=== PATIENT | male | born 1935 | race Caucasian/White ===

== ENCOUNTER 2016-10-29 12:39 | Outpatient (CLI) | payer MEDICARE, OTHER ==
[~2016-10-29] VITALS: Ht 175.3 cm; Wt 80.0 kg
[~2016-10-29 12:39] MED LIST: ACET-2307 PO; ACHD5005 PO; ASP325TEC; ASPI-84 PO; ASPI-983 PO; B COMPLEX PO; BUDE3CAP PO; CAND4TAB PO; CAND4TAB3 PO; CETI10TA17 PO; CHOL20003 PO; CHOL5000 PO; CLIN-62 PO; CLPD75T; CNDS16T; CREON; CYAN500L PO; DIPH25CA79 PO; E400C PO; FERR324T7 PO; FLUT9.9S NS; FOLI0.8T PO; FOLIC ACID 800MCG; FURO20TA4 PO; GLUC1CAP14 PO; GLUCOSAMINE PO; HYDR-3583 PO; IRON150C13 PO; KETO5DRO14 OS; LIPA1CAP2 PO; LORA10TA7 PO; MAGN100T3 PO; MAGN400T6 PO; MAGNESIUM W/ZINC; METO-351 PO; METO25TA PO; MONT10TA24 PO; MTP25TSR PO; MULT1TAB63 PO; NAPR-243 PO; NAPR-689 PO; NF-ESOM40C PO; NIA500ERT PO; NIAC1000 PO; NIAC100045 PO; NIACIN 100 MG; NTR.4SL SL; OFLO5DRO3 OS; OMG1KC PO; POLY-IRON PO; POTA99TA4 PO; POTASSIUM; PRED5DRO17 OS; SELENIUM PO; SILD50TA PO; SIMV40TA2; SIMV40TA2 PO; SIMV40TA4 PO; SUPER B COMPLEX PO; TOLTA4 PO; VARD20TA30 PO; VIT B PO; VITA150T PO; VITAMIN E PO; ZINC PO; [UNRECOGNIZED DRUG - OTHER] PO
[2016-10-29] MEDS ORDERED: MELA1TAB10 PO (12:59)
[2016-10-29 13:05] VITALS: BP 149/86
== END 2016-10-29 14:14 | disposition home or self-care (01) ==
LOC: PREOP 12:39
PROVIDERS: ATTEND Orthopaedic Surgery
DX: Z01.818 Encounter for other preprocedural examination (principal); Z11.2 Encounter for screening for other bacterial diseases; M22.41 Chondromalacia patellae, right knee
CPT/HCPCS: 87081

== ENCOUNTER 2016-11-04 06:05 | Day surgery (SDC) | payer MEDICARE, OTHER ==
--- NOTE | 2016-10-30 07:25 | HISTORY AND PHYSICAL ---
DICTATING PHYSICIAN: Dr. Baker DATE OF ADMISSION: 11/04/2016 Outpatient surgery for right knee arthroscopy. HISTORY: The patient is a 81-year-old gentleman with progressively worsening right knee pain. He underwent an arthroscopy 22 years ago for an anterior knee injury. He did well from this. He complained of anterior knee pain, popping, catching and swelling. His main complaint is mechanical symptoms. He denies any recent injuries. He denies back pain and paresthesias. He has not improved with anti-inflammatories, and activity modifications and because this is he has elected to proceed with surgical intervention. REVIEW OF SYSTEMS: No chest pain, no shortness of breath. No dysuria. PAST MEDICAL HISTORY: 1. Hypertension. 2. Coronary artery disease. 3. Rectal bleeding. 4. Herniorrhaphy. 5. Benign prosthetic hypertrophy. 6. Prostate cancer. 7. Anemia. PAST SURGICAL HISTORY: 1. Cholecystectomy. 2. Prostatectomy. 3. Tonsillectomy. 4. Herniorrhaphy. 5. EGD. FAMILY HISTORY: Significant for coronary artery disease, cancer. PRIMARY CARE PROVIDER: Dr. Franco. MEDICATIONS: 1. Nexium. 2. Simvastatin. 3. Creon. 4. Atacand. 5. Flonase. 6. Metoprolol. 7. Niaspan. 8. Nitroglycerins. 9. Singulair. 10. Zyrtec. 11. Detrol. 12. Iron. 13. Folic acid. 14. Ellipta. 15. Furosemide. 16. Magnesium oxide. 17. Melatonin. 18. Nexium. ALLERGIES: 1. NAPROSYN. 2. IV DYE. 3. KEFLEX. SOCIAL HISTORY: The patient reports no tobacco or alcohol use. PHYSICAL EXAMINATION: The patient is well-developed, well-nourished, in no acute distress. HEENT: Normocephalic, atraumatic. Pupils are equal, round, and reactive light, oropharynx is clear. NECK: Supple. No lymphadenopathy. LUNGS: Clear to auscultation bilaterally. HEART: Regular rate and rhythm. ABDOMEN: Soft, nontender, nondistended. EXTREMITY EXAM: The right knee demonstrates a moderate effusion. He has patellofemoral crepitus and pain with patellar loading. Range of motion 0/0/130. There is no varus valgus laxity. Negative anterior and posterior drawer. He is mildly tender along his medial joint line and has pain medially with Solomon's. 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 PLAN: Right knee arthroscopy with chondroplasty with partial medial meniscectomy. The risks, benefits, options, ramifications and recovery have been discussed in length with the patient and he understands wishes to proceed. Job ID: [id number] Dictated Date: 10/28/2016 13:55:00 Supervisor [employer]astering Date: 10/28/2016 15:13:04/daniela
[~2016-11-04] VITALS: Ht 175.3 cm; Wt 80.0 kg
[~2016-11-04 06:05] MED LIST changes: +MELA1TAB10 PO
[2016-11-04] MEDS ORDERED: LACTATED RINGERS 1,000 ML IV PRN (06:15)
[2016-11-04] MEDS ORDERED: FAMOTIDINE 20MG/2ML IV (PEPCID) IV ONE (06:15)
[2016-11-04] MEDS ORDERED: ceFAZolin 1,000 MG (ANCEF) VIAL ONE (06:18)
[2016-11-04] MEDS ORDERED: NORMAL SALINE (BAXTER MINI) 50 ML IV ONE (06:18)
[2016-11-04] MEDS ORDERED: morphine PF (DURAMORPH) 10 MG/10 ML AMP ONE (06:56)
[2016-11-04] MEDS ORDERED: BUPIVACAINE 0.25% 30 ML (SENSORCAINE) VIAL ONE (06:57)
[2016-11-04 07:03] VITALS: BP 164/95
[2016-11-04] MEDS ORDERED: SEVOFLURANE (ULTANE) 15 ML INHAL SOLN ONE ×3 (07:09→08:03)
[2016-11-04] MEDS ORDERED: LIDOCAINE PF 2% 10 ML (XYLOCAINE) AMP ONE (07:09)
[2016-11-04] MEDS ORDERED: proPOfol 200 MG/20 ML (DIPRIVAN) VIAL IV ONE (07:09)
[2016-11-04] MEDS ORDERED: LACTATED RINGERS 1,000 ML IV ONE (07:09)
[2016-11-04] MEDS ORDERED: MIDAZOLAM 2 MG/2 ML (VERSED) VIAL ONE (07:10)
[2016-11-04] MEDS ORDERED: fentaNYL INJECTION 100 MCG/2 ML AMP ONE (07:10)
[2016-11-04] MEDS ORDERED: HYDROcodone/APAP 7.5 MG/325 MG (LORTAB, LORCET PLUS) TABLET PO PRN (07:15)
--- NOTE | 2016-11-04 07:24 | Progress Note-Pre Operative ---
Pre-Operative Progress Note H&P Reviewed The H&P was reviewed, patient examined and no changes noted. Date H&P Reviewed: Nov 04, 2016 Time H&P Reviewed: 07:11 Pre-Operative Diagnosis: right knee chondromalacia of the patella and trochlea ROMULO MASCORRO MD Nov 04, 2016 07:24
--- NOTE | 2016-11-04 07:25 | Progress Note-Post Operative ---
Post-Operative Progess Note Lehr Operator Eliot Paredes Pre-Operative Diagnosis right knee chondromalacia of the patella and trochlea Post-Operative Diagnosis right knee chondromalacia of the patella, trochlea and medial femoral condyle, medial and lateral meniscal tears Post-Op Procedure Note Date of Procedure: Nov 04, 2016 Name of Procedure: right knee arthroscopic chondroplasty of the patella, trochlea and medial femoral condyle and partial medial and lateral meniscectomies Anesthesia Type GETA Estimated blood loss (mL): minimal Packing: none Specimen(s) collected none ROMULO MASCORRO MD Nov 04, 2016 07:25
[2016-11-04] MEDS ORDERED: ceFAZolin 1 GM/NS 50 ML IVPB IV ONE ×2 (07:45)
[2016-11-04] MEDS ORDERED: DEXAMETHASONE PF 10 MG/ML (DECADRON) VIAL ONE (08:03)
[2016-11-04] MEDS ORDERED: ONDANSETRON 4 MG/2 ML (SDV) Z0FRAN ONE (08:03)
[2016-11-04 09:00] VITALS: BP 147/78
[2016-11-04 09:30] VITALS: BP 157/77
[2016-11-04] MEDS ORDERED: HYDR-3816 PO (09:35)
[2016-11-04 10:00] VITALS: BP 161/79
[2016-11-04 10:13] VITALS: BP 161/79
--- NOTE | 2016-11-04 10:22 | Physical Therapy Ortho Eval ---
PT Orthopedic Evaluation Type of Surgery Knee Scope Elective (R) knee scope chondroplasty with medial meniscectomy Prior Level of Function Current Living Status: Spouse Locomotion (Upon Admit): Independent Established Durable Medical Eq: Front Wheeled Walker Subjective Subjective Pt has no c/o pain. Reports he feels steady and confident in his ability to return home. Entry Into Home: Stairs With Railing Steps Into Home: 3 Motor Control Motor Control: Motor Control WNL ROM ROM: WFL, except focal deficit Right knee 5 -110 degrees Strength right quad 4/5 Transfer Transfers (B, C, W/C) (FIM): 6 Demonstrated ability to get in and out of bed, transfer from sit to stand, and from bed to chair all with modified independence using walker or bed rail. Gait Gait Assistive Device: FWW Distance (FIM): 3=150 ft Distance: 150 Gait Level of Assist: 6 Treatment Rendered Treatment: Therapeutic Exercises, Step Train, Issued Written HEP Exercise Instruction: Quad Sets, Straight Leg Raise, Heel Slides Assessment/Goals Goal Time Frame: 1 Visit Pt demonstrated safe mobility and understanding of home exercises. Pt to be dismissed to home with assist of and son for getting into the home. Plan Treatment Plan: Education, Gait, Therapeutic Exercise Treatment Duration: 1 visit Visits Per Week: 1 PT/Family Agrees to Plan: Yes Time Time In: 1000 Time Out: 1020 Total Billed Treatment Time: 20 Billed Treatment Time visit, eval low complexity Yes PT/OT Therapy GCodes Therapy Functional Limitation: Physical Therapy Test(s)/Tool used to determine: Ko Functional Limitation-Current Charge Code: MOBCUR Modifier: CI Functional Limitation-Goal Charge Code: MOBGOAL Modifier: CI Functional Limitation-D/C Charge Codes: MOBDC Modifier: CI TORRI LOBO PT Nov 04, 2016 10:22
--- NOTE | 2016-11-04 13:10 | OPERATIVE REPORT ---
PROCEDURE PHYSICIAN: ROMULO MASCORRO DATE OF PROCEDURE: 11/04/2016 PREOPERATIVE DIAGNOSIS: 1. Right knee chondromalacia patella. 2. Right knee chondromalacia of the trochlea. POSTOPERATIVE DIAGNOSIS: 1. Right knee chondromalacia patella. 2. Right knee chondromalacia of the trochlea. 3. Right knee chondromalacia of the medial femoral condyle. 4. Right knee lateral meniscal tear. 5. Right knee medial meniscal tear. PROCEDURE: 1. Right knee arthroscopic chondroplasty of the patella. 2. Right knee arthroscopic chondroplasty of the trochlea. 3. Right knee arthroscopic chondroplasty of the medial femoral condyle. 4. Right knee arthroscopic partial lateral meniscectomy. 5. Right knee arthroscopic partial medial meniscectomy. SURGEON: [employer] DRIVER: Eliot Paredes who assisted throughout the procedure and closed the incisions. ANESTHESIA: General endotracheal by [place] CRNA. TOURNIQUET TIME: Was not applicable. ESTIMATED BLOOD LOSS: Minimal. DRAINS: None. COMPLICATIONS: None. POSTOPERATIVE PLAN: Routine arthroscopy protocol. DISPOSITION: The patient was transported to the recovery room, awake, in stable condition. 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 He reported increasing pain, catching, locking and swelling. He had pain with patellar loading with a large effusion noted. He understood that an arthroscopy would help with his mechanical symptoms but would not cure his arthritic symptoms but due to failure to improve with conservative measures the patient elected to proceed with surgical intervention. Examination under anesthesia revealed range of motion 0/2/130. Negative Keith. Negative anterior and posterior drawer. No varus valgus laxity. Negative pivot shift. Arthroscopic findings: The patella trochlea demonstrated diffuse grade 4 chondral loss centrally with surrounding grade 3 chondral flaps at the periphery. The medial and lateral gutters were clear. The lateral compartment demonstrated a degenerative tear of the posterior horn of the medial meniscus involving approximately 20% of the posterior horn. No significant chondral pathology was noted. The ACL and PCL were intact. The medial compartment demonstrated a horizontal cleavage tear of the posterior horn of the meniscus involving approximately 1/3rd of the posterior horn. In addition, there was grade 2 chondral flap near the intracondylar notch in a 10 x 10 area on the femoral condyle. PROCEDURE: After risks and benefits of procedure were discussed an informed consent was signed and placed on the chart. The operative site was confirmed in the preoperative holding and initialed by the surgeon. The patient was then transported to the operating room and after adequate levels of general endotracheal anesthetic were seen a timeout was called confirming the operative site. Examination under anesthesia was performed with the above findings noted. The right lower extremity was prepped and draped usual sterile fashion. 60 mL of fluid was used to insufflate the joint and an inferolateral portal was placed for the arthroscope with inflow cannula. Under direct visualization an inferior medial port was created. The menisci cruciate was carefully probed with the above the above findings noted. The unstable chondral flaps on the patella and trochlea were debrided with a shaver, back to a stable edge. The scope was redirected into the lateral compartment and the posterior horn of the lateral meniscus was debrided with a shaver, back to a stable edge. The scope was redirected into the medial compartment where the unstable chondral flaps of the medial femoral condyle were debrided with a shaver, back to a stable edge and the posterior horn of the medial meniscus was debrided with biter and shaver, removing approximately one 1/3rd of the posterior horn. This was carefully probed with no further tearing or instability noted. The knee was copiously irrigated. Port sites closed with 3-0 nylon in simple interrupted fashion. The knee was injected with Duramorph. Portal sites were infiltrated with plain Marcaine. A soft dressing was applied. The patient was transported to the recovery room, awake, in stable condition subsequently. Job ID: [id number] Dictated Date: 11/04/2016 08:05:02 Press Reader Date: 11/04/2016 13:01:21 / daniela RODRIGUEZ
== END 2016-11-04 10:13 | disposition home or self-care (01) ==
LOC: SDC 06:05
PROVIDERS: ATTEND Orthopaedic Surgery
DX: M22.41 Chondromalacia patellae, right knee (principal); I10 Essential (primary) hypertension; I25.10 Atherosclerotic heart disease of native coronary artery without angina pectoris; Z85.46 Personal history of malignant neoplasm of prostate; Z79.899 Other long term (current) drug therapy

== ENCOUNTER 2017-01-15 10:48 | Outpatient (CLI) | payer MEDICARE, OTHER ==
[~2017-01-15] VITALS: Ht 175.3 cm; Wt 80.0 kg
[~2017-01-15 10:48] MED LIST changes: +HYDR-3816 PO
[2017-01-15] MEDS ORDERED: BUPIVACAINE 0.25% 30 ML (SENSORCAINE) VIAL ONE (11:04)
[2017-01-15] MEDS ORDERED: LIDOCAINE 1% INJ 20 ML (XYLOCAINE) VIAL ONE (11:04)
[2017-01-15] MEDS ORDERED: TRIAMCINOLONE ACET (KENALOG-40) 40 MG/ML 1 ML VIAL ONE (11:04)
[2017-01-15 11:36] VITALS: BP 144/84
[2017-01-15 12:10] VITALS: BP 174/94
--- NOTE | 2017-01-15 12:23 | Pain Medicine-Procedure ---
Procedure Pre-Op/Post-Op Diagnosis Diagnosis: sacrococcygeal disorder Indications for Operation Hip pain Attending Surgeon Roger Procedure Date of Service: Jan 15, 2017 Procedure: Flouroscopic guided left sacroiliac joint injection PROCEDURE IN DETAIL: After obtaining informed consent from the patient, the patient's chart was reviewed. The patient was then brought to the procedure room and placed in the prone position. A time out was performed. The back was prepped with antiseptic solution and under fluoroscopic guidance the patient's sacroiliac joint on the left side was identified. Left sacroiliac joint was identified with fluoroscopic guidance and 2 mL's of 1% lidocaine was used to anesthestize the skin and then one 22-gauge 3.5 inch spinal needle was inserted and advance under flouroscopic guidance until it was in the posterior inferior 1 /3 of the SI joint on the left side. After negative aspiration, needle was injected with 80 mg of Kenalog along with 2 mL's of 0.25% marcaine. Needle was then flushed with 1% lidocaine and then removed. Band-Aids were applied to all the sites and the patient tolerated the procedure well and was taken to the recovery area in stable condition. Complications None VIANNEY MARIA MD Jan 15, 2017 12:23 pm
== END 2017-01-15 12:16 | disposition home or self-care (01) ==
LOC: CARD 10:48
PROVIDERS: ATTEND Pain Medicine Pain Medicine
DX: M53.3 Sacrococcygeal disorders, not elsewhere classified (principal); Z79.899 Other long term (current) drug therapy
CPT/HCPCS: 27096

== ENCOUNTER → 2017-01-27 | Outpatient (CLI) | payer MEDICARE, OTHER ==
--- NOTE | 2017-01-27 16:05 | ECHOCARDIOGRAPHY REPORT ---
DATE OF SERVICE: REFERRING PHYSICIAN: FRANKLIN WILL MD TEST DATE: 01/27/2017 INDICATION: Coronary artery disease, carotid stenosis. MEASUREMENT: LVID and diastolic 4.0. IVS thickness 1.2. LVPW thickness 1.2. Left atrial diameter is 3.0. Ejection fraction 60%. FINDINGS: 1. Technical quality is good. 2. The left ventricle is normal in size with normal contractility, systolic function appears to be normal. Estimated ejection fraction is 60%, mild left ventricular hypertrophy noted diffusely. Diastolic dysfunction is suggested by Doppler. 3. The left atrium is normal in size. No clot or thrombus was seen within the left atrium. 4. The right atrium and right ventricle are normal in size. No clot or thrombus is seen within the right side. 5. Mitral valve is normal in morphology with mild mitral regurgitation noted by color Doppler flow. No mitral valve prolapse. No mitral valve stenosis. 6. Aortic valve is trileaflet with normal opening and closing pattern, no significant aortic valve stenosis was noted. Mild aortic regurgitation noted by color Doppler flow. 7. Tricuspid valve is normal in morphology with mild tricuspid regurgitation noted by color Doppler flow. Doppler across tricuspid valve estimated pulmonary artery pressure of 7 + right atrial pressure. 8. Pulmonic valve is functioning normally. 9. No pericardial effusion. CONCLUSION: 1. Normal left ventricular size and systolic function. Estimated ejection fraction 60%, mild left ventricular hypertrophy, diastolic dysfunction is suggested by Doppler. 2. Mild mitral and tricuspid regurgitation. 3. Estimated pulmonary artery pressure of 15 mmHg. Job ID: [id number] DocumentID: [id number] Dictated Date: 01/27/2017 13:19:12 Nurse General Duty Date: 01/27/2017 15:18:23 Dictated By: JOSE DE JESUS KELSEY MD
== END ==
LOC: CARD 09:38
PROVIDERS: ATTEND Physician Assistant
DX: I25.10 Atherosclerotic heart disease of native coronary artery without angina pectoris (principal); I65.23 Occlusion and stenosis of bilateral carotid arteries; E78.2 Mixed hyperlipidemia; I10 Essential (primary) hypertension
CPT/HCPCS: 93306

== ENCOUNTER 2017-03-04 15:55 | Emergency (ER) | payer MEDICARE, OTHER ==
[~2017-03-04] VITALS: Ht 175.3 cm; Wt 80.0 kg
[2017-03-04 16:18] LABS: BASOPHILS % (AUTO) 0 % (0-10); EOSINOPHILS # (AUTO) 0.1 10^3/uL (0.0-0.3); EOSINOPHILS % (AUTO) 1 % (0-10); LYMPHOCYTES % (AUTO) 11 % (12-44); MEAN CORPUSCULAR HEMOGLOBIN 32 PG (25-34); MEAN CORPUSCULAR HGB CONC 35 G/DL (32-36); MEAN CORPUSCULAR VOLUME 92 FL (80-99); MEAN PLATELET VOLUME 9.2 FL (7.4-10.4); MONOCYTES # (AUTO) 0.8 X 10^3 (0.0-1.0); MONOCYTES % (AUTO) 9 % (0-12); NEUTROPHILS # (AUTO) 7.3 X 10^3 (1.8-7.8); NEUTROPHILS % (AUTO) 79 % (42-75); PLATELET COUNT 184 10^3/uL (130-400); RED BLOOD COUNT 4.74 10^6/uL (4.35-5.85); RED CELL DISTRIBUTION WIDTH 14.7 % (10.0-14.5); WHITE BLOOD COUNT 9.3 10^3/uL (4.3-11.0)
[2017-03-04 16:19] LABS: BILIRUBIN,URINE NEGATIVE (NEGATIVE); KETONES,URINE 1+ (NEGATIVE); LEUKOCYTE ESTERASE ,URINE 3+ (NEGATIVE); NITRITE,URINE NEGATIVE (NEGATIVE); PH,URINE 6.5 (5-9); PROTEIN,URINE 3+ (NEGATIVE); UROBILINOGEN,URINE NORMAL (NORMAL)
--- NOTE | 2017-03-04 16:30 | ED Abdominal Pain ---
General Chief Complaint: Abdominal/GI Problems Stated Complaint: STOMACH PAIN Nursing Triage Note: PATIENT REPORTS ABDOMEN BLOATING WITH INTERMITTENT NAUSEA Sepsis Screen: No Definite Risk Source of Information: Patient Exam Limitations: No Limitations History of Present Illness Time Seen By Provider: 16:25 Initial Comments The patient's an 82 year-old the white male known to me for more than 30 years. He reports that he saw Dr. Franco yesterday on a regular follow-up office visit and Dr. Ng today in the cardiology clinic. He had breakfast at about 0800 this morning which was raisin bran. At about 1130 he felt as if he were becoming bloated. This sensation continued and that he elected not to eat at about 1330 he took 2 Tums and about an hour later he took a Pepcid. Subsequently he vomited or retched up about a cup of clear liquid with a bit of bile in it and the taste of Pepcid. He had a bowel movement at about 0800 this morning and also a small bowel movement between 13 00 and 14 00. He continues to feel bloated. Past medical history is significant for a cholecystectomy several years back followed by multiple episodes episodes of pancreatitis and several ERCPs with stenting. This has been quiet for several years. Following that he had difficulties with anemia and had repeated upper and lower endoscopies plus capsule endoscopy without determining a site of bleeding. For the last 6 months to a year he states that his hemoglobin has been stable. There is been no evidence of blood or black tarry looking stools this time. He continues to feel somewhat nauseated. Timing/Duration: 4-6 Hours Severity/Quality: Mild, Moderate Location: Generalized Abdomen Modifying Factors: Improves With Antacids Allergies and Home Medications Allergies Coded Allergies: naproxen (Verified Allergy, Severe, CAUSED BLEEDING, 10/29/16) Iodinated Contrast Media - Oral and (Unverified Allergy, Mild, NAUSEA, ) Home Medications Acetaminophen 650 Mg Tablet.er, 650 MG PO TID PRN for PAIN, (Reported) Aspirin 81 Mg Tablet.dr, 81 MG PO DAILY@1900, (Reported) Candesartan Cilexetil 4 Mg Tablet, 4 MG PO DAILY, (Reported) Cetirizine HCl 10 Mg Tablet, 10 MG PO HS, (Reported) Cholecalciferol (Vitamin D3) 5,000 Unit Capsule, 5,000 UNIT PO DAILY, (Reported) Cyanocobalamin 500 Mcg Lozenge, 500 MCG PO EVERY OTHER DAY, (Reported) OPPOSITE DAYS OF FOLIC ACID Diphenhydramine HCl 25 Mg Capsule, 25 MG PO HS PRN for SLEEP/ALLERGIES, ( Reported) Esomeprazole Magnesium 40 Mg Cap, 40 MG PO EVERY OTHER DAY, (Reported) Ferrous Gluconate 324 Mg Tablet, 324 MG PO EVERY OTHER DAY, (Reported) Fluticasone Propionate 9.9 Ml [place].susp, 1 SPRAY NS HS, (Reported) Folic Acid 0.8 Mg Tablet, 0.8 MG PO EVERY OTHER DAY, (Reported) ON OPPOSITE DAYS OF B12 Furosemide 20 Mg Tablet, 20 MG PO EVERY OTHER DAY, (Reported) Gluc HCl/Csa/Marilynn Hy/Hyalur AC 1 Each Capsule, 1 CAP PO DAILY, (Reported) Hydrocodone/Acetaminophen 1 Each Tablet, 1-2 TAB PO Q4H PRN for PAIN, #30 Ref 0 Prescribed by: JIAMIE MARTINS on 11/04/16 0935 Lipase/Protease/Amylase 1 Each Capsule.dr, 24,000 UNITS PO AC, (Reported) TAKES 2 (12,000 UNIT) CAPSULES Magnesium Oxide 400 Mg Tablet, 400 MG PO EVERY OTHER DAY, (Reported) Melatonin/Pyridoxine 1 Each Tablet, 1 EACH PO PRN, (Reported) Metoprolol Succinate 25 Mg Tab.er.24h, 25 MG PO HS, (Reported) Montelukast Sodium 10 Mg Tablet, 10 MG PO HS, (Reported) Multivitamins 1 Ea Tablet, 0.5 TAB PO DAILY, (Reported) Niacin 1,000 Mg Tab.er.24h, 1,000 MG PO DAILY@1900, (Reported) Nitroglycerin 0.4 Mg Tab, 0.4 MG SL UD PRN for CHEST PAIN, (Reported) 1 TABLET EVERY 5 MINUTES X 3 DOSES NEEDED FOR CHEST PAIN [place] 3 Polyunsat Fatty Acids 1,000 Mg Cap, 1,000 MG PO DAILY, (Reported) Potassium Gluconate 99 Mg Tablet, 99 MG PO EVERY OTHER DAY, (Reported) TAKES WITH FUROSEMIDE Simvastatin 40 Mg Tablet, 40 MG PO DAILY@1900, (Reported) Tolterodine Tartrate 4 Mg Cap, 4 MG PO HS, (Reported) Vitamin B Complex & Vit C No.4 150 Mg Tablet, 150 MG PO EVERY OTHER DAY, ( Reported) ALTERNATES WITH VITAMIN B12 Review of Systems Constitutional: see HPI EENTM: No Symptoms Reported Respiratory: No Symptoms Reported Cardiovascular: No Symptoms Reported Gastrointestinal: See HPI, Abdomen Distended Genitourinary: No Symptoms Reported Musculoskeletal: no symptoms reported Skin: no symptoms reported Psychiatric/Neurological: No Symptoms Reported Endocrine: No Symptoms Reported Hematologic/Lymphatic: No Symptoms Reported Past Rfsygpn-Rxiivi-Olqyvl Hx Patient Social History Alcohol Use: Denies Use Recreational Drug Use: No Smoking Status: Never a Smoker Recent Foreign Travel: No Contact w/Someone Who Travel: No Recent Infectious Disease Expo: No Recent Hopitalizations: No Immunizations Up To Date Tetanus Booster (TDap): More than 5yrs PED Vaccines UTD: No Date of Pneumonia Vaccine: May 29, 2012 Date of Influenza Vaccine: Jul 16, 2016 Seasonal Allergies Seasonal Allergies: Yes Surgeries HX Surgeries: Yes (PANCREAS STENT AND REMOVAL) Surgeries: Gallbladder, Prostatectomy Respiratory Hx Respiratory Disorders: Yes (LUNG NODULES) Cardiovascular Hx Cardiac Disorders: Yes Cardiac Disorders: Coronary Artery Disease, Heart Attack, High Cholesterol, Hypertension Neurological Hx Neurological Disorders: No Reproductive System Hx Reproductive Disorders: No Sexually Transmitted Disease: No HIV/AIDS: No Genitourinary Hx Genitourinary Disorders: Yes (PROSTATE CA, RECENT UTI) Genitourinary Disorders: Prostate Problems Gastrointestinal Hx Gastrointestinal Disorders: Yes Gastrointestinal Disorders: Gastroesophageal Reflux, Gastrointestinal Bleed, Obstructive Bowel, Ulcer Musculoskeletal Hx Musculoskeletal Disorders: Yes (ARTHRITIS IN FINGERS AND KNEES, HIP PAIN) Musculoskeletal Disorders: Arthritis, Chronic Back Pain Endocrine Hx Endocrine Disorders: No HEENT HX ENT Disorders: Yes (GLASSES, UPPER DENTURES AND LOWER PARTIAL) Loss of Vision: Bilateral Hearing Impairment: Denies Cancer Hx Cancer: Yes (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) Cancer: Prostate, Skin Psychosocial Hx Psychiatric Problems: No Integumentary HX Skin/Integumentary Disorder: No Blood Transfusions Hx Blood Disorders: Yes (ANEMIA-RELATED TO GI BLEED) Adverse Reaction to a Blood Tr: No (HAS HAD BLOOD WITH NO REACTION) Family Medical History Significant Family History: Cancer Family Medial History: Colon cancer FH: COPD (chronic obstructive pulmonary disease) FH: breast cancer FH: heart attack Physical Exam Vital Signs VS - Last 72 Hours, by Label 03/04/17 16:01 Temp 98.2 Pulse 101 Resp 18 B/P (MAP) 141/86 Pulse Ox 99 O2 Delivery Room Air Capillary Refill : Less Than 3 Seconds General Appearance: mild distress HEENT: normal ENT inspection Neck: full range of motion Respiratory: chest non-tender, lungs clear, normal breath sounds, no respiratory distress, no accessory muscle use Cardiovascular: normal peripheral pulses, regular rate, rhythm, no edema, no gallop, no JVD, no murmur Gastrointestinal: abnormal bowel sounds (decreased), tenderness (generalized), other (tympany to percussion) Extremities: normal range of motion, non-tender, normal inspection, no pedal edema, no calf tenderness, normal capillary refill, pelvis stable Back: normal inspection Neurologic/Psychiatric: disability benefits specialist II-XII nml as tested, no motor/sensory deficits, alert, normal mood/affect, oriented x 3 Skin: normal color, warm/dry Lymphatic: no adenopathy Progress/Results/Core Measures Results/Orders Lab Results Laboratory Tests Test 03/04/17 16:05 03/04/17 16:10 Range/Units Urine Color YELLOW Urine Clarity SLIGHTLY CLOUDY Urine pH 6.5 5-9 Urine Specific [place] 1.015 L 1.016-1.022 Urine Protein 3+ H NEGATIVE Urine Glucose (UA) NEGATIVE NEGATIVE Urine Ketones 1+ H NEGATIVE Urine Nitrite NEGATIVE NEGATIVE Urine Bilirubin NEGATIVE NEGATIVE Urine Urobilinogen NORMAL NORMAL MG/DL Urine Leukocyte Esterase 3+ H NEGATIVE Urine RBC (Auto) 2+ H NEGATIVE Urine RBC 2-5 H /HPF Urine WBC 50-100 H /HPF Urine Crystals NONE /LPF Urine Bacteria FEW H /HPF Urine Casts NONE /LPF Urine Mucus NEGATIVE /LPF Urine Culture Indicated YES White Blood Count 9.3 4.3-11.0 10^3/uL Red Blood Count 4.74 4.35-5.85 10^6/uL Hemoglobin 15.0 13.3-17.7 G/DL Hematocrit 44 40-54 % Mean Corpuscular Volume 92 80-99 FL Mean Corpuscular Hemoglobin 32 25-34 PG Mean Corpuscular Hemoglobin Concent 35 32-36 G/DL Red Cell Distribution Width 14.7 H 10.0-14.5 % Platelet Count 184 130-400 10^3/uL Mean Platelet Volume 9.2 7.4-10.4 FL Neutrophils (%) (Auto) 79 H 42-75 % Lymphocytes (%) (Auto) 11 L 12-44 % Monocytes (%) (Auto) 9 0-12 % Eosinophils (%) (Auto) 1 0-10 % Basophils (%) (Auto) 0 0-10 % Neutrophils # (Auto) 7.3 1.8-7.8 X 10^3 Lymphocytes # (Auto) 1.0 1.0-4.0 X 10^3 Monocytes # (Auto) 0.8 0.0-1.0 X 10^3 Eosinophils # (Auto) 0.1 0.0-0.3 10^3/uL Basophils # (Auto) 0.0 0.0-0.1 10^3/uL Sodium Level 142 135-145 MMOL/L Potassium Level 3.6 3.6-5.0 MMOL/L Chloride Level 105 98-107 MMOL/L Carbon Dioxide Level 26 21-32 MMOL/L Anion Gap 11 5-14 MMOL/L Blood Urea Nitrogen 12 7-18 MG/DL Creatinine 0.86 0.60-1.30 MG/DL Estimat Glomerular Filtration Rate > 60 BUN/Creatinine Ratio 14 Glucose Level 130 H 70-105 MG/DL Calcium Level 9.9 8.5-10.1 MG/DL Total Bilirubin 0.6 0.1-1.0 MG/DL Aspartate Amino Transf (AST/SGOT) 23 5-34 U/L Alanine Aminotransferase (ALT/SGPT) 27 0-55 U/L Alkaline Phosphatase 54 40-136 U/L Total Protein 8.0 6.4-8.2 G/DL Albumin 4.3 3.2-4.5 G/DL Lipase 18 8-78 U/L My Orders Orders - SERAFIN IRIZARRY MD Cbc With Automated Diff (03/04/17 16:00) Comprehensive Metabolic Panel (03/04/17 16:00) Lipase (03/04/17 16:00) Ua Culture If Indicated (03/04/17 16:00) Abdomen/Kub [place] (03/04/17 16:32) Urine Culture (03/04/17 16:05) Rocephin 1 Gm Iv (1 X Dose) (03/04/17 17:15) Vital Signs/I&O Vital Sign - Last 12Hours 03/04/17 16:01 Temp 98.2 Pulse 101 Resp 18 B/P (MAP) 141/86 Pulse Ox 99 O2 Delivery Room Air Blood Pressure Mean: 104 Departure Communication Progress Notes CBC chemistry and KUB are relatively unremarkable. UA shows significant WBCs and is consistent with urinary tract infection Impression Impression: Primary Impression: Urinary tract infection Disposition: 01 HOME, SELF-CARE Condition: Stable/Unchanged Departure-Patient Inst. Decision time for Depature: 17:09 Referrals: FRANKLIN FRANCO MD (PCP/Family) Primary Care Physician Patient Instructions: Urinary Tract Infection, Adult (DC) Add. Discharge Instructions: All discharge instructions reviewed with patient and/or family. Voiced understanding. Beginning tomorrow at 5 p.m. start your Omnicef by mouth and take all Scripts Cefdinir (Cefdinir) 300 Mg Capsule 300 MG PO TWICE A DAY, #14 CAP Prov: SERAFIN IRIZARRY MD 03/04/17 SERAFIN IRIZARRY MD March 04, 2017 16:30
[2017-03-04 16:39] LABS: WBC,URINE 50-100 /HPF
[2017-03-04 16:58] LABS: ALANINE AMINOTRANSFERASE 27 U/L (0-55); ALBUMIN 4.3 G/DL (3.2-4.5); ANION GAP 11 MMOL/L (5-14); ASPARTATE AMINO TRANSFERASE 23 U/L (5-34); BILIRUBIN,TOTAL 0.6 MG/DL (0.1-1.0); BLOOD UREA NITROGEN 12 MG/DL (7-18); BUN/CREATININE RATIO 14; CALCIUM 9.9 MG/DL (8.5-10.1); CARBON DIOXIDE 26 MMOL/L (21-32); CHLORIDE 105 MMOL/L (98-107); CREATININE SERUM 0.86 MG/DL (0.60-1.30); GFR ESTIMATED > 60; GLUCOSE 130 MG/DL (70-105); LIPASE 18 U/L (8-78); POTASSIUM 3.6 MMOL/L (3.6-5.0); SODIUM 142 MMOL/L (135-145)
--- NOTE | 2017-03-04 17:09 | Diagnostic Imaging Report ---
INDICATION: Abdominal bloating. Intermittent nausea. COMPARISON: CT chest dated 09/23/[address] abdomen and pelvis dated 07/17/2016. EXAMINATION: Two supine radiographic views of the abdomen were obtained. FINDINGS: Nondistended loops of small bowel are demonstrated. Bulky calcification is noted projecting over the inferior pole of the left kidney and corresponds to a large calculus seen on previously performed CT chest dated 09/23/2016. No other unexpected extraosseous calcifications or radiopaque foreign bodies are seen. Bony structures are age-appropriate. IMPRESSION: 1. Nonobstructed small bowel gas pattern. 2. Large left renal calculus. Dictated by: Dictated on workstation # [id number]
[2017-03-04] MEDS ORDERED: CEFD300C3 PO (17:11)
[2017-03-04] MEDS ORDERED: cefTRIAXone INJECTION 1,000 MG in NS (IVPB) 50 ML IV ONE (17:15)
[2017-03-04 17:36] VITALS: BP 137/80
== END 2017-03-04 17:35 | disposition home or self-care (01) ==
LOC: EDUNIT# 15:55 → ER 15:57
DX: N39.0 Urinary tract infection, site not specified (principal); I10 Essential (primary) hypertension; I25.10 Atherosclerotic heart disease of native coronary artery without angina pectoris; Z79.82 Long term (current) use of aspirin; Z79.899 Other long term (current) drug therapy; Z90.49 Acquired absence of other specified parts of digestive tract; Z85.46 Personal history of malignant neoplasm of prostate; Z95.828 Presence of other vascular implants and grafts
CPT/HCPCS: 36415; 74000; 80053; 81000; 83690; 85025; 87077; 87088; 87186; 99282

== ENCOUNTER → 2017-06-17 | Outpatient (CLI) | payer MEDICARE, OTHER ==
[~2017-06-17] MED LIST changes: +CEFD300C3 PO; +methylPREDNISolone 80 MG/ML (DEPO MEDROL) VIAL ONE
[2017-06-17 15:41] VITALS: BP 145/96
[2017-06-17 16:03] VITALS: BP 143/83
== END ==
LOC: CARD 15:27
PROVIDERS: ATTEND Pain Medicine Interventional Pain Medicine
DX: M46.1 Sacroiliitis, not elsewhere classified (principal)

== ENCOUNTER → 2017-09-14 | Outpatient (CLI) | payer MEDICARE, OTHER ==
[~2017-09-14] MED LIST changes: -methylPREDNISolone 80 MG/ML (DEPO MEDROL) VIAL ONE
--- NOTE | 2017-09-14 18:27 | Diagnostic Imaging Report ---
PROCEDURE: CT chest, abdomen, and pelvis without contrast. TECHNIQUE: Multiple contiguous axial images were obtained through the chest, abdomen, and pelvis without the use of intravenous contrast. INDICATION: Lung nodules, history of prostate cancer. COMPARISON: 09/23/2016. FINDINGS: CHEST: Faint scarring in the inferomedial right lower lobe at the site of previous 4 mm nodule noted. No dominant suspicious or new lung mass. No thoracic lymphadenopathy. No effusion. Benign calcified granulomatous disease is a chronic finding. No suspicious or acute osseous abnormality. ABDOMEN AND PELVIS: Abdominal and pelvic portion compared to 07/17/2016. Progressive staghorn configured calculus in the left kidney casts a lower pole calyx and extends into the renal pelvis where the stone measures a maximal dimension of 2.4 x 0.9 cm. At the level of the lower pole calyx, it has a diameter of about 1.3 cm. No stone within the urinary bladder lumen or along the course of the minimally ectatic left ureter found. Left renal calyceal distention has slightly increased. There is a right renal cortical and parapelvic cyst, stable without right-sided stone disease. Features of small bowel obstruction present on prior having resolved in the interim. Prostate is surgically absent with no regional fluid collection. The pelvic sidewalls appeared normal. No mesenteric or retroperitoneal lymphadenopathy. The unopacified liver is unremarkable. There is a tiny hiatal hernia. The gallbladder is surgically absent. There are pancreatic vascular calcifications. No acute pancreatic abnormality. Spleen and adrenals are negative. The aorta is calcified but nonaneurysmal. There is no ascites, abscess, hematoma, or fluid collection. IMPRESSION: CHEST: No suspicious lung nodule. Resolution of 4 mm density in the right lung base previously, now presenting as a faint linear scar. No acute chest disease or adverse development. ABDOMEN AND PELVIS: 1. Progressive left renal stone burden with mild pyelocaliectasis. No ureteral stone. The right kidney is negative aside from stable cortical and parapelvic cysts. 2. Absent prostate with no abdominal or pelvic lymphadenopathy. 3. Resolution of previous small bowel obstruction. Dictated by: Dictated on workstation # [id number]
== END ==
LOC: RAD 14:03
PROVIDERS: ATTEND Internal Medicine Critical Care Medicine
DX: N20.0 Calculus of kidney (principal); N28.89 Other specified disorders of kidney and ureter; Z85.46 Personal history of malignant neoplasm of prostate
CPT/HCPCS: 71250; 74176

== ENCOUNTER → 2017-10-26 | Outpatient (CLI) | payer MEDICARE, OTHER ==
--- NOTE | 2017-10-26 14:24 | Diagnostic Imaging Report ---
EXAMINATION: Abdomen at 2:22 p.m. INDICATION: Hematuria. FINDINGS: A single supine view was obtained. The prior plain film examination of the abdomen performed on 03/04/2017 noted a 1.5 x 0.8 cm calculus overlying the inferior pole of the left kidney. The CT chest, abdomen, and pelvis exam of 09/14/2017 revealed that this calculus had increased in size and that it measured 2.4 x 0.9 cm. On this exam, the calculus is again evident. This does have the appearance of the staghorn calculus. No other pathological calcification is identified. There is some gas in both the large and small bowel in a nonspecific fashion. There is no evidence for a bowel obstruction. There is a fair amount of fecal material in the ascending and transverse colon. There is no mass or organomegaly identified. The surgical clips on each side of the pelvis seen on the previous exam are again evident. There is degenerative disc and bony disease throughout the lumbar spine. There is no acute bony abnormality noted. 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 There is no acute abnormality of the abdomen or pelvis noted otherwise. Dictated on workstation # [id number]
== END ==
LOC: RAD 13:54
PROVIDERS: ATTEND Urology
DX: N20.0 Calculus of kidney (principal)
CPT/HCPCS: 74018

== ENCOUNTER → 2017-12-30 | Outpatient (CLI) | payer MEDICARE, OTHER ==
[~2017-12-30] VITALS: Ht 175.3 cm; Wt 80.0 kg
[~2017-12-30] MED LIST changes: +HYDR-34 PO; -HYDR-3816 PO; +methylPREDNISolone 80 MG/ML (DEPO MEDROL) VIAL ONE
[2017-12-30 13:43] VITALS: BP 157/81
== END ==
LOC: CARD 13:06
PROVIDERS: ATTEND Pain Medicine Interventional Pain Medicine
DX: M46.1 Sacroiliitis, not elsewhere classified (principal); G89.4 Chronic pain syndrome; Z79.899 Other long term (current) drug therapy
CPT/HCPCS: 27096

== ENCOUNTER 2018-01-03 09:53 | Outpatient (RCR) | payer MEDICARE, OTHER ==
[~2018-01-03 09:53] MED LIST changes: -methylPREDNISolone 80 MG/ML (DEPO MEDROL) VIAL ONE
== END 2018-01-03 10:29 | disposition home or self-care (01) ==
PROVIDERS: ATTEND Family Medicine
DX: M54.5 Low back pain (principal); R29.898 Other symptoms and signs involving the musculoskeletal system

== ENCOUNTER 2018-01-24 05:41 | Outpatient (CLI) | payer MEDICARE, OTHER ==
[~2018-01-24] VITALS: Ht 175.3 cm; Wt 79.8 kg
[2018-01-24] MEDS ORDERED: NITR0.4T39 SL (12:15)
[2018-01-24] MEDS ORDERED: ACET-93 PO (12:15)
[2018-01-24] MEDS ORDERED: MAGN400T6 PO (12:15)
[2018-01-24] MEDS ORDERED: CYAN250010 PO (12:15)
[2018-01-24] MEDS ORDERED: MULT1TAB69 PO (12:15)
[2018-01-24] MEDS ORDERED: OMEG-9 PO (12:15)
[2018-01-24] MEDS ORDERED: MELA1TAB15 PO (12:15)
[2018-01-24] MEDS ORDERED: POTA2TAB5 PO (12:15)
[2018-01-24] MEDS ORDERED: CA C1TAB79 PO (12:15)
[2018-01-24] MEDS ORDERED: RANI-515 PO (12:15)
[2018-01-24] MEDS ORDERED: FOLI0.8T PO (12:15)
== END 2018-01-24 12:16 ==
LOC: PREOP 05:41
PROVIDERS: ATTEND Internal Medicine
DX: Z01.818 Encounter for other preprocedural examination (principal); K92.2 Gastrointestinal hemorrhage, unspecified

== ENCOUNTER 2018-01-28 07:39 | Day surgery (SDC) | payer MEDICARE, OTHER ==
--- NOTE | 2018-01-27 13:17 | HISTORY AND PHYSICAL ---
DATE OF SERVICE: COLONOSCOPY AND POSSIBLE EGD TO FOLLOW HISTORY AND PHYSICAL HISTORY OF PRESENT ILLNESS: The patient is an 83-year-old white male who noted the onset of black stools a week prior to his office appointment on 01/20. He admitted that he had been taking Naprosyn for some arthritic symptoms, only had the onset of dark stool several days later. This happened one other time when he last underwent colonoscopy 5 years ago. At that time, he had evidence for telangiectatic blood vessels in the distal rectal vault and anal canal compatible with chronic radiation proctitis with no evidence for neoplasia. I do not believe that he was having melena at that time. He denies any abdominal discomfort. He has had no weight loss or bowel habit change otherwise. He did stop taking the Naprosyn and over the past 3 days, stools have become more brown in color. He is anxious about the possibility of cancer. He is not aware of any family history for colon cancer. PAST MEDICAL HISTORY: Significant for coronary artery disease. He has single-vessel disease, on cardiac catheterization in 2012 with preserved ejection fraction. He reports a past history of peptic ulcer disease many years ago without significant bleeding. He has a past history of gallstone-related pancreatitis that did necessitate cholecystectomy many years ago. History of hyperlipidemia and hypertension. PAST SURGICAL HISTORY: The remainder of past medical history is significant for hammertoe correction and minor surgery involving the left ring finger removing a flexor tendon nodule. SOCIAL HISTORY: He is retired with no past smoking history and occasional moderate alcohol intake. PHYSICAL EXAMINATION: GENERAL: Reveals an anxious white male who did not otherwise appear to be in acute distress. SKIN: On skin evaluation, he had some mild pallor. HEENT: Sclerae revealed no evidence for icterus. VITAL SIGNS: Weight is 168 pounds, it is unchanged from 5 years ago. Blood pressure 128/68. NECK: Revealed no JVD, adenopathy or bruits. CARDIOVASCULAR: Revealed a regular rate and rhythm. Soft 1-2/6 systolic ejection murmurs heard best at second intercostal space without evidence of pulsus, parvus or tardus. No S3 or S4 was appreciated. CHEST: Clear to auscultation. ABDOMEN: Soft, supple without mass, organomegaly or tenderness. EXTREMITIES: Revealed no cyanosis, clubbing or edema. ASSESSMENT: The patient was set up for diagnostic colonoscopy, possible EGD to follow due to history of melena. Due to pallor, recent melena and past history of anemia, we did take the liberty of sending off CBC, B12 level and iron studies as well as ferritin. His hemoglobin was only slightly low at 12.8 with an MCV of 93, platelet count was slightly low at 133,000 with a white count of 53,800. Iron level was normal at 64 with saturation at the low end of normal at 23.4. B12 level was normal at 429 and ferritin level was at the lower end, normal range at 47.9. The patient was advised to abstain from aspirin and told to stop Naprosyn indefinitely as it likely was a major contributor in his bleeding. He admits to taking this without consulting his physician, Dr. Franco. He was offered an earlier date, but for personal reasons wanted to put this off until 01/28. Prep instructions were given and he was given a Suprep kit and questions were answered. I thank you for the referral of this pleasant gentleman. Job ID: [id number] DocumentID: [id number] Dictated Date: 01/27/2018 12:05:35 [employer] Date: 01/27/2018 13:16:58 Dictated By: JOURDAN WELDON MD MTDD
[~2018-01-28] VITALS: Ht 175.3 cm; Wt 79.8 kg
[~2018-01-28 07:39] MED LIST changes: +ACET-93 PO; +CA C1TAB79 PO; +CYAN250010 PO; +MELA1TAB15 PO; +MULT1TAB69 PO; +NITR0.4T39 SL; +OMEG-9 PO; +POTA2TAB5 PO; +RANI-515 PO
[2018-01-28] MEDS ORDERED: D5 LR IV SOLUTION 1,000 ML IV STA (07:42)
--- OUTSIDE RECORDS SUMMARY | 2018-01-28 07:44 | XMS REPORT | CCD ---
Author Author [facility] Organization [facility] Address [address] [place] [address] Phone Care Team Providers Care Hand Stripper Name Role Phone PP Unavailable CCM Unavailable Summary Purpose Interface Exchange Insurance Providers Payer name Policy type / Coverage type Covered democrat ID Effective Begin Date Effective End Date WPS Medicare Part B Medicare Part B [id number] Unknown Unknown FOR LIFE WPS Medicare Part B [id number] Unknown Unknown Family history Father Diagnosis Age At Onset Arthritis Unknown Myocardial infarction Unknown Colon cancer Unknown Cancer Unknown Hypertension Unknown Diabetes mellitus Type 2 Unknown Sister Diagnosis Age At Onset Diabetes mellitus Type 2 Unknown Arthritis Unknown Hypertension Unknown Colon cancer Unknown Hyperlipidemia Unknown Skin cancer Unknown Denies: Breast cancer Unknown Asthma Unknown Mother Diagnosis Age At Onset Diabetes mellitus Type 2 Unknown Skin cancer Unknown Cancer Unknown Hyperlipidemia Unknown Breast cancer Unknown Hypertension Unknown Stroke Unknown Osteoporosis Unknown Brother Diagnosis Age At Onset Colon cancer Unknown Denies: Breast cancer Unknown Arthritis Unknown Denies: Cancer Unknown Son Diagnosis Age At Onset Seizures Unknown Social History Social History Element Codes Description Effective Dates Marital status Unknown [place] 05/26/2016 Number of children Unknown 4 05/26/2016 Employment Unknown Retired [employer] 05/26/[address]: 525542103 Never smoker 05/26/[address]: 760915 Currently drinks alcohol 05/26/2016 Frequency of drinks SNOMED CT: 237772299 1-4 drinks per week 05/26/2016 Has the patient ever used illegal drugs? Unknown Has never used illegal drugs 05/26/2016 Allergies, Adverse Reactions, Alerts Substance Reaction Codes Entered Date Inactivated Date Status IV DYE, IODINE CONTAINING nausea Unknown 05/26/2016 No Inactive Date Active Past Medical History Illness Codes Condition Status Onset Date Resolved Date Cough ICD-9: 786.2 ICD-10: R05 Active 08/05/2016 Unknown Essential (primary) hypertension ICD-9: 401.1 ICD-10: I10 Active 08/05/2016 Unknown Gross hematuria ICD-9 : 599.71 ICD-10: R31.0 Active 10/26/2017 Unknown Low back pain ICD-9: 724.2 ICD-10: M54.5 Active 04/20/2017 Unknown Muscle weakness (generalized) ICD-9: 728.87 ICD-10: M62.81 Active 10/26/2017 Unknown Mixed hyperlipidemia ICD-9: 272.2 ICD-10: E78.2 Active 05/25/2016 Unknown Other abnormal glucose ICD-9: 790.29 ICD-10: R73.09 Active 06/21/2017 Unknown 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 ICD-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 Active 05/12/2017 Unknown Localized edema ICD-9 : 782.3 ICD-10: R60.0 Active 07/15/2016 Unknown Other allergic rhinitis ICD-9: 477.8 ICD-10: J30.89 Active 04/20/2017 Unknown Pain in left hip ICD-9 : 719.45 ICD-10: M25.552 Active 04/20/2017 Unknown Pain in right hip ICD- 9: 719.45 ICD-10: M25.551 Active 04/20/2017 Unknown Hypertension Unknown Active 01/19/2017 Unknown Hypertensive urgency ICD-9: 401.9 ICD-10: I16.0 Active 01/19/2017 Unknown Acute bronchitis, unspecified ICD-9: 466.0 ICD-10: J20.9 Active 12/17/2016 Unknown Actinic keratosis ICD- 9: 702.0 ICD-10: L57.0 Active 08/05/2016 Unknown Bilateral primary osteoarthritis of hip ICD-9: 715.95 ICD-10: M16.0 Active 05/25/2016 Unknown Hematemesis ICD-9: 578.0 ICD-10: K92.0 Active 07/16/2016 Unknown Encounter for immunization ICD-9: V04.81 ICD-10: Z23 Active 07/15/2016 Unknown Iliotibial band syndrome, left leg ICD-9: 728.89 ICD-10: M76.32 Active 05/25/2016 Unknown Problems Condition Codes Effective Dates Condition Status Cough ICD-9: 786.2 ICD-10: R05 08/05/2016 Active Essential (primary) hypertension ICD-9: 401.1 ICD-10: I10 08/05/2016 Active Gross hematuria ICD-9 : 599.71 ICD-10: R31.0 10/26/2017 Active Low back pain ICD-9: 724.2 ICD-10: M54.5 04/20/2017 Active Muscle weakness (generalized) ICD-9: 728.87 ICD-10: M62.81 10/26/2017 Active Mixed hyperlipidemia ICD-9: 272.2 ICD-10: E78.2 05/25/2016 Active Other abnormal glucose ICD-9: 790.29 ICD-10: R73.09 06/21/2017 Active 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 ICD-10: B00.1 05/12/2017 Active Localized edema ICD-9 : 782.3 ICD-10: R60.0 07/15/2016 Active Other allergic rhinitis ICD-9: 477.8 ICD-10: J30.89 04/20/2017 Active Pain in left hip ICD-9 : 719.45 ICD-10: M25.552 04/20/2017 Active Pain in right hip ICD- 9: 719.45 ICD-10: M25.551 04/20/2017 Active Hypertension Unknown 01/19/2017 Active Hypertensive urgency ICD-9: 401.9 ICD-10: I16.0 01/19/2017 Active Acute bronchitis, unspecified ICD-9: 466.0 ICD-10: J20.9 12/17/2016 Active Actinic keratosis ICD- 9: 702.0 ICD-10: L57.0 08/05/2016 Active Bilateral primary osteoarthritis of hip ICD-9: 715.95 ICD-10: M16.0 05/25/2016 Active Hematemesis ICD-9: 578.0 ICD-10: K92.0 07/16/2016 Active Encounter for immunization ICD-9: V04.81 ICD-10: Z23 07/15/2016 Active Iliotibial band syndrome, left leg ICD-9: 728.89 ICD-10: M76.32 05/25/2016 Active Medications Medication Codes Instructions Start Date Stop Date Status Fill Instructions Phenergan-Codeine 6.25 mg-10 mg/5 mL syrup RxNorm: 000437 5 Milliliter(s) PO Q6 as needed cough 11/24/2017 No Stop Date Active Voltaren 1 % topical gel RxNorm: 126893 2 Gram(s) TOP QID 10/2610/20/2018 Active Norvasc 10 mg tablet RxNorm: 442835 1 Tablet(s) PO daily 201609/08/2018 Active Creon 12,000-38,000-60,000 unit capsule,delayed release RxNorm: 073066 2 Capsule(s ) PO AC 06/16/2017 06/10/2018 Active furosemide 20 mg tablet RxNorm: 477637 1 Tablet(s) PO every other day scheduled and up to daily if needed for excessive swelling of lower legs 05/12/2017 05/06/2018 Active Daniela Allergy 180 mg tablet RxNorm: 717887 1 Tablet(s) PO daily 04/20/2017 07/18/2017 Inactive prednisone 20 mg tablet RxNorm: 077838 1 Tablet(s) PO daily 08/201704/22/2017 Inactive omeprazole 20 mg tablet,delayed release RxNorm: 169583 1 Tablet(s) PO daily 03/03/2017 02/25/2018 Active Creon 12,000-38,000-60,000 unit capsule,delayed release RxNorm: 283776 2 Capsule(s ) PO AC 03/03/2017 06/15/2017 Inactive furosemide 20 mg tablet RxNorm: 901383 1 Tablet(s) PO every other day 03/03/2017 05/11/2017 Inactive Norvasc 5 mg tablet RxNorm: 570040 1 Tablet(s) PO daily 201609/13/2017 Inactive Norvasc 10 mg tablet RxNorm: 842557 1 Tablet(s) PO daily 201603/02/2017 Inactive Zithromax Z-Edwin 250 mg tablet RxNorm: 951903 1 Tablet(s) PO UD 12/17/2016 12/21/2016 Inactive zpack Bactroban 2 % topical cream RxNorm: 156291 1 Application TOP daily 10/15/2016 No Stop Date Active potassium 99 mg tablet RxNorm: 1 Tablet(s) PO daily 2016 No Stop Date Active ferrous gluconate 324 mg (36 mg iron) tablet RxNorm: 805574 1 Tablet(s) PO every other day 10/15/2016 No Stop Date Active furosemide 20 mg tablet RxNorm: 962643 1 Tablet(s) PO every other day 10/09/2016 03/02/2017 Inactive Incruse Ellipta 62.5 mcg/actuation powder for inhalation RxNorm: 9119318 1 INH daily 08/06/2016 08/05/2016 Inactive Incruse Ellipta 62.5 mcg/actuation powder for inhalation RxNorm: 0742636 1 INH daily 08/06/2016 07/31/2017 Inactive Efudex 5 % topical cream RxNorm: 197318 1 Application TOP BID TO LESIONS ON FACE 07/28/2016 08/06/2016 Inactive furosemide 20 mg tablet RxNorm: 894514 1 Tablet(s) PO every other day 07/16/2016 10/08/2016 Inactive metoprolol succinate ER 25 mg tablet,extended release 24 hr RxNorm: 194306 1 Tablet(s) PO daily 06/26/2016 06/20/2017 Inactive Atacand 4 mg tablet RxNorm: 941499 1 Tablet(s) PO daily 201506/20/[address] - ER 3 mg capsule,delayed,extended release RxNorm: 1997774 3 Capsule (s) PO daily 06/26/2016 06/20/2017 Inactive Poly-Iron 150 Forte 150 mg-25 mcg-1 mg capsule RxNorm: 674877 1 Capsule(s) PO daily 06/26/2016 06/20/2017 Inactive Vitamin D3 2,000 unit tablet RxNorm: 776733 1 Tablet(s) PO daily 06/26/2016 06/20/2017 Inactive Flonase Allergy Relief 50 mcg/actuation nasal spray, suspension RxNorm: 6401945 1 Mobile NASAL daily 06/26/20162016 Inactive simvastatin 40 mg tablet RxNorm: 814882 1 Tablet(s) PO QPM 06/20/2017 Inactive Niaspan 1,000 mg tablet,extended release RxNorm: 2648613 1 Tablet(s) PO QPM 06/26/2016 06/20/2017 Inactive Nexium 40 mg capsule,delayed release RxNorm: 463587 1 Capsule(s) PO daily 06/26/2016 03/02/2017 Inactive Creon 12,000-38,000-60,000 unit capsule,delayed release RxNorm: 239717 2 Capsule(s ) PO daily 06/26/2016 03/02/2017 Inactive multivitamin tablet RxNorm: 1/2 Tablet(s) PO daily No Start Date Active Nexium 40 mg capsule,delayed release RxNorm: 256844 1 Capsule(s) PO every other day No Start Date Active melatonin 3 mg tablet RxNorm: 912286 1 Tablet(s) PO QHS as needed insomnia No Start Date Active Niaspan 1,000 mg tablet,extended release RxNorm: 6351991 1 Tablet(s) PO QPM No Start Date Active Atacand 4 mg tablet RxNorm: 292528 1 Tablet(s) PO QAM No Start Date Active montelukast 10 mg tablet RxNorm: 20011114 1 Tablet(s) PO QPM No Start Date Active Detrol LA 4 mg capsule,extended release RxNorm: 087581 1 Capsule(s) PO daily No Start Date Active simvastatin 40 mg tablet RxNorm: 19811011 1 Tablet(s) PO QPM No Start Date Active folic acid 800 mcg tablet RxNorm: 540507 1 Tablet(s) PO every other day No Start Date Active metoprolol succinate ER 25 mg tablet,extended release 24 hr RxNorm: 451307 1 Tablet(s) PO QPM No Start Date Active Toviaz 8 mg tablet,extended release RxNorm: 118432 1 Tablet(s) PO daily No Start Date Active Glucosamine Chondroitin PLUS oral RxNorm: 4419 oral No Start Date Active Vitamin B-12 500 mcg tablet RxNorm: 572145 1 Tablet(s) PO every other day No Start Date Active Aspirin Low Dose 81 mg tablet,delayed release RxNorm: 896519 1 Tablet(s) PO QPM No Start Date Active diphenhydramine 12.5 mg chewable tablet RxNorm: 7952238 1 Tablet(s) PO Q6 as needed allergy symptoms No Start Date Active Nitrostat 0.4 mg sublingual tablet RxNorm: 411972 1 Tablet(s) SL as needed No Start Date Active vitamin B complex oral RxNorm: 31680 oral No Start Date Active Creon 24,000-76,000-120,000 unit capsule,delayed release RxNorm: 918185 2 Capsule( s) PO TID per meal No Start Date Active Vitamin D3 5,000 unit tablet RxNorm: 462722 1 Tablet(s) PO daily No Start Date Active magnesium oxide 400 mg tablet RxNorm: 248940 1 Tablet(s) PO TIW on Wed, Wed, No Start Date Active acetaminophen 500 mg tablet RxNorm: 817095 1 Tablet(s) PO TID with meals No Start Date Active Fish Oil 900 mg-1,400 mg capsule,delayed release RxNorm: 1 Capsule(s) PO QAM No Start Date Active Co Q-10 oral RxNorm: 20099 oral No Start Date Active Phenergan-Codeine 6.25 mg-10 mg/5 mL syrup RxNorm: 562729 5 Milliliter(s) PO Q6 as needed cough No Start Date 11/23/2017 Inactive potassium 99 mg tablet RxNorm: 1 Tablet(s) PO TIW on Mon, Wed, Sat No Start Date 10/14/2016 Inactive fluticasone 50 mcg/actuation nasal spray,suspension RxNorm: 2842604 2 Mobile NASAL QPM as needed No Start Date 10/15/2016 Inactive ferrous gluconate 324 mg (36 mg iron) tablet RxNorm: 380616 1 Tablet(s) PO BIW No Start Date 10/14/2016 Inactive melatonin oral RxNorm : 6711 oral No Start Date 10/15/2016 Inactive Zyrtec 10 mg tablet RxNorm: 1722097 1 Tablet(s) PO QPM No Start Date 10/14/2016 Inactive ranitidine 150 mg tablet RxNorm: 209792 1 Tablet(s) PO QPM No Start Date 10/14/2016 Inactive Medication Administered No Medication Administered data Immunizations Vaccine Codes Date Status Influenza CVX: 141 07/16/2016 completed Assessments Condition Codes Effective Dates Low back pain ICD-10: M54.5 ICD-9: 724.2 10/26/2017 Gross hematuria ICD-10: R31.0 ICD-9: 599.71 10/26/2017 Essential (primary) hypertension ICD-10: I10 ICD-9: 401.1 10/26/2017 Muscle weakness (generalized) ICD-10: M62.81 ICD-9: 728.87 10/26/2017 Cough ICD-10: R05 ICD-9: 786.2 10/26/2017 Other abnormal glucose ICD-10: R73.09 ICD-9: 790.29 06/21/2017 Mixed hyperlipidemia ICD-10: E78.2 ICD-9: 272.2 06/21/2017 Localized edema ICD-10: R60.0 ICD-9: 782.3 05/12/2017 Herpesviral vesicular dermatitis ICD-10: B00.1 ICD-9: 054.9 05/12/2017 Other allergic rhinitis ICD-10: J30.89 ICD-9: 477.8 04/20/2017 Pain in left hip ICD-10: M25.552 ICD-9: 719.45 04/20/2017 Pain in right hip ICD-10: M25.551 ICD-9: 719.45 04/20/2017 Hypertensive urgency ICD-10: I16.0 ICD-9: 401.9 01/19/2017 Acute bronchitis, unspecified ICD-10: J20.9 ICD-9: 466.0 12/17/2016 Actinic keratosis ICD-10: L57.0 ICD-9: 702.0 10/15/2016 Bilateral primary osteoarthritis of hip ICD-10: M16.0 ICD-9: 715.95 10/15/2016 Hematemesis ICD-10: K92.0 ICD-9: 578.0 07/17/2016 Encounter for immunization ICD-10: Z23 ICD-9: V04.81 07/16/2016 Iliotibial band syndrome, left leg ICD-10: M76.32 ICD-9: 728.89 05/26/2016 Reason For Visit Reason For Visit Effective Dates Notes hypertension 10/26/2017 edema 06/21/2017 edema 05/12/2017 hip pain 04/20/2017 hypertension 03/03/2017 medication follow up 01/28/2017 hypertension 01/19/2017 cough 12/17/2016 low back pain 10/15/2016 low back pain 08/06/2016 Hospital Follow Up 07/28/2016 nausea 07/17/2016 fatigue 07/16/2016 cough 05/26/2016 Results Observation Observation Code Item Item Code Result Date Cbc With Differential Ord2 WBC 7.44 K/ul 06/22/2017 Cbc With Differential Ord2 RBC 4.29 M/ul 06/22/2017 Cbc With Differential Ord2 HGB 13.5 g/dl 06/22/2017 Cbc With Differential Ord2 Neut% 71.2 % 06/22/2017 Cbc With Differential Ord2 HCT 39.6 % 06/22/2017 Cbc With Differential Ord2 MCV 92.3 fl 06/22/2017 Cbc With Differential Ord2 Lymph% 16.5 % 06/22/2017 Cbc With Differential Ord2 MCH 31.5 pg 06/22/2017 Cbc With Differential Ord2 Pepin% 11.3 % 06/22/2017 Cbc With Differential Ord2 MCHC 34.1 pg 06/22/2017 Cbc With Differential Ord2 Eos% 0.9 % 06/22/2017 Cbc With Differential Ord2 PLT 198 K/ul 06/22/2017 Cbc With Differential Ord2 Baso% 0.1 % 06/22/2017 Cbc With Differential Ord2 RDW 13.5 % 06/22/2017 Cbc With Differential Ord2 Neut ABS# 5.29 K/ul 06/22/2017 Cbc With Differential Ord2 Lymph ABS# 1.23 K/ul 06/22/2017 Cbc With Differential Ord2 Pepin ABS# 0.8 K/ul 06/22/2017 Cbc With Differential Ord2 Eos ABS# 0.1 K/ul 06/22/2017 Cbc With Differential Ord2 Baso ABS# 0.0 K/ul 06/22/2017 Comp Metabolic Sgh063 NA 140 mEq/L 06/22/2017 Comp Metabolic Juw337 K 3.8 mEq/L 06/22/2017 Comp Metabolic Dzh787 CL 104 mEq/L 06/22/2017 Comp Metabolic Drg129 CO2 29.0 mEq/L 06/22/2017 Comp Metabolic Wqg999 ANION GAP 11 06/22/2017 Comp Metabolic Jse305 GLUCOSE 137 mg/dL 06/22/2017 Comp Metabolic Pdi156 Creat 0.9 mg/dL 06/22/2017 Comp Metabolic Zfx369 eGFR 90 ml/min/1.73m2 06/22/2017 Comp Metabolic Hqz658 BUN 14 mg/dL 06/22/2017 Comp Metabolic Cbb342 B/C Ratio 16.1 Ratio 06/22/2017 Comp Metabolic Fpp041 CALCIUM 9.2 mg/dL 06/22/2017 Comp Metabolic Niq721 ALK PHOS 70 U/L 06/22/2017 Comp Metabolic Pps060 AST(SGOT) 16 U/L 06/22/2017 Comp Metabolic Sgs898 ALT(SGPT) 26 U/L 06/22/2017 Comp Metabolic Vdh675 BILI T 0.4 mg/dL 06/22/2017 Comp Metabolic Sey834 ALBUMIN 4.0 g/dL 06/22/2017 Comp Metabolic Chl710 TPRO 6.9 g/dL 06/22/2017 Comp Metabolic Ucd008 GLOB 2.9 g/dL 06/22/2017 Comp Metabolic Fel616 A/G Ratio 1.3 Ratio 06/22/2017 Comp Metabolic Efq953 Osmo 282 mOsmo 06/22/2017 %Hba1C Qin192 % HbA1c 03723-3 6.2 % 06/22/2017 %Hba1C Tbx539 Gluc Ave 131 mg/dL 06/22/2017 Tsh Ord6 hTSH II 3.47 uIU/mL 06/22/2017 Lipid Ord30 CHOL 137 mg/dL 06/22/2017 Lipid Ord30 HDL 45.0 mg/dl 06/22/2017 Lipid Ord30 TRIG 165 mg/dL 06/22/2017 Lipid Ord30 LDL 59 mg/dL 06/22/2017 Lipid Ord30 C/HDL 3.0 Ratio 06/22/2017 Culture Urine [id number] URINE CULTURE SEE NOTES 10/13/2016 Culture Urine [id number] Continued Results 10/13/2016 Review of Systems System Result Effective Dates Constitutional No recent illness 2017 Constitutional No chills 10/26/2017 Constitutional No fatigue 10/26/2017 Constitutional No fever 10/26/2017 Constitutional No insomnia 10/26/2017 Constitutional No malaise 10/26/2017 Cardiovascular No chest pain/pressure Cardiovascular No dyspnea 10/26/2017 Cardiovascular No edema 10/26/2017 Cardiovascular No exercise intolerance Cardiovascular No fatigue 10/26/2017 Cardiovascular No near-syncope/dizziness 10/26/2017 Respiratory No chest tightness 2017 Respiratory No dyspnea 10/26/2017 Respiratory No pedal edema 10/26/2017 Gastrointestinal No abdominal pain 2017 Gastrointestinal No constipation 2017 Gastrointestinal No diarrhea 10/26/2017 Gastrointestinal No gastroesophageal reflux 10/26/2017 Gastrointestinal No nausea 10/26/2017 Gastrointestinal No vomiting 10/26/2017 Musculoskeletal stiffness 10/26/2017 Musculoskeletal No swelling 10/26/2017 Musculoskeletal muscle weakness 2017 Musculoskeletal No myalgias 10/26/2017 Dermatologic No sores 10/26/2017 Neurologic No dizziness 10/26/2017 Neurologic No headache 10/26/2017 Neurologic No neck pain 10/26/2017 Neurologic No syncope 10/26/2017 Psychiatric No anxiety 10/26/2017 Psychiatric No depression 10/26/2017 Musculoskeletal arthralgia(s) 10/26/2017 Musculoskeletal back pain 10/26/2017 Genitourinary/Nephrology hematuria 2017 Respiratory cough 10/26/2017 Constitutional No recent illness 2016 Constitutional No chills 06/21/2017 Constitutional No fatigue 06/21/2017 Constitutional No fever 06/21/2017 Constitutional No insomnia 06/21/2017 Constitutional No malaise 06/21/2017 Cardiovascular No chest pain/pressure 08/2017 Cardiovascular No dyspnea 06/21/2017 Cardiovascular No edema 06/21/2017 Cardiovascular No exercise intolerance Cardiovascular No fatigue 06/21/2017 Cardiovascular No near-syncope/dizziness 06/21/2017 Respiratory No chest tightness 2016 Respiratory No dyspnea 06/21/2017 Respiratory No pedal edema 06/21/2017 Gastrointestinal No abdominal pain 2016 Gastrointestinal No constipation 2016 Gastrointestinal No diarrhea 06/21/2017 Gastrointestinal No gastroesophageal reflux 06/21/2017 Gastrointestinal No nausea 06/21/2017 Gastrointestinal No vomiting 06/21/2017 Musculoskeletal stiffness 06/21/2017 Musculoskeletal No swelling 06/21/2017 Musculoskeletal No muscle weakness 2016 Musculoskeletal No myalgias 06/21/2017 Neurologic No dizziness 06/21/2017 Neurologic No headache 06/21/2017 Neurologic No neck pain 06/21/2017 Neurologic No syncope 06/21/2017 Psychiatric No anxiety 06/21/2017 Psychiatric No depression 06/21/2017 Dermatologic No sores 06/21/2017 Constitutional No recent illness 2016 Constitutional No chills 05/12/2017 Constitutional No fatigue 05/12/2017 Constitutional No fever 05/12/2017 Constitutional No insomnia 05/12/2017 Constitutional No malaise 05/12/2017 Cardiovascular No chest pain/pressure 11/2016 Cardiovascular No dyspnea 05/12/2017 Cardiovascular edema 05/12/2017 Cardiovascular No exercise intolerance Cardiovascular No fatigue 05/12/2017 Cardiovascular No near-syncope/dizziness 05/12/2017 Respiratory No chest tightness 2016 Respiratory No dyspnea 05/12/2017 Respiratory No pedal edema 05/12/2017 Gastrointestinal No abdominal pain 2016 Gastrointestinal No constipation 2016 Gastrointestinal No diarrhea 05/12/2017 Gastrointestinal No gastroesophageal reflux 05/12/2017 Gastrointestinal No nausea 05/12/2017 Gastrointestinal No vomiting 05/12/2017 Musculoskeletal stiffness 05/12/2017 Musculoskeletal No swelling 05/12/2017 Musculoskeletal No muscle weakness 2016 Musculoskeletal No myalgias 05/12/2017 Neurologic No dizziness 05/12/2017 Neurologic No headache 05/12/2017 Neurologic No neck pain 05/12/2017 Neurologic No syncope 05/12/2017 Psychiatric No anxiety 05/12/2017 Psychiatric No depression 05/12/2017 Ears/Nose/Throat/Neck No dental pain 11/2016 Ears/Nose/Throat/Neck No dizziness 2016 Ears/Nose/Throat/Neck No dysphagia 2016 Ears/Nose/Throat/Neck No headache 2016 Ears/Nose/Throat/Neck No hearing loss 11/2016 Ears/Nose/Throat/Neck No nasal allergies 05/12/2017 Ears/Nose/Throat/Neck No sore throat 11/2016 Ears/Nose/Throat/Neck No postnasal drip 05/12/2017 Ears/Nose/Throat/Neck No sinus congestion 05/12/2017 Constitutional No recent illness 2016 Constitutional No chills 04/20/2017 Constitutional No diaphoresis 04/20/2017 Constitutional No fever 04/20/2017 Eyes No eye erythema 04/20/2017 Ears/Nose/Throat/Neck nasal allergies 08/2017 Ears/Nose/Throat/Neck nasal discharge 08/2017 Ears/Nose/Throat/Neck postnasal drip 08/2017 Ears/Nose/Throat/Neck No sinus congestion 04/20/2017 Ears/Nose/Throat/Neck No sore throat 08/2017 Cardiovascular No chest pain/pressure 08/2017 Respiratory cough 04/20/2017 Respiratory No dyspnea 04/20/2017 Gastrointestinal No abdominal pain 2016 Musculoskeletal back pain 04/20/2017 Neurologic No alteration of consciousness 04/20/2017 Neurologic No mental status change 2016 Constitutional No recent illness 2016 Constitutional No chills 03/03/2017 Constitutional No fatigue 03/03/2017 Constitutional No fever 03/03/2017 Constitutional No insomnia 03/03/2017 Constitutional No malaise 03/03/2017 Cardiovascular No chest pain/pressure Cardiovascular No dyspnea 03/03/2017 Cardiovascular No edema 03/03/2017 Cardiovascular No exercise intolerance Cardiovascular No fatigue 03/03/2017 Cardiovascular No near-syncope/dizziness 03/03/2017 Respiratory No chest tightness 2016 Respiratory No dyspnea 03/03/2017 Respiratory No pedal edema 03/03/2017 Gastrointestinal No abdominal pain 2016 Gastrointestinal No constipation 2016 Gastrointestinal No diarrhea 03/03/2017 Gastrointestinal No gastroesophageal reflux 03/03/2017 Gastrointestinal No nausea 03/03/2017 Gastrointestinal No vomiting 03/03/2017 Musculoskeletal stiffness 03/03/2017 Musculoskeletal No swelling 03/03/2017 Musculoskeletal No muscle weakness 2016 Musculoskeletal No myalgias 03/03/2017 Neurologic No dizziness 03/03/2017 Neurologic No headache 03/03/2017 Neurologic No neck pain 03/03/2017 Neurologic No syncope 03/03/2017 Psychiatric No anxiety 03/03/2017 Psychiatric No depression 03/03/2017 Constitutional No recent illness 2016 Constitutional No chills 01/28/2017 Constitutional No fatigue 01/28/2017 Constitutional No fever 01/28/2017 Constitutional No insomnia 01/28/2017 Constitutional No malaise 01/28/2017 Cardiovascular No chest pain/pressure Cardiovascular No dyspnea 01/28/2017 Cardiovascular No edema 01/28/2017 Cardiovascular No exercise intolerance Cardiovascular No fatigue 01/28/2017 Cardiovascular No near-syncope/dizziness 01/28/2017 Respiratory No chest tightness 2016 Respiratory cough 01/28/2017 Respiratory No dyspnea 01/28/2017 Respiratory No pedal edema 01/28/2017 Gastrointestinal No abdominal pain 2016 Gastrointestinal No constipation 2016 Gastrointestinal No diarrhea 01/28/2017 Gastrointestinal No gastroesophageal reflux 01/28/2017 Gastrointestinal No nausea 01/28/2017 Gastrointestinal No vomiting 01/28/2017 Musculoskeletal stiffness 01/28/2017 Musculoskeletal No swelling 01/28/2017 Musculoskeletal arthralgia(s) 01/28/2017 Musculoskeletal No muscle weakness 2016 Musculoskeletal No myalgias 01/28/2017 Dermatologic sores 01/28/2017 Neurologic No dizziness 01/28/2017 Neurologic No headache 01/28/2017 Neurologic No neck pain 01/28/2017 Neurologic No syncope 01/28/2017 Psychiatric No anxiety 01/28/2017 Psychiatric No depression 01/28/2017 Constitutional No recent illness 2016 Constitutional No chills 01/19/2017 Constitutional No fatigue 01/19/2017 Constitutional No fever 01/19/2017 Constitutional No insomnia 01/19/2017 Constitutional No malaise 01/19/2017 Cardiovascular No chest pain/pressure 08/2017 Cardiovascular No dyspnea 01/19/2017 Cardiovascular No edema 01/19/2017 Cardiovascular No exercise intolerance Cardiovascular No fatigue 01/19/2017 Cardiovascular No near-syncope/dizziness 01/19/2017 Respiratory No chest tightness 2016 Respiratory cough 01/19/2017 Respiratory No dyspnea 01/19/2017 Respiratory No pedal edema 01/19/2017 Gastrointestinal No abdominal pain 2016 Gastrointestinal No constipation 2016 Gastrointestinal No diarrhea 01/19/2017 Gastrointestinal No gastroesophageal reflux 01/19/2017 Gastrointestinal No nausea 01/19/2017 Gastrointestinal No vomiting 01/19/2017 Musculoskeletal stiffness 01/19/2017 Musculoskeletal No swelling 01/19/2017 Musculoskeletal arthralgia(s) 01/19/2017 Musculoskeletal No muscle weakness 2016 Musculoskeletal No myalgias 01/19/2017 Neurologic No dizziness 01/19/2017 Neurologic No headache 01/19/2017 Neurologic No neck pain 01/19/2017 Neurologic No syncope 01/19/2017 Psychiatric No anxiety 01/19/2017 Psychiatric No depression 01/19/2017 Cardiovascular hypertension 01/19/2017 Constitutional No anorexia 12/17/2016 Constitutional recent illness 12/17/2016 Constitutional No night sweats 2016 Constitutional No chills 12/17/2016 Constitutional No diaphoresis 12/17/2016 Constitutional No fatigue 12/17/2016 Constitutional No fever 12/17/2016 Constitutional No weight gain 12/17/2016 Constitutional No weight loss 12/17/2016 Constitutional No malaise 12/17/2016 Constitutional No insomnia 12/17/2016 Eyes No eye discharge 12/17/2016 Eyes No eye erythema 12/17/2016 Ears/Nose/Throat/Neck No dizziness 2016 Ears/Nose/Throat/Neck No headache 2016 Ears/Nose/Throat/Neck No nasal allergies 12/17/2016 Ears/Nose/Throat/Neck nasal discharge 06/2017 Ears/Nose/Throat/Neck No otalgia 2016 Ears/Nose/Throat/Neck sinus congestion Ears/Nose/Throat/Neck No sore throat 06/2017 Cardiovascular No chest pain/pressure 06/2017 Cardiovascular No dyspnea 12/17/2016 Cardiovascular No edema 12/17/2016 Respiratory productive sputum 12/17/2016 Respiratory chest congestion 12/17/2016 Respiratory cough 12/17/2016 Gastrointestinal No abdominal pain 2016 Gastrointestinal No constipation 2016 Gastrointestinal No diarrhea 12/17/2016 Genitourinary/Nephrology No dysuria 12/17 Musculoskeletal No joint complaint 2016 Dermatologic No rash 12/17/2016 Neurologic No alteration of consciousness 12/17/2016 Constitutional No recent illness 2016 Constitutional No chills 10/15/2016 Constitutional No fatigue 10/15/2016 Constitutional No fever 10/15/2016 Constitutional No insomnia 10/15/2016 Constitutional No malaise 10/15/2016 Cardiovascular No chest pain/pressure 02/2017 Cardiovascular No dyspnea 10/15/2016 Cardiovascular No edema 10/15/2016 Cardiovascular No exercise intolerance Cardiovascular No fatigue 10/15/2016 Cardiovascular No near-syncope/dizziness 10/15/2016 Respiratory No chest tightness 2016 Respiratory cough 10/15/2016 Respiratory No dyspnea 10/15/2016 Respiratory No pedal edema 10/15/2016 Gastrointestinal No abdominal pain 2016 Gastrointestinal No constipation 2016 Gastrointestinal No diarrhea 10/15/2016 Gastrointestinal No gastroesophageal reflux 10/15/2016 Gastrointestinal No nausea 10/15/2016 Gastrointestinal No vomiting 10/15/2016 Musculoskeletal stiffness 10/15/2016 Musculoskeletal No swelling 10/15/2016 Musculoskeletal arthralgia(s) 10/15/2016 Musculoskeletal No muscle weakness 2016 Musculoskeletal No myalgias 10/15/2016 Neurologic No dizziness 10/15/2016 Neurologic No headache 10/15/2016 Neurologic No neck pain 10/15/2016 Neurologic No syncope 10/15/2016 Psychiatric No anxiety 10/15/2016 Psychiatric No depression 10/15/2016 Dermatologic sores 10/15/2016 Constitutional No recent illness 2015 Constitutional No chills 08/06/2016 Constitutional No fatigue 08/06/2016 Constitutional No fever 08/06/2016 Constitutional No insomnia 08/06/2016 Constitutional No malaise 08/06/2016 Cardiovascular No chest pain/pressure Cardiovascular No dyspnea 08/06/2016 Cardiovascular No edema 08/06/2016 Cardiovascular No exercise intolerance Cardiovascular No fatigue 08/06/2016 Cardiovascular No near-syncope/dizziness 08/06/2016 Respiratory No chest tightness 2015 Respiratory cough 08/06/2016 Respiratory No dyspnea 08/06/2016 Respiratory No pedal edema 08/06/2016 Gastrointestinal No abdominal pain 2015 Gastrointestinal No constipation 2015 Gastrointestinal No diarrhea 08/06/2016 Gastrointestinal No gastroesophageal reflux 08/06/2016 Gastrointestinal No nausea 08/06/2016 Gastrointestinal No vomiting 08/06/2016 Musculoskeletal stiffness 08/06/2016 Musculoskeletal No swelling 08/06/2016 Musculoskeletal arthralgia(s) 08/06/2016 Musculoskeletal No muscle weakness 2015 Musculoskeletal No myalgias 08/06/2016 Neurologic No dizziness 08/06/2016 Neurologic No headache 08/06/2016 Neurologic No neck pain 08/06/2016 Neurologic No syncope 08/06/2016 Psychiatric No anxiety 08/06/2016 Psychiatric No depression 08/06/2016 Dermatologic sores 08/06/2016 Constitutional No recent illness 2015 Constitutional No chills 07/28/2016 Constitutional No fatigue 07/28/2016 Constitutional No fever 07/28/2016 Constitutional No insomnia 07/28/2016 Constitutional No malaise 07/28/2016 Cardiovascular No chest pain/pressure Cardiovascular No dyspnea 07/28/2016 Cardiovascular No edema 07/28/2016 Cardiovascular No exercise intolerance Cardiovascular No fatigue 07/28/2016 Cardiovascular No near-syncope/dizziness 07/28/2016 Respiratory No chest tightness 2015 Respiratory cough 07/28/2016 Respiratory No dyspnea 07/28/2016 Respiratory No pedal edema 07/28/2016 Gastrointestinal No abdominal pain 2015 Gastrointestinal No constipation 2015 Gastrointestinal No diarrhea 07/28/2016 Gastrointestinal No gastroesophageal reflux 07/28/2016 Gastrointestinal No nausea 07/28/2016 Gastrointestinal No vomiting 07/28/2016 Musculoskeletal stiffness 07/28/2016 Musculoskeletal No swelling 07/28/2016 Musculoskeletal arthralgia(s) 07/28/2016 Musculoskeletal No muscle weakness 2015 Musculoskeletal No myalgias 07/28/2016 Neurologic No dizziness 07/28/2016 Neurologic No headache 07/28/2016 Neurologic No neck pain 07/28/2016 Neurologic No syncope 07/28/2016 Psychiatric No anxiety 07/28/2016 Psychiatric No depression 07/28/2016 Constitutional recent illness 07/17/2016 Gastrointestinal abdominal pain 2015 Gastrointestinal vomiting 07/17/2016 Gastrointestinal nausea 07/17/2016 Neurologic No alteration of consciousness 07/17/2016 Constitutional No recent illness 2015 Constitutional No chills 07/16/2016 Constitutional fatigue 07/16/2016 Constitutional No fever 07/16/2016 Constitutional No insomnia 07/16/2016 Constitutional No malaise 07/16/2016 Cardiovascular No chest pain/pressure 03/2016 Cardiovascular No dyspnea 07/16/2016 Cardiovascular edema 07/16/2016 Cardiovascular No exercise intolerance Cardiovascular fatigue 07/16/2016 Cardiovascular No near-syncope/dizziness 07/16/2016 Respiratory No chest tightness 2015 Respiratory cough 07/16/2016 Respiratory No dyspnea 07/16/2016 Respiratory No pedal edema 07/16/2016 Gastrointestinal No abdominal pain 2015 Gastrointestinal No constipation 2015 Gastrointestinal No diarrhea 07/16/2016 Gastrointestinal No gastroesophageal reflux 07/16/2016 Gastrointestinal No nausea 07/16/2016 Gastrointestinal No vomiting 07/16/2016 Musculoskeletal stiffness 07/16/2016 Musculoskeletal No swelling 07/16/2016 Musculoskeletal arthralgia(s) 07/16/2016 Musculoskeletal No muscle weakness 2015 Musculoskeletal No myalgias 07/16/2016 Neurologic No dizziness 07/16/2016 Neurologic No headache 07/16/2016 Neurologic No neck pain 07/16/2016 Neurologic No syncope 07/16/2016 Psychiatric No anxiety 07/16/2016 Psychiatric No depression 07/16/2016 Constitutional No recent illness 2015 Constitutional No chills 05/26/2016 Constitutional No fatigue 05/26/2016 Constitutional No fever 05/26/2016 Constitutional No insomnia 05/26/2016 Constitutional No malaise 05/26/2016 Eyes No blindness 05/26/2016 Eyes No vision change 05/26/2016 Ears/Nose/Throat/Neck No dental pain Ears/Nose/Throat/Neck No dizziness 2015 Ears/Nose/Throat/Neck No dysphagia 2015 Ears/Nose/Throat/Neck No headache 2015 Ears/Nose/Throat/Neck No hearing loss Ears/Nose/Throat/Neck No nasal allergies 05/26/2016 Ears/Nose/Throat/Neck No sore throat Ears/Nose/Throat/Neck No postnasal drip 05/26/2016 Ears/Nose/Throat/Neck No sinus congestion 05/26/2016 Cardiovascular No chest pain/pressure Cardiovascular No dyspnea 05/26/2016 Cardiovascular No edema 05/26/2016 Cardiovascular No exercise intolerance Cardiovascular No fatigue 05/26/2016 Cardiovascular No near-syncope/dizziness 05/26/2016 Respiratory No chest tightness 2015 Respiratory cough 05/26/2016 Respiratory No dyspnea 05/26/2016 Respiratory No pedal edema 05/26/2016 Gastrointestinal No abdominal pain 2015 Gastrointestinal No constipation 2015 Gastrointestinal No diarrhea 05/26/2016 Gastrointestinal No gastroesophageal reflux 05/26/2016 Gastrointestinal No nausea 05/26/2016 Gastrointestinal No vomiting 05/26/2016 Genitourinary/Nephrology No dysuria 05/26 Genitourinary/Nephrology No nocturia Genitourinary/Nephrology No urinary incontinence 05/26/2016 Musculoskeletal stiffness 05/26/2016 Musculoskeletal No swelling 05/26/2016 Musculoskeletal No muscle weakness 2015 Musculoskeletal No myalgias 05/26/2016 Dermatologic No rash 05/26/2016 Dermatologic No sores 05/26/2016 Dermatologic No scar 05/26/2016 Neurologic No dizziness 05/26/2016 Neurologic No headache 05/26/2016 Neurologic No neck pain 05/26/2016 Neurologic No syncope 05/26/2016 Psychiatric No anxiety 05/26/2016 Psychiatric No depression 05/26/2016 Musculoskeletal arthralgia(s) 05/26/2016 Physical Exam Exam Name System Name Item Name Status Result Effective Dates Notes Full Exam - General 1994 Constitutional general appearance Development: well developed 10/26/2017 None Full Exam - General 1994 Constitutional general appearance Development: appears stated age 0110/26/2017 None Full Exam - General 1994 Constitutional general appearance Hygiene/Attention to Grooming: good hygiene 10/26/2017 None Full Exam - General 1994 Eyes pupils and irises Overall: pupils equal, round, reactive to light and accomodation 10/26/2017 None Full Exam - General 1994 Ears/Nose/Throat otoscopic exam Overall: external auditory canals clear 10/26/2017 None Full Exam - General 1994 Ears/Nose/Throat otoscopic exam Overall: tympanic membranes clear 10/26/2017 None Full Exam - General 1994 Ears/Nose/Throat oral cavity/pharynx/larynx Overall: oral mucosa clear 10/26/2017 None Full Exam - General 1994 Ears/Nose/Throat oral cavity/pharynx/larynx Overall: oropharyngeal mucosa clear 10/26/2017 None Full Exam - General 1994 Ears/Nose/Throat oral cavity/pharynx/larynx Overall: no masses 10/26/2017 None Full Exam - General 1994 Respiratory auscultation Overall: breath sounds clear bilaterally 10/26/2017 None Full Exam - General 1994 Respiratory respiratory effort/rhythm Overall: no retractions 10/26/2017 None Full Exam - General 1994 Respiratory respiratory effort/rhythm Overall: normal rate 10/26/2017 None Full Exam - General 1994 Cardiovascular extremities Overall: no clubbing 10/26/2017 None Full Exam - General 1994 Cardiovascular auscultation of heart Overall: regular rate 10/26/2017 None Full Exam - General 1994 Cardiovascular auscultation of heart Overall: normal heart sounds 10/26/2017 None Full Exam - General 1994 Cardiovascular auscultation of heart Systolic murmur: midsystolic 10/26/2017 ii/vi pinky Full Exam - General 1994 Abdomen abdominal exam Overall: no tenderness 10/26/2017 None Full Exam - General 1994 Abdomen abdominal exam Overall: normal bowel sounds 10/26/2017 None Full Exam - General 1994 Musculoskeletal spine, ribs and pelvis Overall: spine benign 10/26/2017 None Full Exam - General 1994 Musculoskeletal spine, ribs and pelvis Overall: sacroiliac joint benign 10/26/2017 None Full Exam - General 1994 Musculoskeletal spine, ribs and pelvis Overall: good posture 10/26/2017 None Full Exam - General 1994 Musculoskeletal head and neck Overall: head atraumatic 10/26/2017 None Full Exam - General 1994 Musculoskeletal head and neck Overall: cervical spine benign 10/26/2017 None Full Exam - General 1994 Psychiatric orientation/consciousness Overall: oriented to person, place and time 10/26/2017 None Full Exam - General 1994 Psychiatric mood and affect Overall: normal mood and affect 10/26/2017 None Full Exam - General 1994 Constitutional general appearance Development: well developed 06/21/2017 None Full Exam - General 1994 Constitutional general appearance Development: appears stated age 0906/21/2017 None Full Exam - General 1994 Constitutional general appearance Hygiene/Attention to Grooming: good hygiene 06/21/2017 None Full Exam - General 1994 Eyes pupils and irises Overall: pupils equal, round, reactive to light and accomodation 06/21/2017 None Full Exam - General 1994 Respiratory auscultation Overall: breath sounds clear bilaterally 06/21/2017 None Full Exam - General 1994 Respiratory respiratory effort/rhythm Overall: no retractions 06/21/2017 None Full Exam - General 1994 Respiratory respiratory effort/rhythm Overall: normal rate 06/21/2017 None Full Exam - General 1994 Cardiovascular extremities Overall: no clubbing 06/21/2017 None Full Exam - General 1994 Cardiovascular auscultation of heart Overall: regular rate 06/21/2017 None Full Exam - General 1994 Cardiovascular auscultation of heart Overall: normal heart sounds 06/21/2017 None Full Exam - General 1994 Cardiovascular auscultation of heart Systolic murmur: midsystolic 06/21/2017 ii/vi pinky Full Exam - General 1994 Abdomen abdominal exam Overall: no tenderness 06/21/2017 None Full Exam - General 1994 Abdomen abdominal exam Overall: normal bowel sounds 06/21/2017 None Full Exam - General 1994 Musculoskeletal spine, ribs and pelvis Overall: spine benign 06/21/2017 None Full Exam - General 1994 Musculoskeletal spine, ribs and pelvis Overall: sacroiliac joint benign 06/21/2017 None Full Exam - General 1994 Musculoskeletal spine, ribs and pelvis Overall: good posture 06/21/2017 None Full Exam - General 1994 Musculoskeletal head and neck Overall: head atraumatic 06/21/2017 None Full Exam - General 1994 Musculoskeletal head and neck Overall: cervical spine benign 06/21/2017 None Full Exam - General 1994 Psychiatric orientation/consciousness Overall: oriented to person, place and time 06/21/2017 None Full Exam - General 1994 Psychiatric mood and affect Overall: normal mood and affect 06/21/2017 None Full Exam - General 1994 Ears/Nose/Throat otoscopic exam Overall: tympanic membranes clear 06/21/2017 None Full Exam - General 1994 Ears/Nose/Throat otoscopic exam Overall: external auditory canals clear 06/21/2017 None Full Exam - General 1994 Ears/Nose/Throat oral cavity/pharynx/larynx Overall: oropharyngeal mucosa clear 06/21/2017 None Full Exam - General 1994 Ears/Nose/Throat oral cavity/pharynx/larynx Overall: no masses 06/21/2017 None Full Exam - General 1994 Ears/Nose/Throat oral cavity/pharynx/larynx Overall: oral mucosa clear 06/21/2017 None Full Exam - General 1994 Constitutional general appearance Development: well developed 05/12/2017 None Full Exam - General 1994 Constitutional general appearance Development: appears stated age 0805/12/2017 None Full Exam - General 1994 Constitutional general appearance Hygiene/Attention to Grooming: good hygiene 05/12/2017 None Full Exam - General 1994 Eyes pupils and irises Overall: pupils equal, round, reactive to light and accomodation 05/12/2017 None Full Exam - General 1994 Respiratory auscultation Overall: breath sounds clear bilaterally 05/12/2017 None Full Exam - General 1994 Respiratory respiratory effort/rhythm Overall: no retractions 05/12/2017 None Full Exam - General 1994 Respiratory respiratory effort/rhythm Overall: normal rate 05/12/2017 None Full Exam - General 1994 Cardiovascular extremities Overall: no clubbing 05/12/2017 None Full Exam - General 1994 Cardiovascular auscultation of heart Overall: regular rate 05/12/2017 None Full Exam - General 1994 Cardiovascular auscultation of heart Overall: normal heart sounds 05/12/2017 None Full Exam - General 1994 Cardiovascular auscultation of heart Systolic murmur: midsystolic 05/12/2017 ii/vi pinky Full Exam - General 1994 Abdomen abdominal exam Overall: no tenderness 05/12/2017 None Full Exam - General 1994 Abdomen abdominal exam Overall: normal bowel sounds 05/12/2017 None Full Exam - General 1994 Musculoskeletal spine, ribs and pelvis Overall: spine benign 05/12/2017 None Full Exam - General 1994 Musculoskeletal spine, ribs and pelvis Overall: sacroiliac joint benign 05/12/2017 None Full Exam - General 1994 Musculoskeletal spine, ribs and pelvis Overall: good posture 05/12/2017 None Full Exam - General 1994 Musculoskeletal head and neck Overall: head atraumatic 05/12/2017 None Full Exam - General 1994 Musculoskeletal head and neck Overall: cervical spine benign 05/12/2017 None Full Exam - General 1994 Psychiatric orientation/consciousness Overall: oriented to person, place and time 05/12/2017 None Full Exam - General 1994 Psychiatric mood and affect Overall: normal mood and affect 05/12/2017 None Full Exam - General 1994 Ears/Nose/Throat lips/teeth/gingiva Lips: fever blister 05/12/2017 right side Full Exam - General 1994 Constitutional general appearance Overall: well developed 04/20/2017 None Full Exam - General 1994 Constitutional general appearance Overall: in no acute distress 04/20/2017 None Full Exam - General 1994 Constitutional general appearance Overall: well nourished 04/20/2017 None Full Exam - General 1994 Eyes conjunctiva /eyelids Overall: conjunctiva clear 04/20/2017 None Full Exam - General 1994 Eyes conjunctiva /eyelids Overall: eyelids normal 04/20/2017 None Full Exam - General 1994 Ears/Nose/Throat otoscopic exam Overall: external auditory canals clear 04/20/2017 None Full Exam - General 1994 Ears/Nose/Throat otoscopic exam Overall: tympanic membranes clear 04/20/2017 None Full Exam - General 1994 Ears/Nose/Throat lips/teeth/gingiva Overall: benign lips 04/20/2017 None Full Exam - General 1994 Ears/Nose/Throat oral cavity/pharynx/larynx Overall: oral mucosa clear 04/20/2017 None Full Exam - General 1994 Ears/Nose/Throat oral cavity/pharynx/larynx Posterior Pharynx: clear post nasal drainage 04/20/2017 None Full Exam - General 1994 Respiratory auscultation Overall: breath sounds clear bilaterally 04/20/2017 None Full Exam - General 1994 Respiratory respiratory effort/rhythm Overall: no retractions 04/20/2017 None Full Exam - General 1994 Respiratory respiratory effort/rhythm Overall: normal rate 04/20/2017 None Full Exam - General 1994 Cardiovascular auscultation of heart Overall: regular rate 04/20/2017 None Full Exam - General 1994 Cardiovascular auscultation of heart Overall: normal heart sounds 04/20/2017 None Full Exam - General 1994 Cardiovascular auscultation of heart Systolic murmur: midsystolic 04/20/2017 None Full Exam - General 1994 Lymphatic neck nodes Overall: anterior cervical chain benign 04/20/2017 None Full Exam - General 1994 Lymphatic neck nodes Overall: posterior cervical chain benign 04/20/2017 None Full Exam - General 1994 Musculoskeletal spine, ribs and pelvis Sacroiliac joints: tender left sacroiliac joint 04/20/2017 None Full Exam - General 1994 Musculoskeletal spine, ribs and pelvis Sacroiliac joints: tender right sacroiliac joint 04/20/2017 None Full Exam - General 1994 Musculoskeletal head and neck Overall: head atraumatic 04/20/2017 None Full Exam - General 1994 Neurologic cranial nerves Overall: crainial nerves 2 - 12 grossly intact 04/20/2017 None Full Exam - General 1994 Psychiatric orientation/consciousness Overall: oriented to person, place and time 04/20/2017 None Full Exam - General 1994 Psychiatric mood and affect Overall: normal mood and affect 04/20/2017 None Full Exam - General 1994 Psychiatric appearance Overall: well-groomed, good eye contact 04/20/2017 None Full Exam - General 1994 Constitutional general appearance Development: well developed 03/03/2017 None Full Exam - General 1994 Constitutional general appearance Development: appears stated age 0503/03/2017 None Full Exam - General 1994 Constitutional general appearance Hygiene/Attention to Grooming: good hygiene 03/03/2017 None Full Exam - General 1994 Eyes pupils and irises Overall: pupils equal, round, reactive to light and accomodation 03/03/2017 None Full Exam - General 1994 Respiratory auscultation Overall: breath sounds clear bilaterally 03/03/2017 None Full Exam - General 1994 Respiratory respiratory effort/rhythm Overall: no retractions 03/03/2017 None Full Exam - General 1994 Respiratory respiratory effort/rhythm Overall: normal rate 03/03/2017 None Full Exam - General 1994 Cardiovascular extremities Overall: no clubbing 03/03/2017 None Full Exam - General 1994 Cardiovascular auscultation of heart Overall: regular rate 03/03/2017 None Full Exam - General 1994 Cardiovascular auscultation of heart Overall: normal heart sounds 03/03/2017 None Full Exam - General 1994 Cardiovascular auscultation of heart Systolic murmur: midsystolic 03/03/2017 ii/vi pinky Full Exam - General 1994 Abdomen abdominal exam Overall: no tenderness 03/03/2017 None Full Exam - General 1994 Abdomen abdominal exam Overall: normal bowel sounds 03/03/2017 None Full Exam - General 1994 Musculoskeletal spine, ribs and pelvis Overall: spine benign 03/03/2017 None Full Exam - General 1994 Musculoskeletal spine, ribs and pelvis Overall: sacroiliac joint benign 03/03/2017 None Full Exam - General 1994 Musculoskeletal spine, ribs and pelvis Overall: good posture 03/03/2017 None Full Exam - General 1994 Musculoskeletal head and neck Overall: head atraumatic 03/03/2017 None Full Exam - General 1994 Musculoskeletal head and neck Overall: cervical spine benign 03/03/2017 None Full Exam - General 1994 Psychiatric orientation/consciousness Overall: oriented to person, place and time 03/03/2017 None Full Exam - General 1994 Psychiatric mood and affect Overall: normal mood and affect 03/03/2017 None Full Exam - General 1994 Constitutional general appearance Development: well developed 01/28/2017 None Full Exam - General 1994 Constitutional general appearance Development: appears stated age 0401/28/2017 None Full Exam - General 1994 Constitutional general appearance Hygiene/Attention to Grooming: good hygiene 01/28/2017 None Full Exam - General 1994 Eyes pupils and irises Overall: pupils equal, round, reactive to light and accomodation 01/28/2017 None Full Exam - General 1994 Respiratory auscultation Overall: breath sounds clear bilaterally 01/28/2017 None Full Exam - General 1994 Respiratory respiratory effort/rhythm Overall: no retractions 01/28/2017 None Full Exam - General 1994 Respiratory respiratory effort/rhythm Overall: normal rate 01/28/2017 None Full Exam - General 1994 Cardiovascular extremities Overall: no clubbing 01/28/2017 None Full Exam - General 1994 Cardiovascular auscultation of heart Overall: regular rate 01/28/2017 None Full Exam - General 1994 Cardiovascular auscultation of heart Overall: normal heart sounds 01/28/2017 None Full Exam - General 1994 Cardiovascular auscultation of heart Systolic murmur: midsystolic 01/28/2017 ii/vi pinky Full Exam - General 1994 Abdomen abdominal exam Overall: no tenderness 01/28/2017 None Full Exam - General 1994 Abdomen abdominal exam Overall: normal bowel sounds 01/28/2017 None Full Exam - General 1994 Musculoskeletal spine, ribs and pelvis Overall: spine benign 01/28/2017 None Full Exam - General 1994 Musculoskeletal spine, ribs and pelvis Overall: sacroiliac joint benign 01/28/2017 None Full Exam - General 1994 Musculoskeletal spine, ribs and pelvis Overall: good posture 01/28/2017 None Full Exam - General 1994 Musculoskeletal head and neck Overall: head atraumatic 01/28/2017 None Full Exam - General 1994 Musculoskeletal head and neck Overall: cervical spine benign 01/28/2017 None Full Exam - General 1994 Psychiatric orientation/consciousness Overall: oriented to person, place and time 01/28/2017 None Full Exam - General 1994 Psychiatric mood and affect Overall: normal mood and affect 01/28/2017 None Full Exam - General 1994 Constitutional general appearance Development: well developed 01/19/2017 None Full Exam - General 1994 Constitutional general appearance Development: appears stated age 0401/19/2017 None Full Exam - General 1994 Constitutional general appearance Hygiene/Attention to Grooming: good hygiene 01/19/2017 None Full Exam - General 1994 Eyes pupils and irises Overall: pupils equal, round, reactive to light and accomodation 01/19/2017 None Full Exam - General 1994 Respiratory auscultation Overall: breath sounds clear bilaterally 01/19/2017 None Full Exam - General 1994 Respiratory respiratory effort/rhythm Overall: no retractions 01/19/2017 None Full Exam - General 1994 Respiratory respiratory effort/rhythm Overall: normal rate 01/19/2017 None Full Exam - General 1994 Cardiovascular extremities Overall: no clubbing 01/19/2017 None Full Exam - General 1994 Cardiovascular auscultation of heart Overall: regular rate 01/19/2017 None Full Exam - General 1994 Cardiovascular auscultation of heart Overall: normal heart sounds 01/19/2017 None Full Exam - General 1994 Cardiovascular auscultation of heart Systolic murmur: midsystolic 01/19/2017 ii/vi pinky Full Exam - General 1994 Abdomen abdominal exam Overall: no tenderness 01/19/2017 None Full Exam - General 1994 Abdomen abdominal exam Overall: normal bowel sounds 01/19/2017 None Full Exam - General 1994 Musculoskeletal spine, ribs and pelvis Overall: spine benign 01/19/2017 None Full Exam - General 1994 Musculoskeletal spine, ribs and pelvis Overall: sacroiliac joint benign 01/19/2017 None Full Exam - General 1994 Musculoskeletal spine, ribs and pelvis Overall: good posture 01/19/2017 None Full Exam - General 1994 Musculoskeletal head and neck Overall: head atraumatic 01/19/2017 None Full Exam - General 1994 Musculoskeletal head and neck Overall: cervical spine benign 01/19/2017 None Full Exam - General 1994 Psychiatric orientation/consciousness Overall: oriented to person, place and time 01/19/2017 None Full Exam - General 1994 Psychiatric mood and affect Overall: normal mood and affect 01/19/2017 None Full Exam - ENT Constitutional general appearance Overall: well nourished 12/17/2016 None Full Exam - ENT Constitutional general appearance Overall: well developed 12/17/2016 None Full Exam - ENT Constitutional general appearance Overall: in no acute distress 12/17/2016 None Full Exam - ENT Neurologic orientation Overall: oriented to person, place and time 12/17/2016 None Full Exam - ENT Integument inspection of skin Overall: no rash, lesions 12/17/2016 None Full Exam - ENT Lymphatic palpation of lymph nodes Overall: anterior cervical chain benign 12/17/2016 None Full Exam - ENT Lymphatic palpation of lymph nodes Overall: posterior cervical chain benign 12/17/2016 None Full Exam - ENT Cardiovascular auscultation of heart Overall: regular rate 12/17/2016 None Full Exam - ENT Cardiovascular auscultation of heart Overall: normal heart sounds 12/17/2016 None Full Exam - ENT Cardiovascular auscultation of heart Systolic murmur: midsystolic 12/17/2016 None Full Exam - ENT Cardiovascular auscultation of heart Systolic murmur grade: II/ 12/17/2016 None Full Exam - ENT Respiratory inspection Overall: no retractions 12/17/2016 None Full Exam - ENT Respiratory inspection Overall: normal rate 06/2017 None Full Exam - ENT Respiratory auscultation Overall: breath sounds clear bilaterally 12/17/2016 None Full Exam - ENT Face and Head palpation Overall: no sinus tenderness 12/17/2016 None Full Exam - ENT Ears/Nose/Throat otoscopic exam Overall: external auditory canals normal 12/17/2016 None Full Exam - ENT Ears/Nose/Throat otoscopic exam Overall: tympanic membranes normal 12/17/2016 None Full Exam - ENT Ears/Nose/Throat oropharynx Overall: oral mucosa clear 12/17/2016 None Full Exam - General 1994 Constitutional general appearance Development: well developed 10/15/2016 None Full Exam - General 1994 Constitutional general appearance Development: appears stated age 0110/15/2016 None Full Exam - General 1994 Constitutional general appearance Hygiene/Attention to Grooming: good hygiene 10/15/2016 None Full Exam - General 1994 Eyes pupils and irises Overall: pupils equal, round, reactive to light and accomodation 10/15/2016 None Full Exam - General 1994 Respiratory auscultation Overall: breath sounds clear bilaterally 10/15/2016 None Full Exam - General 1994 Respiratory respiratory effort/rhythm Overall: no retractions 10/15/2016 None Full Exam - General 1994 Respiratory respiratory effort/rhythm Overall: normal rate 10/15/2016 None Full Exam - General 1994 Cardiovascular extremities Overall: no clubbing 10/15/2016 None Full Exam - General 1994 Cardiovascular auscultation of heart Overall: regular rate 10/15/2016 None Full Exam - General 1994 Cardiovascular auscultation of heart Overall: normal heart sounds 10/15/2016 None Full Exam - General 1994 Cardiovascular auscultation of heart Systolic murmur: midsystolic 10/15/2016 ii/vi pinky Full Exam - General 1994 Abdomen abdominal exam Overall: no tenderness 10/15/2016 None Full Exam - General 1994 Abdomen abdominal exam Overall: normal bowel sounds 10/15/2016 None Full Exam - General 1994 Musculoskeletal spine, ribs and pelvis Overall: spine benign 10/15/2016 None Full Exam - General 1994 Musculoskeletal spine, ribs and pelvis Overall: sacroiliac joint benign 10/15/2016 None Full Exam - General 1994 Musculoskeletal spine, ribs and pelvis Overall: good posture 10/15/2016 None Full Exam - General 1994 Musculoskeletal head and neck Overall: head atraumatic 10/15/2016 None Full Exam - General 1994 Musculoskeletal head and neck Overall: cervical spine benign 10/15/2016 None Full Exam - General 1994 Psychiatric orientation/consciousness Overall: oriented to person, place and time 10/15/2016 None Full Exam - General 1994 Psychiatric mood and affect Overall: normal mood and affect 10/15/2016 None Full Exam - General 1994 Ears/Nose/Throat oral cavity/pharynx/larynx Overall: oropharyngeal mucosa clear 10/15/2016 None Full Exam - General 1994 Ears/Nose/Throat oral cavity/pharynx/larynx Overall: no masses 10/15/2016 None Full Exam - General 1994 Ears/Nose/Throat oral cavity/pharynx/larynx Overall: oral mucosa clear 10/15/2016 None Full Exam - General 1994 Integument inspection of skin Location: face 10/15/2016 right cheek - ulcerated lesion - Full Exam - General 1994 Constitutional general appearance Development: well developed 08/06/2016 None Full Exam - General 1994 Constitutional general appearance Development: appears stated age 1008/06/2016 None Full Exam - General 1994 Constitutional general appearance Hygiene/Attention to Grooming: good hygiene 08/06/2016 None Full Exam - General 1994 Eyes pupils and irises Overall: pupils equal, round, reactive to light and accomodation 08/06/2016 None Full Exam - General 1994 Respiratory auscultation Overall: breath sounds clear bilaterally 08/06/2016 None Full Exam - General 1994 Respiratory respiratory effort/rhythm Overall: no retractions 08/06/2016 None Full Exam - General 1994 Respiratory respiratory effort/rhythm Overall: normal rate 08/06/2016 None Full Exam - General 1994 Cardiovascular extremities Overall: no clubbing 08/06/2016 None Full Exam - General 1994 Cardiovascular auscultation of heart Overall: regular rate 08/06/2016 None Full Exam - General 1994 Cardiovascular auscultation of heart Overall: normal heart sounds 08/06/2016 None Full Exam - General 1994 Cardiovascular auscultation of heart Systolic murmur: midsystolic 08/06/2016 ii/vi pinky Full Exam - General 1994 Abdomen abdominal exam Overall: no tenderness 08/06/2016 None Full Exam - General 1994 Abdomen abdominal exam Overall: normal bowel sounds 08/06/2016 None Full Exam - General 1994 Musculoskeletal spine, ribs and pelvis Overall: spine benign 08/06/2016 None Full Exam - General 1994 Musculoskeletal spine, ribs and pelvis Overall: sacroiliac joint benign 08/06/2016 None Full Exam - General 1994 Musculoskeletal spine, ribs and pelvis Overall: good posture 08/06/2016 None Full Exam - General 1994 Musculoskeletal head and neck Overall: head atraumatic 08/06/2016 None Full Exam - General 1994 Musculoskeletal head and neck Overall: cervical spine benign 08/06/2016 None Full Exam - General 1994 Psychiatric orientation/consciousness Overall: oriented to person, place and time 08/06/2016 None Full Exam - General 1994 Psychiatric mood and affect Overall: normal mood and affect 08/06/2016 None Full Exam - General 1994 Constitutional general appearance Development: well developed 07/28/2016 None Full Exam - General 1994 Constitutional general appearance Development: appears stated age 1007/28/2016 None Full Exam - General 1994 Constitutional general appearance Hygiene/Attention to Grooming: good hygiene 07/28/2016 None Full Exam - General 1994 Eyes pupils and irises Overall: pupils equal, round, reactive to light and accomodation 07/28/2016 None Full Exam - General 1994 Respiratory auscultation Overall: breath sounds clear bilaterally 07/28/2016 None Full Exam - General 1994 Respiratory respiratory effort/rhythm Overall: no retractions 07/28/2016 None Full Exam - General 1994 Respiratory respiratory effort/rhythm Overall: normal rate 07/28/2016 None Full Exam - General 1994 Cardiovascular extremities Overall: no clubbing 07/28/2016 None Full Exam - General 1994 Cardiovascular auscultation of heart Overall: regular rate 07/28/2016 None Full Exam - General 1994 Cardiovascular auscultation of heart Overall: normal heart sounds 07/28/2016 None Full Exam - General 1994 Cardiovascular auscultation of heart Systolic murmur: midsystolic 07/28/2016 ii/vi pinky Full Exam - General 1994 Abdomen abdominal exam Overall: no tenderness 07/28/2016 None Full Exam - General 1994 Abdomen abdominal exam Overall: normal bowel sounds 07/28/2016 None Full Exam - General 1994 Musculoskeletal spine, ribs and pelvis Overall: spine benign 07/28/2016 None Full Exam - General 1994 Musculoskeletal spine, ribs and pelvis Overall: sacroiliac joint benign 07/28/2016 None Full Exam - General 1994 Musculoskeletal spine, ribs and pelvis Overall: good posture 07/28/2016 None Full Exam - General 1994 Musculoskeletal head and neck Overall: head atraumatic 07/28/2016 None Full Exam - General 1994 Musculoskeletal head and neck Overall: cervical spine benign 07/28/2016 None Full Exam - General 1994 Psychiatric orientation/consciousness Overall: oriented to person, place and time 07/28/2016 None Full Exam - General 1994 Psychiatric mood and affect Overall: normal mood and affect 07/28/2016 None Full Exam - General 1994 Respiratory auscultation Overall: breath sounds clear bilaterally 07/17/2016 None Full Exam - General 1994 Respiratory respiratory effort/rhythm Rate: tachypnea 07/17/2016 None Full Exam - General 1994 Cardiovascular auscultation of heart Rate: tachycardia 07/17/2016 None Full Exam - General 1994 Abdomen abdominal exam Upper quadrant: tender to palpation 07/17/2016 None Full Exam - General 1994 Abdomen abdominal exam Lower quadrant: tender to palpation 07/17/2016 None Full Exam - General 1994 Constitutional general appearance Development: well developed 07/16/2016 None Full Exam - General 1994 Constitutional general appearance Development: appears stated age 1007/16/2016 None Full Exam - General 1994 Constitutional general appearance Hygiene/Attention to Grooming: good hygiene 07/16/2016 None Full Exam - General 1994 Eyes pupils and irises Overall: pupils equal, round, reactive to light and accomodation 07/16/2016 None Full Exam - General 1994 Respiratory auscultation Overall: breath sounds clear bilaterally 07/16/2016 None Full Exam - General 1994 Respiratory respiratory effort/rhythm Overall: no retractions 07/16/2016 None Full Exam - General 1994 Respiratory respiratory effort/rhythm Overall: normal rate 07/16/2016 None Full Exam - General 1994 Cardiovascular extremities Overall: no clubbing 07/16/2016 None Full Exam - General 1994 Cardiovascular auscultation of heart Overall: regular rate 07/16/2016 None Full Exam - General 1994 Cardiovascular auscultation of heart Overall: normal heart sounds 07/16/2016 None Full Exam - General 1994 Cardiovascular auscultation of heart Systolic murmur: midsystolic 07/16/2016 ii/vi pinky Full Exam - General 1994 Abdomen abdominal exam Overall: no tenderness 07/16/2016 None Full Exam - General 1994 Abdomen abdominal exam Overall: normal bowel sounds 07/16/2016 None Full Exam - General 1994 Musculoskeletal spine, ribs and pelvis Overall: spine benign 07/16/2016 None Full Exam - General 1994 Musculoskeletal spine, ribs and pelvis Overall: sacroiliac joint benign 07/16/2016 None Full Exam - General 1994 Musculoskeletal spine, ribs and pelvis Overall: good posture 07/16/2016 None Full Exam - General 1994 Musculoskeletal head and neck Overall: head atraumatic 07/16/2016 None Full Exam - General 1994 Musculoskeletal head and neck Overall: cervical spine benign 07/16/2016 None Full Exam - General 1994 Psychiatric orientation/consciousness Overall: oriented to person, place and time 07/16/2016 None Full Exam - General 1994 Psychiatric mood and affect Overall: normal mood and affect 07/16/2016 None Full Exam - General 1994 Cardiovascular extremities Edema present: pitting 07/16/2016 None Full Exam - General 1994 Constitutional general appearance Development: well developed 05/26/2016 None Full Exam - General 1994 Constitutional general appearance Development: appears stated age 0805/26/2016 None Full Exam - General 1994 Constitutional general appearance Hygiene/Attention to Grooming: good hygiene 05/26/2016 None Full Exam - General 1994 Eyes conjunctiva /eyelids Overall: conjunctiva clear 05/26/2016 None Full Exam - General 1994 Eyes conjunctiva /eyelids Overall: cornea clear 05/26/2016 None Full Exam - General 1994 Eyes conjunctiva /eyelids Overall: eyelids normal 05/26/2016 None Full Exam - General 1994 Eyes pupils and irises Overall: pupils equal, round, reactive to light and accomodation 05/26/2016 None Full Exam - General 1994 Ears/Nose/Throat otoscopic exam Overall: external auditory canals clear 05/26/2016 None Full Exam - General 1994 Ears/Nose/Throat otoscopic exam Overall: tympanic membranes clear 05/26/2016 None Full Exam - General 1994 Ears/Nose/Throat lips/teeth/gingiva Overall: benign lips 05/26/2016 None Full Exam - General 1994 Ears/Nose/Throat lips/teeth/gingiva Overall: normal dentition 05/26/2016 None Full Exam - General 1994 Ears/Nose/Throat oral cavity/pharynx/larynx Overall: oral mucosa clear 05/26/2016 None Full Exam - General 1994 Ears/Nose/Throat oral cavity/pharynx/larynx Overall: oropharyngeal mucosa clear 05/26/2016 None Full Exam - General 1994 Ears/Nose/Throat oral cavity/pharynx/larynx Overall: hypopharynx benign 05/26/2016 None Full Exam - General 1994 Ears/Nose/Throat oral cavity/pharynx/larynx Overall: no masses 05/26/2016 None Full Exam - General 1994 Respiratory auscultation Overall: breath sounds clear bilaterally 05/26/2016 None Full Exam - General 1994 Respiratory respiratory effort/rhythm Overall: no retractions 05/26/2016 None Full Exam - General 1994 Respiratory respiratory effort/rhythm Overall: normal rate 05/26/2016 None Full Exam - General 1994 Cardiovascular extremities Overall: no clubbing 05/26/2016 None Full Exam - General 1994 Cardiovascular auscultation of heart Overall: regular rate 05/26/2016 None Full Exam - General 1994 Cardiovascular auscultation of heart Overall: normal heart sounds 05/26/2016 None Full Exam - General 1994 Abdomen abdominal exam Overall: no tenderness 05/26/2016 None Full Exam - General 1994 Abdomen abdominal exam Overall: normal bowel sounds 05/26/2016 None Full Exam - General 1994 Lymphatic neck nodes Overall: anterior cervical chain benign 05/26/2016 None Full Exam - General 1994 Lymphatic neck nodes Overall: posterior cervical chain benign 05/26/2016 None Full Exam - General 1994 Musculoskeletal spine, ribs and pelvis Overall: spine benign 05/26/2016 None Full Exam - General 1994 Musculoskeletal spine, ribs and pelvis Overall: sacroiliac joint benign 05/26/2016 None Full Exam - General 1994 Musculoskeletal spine, ribs and pelvis Overall: good posture 05/26/2016 None Full Exam - General 1994 Musculoskeletal head and neck Overall: head atraumatic 05/26/2016 None Full Exam - General 1994 Musculoskeletal head and neck Overall: cervical spine benign 05/26/2016 None Full Exam - General 1994 Integument inspection of skin Overall: few scattered moles, no gross abnormalities 05/26/2016 None Full Exam - General 1994 Neurologic deep tendon reflexes Overall: deep tendon reflexes intact 05/26/2016 None Full Exam - General 1994 Neurologic cranial nerves Overall: crainial nerves 2 - 12 grossly intact 05/26/2016 None Full Exam - General 1994 Psychiatric orientation/consciousness Overall: oriented to person, place and time 05/26/2016 None Full Exam - General 1994 Psychiatric mood and affect Overall: normal mood and affect 05/26/2016 None Full Exam - General 1994 Cardiovascular auscultation of heart Systolic murmur: midsystolic 05/26/2016 ii/vi pinky Full Exam - General 1994 Musculoskeletal lower extremity Inspection - thigh: normal appearance 05/26/2016 None Full Exam - General 1994 Musculoskeletal lower extremity Palpation - thigh: tenderness 05/26/2016 over iliotibial band on left side Procedures Procedure Codes Date ADMIN INFLUENZA VIRUS VAC CPT-4: G0008 07/16/2016 FLU VACC 4 TANG 3 YRS PLUS IM SNOMED CT: 33491179 CPT-4: 75159 07/16/2016 Vital Signs Date Vital 10/26/2017 Blood Pressure 1: 162/80 Code : 8480-6 BMI: 25.4 Code : 65992-5 Heart Rate 1 : 76 bpm Height: 5'9" SpO2: 97% Weight: 172 lbs 06/21/2017 Blood Pressure 1: 134/78 Code : 8480-6 BMI: 24.9 Code : 39858-2 Heart Rate 1 : 79 bpm Height: 5'9" SpO2: 98% Weight: 168 lbs 8 oz 05/12/2017 Blood Pressure 1: 140/80 Code : 8480-6 BMI: 25.4 Code : 40560-4 Heart Rate 1 : 94 bpm Height: 5'9" SpO2: 96% Weight: 172 lbs 04/20/2017 Blood Pressure 1: 118/72 Code : 8480-6 BMI: 25.1 Code : 41541-7 Heart Rate 1 : 87 bpm Height: 5'9" SpO2: 98% Weight: 170 lbs 03/03/2017 Blood Pressure 1: 136/80 Code : 8480-6 BMI: 25.1 Code : 15548-1 Heart Rate 1 : 92 bpm Height: 5'9" SpO2: 98% Weight: 170 lbs 01/28/2017 Blood Pressure 1: 134/70 Code : 8480-6 BMI: 25.1 Code : 00103-1 Heart Rate 1 : 77 bpm Height: 5'9" SpO2: 97% Weight: 170 lbs 01/19/2017 Blood Pressure 1: 200/102 Code: 8480-6 Height: Weight: 12/17/2016 Blood Pressure 1: 140/80 Code : 8480-6 BMI: 25.1 Code : 64848-6 Heart Rate 1 : 84 bpm Height: 5'9" SpO2: 98% Weight: 170 lbs 10/15/2016 Blood Pressure 1: 132/72 Code : 8480-6 BMI: 25.4 Code : 80160-1 Heart Rate 1 : 85 bpm Height: 5'9" SpO2: 97% Weight: 172 lbs 08/06/2016 Blood Pressure 1: 140/74 Code : 8480-6 BMI: 25.0 Code : 92270-8 Heart Rate 1 : 77 bpm Height: 5'9" SpO2: 98% Weight: 169 lbs 07/28/2016 Blood Pressure 1: 136/68 Code : 8480-6 Heart Rate 1: 79 bpm Height: 5'9" SpO2: 97% Weight: 07/17/2016 Blood Pressure 1: 165/100 Code: 8480-6 Heart Rate 1: 118 bpm Height : SpO2: 97% Weight: 07/16/2016 Blood Pressure 1: 156/78 Code : 8480-6 BMI: 25.7 Code : 16601-4 Heart Rate 1 : 78 bpm Height: 5'9" SpO2: 97% Weight: 174 lbs 05/26/2016 Blood Pressure 1: 128/78 Code : 8480-6 BMI: 24.9 Code : 01702-6 Heart Rate 1 : 77 bpm Height: 5'9" SpO2: 96% Weight: 168 lbs 8 oz Functional Status No Functional Status data History of Present Illness Symptom Name Status Result Effective Date Notes hypertension Quality primary hypertension 10/26/2017 None hypertension Onset and Resolution ongoing 10/26/2017 None hypertension Onset of Symptom during adulthood 10/26/2017 None hypertension Alleviating Factors medication 10/26/2017 None hypertension Pertinent Findings Denies edema 10/26/2017 -takes lasix every other day hypertension Blood Pressure Values patient checking blood pressure at home - did not bring in readings 10/26/2017 -Checks occasionally hypertension Pertinent Findings Denies dizziness 10/26/2017 None hypertension Pertinent Findings Denies dyspnea 10/26/2017 None hypertension Quality primary hypertension 06/21/2017 None hypertension Onset and Resolution ongoing 06/21/2017 None hypertension Onset of Symptom during adulthood 06/21/2017 None hypertension Alleviating Factors medication 06/21/2017 None hypertension Pertinent Findings edema 06/21/2017 -takes lasix every other day edema Quality acute None edema Quality improving 06/21/2017 None edema Limitation on Activities does not limit activities 06/21/2017 None edema Alleviating Factors medication 06/21/2017 None edema Location on both ankles 06/21/2017 None hypertension Blood Pressure Values not checking blood pressure at home 06/21/2017 None edema Quality painful 05/12/2017 None edema Onset and Resolution sudden in onset 05/12/2017 None edema Onset of Symptom 10 days ago 05/12/2017 None edema Pertinent Findings Denies dyspnea 05/12/2017 None edema Pertinent Findings limb pain / tenderness 05/12/2017 None edema Pertinent Findings Denies palpitations 05/12/2017 None hip pain Location on the right 04/20/2017 None hip pain Location on the left 04/20/2017 None hip pain Quality chronic 04/20/2017 None hip pain Quality worsening 04/20/2017 None hip pain Onset and Resolution ongoing 04/20/2017 None hip pain Severity moderate 04/20/2017 None hip pain Significant Medical Conditions advancing age 0704/20/2017 None hip pain Pertinent Findings Denies bruising 04/20/2017 None hip pain Pertinent Findings Denies redness 04/20/2017 None nasal allergies Location in both nares 04/20/2017 None nasal allergies Onset and Resolution gradual in onset 04/20/2017 None nasal allergies Onset and Resolution ongoing 04/20/2017 None nasal allergies Pertinent Findings Denies fever 04/20/2017 None nasal allergies Pertinent Findings cough 04/20/2017 None hypertension Quality primary hypertension 03/03/2017 None hypertension Onset and Resolution ongoing 03/03/2017 None hypertension Onset of Symptom during adulthood 03/03/2017 None hypertension Alleviating Factors medication 03/03/2017 None hypertension Blood Pressure Values pt checking blood pressure - see scanned document 03/03/2017 None hypertension Pertinent Findings Denies dizziness 03/03/2017 None hypertension Pertinent Findings Denies dyspnea 03/03/2017 None hypertension Pertinent Findings edema 03/03/2017 occasionally- takes lasix medication follow up Location oral intake 01/28/2017 None medication follow up Additional Comments medication use 01/28/2017 None hypertension Quality acute 01/28/2017 None hypertension Onset of Symptom during adulthood 01/28/2017 None hypertension Severity severe 01/28/2017 None hypertension Exacerbating Factors stress 01/28/2017 None hypertension Pertinent Findings Denies decreased energy 01/28/2017 None hypertension Quality acute 01/19/2017 None hypertension Onset of Symptom during adulthood 01/19/2017 None hypertension Severity severe 01/19/2017 None hypertension Exacerbating Factors stress 01/19/2017 None hypertension Pertinent Findings Denies decreased energy 01/19/2017 None cough Quality acute None cough Quality intermittent 12/17/2016 None cough Quality productive 12/17/2016 None cough Onset and Resolution sudden in onset 12/17/2016 None cough Onset of Symptom 2 weeks ago 12/17/2016 None cough Pertinent Findings Denies fever 12/17/2016 None cough Pertinent Findings Denies chills 12/17/2016 None cough Pertinent Findings Denies nausea 12/17/2016 None cough Pertinent Findings Denies vomiting 12/17/2016 None cough Pertinent Findings sputum production 12/17/2016 (yelllowish) cough Pertinent Findings post nasal drip 12/17/2016 (yellowish) nasal discharge Location in both nares 12/17/2016 None nasal discharge Quality acute 12/17/2016 None nasal discharge Quality intermittent 12/17/2016 None nasal discharge Onset and Resolution sudden in onset 12/17/2016 None nasal discharge Onset of Symptom 2 weeks ago 12/17/2016 None nasal discharge Pertinent Findings cough 12/17/2016 None nasal discharge Pertinent Findings Denies fever 12/17/2016 None cough Limitation on Activities does not limit activities 12/17/2016 None cough Frequency of Episodes increasing 12/17/2016 None low back pain Location on both sides 10/15/2016 None low back pain Quality intermittent 10/15/2016 None low back pain Onset and Resolution ongoing 10/15/2016 None low back pain Limitation on Activities allows weight bearing activity 10/15/2016 None low back pain Initial treatment injections 10/15/2016 None skin lesion Onset and Resolution ongoing 10/15/2016 None skin lesion Location on the right cheek 10/15/2016 None hypertension Onset and Resolution ongoing 10/15/2016 None hypertension Onset of Symptom during adulthood 10/15/2016 None hypertension Blood Pressure Values pt checking blood pressure - see scanned document 10/15/2016 None hypertension Alleviating Factors medication 10/15/2016 None hypertension Pertinent Findings dizziness 10/15/2016 intermittently hypertension Pertinent Findings edema 10/15/2016 None hypertension Pertinent Findings decreased energy 10/15/2016 None sores Location-Extremities on the right arm 10/15/2016 None sores Quality acute None sores Quality erythematous 10/15/2016 None sores Quality painful 10/15/2016 None sores Onset and Resolution sudden in onset 10/15/2016 None sores Onset of Symptom 1 month ago 10/15/2016 None low back pain Location on both sides 08/06/2016 None low back pain Quality intermittent 08/06/2016 None low back pain Quality improving 08/06/2016 None low back pain Onset and Resolution ongoing 08/06/2016 None low back pain Limitation on Activities allows weight bearing activity 08/06/2016 None low back pain Initial treatment injections 08/06/2016 None hematochezia Quality intermittent 08/06/2016 None hematochezia Onset and Resolution ongoing 08/06/2016 None skin lesion Onset and Resolution ongoing 08/06/2016 None skin lesion Location on the right cheek 08/06/2016 None Hospital Follow Up _ Other: bowel obstruction 07/28/2016 None Hospital Follow Up Onset of Symptom 10 days ago 07/28/2016 None Hospital Follow Up Quality acute illness 07/28/2016 None Hospital Follow Up Severity moderate 07/28/2016 None nausea Severity severe 07/17/2016 None vomiting Onset and Resolution sudden in onset 07/17/2016 None vomiting Quality coffee grounds 07/17/2016 None vomiting Quality bilious 07/17/2016 None vomiting Quality acute 07/17/2016 None vomiting Onset of Symptom 1 days ago 07/17/2016 None vomiting Pertinent Findings nausea 07/17/2016 None vomiting Pertinent Findings tachycardic 07/17/2016 None fatigue Onset and Resolution sudden in onset 07/16/2016 None fatigue Onset of Symptom 2 weeks ago 07/16/2016 None edema Quality intermittent 07/16/2016 None edema Onset and Resolution sudden in onset 07/16/2016 None edema Onset of Symptom 2 weeks ago 07/16/2016 None hip pain Location on the left 05/26/2016 None hypertension Onset and Resolution ongoing 05/26/2016 None hypertension Onset of Symptom during adulthood 05/26/2016 None hypertension Blood Pressure Values not checking blood pressure at home 05/26/2016 None hypertension Alleviating Factors medication 05/26/2016 None hypertension Pertinent Findings Denies dizziness 05/26/2016 None hypertension Pertinent Findings Denies dyspnea 05/26/2016 None hypertension Pertinent Findings Denies edema 05/26/2016 None hyperlipidemia Onset and Resolution gradual in onset 05/26/2016 None hyperlipidemia Onset and Resolution ongoing 05/26/2016 None hyperlipidemia Onset of Symptom during adulthood 05/26/2016 None hyperlipidemia Alleviating Factors medication 05/26/2016 None hyperlipidemia Exacerbating Factors diet 05/26/2016 None hip pain Onset and Resolution ongoing 05/26/2016 None cough Location in the lung 05/26/2016 chronic - pt states that they think that the lung nodules are metastatic prostate cancer - he states that his last CT scan showed improvement in his nodules after his chemotherapy from Dr. Cerda. hip pain Quality dull ache 05/26/2016 None Advance Directives No Advance Directive data Encounters Encounter Performer Location Codes Date ([id number]) 71712 EST. PATIENT, LEVEL IV Diagnosis: Essential (primary) hypertension[ICD10: I10] Diagnosis: Muscle weakness (generalized)[ICD10: M62.81] Diagnosis: Low back pain[ICD10: M54.5] Diagnosis: Gross hematuria[ICD10: R31.0] Diagnosis: Cough[ICD10: R05] [facility] CPT-4: 62704 10/26/2017 [id number] 11418 EST. PATIENT, LEVEL IV Diagnosis: Essential (primary) hypertension[ICD10: I10] Diagnosis: Mixed hyperlipidemia[ICD10: E78.2] Diagnosis: Other abnormal glucose[ICD10: R73.09] [facility] CPT-4: 07490 06/21/2017 [id number] 76071 EST. 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 PATIENT, LEVEL IV Diagnosis: Other allergic rhinitis[ICD10: J30.89] Diagnosis: Pain in left hip[ICD10: M25.552] Diagnosis: Pain in right hip[ICD10: M25.551] Diagnosis: Low back pain[ICD10: M54.5] Leonora Franco MD, [facility] CPT-4 : 94806 04/20/2017 ([id number]) 10718 EST. PATIENT, LEVEL III Diagnosis: Essential (primary) hypertension[ICD10: I10] Ingrid Franco MD, [facility] CPT-4: 82871 03/03/2017 ([id number]) 89535 EST. PATIENT, LEVEL III Diagnosis: Essential (primary) hypertension[ICD10: I10] Ingrid Franco MD [facility] CPT-4: 75083 01/28/2017 ([id number]) 80620 EST. PATIENT, LEVEL III Diagnosis: Hypertensive urgency[ICD10: I16.0] Ingrid Franco MD [facility] CPT-4: 86453 01/19/2017 ([id number]) 59229 EST. PATIENT, LEVEL III Diagnosis: Cough[ICD10: R05] Diagnosis: Acute bronchitis, unspecified[ICD10: J20.9] Dolly Franco MD, [facility] CPT-4: 09061 12/17/2016 ([id number]) 08568 EST. 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 PATIENT, LEVEL III Diagnosis: Essential (primary) hypertension[ICD10: I10] Diagnosis: Actinic keratosis[ICD10: L57.0] Diagnosis: Cough[ICD10: R05] Ingrid Franco MD, [facility] CPT-4: 72683 08/06/2016 ([id number]) 94103 EST. PATIENT, LEVEL III Diagnosis: Essential (primary) hypertension[ICD10: I10] [facility] CPT-4: 21721 07/28/2016 ([id number]) Patient admitted to the hospital from clinic (NO CHARGE) Diagnosis: Hematemesis[ICD10: K92.0] Leonorachris Villela [facility] CPT-4: 87740N 07/17/2016 ([id number]) 22922 EST. PATIENT, LEVEL III Diagnosis: Localized edema[ICD10: R60.0] Diagnosis: Encounter for immunization[ICD10: Z23] [facility] CPT-4: 89019 07/16/2016 ([id number]) OFFICE VISIT, NEW - LEVEL 4 Diagnosis: Essential (primary) hypertension[ICD10: I10] Diagnosis: Mixed hyperlipidemia[ICD10: E78.2] Diagnosis: Cough[ICD10: R05] Diagnosis: Bilateral primary osteoarthritis of hip[ICD10: M16.0] Diagnosis: Iliotibial band syndrome, left leg[ICD10: M76.32] [facility] CPT-4: 34219 05/26/2016 Plan of Care Planned Activity Notes Codes Status Date Visit Plan: Hypertension - well controlled - continue with current medications, continue with no added salt diet. Pt has been encouraged to exercise daily. The pt has been advised to call the office if there are any acute concerns about change in blood pressure readings at home. Hematuria - recommended pt to call Dr. Cerda's office as he is an established patient and if Dr. Cerda is not available - then we will order a repeat CT of abdomen and pelvis to see if the Kidney stone has moved. Cough - suspect due to elongated epiglottis - recommended pt to use mucinex, call if symptoms not improving. 10/26/2017 Appointment: Ingrid Franco WPtel: [facility] [place] (15 min) Moderate 10/26/2017 Patient Education: Patient Medication Summary Completed 10/26/2017 Care Plan: Referral Order SNOMED-CT : [id number] Pending 10/26/2017 Visit Plan: Hypertension - well controlled - continue with current medications, continue with no added salt diet. Pt has been encouraged to exercise daily. The pt has been advised to call the office if there are any acute concerns about change in blood pressure readings at home. Hyperlipidemia - pt has been counseled about appropriate diet, exercise, and need for low fat food choices. I have discussed the need for the patient to take medications as prescribed. If the patient has negative side effects from the medication, they are to CALL the office and not abruptly discontinue the medication without discussion with a practitioner in the office. We will check labs in 3-6 months for follow up on the patient's chronic medical problem and to assure normal liver response to medications. Hx of elevated glucose - check labs today 06/21/2017 Appointment: Ingrid Franco WPtel: [address] [facility] (15 min) Moderate 06/21/2017 Patient Education: Patient Medication Summary Completed 06/21/2017 Appointment: Nurse Visit 06/11/2017 Appointment: Ingrid Franco WPtel: [facility] [place] (15 min) Moderate 06/08/2017 Visit Plan: Edema - pt has been advised to elevate legs to prevent dependent edema, compression has been recommended to help to naturally decrease peripheral edema. Diuretic use has been discussed and pt has been instructed in appropriate use of such medication as necessary to further attempt to reduce peripheral edema. Compression socks rx sent with patient. Herpes virus - advised Judith 05/12/2017 Appointment: Ingrid Franco WPtel: [facility] [place] [place] (15 min) Moderate 05/12/2017 Patient Education: Patient Medication Summary Completed 05/12/2017 Visit Plan: Allergies - chronic - recommended pt to use allergy medication as prescribed. Pt has been counseled as to the appropriate use of the medication. Pt to call if allergy symptoms are not controlled with the medication. If using nasal spray, instructions as follows: Nasal spray- use twice daily, one spray per nostril twice daily, after 30 minutes, rinse out nose with saline spray.. Use opposite hand per nostril to spray in the nasal steroid allergy spray. Hip pain, SI joint pain, Low back pain - ongoing - pt used to get injections from Dr. Duran, will refer to Dr. Pacheco - the patient was instructed in appropriate posture, need for weight loss to alleviate abdominal obesity that is worsening the patient's back pain.. The pt is to use prn antiinflammatories to manage acute pain. The patient is to call the office if the pain is worsening or does not improve. 04/20/2017 Appointment: Leonora Villela WPtel: [phone] [facility] (30 min) Complex 04/20/2017 Patient Education: Patient Medication Summary Completed 04/20/2017 Visit Plan: Hypertension - well controlled - continue with current medications, continue with no added salt diet. Pt has been encouraged to exercise daily. The pt has been advised to call the office if there are any acute concerns about change in blood pressure readings at home. 03/03/2017 Appointment: Ingrid Franco WPtel: [phone] [facility] (15 min) Moderate 03/03/2017 Patient Education: Patient Medication Summary Completed 03/03/2017 Appointment: Ingrid Franco WPtel: [phone] [facility] (30 min) Complex 02/11/2017 Visit Plan: Hypertension - well controlled - continue with current medications, continue with no added salt diet. Pt has been encouraged to exercise daily. The pt has been advised to call the office if there are any acute concerns about change in blood pressure readings at home. 01/28/2017 Appointment: Ingrid Franco WPtel: [phone] [facility] (15 min) Moderate 01/28/2017 Patient Education: Patient Medication Summary Completed 01/28/2017 Visit Plan: Hypertension - uncontrolled - the patient's medications have been modified as documented in the visit note. The patient has been counseled to cut back on salt in diet for a no added salt diet, low fat diet, start an exercise program with low weight bearing exercises and higher aerobic activity for heart health. The patient is to check blood pressure readings as an outpatient and either fax, call, or email the readings to the office next week for practitioner to review. The pt is to call for acute concerns. 01/19/2017 Patient Education: Patient Medication Summary Completed 01/19/2017 Patient Education: Hypertension Completed 01/19/2017 Visit Plan: Bronchitis - acute case of bronchitis identified. Pt has been given antibiotics, breathing treatments as appropriate, and pt has been instructed to call if symptoms are not improved, or if symptoms acutely worsen. 12/17/2016 Appointment: Dolly Mckeon WPtel: [phone] [phone] [place] (10 min) Simple 12/17/2016 Patient Education: Patient Medication Summary Completed 12/17/2016 Visit Plan: Hypertension - well controlled - continue with current medications, continue with no added salt diet. Pt has been encouraged to exercise daily. The pt has been advised to call the office if there are any acute concerns about change in blood pressure readings at home. Skin lesion - healing - stop efudex and start on bactroban to skin lesion. Hip pain - continue with stretches and tylenol 10/15/2016 Appointment: Ingrid Franco WPtel: [phone] [facility] (30 min) Complex 10/15/2016 Patient Education: Patient Medication Summary Completed 10/15/2016 Visit Plan: Hypertension - well controlled - continue with current medications, continue with no added salt diet. Pt has been encouraged to exercise daily. The pt has been advised to call the office if there are any acute concerns about change in blood pressure readings at home. Actinic Kertosis - use effudex on cheek - once ulceration occurs, then use neosporin. COPD - use incruse elliptica 08/06/2016 Appointment: Ingrid Franco WPtel: [phone] [facility] [place] (15 min) Moderate 08/06/2016 Patient Education: Patient Medication Summary Completed 08/06/2016 Visit Plan: Hypertension - well controlled - continue with current medications, continue with no added salt diet. Pt has been encouraged to exercise daily. The pt has been advised to call the office if there are any acute concerns about change in blood pressure readings at home. Abdominal pain- resolved - bowel obstruction resolved 07/28/2016 Appointment: Ingrid Franco WPtel: [phone] [facility] [place] (15 min) Moderate 07/28/2016 Patient Education: Patient Medication Summary Completed 07/28/2016 Visit Plan: Pt states that he has had coffee ground, dark emesis since 0130 this morning. Pt abdomen is tender to palpation, tachycardic - Pt sent to the ED and report given. 07/17/2016 Appointment: [phone] [place] (15 min) Moderate 07/17/2016 Patient Education: Patient Medication Summary Completed 07/17/2016 Visit Plan: Edema - pt has been advised to elevate legs to prevent dependent edema, compression has been recommended to help to naturally decrease peripheral edema. Diuretic use has been discussed and pt has been instructed in appropriate use of such medication as necessary to further attempt to reduce peripheral edema. 07/16/2016 Appointment: Ingrid Franco WPtel: [phone] [facility] (15 min) Moderate 07/16/2016 Patient Education: Patient Medication Summary Completed 07/16/2016 Visit Plan: Hypertension - well controlled - continue with current medications, continue with no added salt diet. Pt has been encouraged to exercise daily. The pt has been advised to call the office if there are any acute concerns about change in blood pressure readings at home. Hyperlipidemia - pt has been counseled about appropriate diet, exercise, and need for low fat food choices. I have discussed the need for the patient to take medications as prescribed. If the patient has negative side effects from the medication, they are to CALL the office and not abruptly discontinue the medication without discussion with a practitioner in the office. We will check labs in 3-6 months for follow up on the patient's chronic medical problem and to assure normal liver response to medications. Iliotibial band syndrome- recommended use of anti -inflammatories and pt given handout on Iliotibial band exercises. Arthritis- occasionally uncontrolled symptoms- recommend pt to take antiinflammatory PRN and Use tylenol for break through pain symptoms. 05/26/2016 Appointment: In[facility]el[phone] [facility] [place] New Patient 05/26/2016 Patient Education: Patient Medication Summary Completed 05/26/2016 Referral: [facility] W[facility]: Referral Appointment Requested Instructions Comment . Pt states that he has had coffee ground, dark emesis since 0130 this morning. Pt abdomen is tender to palpation, tachycardic - Pt sent to the ED and report given. pt has been advised to stay off of the roof of his camper and off the roof of his house. . Hypertension - well controlled - continue with current medications, continue with no added salt diet. Pt has been encouraged to exercise daily. The pt has been advised to call the office if there are any acute concerns about change in blood pressure readings at home. . Hypertension - well controlled - continue with current medications, continue with no added salt diet. Pt has been encouraged to exercise daily. The pt has been advised to call the office if there are any acute concerns about change in blood pressure readings at home. Hematuria - recommended pt to call Dr. Cerda's office as he is an established patient and if Dr. Cerda is not available - then we will order a repeat CT of abdomen and pelvis to see if the Kidney stone has moved. Cough - suspect due to elongated epiglottis - recommended pt to use mucinex, call if symptoms not improving. . Hypertension - uncontrolled - the patient's medications have been modified as documented in the visit note. The patient has been counseled to cut back on salt in diet for a no added salt diet, low fat diet, start an exercise program with low weight bearing exercises and higher aerobic activity for heart health. The patient is to check blood pressure readings as an outpatient and either fax , call, or email the readings to the office next week for practitioner to review. The pt is to call for acute concerns. . Hypertension - well controlled - continue with current medications, continue with no added salt diet. Pt has been encouraged to exercise daily. The pt has been advised to call the office if there are any acute concerns about change in blood pressure readings at home. Hyperlipidemia - pt has been counseled about appropriate diet, exercise, and need for low fat food choices. I have discussed the need for the patient to take medications as prescribed. If the patient has negative side effects from the medication, they are to CALL the office and not abruptly discontinue the medication without discussion with a practitioner in the office. We will check labs in 3-6 months for follow up on the patient's chronic medical problem and to assure normal liver response to medications. Hx of elevated glucose - check labs today . Hypertension - well controlled - continue with current medications, continue with no added salt diet. Pt has been encouraged to exercise daily. The pt has been advised to call the office if there are any acute concerns about change in blood pressure readings at home. Abdominal pain- resolved - bowel obstruction resolved ZPACK -SUSPECT MYCOPLASMA-CALL WEDNESDAY IF NOT BETTER . Bronchitis - acute case of bronchitis identified. Pt has been given antibiotics, breathing treatments as appropriate, and pt has been instructed to call if symptoms are not improved, or if symptoms acutely worsen. . Hypertension - well controlled - continue with current medications, continue with no added salt diet. Pt has been encouraged to exercise daily. The pt has been advised to call the office if there are any acute concerns about change in blood pressure readings at home. Actinic Kertosis - use effudex on cheek - once ulceration occurs, then use neosporin. COPD - use incruse elliptica . Allergies - chronic - recommended pt to use allergy medication as prescribed. Pt has been counseled as to the appropriate use of the medication. Pt to call if allergy symptoms are not controlled with the medication. If using nasal spray, instructions as follows: Nasal spray- use twice daily, one spray per nostril twice daily, after 30 minutes, rinse out nose with saline spray.. Use opposite hand per nostril to spray in the nasal steroid allergy spray. Hip pain, SI joint pain, Low back pain - ongoing - pt used to get injections from Dr. Duran, will refer to Dr. Pacheco - the patient was instructed in appropriate posture, need for weight loss to alleviate abdominal obesity that is worsening the patient's back pain.. The pt is to use prn antiinflammatories to manage acute pain. The patient is to call the office if the pain is worsening or does not improve. . Hypertension - well controlled - continue with current medications, continue with no added salt diet. Pt has been encouraged to exercise daily. The pt has been advised to call the office if there are any acute concerns about change in blood pressure readings at home. . Edema - pt has been advised to elevate legs to prevent dependent edema, compression has been recommended to help to naturally decrease peripheral edema. Diuretic use has been discussed and pt has been instructed in appropriate use of such medication as necessary to further attempt to reduce peripheral edema. Eucerin cream for the arms Vitamin D 5000 units daily the pain is in your iliotibial band - there are exercises that dr has given - do them twice daily x 1 week then daily x 1 week then as needed, call if not improved. . Hypertension - well controlled - continue with current medications, continue with no added salt diet. Pt has been encouraged to exercise daily. The pt has been advised to call the office if there are any acute concerns about change in blood pressure readings at home. Hyperlipidemia - pt has been counseled about appropriate diet, exercise, and need for low fat food choices. I have discussed the need for the patient to take medications as prescribed. If the patient has negative side effects from the medication, they are to CALL the office and not abruptly discontinue the medication without discussion with a practitioner in the office. We will check labs in 3-6 months for follow up on the patient's chronic medical problem and to assure normal liver response to medications. Iliotibial band syndrome- recommended use of anti-inflammatories and pt given handout on Iliotibial band exercises. Arthritis- occasionally uncontrolled symptoms- recommend pt to take antiinflammatory PRN and Use tylenol for break through pain symptoms. . Edema - pt has been advised to elevate legs to prevent dependent edema, compression has been recommended to help to naturally decrease peripheral edema. Diuretic use has been discussed and pt has been instructed in appropriate use of such medication as necessary to further attempt to reduce peripheral edema. Compression socks rx sent with patient. Herpes virus - advised Judith . Hypertension - well controlled - continue with current medications, continue with no added salt diet. Pt has been encouraged to exercise daily. The pt has been advised to call the office if there are any acute concerns about change in blood pressure readings at home. Skin lesion - healing - stop efudex and start on bactroban to skin lesion. Hip pain - continue with stretches and tylenol
[2018-01-28] MEDS ORDERED: NALOXONE 0.4 MG/ML 1 ML (NARCAN) VIAL IVP PRN (07:45)
[2018-01-28] MEDS ORDERED: LIDOCAINE JELLY 2% (XYLOCAINE) 5 ML TUBE MM PRN (07:45)
[2018-01-28] MEDS ORDERED: FLUMAZENIL (ROMAZICON) 0.1 MG/ML 5 ML VIAL INJ PRN (07:45)
--- OUTSIDE RECORDS SUMMARY | 2018-01-28 07:46 | XMS REPORT | CCD ---
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 Name Role Phone PP Unavailable CCM Unavailable Summary Purpose Interface Exchange Insurance Providers Payer name Policy type / Coverage type Covered alliance party ID Effective Begin Date Effective End Date WPS Medicare Part B Medicare Part B [id number] Unknown Unknown FOR LIFE WPS Medicare Part B [id number] Unknown Unknown Family history Father Diagnosis Age [...] Codes Description Effective Dates Marital status Unknown [place] 05/26/2016 Number of children Unknown 4 05/26/2016 Employment Unknown Retired Water[employer] 05/26/[address]: 469340338 Never smoker 05/26/[address]: 160933 Currently drinks alcohol 05/26/2016 Frequency of drinks SNOMED CT: 538512476 1-4 drinks per week 05/26/2016 Has the [...] Start Date Stop Date Status Fill Instructions Voltaren 1 % topical gel RxNorm: 769658 2 Gram(s) TOP QID 10/2610/20/2018 Active Norvasc 10 mg tablet RxNorm: 825922 1 Tablet(s) PO daily 201609/08/2018 Active Creon 12,000-38,000-60,000 unit capsule,delayed release RxNorm: 875888 2 Capsule(s ) PO AC 06/16/2017 06/10/2018 Active furosemide 20 mg tablet RxNorm: 955196 1 Tablet(s) PO every other day scheduled and up to daily if needed for excessive swelling of lower legs 05/12/2017 05/06/2018 Active Daniela Allergy 180 mg tablet RxNorm: 499177 1 Tablet(s) PO daily 04/20/2017 07/18/2017 Inactive prednisone 20 mg tablet RxNorm: 801530 1 Tablet(s) PO daily 08/201704/22/2017 Inactive omeprazole 20 mg tablet,delayed release RxNorm: 548490 1 Tablet(s) PO daily 03/03/2017 02/25/2018 Active Creon 12,000-38,000-60,000 unit capsule,delayed release RxNorm: 673270 2 Capsule(s ) PO AC 03/03/2017 06/15/2017 Inactive furosemide 20 mg tablet RxNorm: 120357 1 Tablet(s) PO every other day 03/03/2017 05/11/2017 Inactive Norvasc 5 mg tablet RxNorm: 198722 1 Tablet(s) PO daily 201609/13/2017 Inactive Norvasc 10 mg tablet RxNorm: 082591 1 Tablet(s) PO daily 201603/02/2017 Inactive Zithromax Z-Edwin 250 mg tablet RxNorm: 094268 1 Tablet(s) PO UD 12/17/2016 12/21/2016 Inactive zpack Bactroban 2 % topical cream RxNorm: 914064 1 Application TOP daily 10/15/2016 No Stop Date Active potassium 99 mg tablet RxNorm: 1 Tablet(s) PO daily 2016 No Stop Date Active ferrous gluconate 324 mg (36 mg iron) tablet RxNorm: 951417 1 Tablet(s) PO every other day 10/15/2016 No Stop Date Active furosemide 20 mg tablet RxNorm: 504170 1 Tablet(s) PO every other day 10/09/2016 03/02/2017 Inactive Incruse Ellipta 62.5 mcg/actuation powder for inhalation RxNorm: 0156700 1 INH daily 08/06/2016 08/05/2016 Inactive Incruse Ellipta 62.5 mcg/actuation powder for inhalation RxNorm: 8578623 1 INH daily 08/06/2016 07/31/2017 Inactive Efudex 5 % topical cream RxNorm: 591146 1 Application TOP BID TO LESIONS ON FACE 07/28/2016 08/06/2016 Inactive furosemide 20 mg tablet RxNorm: 203447 1 Tablet(s) PO every other day 07/16/2016 10/08/2016 Inactive metoprolol succinate ER 25 mg tablet,extended release 24 hr RxNorm: 372180 1 Tablet(s) PO daily 06/26/2016 06/20/2017 Inactive Atacand 4 mg tablet RxNorm: 804181 1 Tablet(s) PO daily 201506/20/[address] - ER 3 mg capsule,delayed,extended release RxNorm: 0019372 3 Capsule (s) PO daily 06/26/2016 06/20/2017 Inactive Poly-Iron 150 Forte 150 mg-25 mcg-1 mg capsule RxNorm: 952782 1 Capsule(s) PO daily 06/26/2016 06/20/2017 Inactive Vitamin D3 2,000 unit tablet RxNorm: 464316 1 Tablet(s) PO daily 06/26/2016 06/20/2017 Inactive Flonase Allergy Relief 50 mcg/actuation nasal spray, suspension RxNorm: 8101068 1 Welches NASAL daily 06/26/20162016 Inactive simvastatin 40 mg tablet RxNorm: 154991 1 Tablet(s) PO QPM 06/20/2017 Inactive Niaspan 1,000 mg tablet,extended release RxNorm: 4439598 1 Tablet(s) PO QPM 06/26/2016 06/20/2017 Inactive Nexium 40 mg capsule,delayed release RxNorm: 117800 1 Capsule(s) PO daily 06/26/2016 03/02/2017 Inactive Creon 12,000-38,000-60,000 unit capsule,delayed release RxNorm: 274565 2 Capsule(s ) PO daily 06/26/2016 03/02/2017 Inactive multivitamin tablet RxNorm: 1/2 Tablet(s) PO daily No Start Date Active Nexium 40 mg capsule,delayed release RxNorm: 412081 1 Capsule(s) PO every other day No Start Date Active melatonin 3 mg tablet RxNorm: 255172 1 Tablet(s) PO QHS as needed insomnia No Start Date Active Niaspan 1,000 mg tablet,extended release RxNorm: 7329710 1 Tablet(s) PO QPM No Start Date Active Atacand 4 mg tablet RxNorm: 489855 1 Tablet(s) PO QAM No Start Date Active montelukast 10 mg tablet RxNorm: 20011114 1 Tablet(s) PO QPM No Start Date Active Detrol LA 4 mg capsule,extended release RxNorm: 345947 1 Capsule(s) PO daily No Start Date Active simvastatin 40 mg tablet RxNorm: 19811011 1 Tablet(s) PO QPM No Start Date Active folic acid 800 mcg tablet RxNorm: 298206 1 Tablet(s) PO every other day No Start Date Active metoprolol succinate ER 25 mg tablet,extended release 24 hr RxNorm: 274076 1 Tablet(s) PO QPM No Start Date Active Toviaz 8 mg tablet,extended release RxNorm: 334120 1 Tablet(s) PO daily No Start Date Active Glucosamine Chondroitin PLUS oral RxNorm: 4419 oral No Start Date Active Vitamin B-12 500 mcg tablet RxNorm: 704655 1 Tablet(s) PO every other day No Start Date Active Aspirin Low Dose 81 mg tablet,delayed release RxNorm: 784201 1 Tablet(s) PO QPM No Start Date Active diphenhydramine 12.5 mg chewable tablet RxNorm: 0792612 1 Tablet(s) PO Q6 as needed allergy symptoms No Start Date Active Nitrostat 0.4 mg sublingual tablet RxNorm: 253299 1 Tablet(s) SL as needed No Start Date Active vitamin B complex oral RxNorm: 28914 oral No Start Date Active Creon 24,000-76,000-120,000 unit capsule,delayed release RxNorm: 976904 2 Capsule( s) PO TID per meal No Start Date Active Vitamin D3 5,000 unit tablet RxNorm: 011548 1 Tablet(s) PO daily No Start Date Active magnesium oxide 400 mg tablet RxNorm: 452835 1 Tablet(s) PO TIW on Wed, Wed, No Start Date Active acetaminophen 500 mg tablet RxNorm: 089538 1 Tablet(s) PO TID with meals No Start Date Active Fish Oil 900 mg-1,400 mg capsule,delayed release RxNorm: 1 Capsule(s) PO QAM No Start Date Active Co Q-10 oral RxNorm: 00084 oral No Start Date Active potassium 99 mg tablet RxNorm: 1 Tablet(s) PO TIW on Mon, Wed, Sat No Start Date 10/14/2016 Inactive fluticasone 50 mcg/actuation nasal spray,suspension RxNorm: 8541167 2 Welches NASAL QPM as needed No Start Date 10/15/2016 Inactive ferrous gluconate 324 mg (36 mg iron) tablet RxNorm: 166944 1 Tablet(s) PO BIW No Start Date 10/14/2016 Inactive melatonin oral RxNorm : 6711 oral No Start Date 10/15/2016 Inactive Zyrtec 10 mg tablet RxNorm: 6640329 1 Tablet(s) PO QPM No Start Date 10/14/2016 Inactive ranitidine 150 mg tablet RxNorm: 233626 1 Tablet(s) PO QPM No Start Date [...] 31.5 pg 06/22/2017 Cbc With Differential Ord2 [place]% 11.3 % 06/22/2017 Cbc With Differential Ord2 [...] 1.23 K/ul 06/22/2017 Cbc With Differential Ord2 [place] ABS# 0.8 K/ul 06/22/2017 Cbc With Differential Ord2 Eos ABS# 0.1 K/ul 06/22/2017 Cbc With Differential Ord2 Baso ABS# 0.0 K/ul 06/22/2017 Comp Metabolic Okz075 NA 140 mEq/L 06/22/2017 Comp Metabolic Bev188 K 3.8 mEq/L 06/22/2017 Comp Metabolic Cnz843 CL 104 mEq/L 06/22/2017 Comp Metabolic Qhk393 CO2 29.0 mEq/L 06/22/2017 Comp Metabolic Fvp908 ANION GAP 11 06/22/2017 Comp Metabolic Eic319 GLUCOSE 137 mg/dL 06/22/2017 Comp Metabolic Lti894 Creat 0.9 mg/dL 06/22/2017 Comp Metabolic Tyl963 eGFR 90 ml/min/1.73m2 06/22/2017 Comp Metabolic Kgv990 BUN 14 mg/dL 06/22/2017 Comp Metabolic Nou680 B/C Ratio 16.1 Ratio 06/22/2017 Comp Metabolic Aaz625 CALCIUM 9.2 mg/dL 06/22/2017 Comp Metabolic Wvv555 ALK PHOS 70 U/L 06/22/2017 Comp Metabolic Gnp546 AST(SGOT) 16 U/L 06/22/2017 Comp Metabolic Xom961 ALT(SGPT) 26 U/L 06/22/2017 Comp Metabolic Ezp258 BILI T 0.4 mg/dL 06/22/2017 Comp Metabolic Zuq631 ALBUMIN 4.0 g/dL 06/22/2017 Comp Metabolic Ali268 TPRO 6.9 g/dL 06/22/2017 Comp Metabolic Wjt220 GLOB 2.9 g/dL 06/22/2017 Comp Metabolic Zem618 A/G Ratio 1.3 Ratio 06/22/2017 Comp Metabolic Hrx462 Osmo 282 mOsmo 06/22/2017 %Hba1C Yal530 % HbA1c 25076-6 6.2 % 06/22/2017 %Hba1C Mzy484 Gluc Ave 131 mg/dL 06/22/2017 Tsh Ord6 hTSH II 3.47 uIU/mL 06/22/2017 Lipid Ord30 CHOL 137 mg/dL 06/22/2017 Lipid Ord30 HDL 45.0 mg/dl 06/22/2017 Lipid Ord30 TRIG 165 mg/dL 06/22/2017 Lipid Ord30 LDL 59 mg/dL 06/22/2017 Lipid Ord30 C/HDL 3.0 Ratio 06/22/2017 Culture Urine [id number] URINE CULTURE SEE NOTES 10/13/2016 Culture Urine [id number] Continued Results 10/13/2016 Review of Systems System [...] of heart Systolic murmur: midsystolic 10/26/2017 ii/vi [facility] Full Exam - General 1994 Abdomen abdominal [...] TANG 3 YRS PLUS IM SNOMED CT: 17028824 CPT-4: 87272 07/16/2016 Vital Signs Date Vital 10/26/2017 Blood Pressure 1: 162/80 Code : 8480-6 BMI: 25.4 Code : 64956-3 Heart Rate 1 : 76 bpm Height: 5'9" SpO2: 97% Weight: 172 lbs 06/21/2017 Blood Pressure 1: 134/78 Code : 8480-6 BMI: 24.9 Code : 19295-1 Heart Rate 1 : 79 bpm Height: 5'9" SpO2: 98% Weight: 168 lbs 8 oz 05/12/2017 Blood Pressure 1: 140/80 Code : 8480-6 BMI: 25.4 Code : 10278-6 Heart Rate 1 : 94 bpm Height: 5'9" SpO2: 96% Weight: 172 lbs 04/20/2017 Blood Pressure 1: 118/72 Code : 8480-6 BMI: 25.1 Code : 36382-8 Heart Rate 1 : 87 bpm Height: 5'9" SpO2: 98% Weight: 170 lbs 03/03/2017 Blood Pressure 1: 136/80 Code : 8480-6 BMI: 25.1 Code : 75024-7 Heart Rate 1 : 92 bpm Height: 5'9" SpO2: 98% Weight: 170 lbs 01/28/2017 Blood Pressure 1: 134/70 Code : 8480-6 BMI: 25.1 Code : 41834-6 Heart Rate 1 : 77 bpm Height: 5'9" SpO2: 97% Weight: 170 lbs 01/19/2017 Blood Pressure 1: 200/102 Code: 8480-6 Height: Weight: 12/17/2016 Blood Pressure 1: 140/80 Code : 8480-6 BMI: 25.1 Code : 06197-9 Heart Rate 1 : 84 bpm Height: 5'9" SpO2: 98% Weight: 170 lbs 10/15/2016 Blood Pressure 1: 132/72 Code : 8480-6 BMI: 25.4 Code : 44694-1 Heart Rate 1 : 85 bpm Height: 5'9" SpO2: 97% Weight: 172 lbs 08/06/2016 Blood Pressure 1: 140/74 Code : 8480-6 BMI: 25.0 Code : 86856-6 Heart Rate 1 : 77 bpm Height: 5'9" SpO2: 98% Weight: 169 lbs 07/28/2016 Blood Pressure 1: 136/68 Code : 8480-6 Heart Rate 1: 79 bpm Height: 5'9" SpO2: 97% Weight: 07/17/2016 Blood Pressure 1: 165/100 Code: 8480-6 Heart Rate 1: 118 bpm Height : SpO2: 97% Weight: 07/16/2016 Blood Pressure 1: 156/78 Code : 8480-6 BMI: 25.7 Code : 30733-1 Heart Rate 1 : 78 bpm Height: 5'9" SpO2: 97% Weight: 174 lbs 05/26/2016 Blood Pressure 1: 128/78 Code : 8480-6 BMI: 24.9 Code : 76767-6 Heart Rate 1 : 77 bpm Height: [...] data Encounters Encounter Performer Location Codes Date ([id number]) [id number] EST. PATIENT, LEVEL IV Diagnosis: Essential (primary) hypertension[ICD10: I10] Diagnosis: Muscle weakness (generalized)[ICD10: M62.81] Diagnosis: Low back pain[ICD10: M54.5] Diagnosis: Gross hematuria[ICD10: R31.0] Diagnosis: Cough[ICD10: R05] Ingrid Franco MD, [facility] CPT-4: 54267 10/26/2017 [id number]) [id number] EST. PATIENT, LEVEL IV Diagnosis: Essential (primary) hypertension[ICD10: I10] Diagnosis: Mixed hyperlipidemia[ICD10: E78.2] Diagnosis: Other abnormal glucose[ICD10: R73.09] Ingrid Franco MD, [facility] CPT-4: 39661 06/21/2017 ([id number]) 54038 EST. 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 CPT-4: 11338 05/12/2017 29037 EST. PATIENT, LEVEL IV Diagnosis: Other allergic rhinitis[ICD10: J30.89] Diagnosis: Pain in left hip[ICD10: M25.552] Diagnosis: Pain in right hip[ICD10: M25.551] Diagnosis: Low back pain[ICD10: M54.5] Leonora Franco MD, [facility] CPT-4 : 92843 04/20/2017 ([id number]) 93091 EST. PATIENT, LEVEL III Diagnosis: Essential (primary) hypertension[ICD10: I10] Ingrid Franco MD, [facility] CPT-4: 03859 03/03/2017 ([id number]) 10785 EST. PATIENT, LEVEL III Diagnosis: Essential (primary) hypertension[ICD10: I10] Ingrid Franco MD [facility] CPT-4: 91255 01/28/2017 ([id number]) 41666 EST. PATIENT, LEVEL III Diagnosis: Hypertensive urgency[ICD10: I16.0] Ingrid Franco MD [facility] CPT-4: 48158 01/19/2017 ([id number]) 71849 EST. PATIENT, LEVEL III Diagnosis: Cough[ICD10: R05] Diagnosis: Acute bronchitis, unspecified[ICD10: J20.9] Dolly Franco MD, [facility] CPT-4: 48687 12/17/2016 ([id number]) 28975 EST. 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 CPT-4: 94640 10/15/2016 ([id number]) 54686 EST. PATIENT, LEVEL III Diagnosis: Essential (primary) hypertension[ICD10: I10] Diagnosis: Actinic keratosis[ICD10: L57.0] Diagnosis: Cough[ICD10: R05] Ingrid Franco MD, [facility] CPT-4: 21542 08/06/2016 ([id number]) 01240 EST. PATIENT, LEVEL III Diagnosis: Essential (primary) hypertension[ICD10: I10] Ingrid Franco MD, [facility] CPT-4: 57906 07/28/2016 ([id number]) Patient admitted to the hospital from clinic (NO CHARGE) Diagnosis: Hematemesis[ICD10: K92.0] Leonora Franco MD, [facility] CPT-4: 50511L 07/17/2016 ([id number]) 99908 EST. 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 10/26/2017 Patient Education: Patient Medication Summary Completed 10/26/2017 Care Plan: Referral Order SNOMED-CT : 181568604 Pending 10/26/2017 Visit Plan: Hypertension - well [...] labs today 06/21/2017 Appointment: Ingrid Franco WPtel: [facility]5 [facility] (15 min) Moderate 06/21/2017 Patient Education: Patient Medication Summary Completed 06/21/2017 Appointment: Nurse Visit 06/11/2017 Appointment: Ingrid Franco WPtel: [address] [facility] (15 min) Moderate 06/08/2017 Visit Plan: Edema [...] sent with patient. Herpes virus - advised Abreva 05/12/2017 Appointment: Ingrid Franco WPtel: [address] [facility] (15 min) Moderate 05/12/2017 Patient Education: Patient [...] not improve. 04/20/2017 Appointment: Leonora Villela WPtel: [facility]6 [facility] (30 min) Complex 04/20/2017 Patient Education: Patient Medication Summary Completed 04/20/2017 Visit Plan: Hypertension - well controlled - continue with current medications, continue with no added salt diet. Pt has been encouraged to exercise daily. The pt has been advised to call the office if there are any acute concerns about change in blood pressure readings at home. 03/03/2017 Appointment: Ingrid Franco WPtel: [address] [phone] (15 min) Moderate 03/03/2017 Patient Education: Patient Medication Summary Completed 03/03/2017 Appointment: Ingrid Franco WPtel: [address] [facility] (30 min) Complex 02/11/2017 Visit Plan: Hypertension - well controlled - continue with current medications, continue with no added salt diet. Pt has been encouraged to exercise daily. The pt has been advised to call the office if there are any acute concerns about change in blood pressure readings at home. 01/28/2017 Appointment: Ingrid Franco WPtel: [address] [facility] (15 min) Moderate 01/28/2017 Patient Education: Patient [...] acutely worsen. 12/17/2016 Appointment: Dolly Mckeon WPtel: [address] [phone] [place] (10 min) Simple 12/17/2016 Patient Education: [...] and tylenol 10/15/2016 Appointment: Ingrid Franco WPtel: [address] [facility] [place] (30 min) Complex 10/15/2016 Patient Education: Patient [...] incruse elliptica 08/06/2016 Appointment: Ingrid Franco WPtel: [address] [facility] [place] (15 min) Moderate 08/06/2016 Patient Education: [...] obstruction resolved 07/28/2016 Appointment: Ingrid Franco WPtel: [address] [facility] [place] (15 min) Moderate 07/28/2016 Patient Education: Patient Medication Summary Completed 07/28/2016 Visit Plan: Pt states that he has had coffee ground, dark emesis since 0130 this morning. Pt abdomen is tender to palpation, tachycardic - Pt sent to the ED and report given. 07/17/2016 Appointment: Dolly Mckeon WPtel: [address] [phone] [place] (15 min) Moderate 07/17/2016 Patient Education: [...] peripheral edema. 07/16/2016 Appointment: Ingrid Franco WPtel: [facility]5 [place] [id number] (15 min) Moderate 07/16/2016 Patient Education: Patient [...] pain symptoms. 05/26/2016 Appointment: Ingrid Franco WPtel: [facility]5 [facility] New Patient 05/26/2016 Patient Education: Patient Medication [...] iliotibial band - there are exercises that has given - do them twice daily [...]
[2018-01-28] MEDS ORDERED: D5 LR IV SOLUTION 1,000 ML IV ONE (07:48)
--- OUTSIDE RECORDS SUMMARY | 2018-01-28 07:50 | XMS REPORT | Continuity of Care Document ---
Author Author [facility] Organization [facility] Address Unknown Phone Unavailable Allergies Active Description Code Type Severity Reaction Onset Reported/Identified Relationship to Patient Clinical Status Yes Cephalexin Monohydrate [id number] Drug Allergy Unknown N/A 05/30/2014 Yes naproxen [id number] Drug Allergy Severe CAUSED BLEEDING 10/29/2016 Yes Iodinated Contrast Media - IV Dye [id number] Drug Allergy Mild NAUSEA 10/29 Yes Iodinated Contrast Media - Oral and [id number] Drug Allergy Mild NAUSEA Yes Iodinated Contrast- Oral and IV Dye [id number] Drug Allergy Mild NAUSEA Medications There is no data. 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, ACQUIRED 11/23/2011 Ot 733.99 BONE CARTILAGE DIS NEC 11/23/2011 Ot 735.4 OTHER HAMMER TOE 11/23/2011 Ot V57.1 PHYSICAL THERAPY NEC 10/17/2012 Ot 185 MALIGN NEOPL PROSTATE 10/17/2012 Ot V58.0 ENCOUNTER FOR RADIOTHERAPY 12/23/2012 Ot 285.9 ANEMIA NOS 12/23/2012 Ot V58.69 OTH MED,LT, CURRENT USE 12/27/2012 Ot 285.9 ANEMIA NOS 12/27/2012 Ot 553.3 DIAPHRAGMATIC HERNIA 12/27/2012 Ot 578.1 BLOOD IN STOOL 01/05/2013 Ot 185 MALIGN NEOPL PROSTATE 01/05/2013 Ot 401.9 HYPERTENSION NOS 01/05/2013 Ot 412 OLD MYOCARDIAL INFARCT 01/05/2013 Ot 414.01 CORONARY ATHEROSCLEROSIS OF [place] CORON 01/05/2013 Ot 558.1 RADIATION GASTROENTERIT 01/05/2013 Ot 560.89 INTESTINAL OBSTRUCT NEC 01/05/2013 Ot V15.3 HX OF IRRADIATION 01/16/2013 Ot 185 MALIGN NEOPL PROSTATE 01/16/2013 Ot V58.0 ENCOUNTER FOR RADIOTHERAPY 02/17/2013 SHIRAZ MORA, JOURDAN Yang Ot 578.9 GASTROINTEST HEMORR NOS 02/17/2013 JOURDAN WELDON MD Ot V58.69 OTH MED,LT,CURRENT USE 03/15/2013 Ot 285.9 ANEMIA NOS 03/23/2013 Ot 285.9 ANEMIA NOS 05/18/2013 SHANAE CANTU MD S Ot 280.9 IRON DEFIC ANEMIA NOS 05/18/2013 SHANAE CANTU MD S Ot 530.11 REFLUX ESOPHAGITIS 05/18/2013 SHANAE CANTU MD S Ot 530.3 ESOPHAGEAL STRICTURE 05/18/2013 SHANAE CANTU MD Ot V58.69 OTH MED,LT,CURRENT USE 06/01/2013 SHANAE CANTU MD Ot 285.9 ANEMIA NOS 07/17/2013 SERAFIN IRIZARRY MD Ot 280.9 IRON DEFIC ANEMIA NOS 09/14/2013 SHANAE CANTU MD S Ot 530.81 ESOPHAGEAL REFLUX 10/03/2013 SHANAE CANTU MD S Ot 285.9 ANEMIA NOS 10/19/2013 SERAFIN IRIZARRY MD Ot 285.9 ANEMIA NOS 01/19/2014 SERAFIN IRIZARRY MD Ot 789.05 ABDOMINAL PAIN, PERIUMBILIC 01/19/2014 SERAFIN IRIZARRY MD Ot 997.49 OTHER DIGESTIVE SYSTEM COMPLICATIONS 01/19/2014 SERAFIN IRIZARRY MD Ot E849.0 ACCIDENT IN HOME 01/19/2014 SERAFIN IRIZARRY MD Ot E879.2 ABN REACT-RADIOTHERAPY 02/28/2014 SHANAE CANTU MD Ot 285.9 ANEMIA NOS 05/31/2014 SERAFIN IRIZARRY MD Ot 285.9 ANEMIA NOS 05/31/2014 SERAFIN IRIZARRY MD Ot 412 OLD MYOCARDIAL INFARCT 05/31/2014 SERAFIN IRIZARRY MD Ot 414.01 CORONARY ATHEROSCLEROSIS OF [place] CORON 05/31/2014 SERAFIN IRIZARRY MD Ot 729.82 CRAMP IN LIMB 05/31/2014 SERAFIN IRIZARRY MD Ot 786.09 RESPIRATORY ABNORM NEC 05/31/2014 SERAFIN IRIZARRY MD Ot 786.50 CHEST PAIN NOS 05/31/2014 SERAFIN IRIZARRY MD Ot V10.46 HX-PROSTATIC MALIGNANCY 07/01/2014 PANCHO MORA, PETER Yang Ot 285.9 ANEMIA NOS 07/01/2014 PETER DELEON MD Ot 789.02 ABDOMINAL PAIN, LEFT UPPER QUADRANT 07/01/2014 PETER DELEON MD Ot V58.69 [facility] MED,LT,CURRENT USE 07/25/2014 SERAFIN IRIZARRY MD Ot 285.9 ANEMIA NOS 08/24/2014 HUBER BURR, WAGNER K Ot 272.4 08/24/2014 HUBER PA, WAGNER K Ot 285.9 08/24/2014 HUBER PA, WAGNER K Ot 397.0 08/24/2014 HUBER BURR, WAGNER K Ot 401.9 08/24/2014 HUBER BURR, WAGNER K Ot 414.00 08/24/2014 HUBER BURR, WAGNER K Ot 424.0 08/24/2014 HUBER BURR, WAGNER K Ot 745.5 08/31/2014 SERAFIN IRIZARRY MD Ot 285.9 08/31/2014 SERAFIN IRIZARRY MD Ot 729.82 08/31/2014 LAURE MORA, JOSE DE JESUS Tavares Ot 272.4 08/31/2014 LAURE MORA, JOSE DE JESUS Tavares Ot 285.9 08/31/2014 LAURE MORA, JOSE DE JESUS Tavares Ot 396.3 08/31/2014 LAURE MORA, JOSE DE JESUS Tavares Ot 397.0 08/31/2014 LAURE MORA, JOSE DE JESUS Tavares Ot 401.9 08/31/2014 JOSE DE JESUS KELSEY MD Ot 414.00 08/31/2014 Ot 285.9 08/31/2014 SERAFIN IRIZARRY MD Ot 285.9 08/31/2014 HUBER PA, WAGNER K Ot 272.4 08/31/2014 HUBER BURR, WAGNER K Ot 285.9 08/31/2014 HUBER BURR, WAGNER K Ot 397.0 08/31/2014 HUBER BURR, WAGNER K Ot 401.9 08/31/2014 HUBER PA, WAGNER K Ot 414.00 08/31/2014 HUBER PA, WAGNER K Ot 424.0 08/31/2014 WAGNER BASSETT Ot 745.5 11/08/2014 SMITA MORA, PATRICK Ot 285.9 11/08/2014 SMITA MORA, PATRICK Ot 414.00 11/08/2014 SMITA MORA, PATRICK Ot 477.9 11/08/2014 SMITA MORA, PATRICK Ot 716.90 11/08/2014 SMITA MORA, PATRICK Ot V10.46 11/08/2014 SMITA MORA, PATRICK Ot V15.3 11/08/2014 SMITA MORA, PATRICK Ot V58.69 11/20/2014 SMITA MROA, PATRICK Ot 285.9 11/20/2014 SMITA MORA, PATRICK Ot 414.00 11/20/2014 SMITA MORA, PATRICK Ot 477.9 11/20/2014 SMITA MORA, PATRICK Ot 716.90 11/20/2014 SMITA MORA, PATRICK Ot V10.46 11/20/2014 SMITA MORA, PATRICK Ot V15.3 11/20/2014 SMITA MORA, PATRICK Ot V58.69 12/06/2014 SMITA MORA, PATRICK Ot 285.9 12/06/2014 SMITA MORA, PATRICK Ot 414.00 12/06/2014 SMITA MORA, PATRICK Ot 477.9 12/06/2014 SMITA MORA, PATRICK Ot 716.90 12/06/2014 SMITA MORA, PTARICK Ot V10.46 12/06/2014 SMITA MORA, PATRICK Ot V15.3 12/06/2014 SMITA MORA, PATRICK Ot V58.69 12/20/2014 SMITA MORA, PATRICK Ot 285.9 ANEMIA NOS 12/20/2014 SMITA MORA, PATRICK Ot 414.00 CORON ATHEROSCLER NOS TYPE VESSEL, NATIV 12/20/2014 SMITA MORA, PATRICK Ot 477.9 ALLERGIC RHINITIS NOS 12/20/2014 SMITA MORA, PATRICK Ot 716.90 ARTHROPATHY NOS-UNSPEC 12/20/2014 SMITA MORA, PATRICK Ot V10.46 HX-PROSTATIC MALIGNANCY 12/20/2014 SMITA MORA, PATRICK Ot V15.3 HX OF IRRADIATION 12/20/2014 SMITA MORA, PATRICK Ot V58.69 OT MED,LT,CURRENT USE 01/16/2015 SMITA MORA, HERNÁNDEZRaoulLIZETH Ot 285.9 01/16/2015 SMITA MORA, HERNÁNDEZ-LIZETH Ot 414.00 01/16/2015 SMITA MORA, HERNÁNDEZLIZETH Ot 477.9 01/16/2015 SMITA MORA, HERNÁNDEZLIZETH Ot 716.90 01/16/2015 SMITA MORA, HERNÁNDEZLIZETH Ot V10.46 01/16/2015 SMITA OMRA, HERNÁNDEZLIZETH Ot V15.3 01/16/2015 SMITA MORA, HERNÁNDEZLIZETH Ot V58.69 01/23/2015 SMITA MORA, PATRICK Ot 285.9 01/23/2015 SMITA MORA, HERNÁNDEZ-LIZETH Ot 414.00 01/23/2015 SMITA MORA, HERNÁNDEZRaoulLIZETH Ot 477.9 01/23/2015 SMITA MORA, HERNÁNDEZLIZETH Ot 716.90 01/23/2015 SMITA MORA, HERNÁNDEZLIZETH Ot V10.46 01/23/2015 SMITA MORA, HERNÁNDEZLIZETH Ot V15.3 01/23/2015 SMITA MORA, PATRICK Ot V58.69 02/11/2015 Ot 608.1 02/11/2015 Ot 396.3 02/11/2015 Ot 397.0 02/11/2015 Ot 414.00 02/11/2015 Ot 429.3 02/11/2015 Ot 786.09 02/11/2015 Ot 733.99 02/11/2015 Ot 735.4 02/11/2015 Ot V72.63 02/11/2015 Ot V74.8 02/11/2015 Ot 727.03 02/11/2015 Ot V72.83 02/11/2015 Ot V74.8 02/11/2015 Ot 401.9 02/11/2015 Ot 414.01 02/11/2015 Ot 727.03 02/11/2015 Ot V45.82 02/11/2015 Ot V58.66 02/11/2015 Ot V58.69 02/11/2015 Ot 185 02/11/2015 Ot 396.3 02/11/2015 Ot 397.0 02/11/2015 Ot 401.9 02/11/2015 Ot 414.00 02/11/2015 Ot 429.3 02/11/2015 Ot 401.9 02/11/2015 Ot 414.00 02/11/2015 Ot V72.84 02/11/2015 Ot 185 02/11/2015 SHIRAZ MORA, JOURDAN Yang Ot V72.84 02/11/2015 Ot 285.9 02/11/2015 Ot 285.9 02/11/2015 BETTY MORA, NIKITA A Ot 185 02/11/2015 PEPE MORA, SHANAE S Ot V72.84 02/11/2015 PEPE MORA, SHANAE S Ot 285.9 02/11/2015 PEPE MORA, SHANAE S Ot 578.9 02/11/2015 PEPE MORA, SHANAE S Ot 285.9 02/11/2015 PEPE MORA, SHANAE S Ot 530.81 02/11/2015 PEPE MORA, SHANAE S Ot 553.3 02/11/2015 PEPE MORA, SHANAE S Ot 578.9 02/11/2015 Ot 280.9 02/11/2015 JUAN C MORA, SERAFIN Skaggs Ot 285.9 02/11/2015 JUAN C MORA, SERAFIN Skaggs Ot 285.9 02/11/2015 JUAN C MORA, SERAFIN K Ot 729.82 02/11/2015 MARTY MORA, GOPI E Ot 185 02/11/2015 Ot 285.9 02/11/2015 LAURE MORA, JOSE DE JESUS Tavares Ot 272.4 02/11/2015 LAURE MORA, JOSE DE JESUS Tavares Ot 285.9 02/11/2015 LAURE MORA, JOSE DE JESUS Tavares Ot 396.3 02/11/2015 LAURE MORA, JOSE DE JESUS Tavares Ot 397.0 02/11/2015 LAURE MORA, JOSE DE JESUS Tavares Ot 401.9 02/11/2015 LAURE MORA, JOSE DE JESUS J Ot 414.00 02/11/2015 REGAN MORA, HARVINDER P Ot 936 02/11/2015 JUAN C MORA, SERAFIN Skaggs Ot 936 02/11/2015 Ot 285.9 02/11/2015 WAGNER BASSETT Ot 272.4 02/11/2015 WAGNER BASSETT Ot 285.9 02/11/2015 WAGNER BASSETT Ot 397.0 02/11/2015 WAGNER BASSETT Ot 401.9 02/11/2015 WAGNER BASSETT Ot 414.00 02/11/2015 WAGNER BASSETT Ot 424.0 02/11/2015 WAGNER BASSETT Ot 745.5 02/11/2015 SMITA MORA, PATRICK Ot 285.9 02/11/2015 SMITA MORA, PATRICK Ot 414.00 02/11/2015 SMITA MORA, PATRICK Ot 477.9 02/11/2015 SMITA MORA, PATRICK Ot 716.90 02/11/2015 SMITA MORA, PATRICK Ot V10.46 02/11/2015 SMITA MORA, PATRICK Ot V15.3 02/11/2015 SMITA MORA, PATRICK Ot V58.69 02/11/2015 SERAFIN IRIZARRY MD Ot 719.46 02/11/2015 SERAFIN IRIZARRY MD Ot 724.2 03/01/2015 SERAFIN IRIZARRY MD Ot 719.46 03/01/2015 SERAFIN IRIZARRY MD Ot 724.2 03/27/2015 SERAFIN IRIZARRY MD Ot 721.3 03/27/2015 SERAFIN IRIZARRY MD Ot V57.1 04/05/2015 VIANNEY MARIA MD Ot 721.3 LUMBOSACRAL SPONDYLOSIS 04/05/2015 VIANNEY MARIA MD Ot 724.6 DISORDERS OF SACRUM 04/05/2015 VIANNEY MARIA MD Ot V58.69 OT MED,LT,CURRENT USE 04/10/2015 SERAFIN IRIZARRY MD Ot 721.3 LUMBOSACRAL SPONDYLOSIS 04/10/2015 SERAFIN IRIZARRY MD Ot V57.1 PHYSICAL THERAPY NEC 04/23/2015 SMITA MORA, PATRICK Ot 285.9 ANEMIA NOS 04/23/2015 SMITA MORA, PATRICK Ot 414.00 CORON ATHEROSCLER NOS TYPE VESSEL, NATIV 04/23/2015 PATRICK ORDOÑEZ MD Ot 477.9 ALLERGIC RHINITIS NOS 04/23/2015 SMITA MORA, PATRICK Ot 716.90 ARTHROPATHY NOS-UNSPEC 04/23/2015 PATRICK ORDOÑEZ MD Ot V10.46 HX-PROSTATIC MALIGNANCY 04/23/2015 SMITA MORA, PATRICK Ot V15.3 HX OF IRRADIATION 04/23/2015 PATRICK ORDOÑEZ MD Ot V58.69 OTH MED,LT,CURRENT USE 05/31/2015 JOSE DE JESUS KELESY MD Ot 272.4 HYPERLIPIDEMIA NEC/NOS 05/31/2015 JOSE DE JESUS KELSEY MD Ot 401.9 HYPERTENSION NOS 05/31/2015 JOSE DE JESUS KELSEY MD Ot 411.1 INTERMED CORONARY SYND 05/31/2015 JOSE DE JESUS KELSEY MD Ot 414.01 CORONARY ATHEROSCLEROSIS OF [place] CORON 05/31/2015 JOSE DE JESUS KELSEY MD Ot 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[place] 05/31/2015 JOS EDE JESUS KELSEY MD Ot 428.0 CONGESTIVE HEART FAILURE NOS 05/31/2015 JOSE DE JESUS KELSEY MD Ot 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 05/31/2015 JOSE DE JESUS KELSEY MD Ot 794.30 ABN CARDIOVASC STUDY NOS 05/31/2015 JOSE DE JESUS KELSEY MD Ot V10.46 HX-PROSTATIC MALIGNANCY 05/31/2015 JOSE DE JESUS KELSEY MD Ot V15.3 HX OF IRRADIATION 05/31/2015 JOSE DE JESUS KELSEY MD Ot V58.69 OTH MED,LT,CURRENT USE 06/02/2015 Ot 396.3 06/02/2015 Ot 397.0 06/02/2015 Ot 414.00 06/02/2015 Ot 429.3 06/02/2015 Ot 786.09 06/02/2015 Ot 733.99 06/02/2015 Ot 735.4 06/02/2015 Ot V72.63 06/02/2015 Ot V74.8 06/02/2015 Ot 727.03 06/02/2015 Ot V72.83 06/02/2015 Ot V74.8 06/02/2015 Ot 401.9 06/02/2015 Ot 414.01 06/02/2015 Ot 727.03 06/02/2015 Ot V45.82 06/02/2015 Ot V58.66 06/02/2015 Ot V58.69 06/02/2015 Ot 185 06/02/2015 Ot 396.3 06/02/2015 Ot 397.0 06/02/2015 Ot 401.9 06/02/2015 Ot 414.00 06/02/2015 Ot 429.3 06/02/2015 Ot 401.9 06/02/2015 Ot 414.00 06/02/2015 Ot V72.84 06/02/2015 Ot 185 06/02/2015 SHIRAZ MORA, JOURDAN D Ot V72.84 06/02/2015 Ot 285.9 06/02/2015 Ot 285.9 06/02/2015 BETTY MORA, NIKITA A Ot 185 06/02/2015 PEPE MORA, SHANAE S Ot V72.84 06/02/2015 PEPE MORA, SHANAE S Ot 285.9 06/02/2015 PEPE MORA, SHANAE S Ot 578.9 06/02/2015 PEPE MORA, SHANAE S Ot 285.9 06/02/2015 PEPE MORA, SHANAE S Ot 530.81 06/02/2015 PEPE MORA, SHANAE S Ot 553.3 06/02/2015 PEPE MOAR, SHANAE S Ot 578.9 06/02/2015 Ot 280.9 06/02/2015 JUAN C MORA, SERAFIN Skaggs Ot 285.9 06/02/2015 JUAN C MORA, SERAFIN Skaggs Ot 285.9 06/02/2015 JUAN C MORA, SERAFIN Skaggs Ot 729.82 06/02/2015 MARTY MORA, GOPI E Ot 185 06/02/2015 Ot 285.9 06/02/2015 LAURE MORA, JOSE DE JESUS Tavares Ot 272.4 06/02/2015 LAURE MORA, JOSE DE JESUS J Ot 285.9 06/02/2015 LAURE MORA, JOSE DE JESUS J Ot 396.3 06/02/2015 LAURE MORA, JOSE DE JESUS J Ot 397.0 06/02/2015 LAURE MORA, JOSE DE JESUS J Ot 401.9 06/02/2015 LAURE MORA, JOSE DE JESUS J Ot 414.00 06/02/2015 ERGAN MORA, HARVINDER P Ot 936 06/02/2015 JUAN C MORA, SERAFIN Skaggs Ot 936 06/02/2015 Ot 285.9 06/02/2015 HUBER PA, WAGNER K Ot 272.4 06/02/2015 HUBER PA, WAGNER K Ot 285.9 06/02/2015 HUBER PA, WAGNER K Ot 397.0 06/02/2015 HUBER PA, WAGNER K Ot 401.9 06/02/2015 HUBER PA, WAGNER Skaggs Ot 414.00 06/02/2015 HUBER PA, WAGNER K Ot 424.0 06/02/2015 HUBER BURR, WAGNER Skaggs Ot 745.5 06/02/2015 JUAN C MORA, SERAFIN Skaggs Ot 719.46 06/02/2015 JUAN C MORA, SERAFIN Skaggs Ot 724.2 06/02/2015 SMITA MORA, PATRICK Ot 285.9 06/02/2015 MSITA MORA, EDGARLIZETH Ot 414.00 06/02/2015 SMITA MORA, PATRICK Ot 477.9 06/02/2015 SMITA MORA, HERNÁNDEZLIZETH Ot 716.90 06/02/2015 SMITA MORA, PATRICK Ot V10.46 06/02/2015 SMITA MORA, PATRICK Ot V15.3 06/02/2015 SMITA MORA, PATRICK Ot V58.69 06/02/2015 LAURE MORA, BASHAR J Ot 272.4 06/02/2015 LAURE MORA, BASHAR J Ot 401.9 06/02/2015 LAURE MORA, BASHAR J Ot 414.00 06/02/2015 LAURE MORA, BASHAR J Ot 428.0 06/02/2015 LAURE MORA, BASHAR J Ot 786.50 06/02/2015 LAURE MORA, BASHAR J Ot V64.3 06/04/2015 LAURE MORA, BASHAR J Ot 272.4 06/04/2015 LAURE MORA, BASHAR J Ot 401.9 06/04/2015 LAURE MORA, BASHAR J Ot 414.00 06/04/2015 LAURE MORA, BASHAR J Ot 428.0 06/04/2015 LAURE MORA, BASHAR J Ot 786.50 06/04/2015 LAURE MORA, BASHAR J Ot V64.3 06/05/2015 LAURE MORA, BASHAR J Ot 272.4 06/05/2015 LAURE MORA, BASHAR J Ot 401.9 06/05/2015 LAURE MORA, BASHAR J Ot 414.00 06/05/2015 LAURE MORA, BASHAR J Ot 428.0 06/05/2015 LAURE MORA, BASHAR J Ot 786.50 06/05/2015 LAURE MORA, BASHAR J Ot V64.3 06/19/2015 LAURE MORA, BASHAR J Ot 272.4 06/19/2015 LAURE MORA, BASHAR J Ot 401.9 06/19/2015 LAURE MORA, JOSE DE JESUS Tavares Ot 414.00 06/19/2015 LAURE MORA, JOSE DE JESUS Tavares Ot 428.0 06/19/2015 LAURE MORA, JOSE DE JESUS Tavares Ot 786.50 06/19/2015 LAURE MORA, JOSE DE JESUS Tavares Ot V64.3 07/01/2015 LAURE MORA, JOSE DE JESUS Tavares Ot 272.4 07/01/2015 LAURE MORA, JOSE DE JESUS Tavares Ot 401.9 07/01/2015 LAURE MORA, JOSE DE JESUS Tavares Ot 414.00 07/01/2015 LAURE MORA, JOSE DE JESUS Tavares Ot 428.0 07/01/2015 LAURE MORA, JOSE DE JESUS Tavares Ot 786.50 07/01/2015 LAURE MORA, JOSE DE JESUS Tavares Ot V64.3 07/18/2015 Ot 396.3 07/18/2015 Ot 397.0 07/18/2015 Ot 414.00 07/18/2015 Ot 429.3 07/18/2015 Ot 786.09 07/18/2015 Ot 733.99 07/18/2015 Ot 735.4 07/18/2015 Ot V72.63 07/18/2015 Ot V74.8 07/18/2015 Ot 727.03 07/18/2015 Ot V72.83 07/18/2015 Ot V74.8 07/18/2015 Ot 401.9 07/18/2015 Ot 414.01 07/18/2015 Ot 727.03 07/18/2015 Ot V45.82 07/18/2015 Ot V58.66 07/18/2015 Ot V58.69 07/18/2015 Ot 185 07/18/2015 Ot 396.3 07/18/2015 Ot 397.0 07/18/2015 Ot 401.9 07/18/2015 Ot 414.00 07/18/2015 Ot 429.3 07/18/2015 Ot 401.9 07/18/2015 Ot 414.00 07/18/2015 Ot V72.84 07/18/2015 Ot 185 07/18/2015 SHIRAZ MORA, JOURDAN Yang Ot V72.84 07/18/2015 Ot 285.9 07/18/2015 Ot 285.9 07/18/2015 BETTY MORA, NIKITA Kirby Ot 185 07/18/2015 PEPE MORA, SHANAE Perales Ot V72.84 07/18/2015 PEPE MORA, SHANAE S Ot 285.9 07/18/2015 PEPE MORA, SHANAE S Ot 578.9 07/18/2015 PEPE MORA, SHANAE S Ot 285.9 07/18/2015 PEPE MORA, SHANAE S Ot 530.81 07/18/2015 PEPE MORA, SHANAE S Ot 553.3 07/18/2015 PEPE MORA, SHANAE S Ot 578.9 07/18/2015 Ot 280.9 07/18/2015 JUAN C MORA, SERAFIN Skaggs Ot 285.9 07/18/2015 JUAN C MORA, SERAFIN Skaggs Ot 285.9 07/18/2015 JUAN C MORA, SERAFIN Skaggs Ot 729.82 07/18/2015 MARTY MORA, GOPI Paul Ot 185 07/18/2015 Ot 285.9 07/18/2015 LAURE MORA, JOSE DE JESUS Tavares Ot 272.4 07/18/2015 LAURE MORA, JOSE DE JESUS Tavares Ot 285.9 07/18/2015 LAURE MORA, JOSE DE JESUS Tavares Ot 396.3 07/18/2015 LAURE MORA, JOSE DE JESUS Tavares Ot 397.0 07/18/2015 LAURE MORA, JOSE DE JESUS J Ot 401.9 07/18/2015 LAURE MORA, JOSE DE JESUS J Ot 414.00 07/18/2015 REGAN MORA, HARVINDER Nuñez Ot 936 07/18/2015 JUAN C MORA, SERAFIN Skaggs Ot 936 07/18/2015 Ot 285.9 07/18/2015 DIPAK-SUKHDEV PA, WAGNER K Ot 272.4 07/18/2015 QUESADA-SUKHDEV PA, WAGNER K Ot 285.9 07/18/2015 QUESADA-SUKHDEV PA, WAGNER K Ot 397.0 07/18/2015 QUESADA-SUKHDEV PA, WAGNER K Ot 401.9 07/18/2015 QUESADA-SUKHDEV PA, WAGNER K Ot 414.00 07/18/2015 QUESADA-SUKHDEV PA, WAGNER K Ot 424.0 07/18/2015 QUESADA-SUKHDEV PA, WAGNER K Ot 745.5 07/18/2015 JUAN C MORA, SERAFIN Skaggs Ot 719.46 07/18/2015 SERAFIN IRIZARRY MD Ot 724.2 07/18/2015 SMITA MORA, PATRICK Ot 285.9 07/18/2015 PATRICK ORDOÑEZ MD Ot 414.00 07/18/2015 SMITA MORA, EDGAR-LIZETH Ot 477.9 07/18/2015 SMITA MORA, HERNÁNDEZ-LIZETH Ot 716.90 07/18/2015 SMITA MORA, HERNÁNDEZ-LIZETH Ot V10.46 07/18/2015 SMITA MORA, HERNÁNDEZ-LIZETH Ot V15.3 07/18/2015 SMITA MORA, HERNÁNDEZ-LIZETH Ot V58.69 07/18/2015 LAURE MORA, BASHAR J Ot 272.4 07/18/2015 LAURE MORA, BASHAR J Ot 401.9 07/18/2015 LAURE MORA, BASHAR J Ot 414.00 07/18/2015 LAURE MORA, BASHAR J Ot 428.0 07/18/2015 LAURE MORA, BASHAR J Ot 786.50 07/18/2015 LAURE MORA, BASHAR J Ot V64.3 07/23/2015 SMITA MORA, HERNÁNDEZ-LIZETH Ot 285.9 07/23/2015 SMITA MORA, HERNÁNDEZ-LIZETH Ot 414.00 07/23/2015 SMITA MORA, HERNÁNDEZ-LIZETH Ot 477.9 07/23/2015 SMITA MORA, HERNÁDNEZ-LIZETH Ot 716.90 07/23/2015 SMITA MORA, HERNÁNDEZ-LIZETH Ot V10.46 07/23/2015 SMITA MORA, HERNÁNDEZ-LIZETH Ot V15.3 07/23/2015 SMITA MORA, HERNÁNDEZ-LIZETH Ot V58.69 07/23/2015 SMITA MORA, HERNÁNDEZ-LIZETH Ot 285.9 07/23/2015 SMITA MORA, HERNÁNDEZ-LIZETH Ot 414.00 07/23/2015 SMITA MORA, HERNÁNDEZ-LIZETH Ot 477.9 07/23/2015 SMITA MORA, HERNÁNDEZ-LIZETH Ot 716.90 07/23/2015 SMITA MORA, HERNÁNDEZ-LIZETH Ot V10.46 07/23/2015 SMITA MORA, HERNÁNDEZ-LIZETH Ot V15.3 07/23/2015 SMITA MORA, HERNÁNDEZ-LIZETH Ot V58.69 08/07/2015 BETTY MORA, NIKITA Kirby Ot C61 08/12/2015 BETTY MORA, NIKITA Kirby Ot C61 08/13/2015 SMITA MORA, EDGAR-LIZETH Ot D64.9 08/13/2015 SMITA MORA, EDGAR-LIZETH Ot I25.10 08/13/2015 SMITA MORA, HERNÁNDEZ-LIZETH Ot Z79.899 08/13/2015 SMITA MORA, PATRICK Ot Z85.46 08/27/2015 SMITA MORA, PATRICK Ot D64.9 08/27/2015 SMITA MORA, PATRICK Ot I25.10 08/27/2015 SMITA MORA, PATRICK Ot Z79.899 08/27/2015 SMITA MORA, PATRICK Ot Z85.46 08/27/2015 BETTY MORA, NIKITA Kirby Ot C61 08/27/2015 BETTY MORA, NIKITA Kirby Ot C61 09/03/2015 JUAN C MORA, SERAFIN [place] Ot 285.9 09/03/2015 JUAN C MORA, SERAFIN [place] Ot 729.82 09/03/2015 LAURE MORA, JOSE DE JESUS Tavares Ot 272.4 09/03/2015 LAURE MORA, JOSE DE JESUS J Ot 285.9 09/03/2015 LAURE MORA, JOSE DE JESUS J Ot 396.3 09/03/2015 LAURE MORA, BASAKHIL J Ot 397.0 09/03/2015 LAURE MORA, BASHAR J Ot 401.9 09/03/2015 LAURE MORA, BASHAR J Ot 414.00 09/03/2015 Ot 285.9 09/03/2015 QUESADA-SUKHDEV PA, WAGNER K Ot 272.4 09/03/2015 QUESADA-SUKHDEV PA, WAGNER K Ot 285.9 09/03/2015 QUESADA-SUKHDEV PA, WAGNER K Ot 397.0 09/03/2015 QUESADA-SUKHDEV PA, WAGNER K Ot 401.9 09/03/2015 QUESADA-SUKHDEV PA, WAGNER K Ot 414.00 09/03/2015 QUESADA-SUKHDEV PA, WAGNER K Ot 424.0 09/03/2015 QUESADA-SUKHDEV PA, WAGNER K Ot 745.5 09/03/2015 JUAN C MORA, SERAFIN [place] Ot 719.46 09/03/2015 JUAN C MORA, SERAFIN [place] Ot 724.2 09/03/2015 SMITA MORA, PATRICK Ot D64.9 09/03/2015 SMITA MORA, PATRICK Ot I25.10 09/03/2015 SMITA MORA, PATRICK Ot Z79.899 09/03/2015 SMITA MORA, PATRICK Ot Z85.46 09/03/2015 LAURE MORA, JOSE DE JESUS Tavares Ot 272.4 09/03/2015 LAURE OMRA, JOSE DE JESUS Tavares Ot 401.9 09/03/2015 LAURE MORA, JOSE DE JESUS Tavares Ot 414.00 09/03/2015 LAURE MORA, JOSE DE JESUS Tavares Ot 428.0 09/03/2015 LAURE MORA, JOSE DE JESUS Tavares Ot 786.50 09/03/2015 LAURE MORA, JOSE DE JESUS Tavares Ot V64.3 09/03/2015 BETTY MORA, NIKITA Kirby Ot C61 09/03/2015 BETTY MORA, NIKITA Kirby Ot C61 09/03/2015 SMITA MORA, HERNÁNDEZLIZETH Ot C61 09/03/2015 SMITA [facility] Ot R91.8 09/03/2015 SMITA MORA, HERNÁNDEZLIZETH Ot C61 09/03/2015 SMITA MORA, HERNÁNDEZLIZETH Ot C61 09/09/2015 [place] DO Ot C61 09/09/2015 [place] DO Ot R91.1 09/18/2015 SMITA MORA, BONNYLIZETH Ot C61 10/01/2015 [place] DO Ot C61 10/01/2015 [place] DO Ot R91.1 10/03/2015 [place] DO Ot R59.1 10/03/2015 WAGNER BASSETT Ot E78.5 10/03/2015 WAGNER BASSETT Ot I10 10/03/2015 WAGNER BASSETT Ot I25.10 10/03/2015 WAGNER BASSETT Ot I65.29 10/08/2015 SMITA MORA, BONNYLIZETH Ot C61 10/10/2015 [place] DO Ot C61 10/10/2015 [place] DOSON M Ot R91.1 10/16/2015 [place] DO Ot R59.1 10/18/2015 CANDACE MORA, VIANNEY Tavares Ot M53.3 SACROCOCCYGEAL DISORDERS, NOT ELSEWHERE 10/18/2015 CANDACE MORA, VIANNEY Tavares Ot Z79.899 OTHER USP (CURRENT) DRUG THERAPY 10/22/2015 SMITA MORA, PATRICK Ot C61 10/23/2015 [place] DO Ot C61 10/23/2015 [place] DO Ot R91.1 11/06/2015 PATRICK ORDOÑEZ MD Ot C61 11/26/2015 PATRICK ORDOÑEZ MD, Ot C61 MALIGNANT NEOPLASM OF PROSTATE 11/26/2015 PATRICK ORDOÑEZ MD Ot D50.9 IRON DEFICIENCY ANEMIA, UNSPECIFIED 11/26/2015 PATRICK ORDOÑEZ MD Ot E78.5 HYPERLIPIDEMIA, UNSPECIFIED 11/26/2015 PATRICK ORDOÑEZ MD Ot I10 ESSENTIAL (PRIMARY) HYPERTENSION 11/26/2015 PATRICK ORDOÑEZ MD Ot I25.10 ATHSCL HEART DISEASE OF [place] CORONARY 11/26/2015 PATRICK ORDOÑEZ MD Ot R91.1 SOLITARY PULMONARY NODULE 11/26/2015 PATRICK ORDOÑEZ MD Ot Z79.899 OTHER USP (CURRENT) DRUG THERAPY 01/15/2016 [place] DO Ot R91.1 01/31/2016 NIKITA HERNÁNDEZ MD Ot C61 MALIGNANT NEOPLASM OF PROSTATE 02/04/2016 [place] DO Ot R91.1 SOLITARY PULMONARY NODULE 02/17/2016 VIANNEY MARIA MD, Ot M53.3 SACROCOCCYGEAL DISORDERS, NOT ELSEWHERE 02/17/2016 VIANNEY MARIA MD, Ot M70.62 TROCHANTERIC BURSITIS, LEFT HIP 02/17/2016 VIANNEY MARIA MD, Ot Z79.899 OTHER USP (CURRENT) DRUG THERAPY 02/19/2016 NIKITA HERNÁNDEZ MD Ot C61 MALIGNANT NEOPLASM OF PROSTATE 02/25/2016 [place] DO Ot R91.1 SOLITARY PULMONARY NODULE 03/04/2016 VIANNEY MARIA MD Ot M53.3 SACROCOCCYGEAL DISORDERS, NOT ELSEWHERE 03/04/2016 VIANNEY MARIA MD, Ot M70.62 TROCHANTERIC BURSITIS, LEFT HIP 03/04/2016 VIANNEY MARIA MD, Ot Z79.899 OTHER PROOF OPERATOR (CURRENT) DRUG THERAPY 03/11/2016 NIKITA HERNÁNDEZ MD Ot C61 MALIGNANT NEOPLASM OF PROSTATE 03/19/2016 [place] DO Ot R91.1 SOLITARY PULMONARY NODULE 03/19/2016 [place] DO Ot R91.1 SOLITARY PULMONARY NODULE 04/03/2016 VIANNEY MARIA MD Ot M53.3 SACROCOCCYGEAL DISORDERS, NOT ELSEWHERE 04/03/2016 CANDACE MORA, VIANNEY Tavares Ot M70.62 TROCHANTERIC BURSITIS, LEFT HIP 04/07/2016 [place] DO Ot R91.1 SOLITARY PULMONARY NODULE 04/23/2016 [place] DO Ot R91.1 SOLITARY PULMONARY NODULE 05/10/2016 SERAFIN IRIZARRY MD Ot 285.9 ANEMIA NOS 05/10/2016 SERAFIN IRIZARRY MD Ot 729.82 CRAMP IN LIMB 05/10/2016 JOSE DE JESUS KELSEY MD Ot 272.4 HYPERLIPIDEMIA NEC/NOS 05/10/2016 JOSE DE JESUS KELSEY MD Ot 285.9 ANEMIA NOS 05/10/2016 JOSE DE JESUS KELSEY MD Ot 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 05/10/2016 JOSE DE JESUS KELSEY MD Ot 397.0 TRICUSPID VALVE DISEASE 05/10/2016 JOSE DE JESUS KELSEY MD Ot 401.9 HYPERTENSION NOS 05/10/2016 JOSE DE JESUS KELSEY MD Ot 414.00 CORON ATHEROSCLER NOS TYPE VESSEL, NATIV 05/10/2016 Ot 285.9 ANEMIA NOS 05/10/2016 WAGNER BASSETT Ot 272.4 HYPERLIPIDEMIA NEC/NOS 05/10/2016 WAGNER BASSETT Ot 285.9 ANEMIA NOS 05/10/2016 WAGNER BASSETT Ot 397.0 TRICUSPID VALVE DISEASE 05/10/2016 WAGNER BASSETT Ot 401.9 HYPERTENSION NOS 05/10/2016 WAGNER BASSETT Ot 414.00 CORON ATHEROSCLER NOS TYPE VESSEL, NATIV 05/10/2016 WAGNER BASSETT Ot 424.0 MITRAL VALVE DISORDER 05/10/2016 WAGNER BASSETT Ot 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 05/10/2016 SERAFIN IRIZARRY MD Ot 719.46 JOINT PAIN-L/LEG 05/10/2016 SERAFIN IRIZARRY MD Ot 724.2 LUMBAGO 05/10/2016 PATRICK ORDOÑEZ MD Ot D64.9 ANEMIA, UNSPECIFIED 05/10/2016 PATRICK ORDOÑEZ MD Ot I25.10 ATHSCL HEART DISEASE OF [place] CORONARY 05/10/2016 PATRICK ORDOÑEZ MD Ot Z79.899 OTHER PROOF OPERATOR (CURRENT) DRUG THERAPY 05/10/2016 PATRICK ORDOÑEZ MD Ot Z85.46 PERSONAL HISTORY OF MALIGNANT NEOPLASM O 05/10/2016 JOSE DE JESUS KELSEY MD Ot 272.4 HYPERLIPIDEMIA NEC/NOS 05/10/2016 JOSE DE JESUS KELSEY MD Ot 401.9 HYPERTENSION NOS 05/10/2016 JOSE DE JESUS KELSEY MD Ot 414.00 CORON ATHEROSCLER NOS TYPE VESSEL, NATIV 05/10/2016 JOSE DE JESUS KELSEY MD Ot 428.0 CONGESTIVE HEART FAILURE NOS 05/10/2016 JOSE DE JESUS KELSEY MD Ot 786.50 CHEST PAIN NOS 05/10/2016 JOSE DE JESUS KELSEY MD Ot V64.3 NO PROC FOR REASONS NEC 05/10/2016 NIKITA HERNÁNDEZ MD Ot C61 MALIGNANT NEOPLASM OF PROSTATE 05/10/2016 NIKITA HERNÁNDEZ MD Ot C61 MALIGNANT NEOPLASM OF PROSTATE 05/10/2016 PATRICK ORDOÑEZ MD, Ot C61 MALIGNANT NEOPLASM OF PROSTATE 05/10/2016 PATRICK ORDOÑEZ MD Ot R91.8 OTHER NONSPECIFIC ABNORMAL FINDING OF [place] 05/10/2016 PATRICK ORDOÑEZ MD Ot C61 MALIGNANT NEOPLASM OF PROSTATE 05/10/2016 RUBÉN LAKE DO Ot R59.1 GENERALIZED ENLARGED LYMPH NODES 06/11/2016 Ot 285.9 ANEMIA NOS 07/09/2016 SERAFIN IRIZARRY MD Ot 285.9 ANEMIA NOS 07/09/2016 SERAFIN IRIZARRY MD Ot 729.82 CRAMP IN LIMB 07/09/2016 JOSE DE JESUS KELSEY MD Ot 272.4 HYPERLIPIDEMIA NEC/NOS 07/09/2016 JOSE DE JESUS KELSEY MD Ot 285.9 ANEMIA NOS 07/09/2016 JOSE DE JESUS KELSEY MD Ot 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 07/09/2016 JOSE DE JESUS KELSEY MD Ot 397.0 TRICUSPID VALVE DISEASE 07/09/2016 JOSE DE JESUS KELSEY MD Ot 401.9 HYPERTENSION NOS 07/09/2016 JOSE DE JESUS KELSEY MD Ot 414.00 CORON ATHEROSCLER NOS TYPE VESSEL, NATIV 07/09/2016 Ot 285.9 ANEMIA NOS 07/09/2016 WAGNER BASSETT Ot 272.4 HYPERLIPIDEMIA NEC/NOS 07/09/2016 WAGNER BASSETT Ot 285.9 ANEMIA NOS 07/09/2016 WAGNER BASSETT Ot 397.0 TRICUSPID VALVE DISEASE 07/09/2016 WAGNER BASSETT Ot 401.9 HYPERTENSION NOS 07/09/2016 WAGNER BASSETT Ot 414.00 CORON ATHEROSCLER NOS TYPE VESSEL, NATIV 07/09/2016 HUBER BURR WAGNER K Ot 424.0 MITRAL VALVE DISORDER 07/09/2016 WAGNER BASSETT Ot 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 07/09/2016 SERAFIN IRIZARRY MD Ot 719.46 JOINT PAIN-L/LEG 07/09/2016 SERAFIN IRIZARRY MD Ot 724.2 LUMBAGO 07/09/2016 PATRICK ORDOÑEZ MD, Ot D64.9 ANEMIA, UNSPECIFIED 07/09/2016 PATRICK ORDOÑEZ MD, Ot I25.10 ATHSCL HEART DISEASE OF [place] CORONARY 07/09/2016 PATRICK ORDOÑEZ MD Ot Z79.899 OTHER USP (CURRENT) DRUG THERAPY 07/09/2016 PATRICK ORDOÑEZ MD, Ot Z85.46 PERSONAL HISTORY OF MALIGNANT NEOPLASM O 07/09/2016 JOSE DE JESUS KELSEY MD Ot 272.4 HYPERLIPIDEMIA NEC/NOS 07/09/2016 JOSE DE JESUS KELSEY MD Ot 401.9 HYPERTENSION NOS 07/09/2016 JOSE DE JESUS KELSEY MD Ot 414.00 CORON ATHEROSCLER NOS TYPE VESSEL, NATIV 07/09/2016 JOSE DE JESUS KELSEY MD Ot 428.0 CONGESTIVE HEART FAILURE NOS 07/09/2016 JOSE DE JESUS KELSEY MD Ot 786.50 CHEST PAIN NOS 07/09/2016 JOSE DE JESUS KELSEY MD Ot V64.3 NO PROC FOR REASONS NEC 07/09/2016 NIKITA HERNÁNDEZ MD Ot C61 MALIGNANT NEOPLASM OF PROSTATE 07/09/2016 NIKITA HERNÁNDEZ MD Ot C61 MALIGNANT NEOPLASM OF PROSTATE 07/09/2016 PATRICK ORDOÑEZ MD, Ot C61 MALIGNANT NEOPLASM OF PROSTATE 07/09/2016 PATRICK ORDOÑEZ MD Ot R91.8 OTHER NONSPECIFIC ABNORMAL FINDING OF [place] 07/09/2016 PATRICK ORDOÑEZ MD, Ot C61 MALIGNANT NEOPLASM OF PROSTATE 07/09/2016 RUBÉN LAKE DO Ot R59.1 GENERALIZED ENLARGED LYMPH NODES 07/17/2016 Ot 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 07/17/2016 Ot 397.0 TRICUSPID VALVE DISEASE 07/17/2016 Ot 414.00 CORON ATHEROSCLER NOS TYPE VESSEL, NATIV 07/17/2016 Ot 429.3 CARDIOMEGALY 07/17/2016 Ot 786.09 RESPIRATORY ABNORM NEC 07/17/2016 Ot 733.99 BONE CARTILAGE DIS NEC 07/17/2016 Ot 735.4 OTHER HAMMER TOE 07/17/2016 Ot V72.63 PRE- PROCEDURAL LABORATORY EXAMINATION 07/17/2016 Ot V74.8 SCREEN- BACTERIAL DIS NEC 07/17/2016 Ot 727.03 TRIGGER FINGER 07/17/2016 Ot V72.83 EXAM PRE- OPERATIVE NEC 07/17/2016 Ot V74.8 SCREEN- BACTERIAL DIS NEC 07/17/2016 Ot 401.9 HYPERTENSION NOS 07/17/2016 Ot 414.01 CORONARY ATHEROSCLEROSIS OF [place] CORON 07/17/2016 Ot 727.03 TRIGGER FINGER 07/17/2016 Ot V45.82 PERCUTANEOUS TRANSLUM CORON ANGIOPLASTY 07/17/2016 Ot V58.66 LONG-TERM ( CURRENT) USE OF ASPIRIN 07/17/2016 Ot V58.69 OT MED,LT, CURRENT USE 07/17/2016 Ot 185 MALIGN NEOPL PROSTATE 07/17/2016 Ot 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 07/17/2016 Ot 397.0 TRICUSPID VALVE DISEASE 07/17/2016 Ot 401.9 HYPERTENSION NOS 07/17/2016 Ot 414.00 CORON ATHEROSCLER NOS TYPE VESSEL, NATIV 07/17/2016 Ot 429.3 CARDIOMEGALY 07/17/2016 Ot 401.9 HYPERTENSION NOS 07/17/2016 Ot 414.00 CORON ATHEROSCLER NOS TYPE VESSEL, NATIV 07/17/2016 Ot V72.84 EXAM PRE- OPERATIVE NOS 07/17/2016 Ot 185 MALIGN NEOPL PROSTATE 07/17/2016 SHIRAZ MORA, JOURDAN Yang Ot V72.84 EXAM PRE-OPERATIVE NOS 07/17/2016 Ot 285.9 ANEMIA NOS 07/17/2016 Ot 285.9 ANEMIA NOS 07/17/2016 BETTY MORA, NIKITA Kirby Ot 185 MALIGN NEOPL PROSTATE 07/17/2016 PEPE MORA, SHANAE Perales Ot V72.84 EXAM PRE-OPERATIVE NOS 07/17/2016 PEPE MORA, SHANAE S Ot 285.9 ANEMIA NOS 07/17/2016 PEPE MORA, SHANAE S Ot 578.9 GASTROINTEST HEMORR NOS 07/17/2016 PEPE MORA, SHANAE S Ot 285.9 ANEMIA NOS 07/17/2016 PEPE MORA, SHANAE S Ot 530.81 ESOPHAGEAL REFLUX 07/17/2016 PEPE MORA, SHANAE S Ot 553.3 DIAPHRAGMATIC HERNIA 07/17/2016 PEPE MORA, SHANAE Perales Ot 578.9 GASTROINTEST HEMORR NOS 07/17/2016 Ot 280.9 IRON DEFIC ANEMIA NOS 07/17/2016 JUAN C MORA, SERAFIN Skaggs Ot 285.9 ANEMIA NOS 07/17/2016 SERAFIN IRIZARRY MD Ot 285.9 ANEMIA NOS 07/17/2016 SERAFIN IRIZARRY MD Ot 729.82 CRAMP IN LIMB 07/17/2016 MARTY MORA, GOPI E Ot 185 MALIGN NEOPL PROSTATE 07/17/2016 Ot 285.9 ANEMIA NOS 07/17/2016 LAURE MORA, JOSE DE JESUS Tavares Ot 272.4 HYPERLIPIDEMIA NEC/NOS 07/17/2016 JOSE DE JESUS KELSEY MD Ot 285.9 ANEMIA NOS 07/17/2016 LAURE MORA, JOSE DE JESUS Tavares Ot 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 07/17/2016 JOSE DE JESUS KELSEY MD Ot 397.0 TRICUSPID VALVE DISEASE 07/17/2016 JOSE DE JESUS KELSEY MD Ot 401.9 HYPERTENSION NOS 07/17/2016 JOSE DE JESUS KELSEY MD Ot 414.00 CORON ATHEROSCLER NOS TYPE VESSEL, NATIV 07/17/2016 REGAN MORA, HARVINDER P Ot 936 FB IN INTESTINE COLON 07/17/2016 SERAFIN IRIZARRY MD Ot 936 FB IN INTESTINE COLON 07/17/2016 Ot 285.9 ANEMIA NOS 07/17/2016 WAGNER BASSETT Ot 272.4 HYPERLIPIDEMIA NEC/NOS 07/17/2016 WAGNER BASSETT Ot 285.9 ANEMIA NOS 07/17/2016 WAGNER BASSETT Ot 397.0 TRICUSPID VALVE DISEASE 07/17/2016 WAGNER BASSETT Ot 401.9 HYPERTENSION NOS 07/17/2016 WAGNER BASSETT Ot 414.00 CORON ATHEROSCLER NOS TYPE VESSEL, NATIV 07/17/2016 WAGNER BASSETT Ot 424.0 MITRAL VALVE DISORDER 07/17/2016 WAGNER BASSETT Ot 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 07/17/2016 SERAFIN IRIZARRY MD Ot 719.46 JOINT PAIN-L/LEG 07/17/2016 SERAFIN IRIZARRY MD Ot 724.2 LUMBAGO 07/17/2016 PATRICK ORDOÑEZ MD Ot D64.9 ANEMIA, UNSPECIFIED 07/17/2016 PATRICK ORDOÑEZ MD, Ot I25.10 ATHSCL HEART DISEASE OF [place] CORONARY 07/17/2016 PATRICK ORDOÑEZ MD Ot Z79.899 OTHER USP (CURRENT) DRUG THERAPY 07/17/2016 PATRICK ORDOÑEZ MD, Ot Z85.46 PERSONAL HISTORY OF MALIGNANT NEOPLASM O 07/17/2016 JOSE DE JESUS KELSEY MD Ot 272.4 HYPERLIPIDEMIA NEC/NOS 07/17/2016 JOSE DE JESUS KELSEY MD Ot 401.9 HYPERTENSION NOS 07/17/2016 JOSE DE JESUS KELSEY MD Ot 414.00 CORON ATHEROSCLER NOS TYPE VESSEL, NATIV 07/17/2016 JOSE DE JESUS KELSEY MD Ot 428.0 CONGESTIVE HEART FAILURE NOS 07/17/2016 JOSE DE JESUS KELSEY MD Ot 786.50 CHEST PAIN NOS 07/17/2016 JOSE DE JESUS KELSEY MD Ot V64.3 NO PROC FOR REASONS NEC 07/17/2016 NIKITA HERNÁNDEZ MD Ot C61 MALIGNANT NEOPLASM OF PROSTATE 07/17/2016 NIKITA HERNÁNDEZ MD Ot C61 MALIGNANT NEOPLASM OF PROSTATE 07/17/2016 PATRICK ORDOÑEZ MD, Ot C61 MALIGNANT NEOPLASM OF PROSTATE 07/17/2016 PATRICK ORDOÑEZ MD Ot R91.8 OTHER NONSPECIFIC ABNORMAL FINDING OF [place] 07/17/2016 PATRICK ORDOÑEZ MD, Ot C61 MALIGNANT NEOPLASM OF PROSTATE 07/17/2016 RUBÉN LAKE DO Ot R59.1 GENERALIZED ENLARGED LYMPH NODES 07/17/2016 RUBÉN LAKE DO, Ot C61 MALIGNANT NEOPLASM OF PROSTATE 07/17/2016 RUBÉN LAKE DO Ot R91.1 SOLITARY PULMONARY NODULE 07/17/2016 WAGNER BASSETT Ot E78.5 HYPERLIPIDEMIA, UNSPECIFIED 07/17/2016 WAGNER BASSETT Ot I10 ESSENTIAL (PRIMARY) HYPERTENSION 07/17/2016 WAGNER BASSETT Ot I25.10 ATHSCL HEART DISEASE OF [place] CORONARY 07/17/2016 WAGNER BASSETT Ot I65.29 OCCLUSION AND STENOSIS OF UNSPECIFIED CA 07/17/2016 RUBÉN LAKE DO Ot C61 MALIGNANT NEOPLASM OF PROSTATE 07/17/2016 RUBÉN LAKE DO Ot R91.1 SOLITARY PULMONARY NODULE 07/17/2016 SMITA MORA, PATRICK Ot C61 MALIGNANT NEOPLASM OF PROSTATE 07/17/2016 RUBÉN LAKE DO Ot R91.1 SOLITARY PULMONARY NODULE 07/17/2016 BETTY MORA, NIKITA Kirby Ot C61 MALIGNANT NEOPLASM OF PROSTATE 07/17/2016 RUBÉN LAKE DO Ot R91.1 SOLITARY PULMONARY NODULE 07/19/2016 WILLIAM BANERJEE DO Ot I10 ESSENTIAL (PRIMARY) HYPERTENSION 07/19/2016 WILLIAM BANERJEE DO Ot I25.10 ATHSCL HEART DISEASE OF [place] CORONARY 07/19/2016 WILLIAM BANERJEE DO Ot I25.2 OLD MYOCARDIAL INFARCTION 07/19/2016 WILLIAM BANERJEE DO Ot K56.60 UNSPECIFIED INTESTINAL OBSTRUCTION 07/27/2016 Ot 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 07/27/2016 Ot 397.0 TRICUSPID VALVE DISEASE 07/27/2016 Ot 414.00 CORON ATHEROSCLER NOS TYPE VESSEL, NATIV 07/27/2016 Ot 429.3 CARDIOMEGALY 07/27/2016 Ot 786.09 RESPIRATORY ABNORM NEC 07/27/2016 Ot 733.99 BONE CARTILAGE DIS NEC 07/27/2016 Ot 735.4 OTHER HAMMER TOE 07/27/2016 Ot V72.63 PRE- PROCEDURAL LABORATORY EXAMINATION 07/27/2016 Ot V74.8 SCREEN- BACTERIAL DIS NEC 07/27/2016 Ot 727.03 TRIGGER FINGER 07/27/2016 Ot V72.83 EXAM PRE- OPERATIVE NEC 07/27/2016 Ot V74.8 SCREEN- BACTERIAL DIS NEC 07/27/2016 Ot 401.9 HYPERTENSION NOS 07/27/2016 Ot 414.01 CORONARY ATHEROSCLEROSIS OF [place] CORON 07/27/2016 Ot 727.03 TRIGGER FINGER 07/27/2016 Ot V45.82 PERCUTANEOUS TRANSLUM CORON ANGIOPLASTY 07/27/2016 Ot V58.66 LONG-TERM ( CURRENT) USE OF ASPIRIN 07/27/2016 Ot V58.69 OTH MED,LT, CURRENT USE 07/27/2016 Ot 185 MALIGN NEOPL PROSTATE 07/27/2016 Ot 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 07/27/2016 Ot 397.0 TRICUSPID VALVE DISEASE 07/27/2016 Ot 401.9 HYPERTENSION NOS 07/27/2016 Ot 414.00 CORON ATHEROSCLER NOS TYPE VESSEL, NATIV 07/27/2016 Ot 429.3 CARDIOMEGALY 07/27/2016 Ot 401.9 HYPERTENSION NOS 07/27/2016 Ot 414.00 CORON ATHEROSCLER NOS TYPE VESSEL, NATIV 07/27/2016 Ot V72.84 EXAM PRE- OPERATIVE NOS 07/27/2016 Ot 185 MALIGN NEOPL PROSTATE 07/27/2016 SHIRAZ MORA, JOURDAN Yang Ot V72.84 EXAM PRE-OPERATIVE NOS 07/27/2016 Ot 285.9 ANEMIA NOS 07/27/2016 Ot 285.9 ANEMIA NOS 07/27/2016 BETTY MORA, NIKITA Kirby Ot 185 MALIGN NEOPL PROSTATE 07/27/2016 PEPE MORA, SHANAE Perales Ot V72.84 EXAM PRE-OPERATIVE NOS 07/27/2016 PEPE MORA, SHANAE Perales Ot 285.9 ANEMIA NOS 07/27/2016 PEPE MORA, SHANAE Perales Ot 578.9 GASTROINTEST HEMORR NOS 07/27/2016 PEPE MORA, SHANAE Perales Ot 285.9 ANEMIA NOS 07/27/2016 PEPE MORA, SHANAE Perales Ot 530.81 ESOPHAGEAL REFLUX 07/27/2016 PEPE MORA, SHANAE Perales Ot 553.3 DIAPHRAGMATIC HERNIA 07/27/2016 PEPE MORA, SHANAE Perales Ot 578.9 GASTROINTEST HEMORR NOS 07/27/2016 Ot 280.9 IRON DEFIC ANEMIA NOS 07/27/2016 SERAFIN IRIZARRY MD Ot 285.9 ANEMIA NOS 07/27/2016 SERAFIN IRIZARRY MD Ot 285.9 ANEMIA NOS 07/27/2016 SERAFIN IRIZARRY MD Ot 729.82 CRAMP IN LIMB 07/27/2016 MARTY MORA, GOPI Paul Ot 185 MALIGN NEOPL PROSTATE 07/27/2016 Ot 285.9 ANEMIA NOS 07/27/2016 LAURE MORA, JOSE DE JESUS Tavares Ot 272.4 HYPERLIPIDEMIA NEC/NOS 07/27/2016 LAURE MD, BASHAR J Ot 285.9 ANEMIA NOS 07/27/2016 LAURE MORA, JOSE DE JESUS Tavares Ot 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 07/27/2016 LAURE MORA, JOSE DE JESUS Tavares Ot 397.0 TRICUSPID VALVE DISEASE 07/27/2016 LAURE MORA, JOSE DE JESUS Tavares Ot 401.9 HYPERTENSION NOS 07/27/2016 LAURE MORA, JOSE DE JESUS Tavares Ot 414.00 CORON ATHEROSCLER NOS TYPE VESSEL, NATIV 07/27/2016 REGAN MORA, HARVINDER Nuñez Ot 936 FB IN INTESTINE COLON 07/27/2016 SERAFIN IRIZARRY MD Ot 936 FB IN INTESTINE COLON 07/27/2016 Ot 285.9 ANEMIA NOS 07/27/2016 WAGNER BASSETT Ot 272.4 HYPERLIPIDEMIA NEC/NOS 07/27/2016 SONI BASSETTTH K Ot 285.9 ANEMIA NOS 07/27/2016 SONI BASSETTTH K Ot 397.0 TRICUSPID VALVE DISEASE 07/27/2016 WAGNER BASSETT K Ot 401.9 HYPERTENSION NOS 07/27/2016 SONI BASSETTTH K Ot 414.00 CORON ATHEROSCLER NOS TYPE VESSEL, NATIV 07/27/2016 SONI BASSETTTH K Ot 424.0 MITRAL VALVE DISORDER 07/27/2016 SONI BASSETTTH Giles Ot 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 07/27/2016 SERAFIN IRIZARRY MD Ot 719.46 JOINT PAIN-L/LEG 07/27/2016 SERAFIN IRIZARRY MD Ot 724.2 LUMBAGO 07/27/2016 PATRICK ORDOÑEZ MD Ot D64.9 ANEMIA, UNSPECIFIED 07/27/2016 PATRICK ORDOÑEZ MD Ot I25.10 ATHSCL HEART DISEASE OF [place] CORONARY 07/27/2016 PATRICK ORDOÑEZ MD Ot Z79.899 OTHER PROOF OPERATOR (CURRENT) DRUG THERAPY 07/27/2016 PATRICK ORDOÑEZ MD Ot Z85.46 PERSONAL HISTORY OF MALIGNANT NEOPLASM O 07/27/2016 LAURE MORA, JOSE DE JESUS Tavares Ot 272.4 HYPERLIPIDEMIA NEC/NOS 07/27/2016 JOSE DE JESUS KELSEY MD Ot 401.9 HYPERTENSION NOS 07/27/2016 JOSE DE JESUS KELSEY MD Ot 414.00 CORON ATHEROSCLER NOS TYPE VESSEL, NATIV 07/27/2016 JOSE DE JESUS KELSEY MD Ot 428.0 CONGESTIVE HEART FAILURE NOS 07/27/2016 JOSE DE JESUS KELSEY MD Ot 786.50 CHEST PAIN NOS 07/27/2016 JOSE DE JESUS KELSEY MD Ot V64.3 NO PROC FOR REASONS NEC 07/27/2016 NIKITA HERNÁNDEZ MD, Ot C61 MALIGNANT NEOPLASM OF PROSTATE 07/27/2016 NIKITA HERNÁNDEZ MD, Ot C61 MALIGNANT NEOPLASM OF PROSTATE 07/27/2016 PATRICK ORDOÑEZ MD, Ot C61 MALIGNANT NEOPLASM OF PROSTATE 07/27/2016 PATRICK ORDOÑEZ MD Ot R91.8 OTHER NONSPECIFIC ABNORMAL FINDING OF [place] 07/27/2016 PATRICK ORDOÑEZ MD, Ot C61 MALIGNANT NEOPLASM OF PROSTATE 07/27/2016 RUBÉN LAKE DO Ot R59.1 GENERALIZED ENLARGED LYMPH NODES 07/27/2016 RUBÉN LAKE DO, Ot C61 MALIGNANT NEOPLASM OF PROSTATE 07/27/2016 RUBÉN LAKE DO Ot R91.1 SOLITARY PULMONARY NODULE 07/27/2016 WAGNER BASSETT Ot E78.5 HYPERLIPIDEMIA, UNSPECIFIED 07/27/2016 WAGNER BASSETT Ot I10 ESSENTIAL (PRIMARY) HYPERTENSION 07/27/2016 WAGNER BASSETT Ot I25.10 ATHSCL HEART DISEASE OF [place] CORONARY 07/27/2016 WAGNER BASSETT Ot I65.29 OCCLUSION AND STENOSIS OF UNSPECIFIED CA 07/27/2016 RUBÉN ALKE DO Ot C61 MALIGNANT NEOPLASM OF PROSTATE 07/27/2016 RUBÉN LAKE DO Ot R91.1 SOLITARY PULMONARY NODULE 07/27/2016 PATRICK ORDOÑEZ MD, Ot C61 MALIGNANT NEOPLASM OF PROSTATE 07/27/2016 RUBÉ[place] DO Ot R91.1 SOLITARY PULMONARY NODULE 07/27/2016 NIKITA HERNÁNDEZ MD Ot C61 MALIGNANT NEOPLASM OF PROSTATE 07/27/2016 RUBÉN LAKE DO Ot R91.1 SOLITARY PULMONARY NODULE 07/31/2016 VIANNEY MARIA MD Ot M25.552 PAIN IN LEFT HIP 07/31/2016 VIANNEY MARIA MD Ot M53.3 SACROCOCCYGEAL DISORDERS, NOT ELSEWHERE 07/31/2016 VIANNEY MARIA MD Ot M70.62 TROCHANTERIC BURSITIS, LEFT HIP 07/31/2016 VIANNEY MARIA MD, Ot Z79.899 OTHER PROOF OPERATOR (CURRENT) DRUG THERAPY 08/03/2016 VIANNEY MARIA MD Ot M25.561 PAIN IN RIGHT KNEE 08/03/2016 VIANNEY MARIA MD Ot M25.562 PAIN IN LEFT KNEE 08/21/2016 VIANNEY MARIA MD Ot M25.552 PAIN IN LEFT HIP 08/21/2016 VIANNEY MARIA MD Ot M53.3 SACROCOCCYGEAL DISORDERS, NOT ELSEWHERE 08/21/2016 VIANNEY MARIA MD, Ot M70.62 TROCHANTERIC BURSITIS, LEFT HIP 08/21/2016 VIANNEY MARIA MD, Ot Z79.899 OTHER PROOF OPERATOR (CURRENT) DRUG THERAPY 08/24/2016 VIANNEY MARIA MD Ot M25.561 PAIN IN RIGHT KNEE 08/24/2016 VIANNEY MARIA MD, Ot M25.562 PAIN IN LEFT KNEE 09/08/2016 VIANNEY MARIA MD Ot M25.561 PAIN IN RIGHT KNEE 09/08/2016 VIANNEY MARIA MD Ot M25.562 PAIN IN LEFT KNEE 09/24/2016 RUBÉN LAKE DO Ot R91.1 SOLITARY PULMONARY NODULE 10/19/2016 RUBÉN LAKE DO Ot R91.1 SOLITARY PULMONARY NODULE 10/28/2016 RUBÉN [place]KE DO Ot R91.1 SOLITARY PULMONARY NODULE 10/29/2016 Ot 285.9 ANEMIA NOS 10/29/2016 Ot 285.9 ANEMIA NOS 10/29/2016 Ot 280.9 IRON DEFIC ANEMIA NOS 10/29/2016 Ot 285.9 ANEMIA NOS 10/29/2016 Ot 285.9 ANEMIA NOS 10/29/2016 PATRICK ORDOÑEZ MD Ot C61 MALIGNANT NEOPLASM OF PROSTATE 10/29/2016 Ot 285.9 ANEMIA NOS 10/29/2016 Ot 285.9 ANEMIA NOS 10/29/2016 Ot 280.9 IRON DEFIC ANEMIA NOS 10/29/2016 Ot 285.9 ANEMIA NOS 10/29/2016 Ot 285.9 ANEMIA NOS 10/29/2016 PATRICK ORDOÑEZ MD Ot C61 MALIGNANT NEOPLASM OF PROSTATE 10/29/2016 ROMULO MASCORRO MD Ot M22.41 CHONDROMALACIA PATELLAE, RIGHT KNEE 10/29/2016 ROMULO MASCORRO MD Ot Z01.818 ENCOUNTER FOR OTHER PREPROCEDURAL EXAMIN 10/29/2016 ROMULO MASCORRO MD Ot Z11.2 ENCOUNTER FOR SCREENING FOR OTHER BACTER 10/30/2016 ROMULO MASCORRO MD Ot M22.41 CHONDROMALACIA PATELLAE, RIGHT KNEE 10/30/2016 ROMULO MASCORRO MD Ot Z01.818 ENCOUNTER FOR OTHER PREPROCEDURAL EXAMIN 10/30/2016 ROMULO MASCORRO MD Ot Z11.2 ENCOUNTER FOR SCREENING FOR OTHER BACTER 10/30/2016 RUBÉN LAKE DO Ot C61 MALIGNANT NEOPLASM OF PROSTATE 10/30/2016 RUBÉN [place] DO Ot R91.1 SOLITARY PULMONARY NODULE 11/04/2016 RUBÉN [place] DO, Ot C61 MALIGNANT NEOPLASM OF PROSTATE 11/04/2016 R[place] DO Ot R91.1 SOLITARY PULMONARY NODULE 11/04/2016 ROMULO MASCORRO MD Ot I10 ESSENTIAL (PRIMARY) HYPERTENSION 11/04/2016 ROMULO MASCORRO MD Ot I25.10 ATHSCL HEART DISEASE OF [place] CORONARY 11/04/2016 ROMULO MASCORRO MD Ot M22.41 CHONDROMALACIA PATELLAE, RIGHT KNEE 11/04/2016 ROMULO MASCORRO MD Ot Z79.899 OTHER USP (CURRENT) DRUG THERAPY 11/04/2016 ROMULO MASCORRO MD Ot Z85.46 PERSONAL HISTORY OF MALIGNANT NEOPLASM O 11/05/2016 ROMULO MASCORRO MD Ot I10 ESSENTIAL (PRIMARY) HYPERTENSION 11/05/2016 ROMULO MASCORRO MD Ot I25.10 ATHSCL HEART DISEASE OF [place] CORONARY 11/05/2016 ROMULO MASCORRO MD Ot M22.41 CHONDROMALACIA PATELLAE, RIGHT KNEE 11/05/2016 ROMULO MASCORRO MD Ot Z79.899 OTHER USP (CURRENT) DRUG THERAPY 11/05/2016 ROMULO MASCORRO MD Ot Z85.46 PERSONAL HISTORY OF MALIGNANT NEOPLASM O 11/06/2016 ROMULO MASCORRO MD Ot I10 ESSENTIAL (PRIMARY) HYPERTENSION 11/06/2016 ROMULO MASCORRO MD Ot I25.10 ATHSCL HEART DISEASE OF [place] CORONARY 11/06/2016 ROMULO MASCORRO MD Ot M22.41 CHONDROMALACIA PATELLAE, RIGHT KNEE 11/06/2016 ROMULO MASCORRO MD, Ot Z79.899 OTHER USP (CURRENT) DRUG THERAPY 11/06/2016 ROMULO MASCORRO MD, Ot Z85.46 PERSONAL HISTORY OF MALIGNANT NEOPLASM O 11/06/2016 ROMULO MASCORRO MD, Ot I10 ESSENTIAL (PRIMARY) HYPERTENSION 11/06/2016 ROMULO MASCORRO MD, Ot I25.10 ATHSCL HEART DISEASE OF [place] CORONARY 11/06/2016 ROMULO MASCORRO MD, Ot M22.41 CHONDROMALACIA PATELLAE, RIGHT KNEE 11/06/2016 ROMULO MASCORRO MD, Ot Z79.899 OTHER USP (CURRENT) DRUG THERAPY 11/06/2016 ROMULO MASCORRO MD, Ot Z85.46 PERSONAL HISTORY OF MALIGNANT NEOPLASM O 01/15/2017 RUBÉN LAKE DO Ot C61 MALIGNANT NEOPLASM OF PROSTATE 01/15/2017 R[place] DO Ot R91.1 SOLITARY PULMONARY NODULE 01/15/2017 VIANNEY MARIA MD Ot M53.3 SACROCOCCYGEAL DISORDERS, NOT ELSEWHERE 01/15/2017 VIANNEY MARIA MD, Ot Z79.899 OTHER PROOF OPERATOR (CURRENT) DRUG THERAPY 02/08/2017 Ot 285.9 ANEMIA NOS 02/17/2017 WAGNER BASSETT Ot E78.2 MIXED HYPERLIPIDEMIA 02/17/2017 WAGNER BASSETT Ot I10 ESSENTIAL (PRIMARY) HYPERTENSION 02/17/2017 WAGNER BASSETT Ot I25.10 ATHSCL HEART DISEASE OF [place] CORONARY 02/17/2017 WAGNER BASSETT Ot I65.23 OCCLUSION AND STENOSIS OF [place]AL [place] 03/04/2017 SERAFIN IRIZARRY MD Ot I10 ESSENTIAL (PRIMARY) HYPERTENSION 03/04/2017 SERAFIN IRIZARRY MD, Ot I25.10 ATHSCL HEART DISEASE OF [place] CORONARY 03/04/2017 SERAFIN IRIZARRY MD, Ot N39.0 URINARY TRACT INFECTION, SITE NOT SPECIF 03/04/2017 SERAFIN IRIZARRY MD, Ot R14.0 ABDOMINAL DISTENSION (GASEOUS) 03/04/2017 SERAFIN IRIZARRY MD, Ot Z79.82 PROOF OPERATOR (CURRENT) USE OF ASPIRIN 03/04/2017 SERAFIN IRIZARRY MD, Ot Z79.899 OTHER PROOF OPERATOR (CURRENT) DRUG THERAPY 03/04/2017 SERAFIN IRIZARRY MD Ot Z85.46 PERSONAL HISTORY OF MALIGNANT NEOPLASM O 03/04/2017 SERAFIN IRIZARRY MD Ot Z90.49 ACQUIRED ABSENCE OF OTHER SPECIFIED PART 03/04/2017 SERAFIN IRIZARRY MD Ot Z95.828 PRESENCE OF OTHER VASCULAR IMPLANTS AND 03/05/2017 SERAFIN IRIZARRY MD Ot I10 ESSENTIAL (PRIMARY) HYPERTENSION 03/05/2017 SERAFIN IRIZARRY MD Ot I25.10 ATHSCL HEART DISEASE OF [place] CORONARY 03/05/2017 SERAFIN IRIZARRY MD Ot N39.0 URINARY TRACT INFECTION, SITE NOT SPECIF 03/05/2017 SERAFIN IRIZARRY MD Ot R14.0 ABDOMINAL DISTENSION (GASEOUS) 03/05/2017 SERAFIN IRIZARRY MD Ot Z79.82 PROOF OPERATOR (CURRENT) USE OF ASPIRIN 03/05/2017 SERAFIN IRIZARRY MD Ot Z79.899 OTHER PROOF OPERATOR (CURRENT) DRUG THERAPY 03/05/2017 SERAFIN IRIZARRY MD Ot Z85.46 PERSONAL HISTORY OF MALIGNANT NEOPLASM O 03/05/2017 SERAFIN IRIZARRY MD Ot Z90.49 ACQUIRED ABSENCE OF OTHER SPECIFIED PART 03/05/2017 SERAFIN IRIZARRY MD Ot Z95.828 PRESENCE OF OTHER VASCULAR IMPLANTS AND 03/16/2017 WAGNER BASSETT Ot E78.2 MIXED HYPERLIPIDEMIA 03/16/2017 WAGNER BASSETT Ot I10 ESSENTIAL (PRIMARY) HYPERTENSION 03/16/2017 WAGNER BASSETT Ot I25.10 ATHSCL HEART DISEASE OF [place] CORONARY 03/16/2017 WAGNER BASSETT Ot I65.23 OCCLUSION AND STENOSIS OF BILATERAL [place] 06/16/2017 Ot 727.03 TRIGGER FINGER 06/16/2017 Ot V72.83 EXAM PRE- OPERATIVE NEC 06/16/2017 Ot V74.8 SCREEN- BACTERIAL DIS NEC 06/16/2017 Ot 401.9 HYPERTENSION NOS 06/16/2017 Ot 414.01 CORONARY ATHEROSCLEROSIS OF [place] CORON 06/16/2017 Ot 727.03 TRIGGER FINGER 06/16/2017 Ot V45.82 PERCUTANEOUS TRANSLUM CORON ANGIOPLASTY 06/16/2017 Ot V58.66 LONG-TERM ( CURRENT) USE OF ASPIRIN 06/16/2017 Ot V58.69 OT MED,LT, CURRENT USE 06/16/2017 Ot 185 MALIGN NEOPL PROSTATE 06/16/2017 Ot 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 06/16/2017 Ot 397.0 TRICUSPID VALVE DISEASE 06/16/2017 Ot 401.9 HYPERTENSION NOS 06/16/2017 Ot 414.00 CORON ATHEROSCLER NOS TYPE VESSEL, NATIV 06/16/2017 Ot 429.3 CARDIOMEGALY 06/16/2017 Ot 401.9 HYPERTENSION NOS 06/16/2017 Ot 414.00 CORON ATHEROSCLER NOS TYPE VESSEL, NATIV 06/16/2017 Ot V72.84 EXAM PRE- OPERATIVE NOS 06/16/2017 Ot 185 MALIGN NEOPL PROSTATE 06/16/2017 SHIRAZ MORA, JOURDAN Yang Ot V72.84 EXAM PRE-OPERATIVE NOS 06/16/2017 Ot 285.9 ANEMIA NOS 06/16/2017 Ot 285.9 ANEMIA NOS 06/16/2017 BETTY MORA, NIKITA Kirby Ot 185 MALIGN NEOPL PROSTATE 06/16/2017 PEPE MORA, SHANAE Perales Ot V72.84 EXAM PRE-OPERATIVE NOS 06/16/2017 PEPE MORA, SHANAE S Ot 285.9 ANEMIA NOS 06/16/2017 PEPE MORA, SHANAE S Ot 578.9 GASTROINTEST HEMORR NOS 06/16/2017 PEPE MORA, SHANAE S Ot 285.9 ANEMIA NOS 06/16/2017 PEPE MORA, SHANAE S Ot 530.81 ESOPHAGEAL REFLUX 06/16/2017 PEPE MORA, SHANAE Perales Ot 553.3 DIAPHRAGMATIC HERNIA 06/16/2017 PEPE MORA, SHANAE Perales Ot 578.9 GASTROINTEST HEMORR NOS 06/16/2017 Ot 280.9 IRON DEFIC ANEMIA NOS 06/16/2017 SERAFIN IRIZARRY MD Ot 285.9 ANEMIA NOS 06/16/2017 SERAFIN IRIZARRY MD Ot 285.9 ANEMIA NOS 06/16/2017 SERAFIN IRIZARRY MD Ot 729.82 CRAMP IN LIMB 06/16/2017 MARTY MORA, GOPI Paul Ot 185 MALIGN NEOPL PROSTATE 06/16/2017 Ot 285.9 ANEMIA NOS 06/16/2017 LAURE MORA, JOSE DE JESUS Tavares Ot 272.4 HYPERLIPIDEMIA NEC/NOS 06/16/2017 JOSE DE JESUS KELSEY MD Ot 285.9 ANEMIA NOS 06/16/2017 JOSE DE JESUS KELSEY MD Ot 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 06/16/2017 JOSE DE JESUS KELSEY MD Ot 397.0 TRICUSPID VALVE DISEASE 06/16/2017 JOSE DE JESUS KELSEY MD Ot 401.9 HYPERTENSION NOS 06/16/2017 JOSE DE JESUS KELSEY MD Ot 414.00 CORON ATHEROSCLER NOS TYPE VESSEL, NATIV 06/16/2017 REGAN MORA, HARVINDER Nuñez Ot 936 FB IN INTESTINE COLON 06/16/2017 SERAFIN IRIZARRY MD Ot 936 FB IN INTESTINE COLON 06/16/2017 Ot 285.9 ANEMIA NOS 06/16/2017 WAGNER BASSETT Ot 272.4 HYPERLIPIDEMIA NEC/NOS 06/16/2017 WAGNER BASSETT Ot 285.9 ANEMIA NOS 06/16/2017 WAGNER BASSETT Ot 397.0 TRICUSPID VALVE DISEASE 06/16/2017 WAGNER BASSETT Ot 401.9 HYPERTENSION NOS 06/16/2017 WAGNER BASSETT Ot 414.00 CORON ATHEROSCLER NOS TYPE VESSEL, NATIV 06/16/2017 WAGNER BASSETT Ot 424.0 MITRAL VALVE DISORDER 06/16/2017 WAGNER BASSETT Ot 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 06/16/2017 SERAFIN IRIZARRY MD Ot 719.46 JOINT PAIN-L/LEG 06/16/2017 SERAFIN IRIZARRY MD Ot 724.2 LUMBAGO 06/16/2017 PATRICK ORDOÑEZ MD Ot D64.9 ANEMIA, UNSPECIFIED 06/16/2017 PATRICK ORDOÑEZ MD Ot I25.10 ATHSCL HEART DISEASE OF [place] CORONARY 06/16/2017 PATRICK ORDOÑEZ MD Ot Z79.899 OTHER USP (CURRENT) DRUG THERAPY 06/16/2017 PATRICK ORDOÑEZ MD Ot Z85.46 PERSONAL HISTORY OF MALIGNANT NEOPLASM O 06/16/2017 JOSE DE JESUS KELSEY MD Ot 272.4 HYPERLIPIDEMIA NEC/NOS 06/16/2017 JOSE DE JESUS KELSEY MD Ot 401.9 HYPERTENSION NOS 06/16/2017 JOSE DE JESUS KELSEY MD Ot 414.00 CORON ATHEROSCLER NOS TYPE VESSEL, NATIV 06/16/2017 JOSE DE JESUS KELSEY MD Ot 428.0 CONGESTIVE HEART FAILURE NOS 06/16/2017 JOSE DE JESUS KELSEY MD Ot 786.50 CHEST PAIN NOS 06/16/2017 JOSE DE JESUS KELSEY MD Ot V64.3 NO PROC FOR REASONS NEC 06/16/2017 NIKITA HERNÁNDEZ MD, Ot C61 MALIGNANT NEOPLASM OF PROSTATE 06/16/2017 NIKITA HERNÁNDEZ MD Ot C61 MALIGNANT NEOPLASM OF PROSTATE 06/16/2017 PATRICK ORDOÑEZ MD, Ot C61 MALIGNANT NEOPLASM OF PROSTATE 06/16/2017 PATRICK ORDOÑEZ MD Ot R91.8 OTHER NONSPECIFIC ABNORMAL FINDING OF [place] 06/16/2017 PATRICK ORDOÑEZ MD, Ot C61 MALIGNANT NEOPLASM OF PROSTATE 06/16/2017 RUBÉN LAKE DO Ot R59.1 GENERALIZED ENLARGED LYMPH NODES 06/16/2017 RUBÉN LAKE DO, Ot C61 MALIGNANT NEOPLASM OF PROSTATE 06/16/2017 RUBÉN LAKE DO Ot R91.1 SOLITARY PULMONARY NODULE 06/16/2017 WAGNER BASSETT Ot E78.5 HYPERLIPIDEMIA, UNSPECIFIED 06/16/2017 WAGNER BASSETT Ot I10 ESSENTIAL (PRIMARY) HYPERTENSION 06/16/2017 WAGNER BASSETT Ot I25.10 ATHSCL HEART DISEASE OF [place] CORONARY 06/16/2017 WAGNER BASSETT Ot I65.29 OCCLUSION AND STENOSIS OF UNSPECIFIED CA 06/16/2017 RUBÉN LAKE DO Ot C61 MALIGNANT NEOPLASM OF PROSTATE 06/16/2017 RUBÉN LAKE DO Ot R91.1 SOLITARY PULMONARY NODULE 06/16/2017 PATRICK ORDOÑEZ MD, Ot C61 MALIGNANT NEOPLASM OF PROSTATE 06/16/2017 RUBÉN LAKE DO Ot R91.1 SOLITARY PULMONARY NODULE 06/16/2017 NIKITA HERNÁNDEZ MD Ot C61 MALIGNANT NEOPLASM OF PROSTATE 06/16/2017 RUBÉN LAKE DO Ot R91.1 SOLITARY PULMONARY NODULE 06/16/2017 RUBÉN LAKE DO Ot R91.1 SOLITARY PULMONARY NODULE 06/16/2017 VIANNEY MARIA MD Ot M25.561 PAIN IN RIGHT KNEE 06/16/2017 VIANNEY MARIA MD Ot M25.562 PAIN IN LEFT KNEE 06/16/2017 WAGNER BASSETT Ot E78.2 MIXED HYPERLIPIDEMIA 06/16/2017 WAGNER BASSETT Ot I10 ESSENTIAL (PRIMARY) HYPERTENSION 06/16/2017 WAGNER BASSETT Ot I25.10 ATHSCL HEART DISEASE OF [place] CORONARY 06/16/2017 WAGNER BASSETT Ot I65.23 OCCLUSION AND STENOSIS OF BILATERAL [place] 06/23/2017 ROMULO HALL DO Ot M46.1 SACROILIITIS, NOT ELSEWHERE CLASSIFIED 07/20/2017 ROMULO HALL DO Ot M46.1 SACROILIITIS, NOT ELSEWHERE CLASSIFIED 08/10/2017 RIRION ROMULO CARDENAS Ot M46.1 SACROILIITIS, NOT ELSEWHERE CLASSIFIED 08/31/2017 Ot 185 MALIGN NEOPL PROSTATE 08/31/2017 Ot 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 08/31/2017 Ot 397.0 TRICUSPID VALVE DISEASE 08/31/2017 Ot 401.9 HYPERTENSION NOS 08/31/2017 Ot 414.00 CORON ATHEROSCLER NOS TYPE VESSEL, NATIV 08/31/2017 Ot 429.3 CARDIOMEGALY 08/31/2017 Ot 401.9 HYPERTENSION NOS 08/31/2017 Ot 414.00 CORON ATHEROSCLER NOS TYPE VESSEL, NATIV 08/31/2017 Ot V72.84 EXAM PRE- OPERATIVE NOS 08/31/2017 Ot 185 MALIGN NEOPL PROSTATE 08/31/2017 SHIRAZ MORA, JOURDAN Yang Ot V72.84 EXAM PRE-OPERATIVE NOS 08/31/2017 Ot 285.9 ANEMIA NOS 08/31/2017 Ot 285.9 ANEMIA NOS 08/31/2017 BETTY MORA, NIKITA Kirby Ot 185 MALIGN NEOPL PROSTATE 08/31/2017 PEPE MORA, SHANAE Perales Ot V72.84 EXAM PRE-OPERATIVE NOS 08/31/2017 PEPE MORA, SHANAE Perales Ot 285.9 ANEMIA NOS 08/31/2017 SHANAE CANTU MD Ot 578.9 GASTROINTEST HEMORR NOS 08/31/2017 PEPE MORA, SHANAE Perales Ot 285.9 ANEMIA NOS 08/31/2017 PEPE MORA, SHANAE Perales Ot 530.81 ESOPHAGEAL REFLUX 08/31/2017 PEPE MORA, SHANAE Perales Ot 553.3 DIAPHRAGMATIC HERNIA 08/31/2017 PEPE MORA, SHANAE Perales Ot 578.9 GASTROINTEST HEMORR NOS 08/31/2017 Ot 280.9 IRON DEFIC ANEMIA NOS 08/31/2017 SERAFIN IRIZARRY MD Ot 285.9 ANEMIA NOS 08/31/2017 SERAFIN IRIZARRY MD Ot 285.9 ANEMIA NOS 08/31/2017 SERAFIN IRIZARRY MD Ot 729.82 CRAMP IN LIMB 08/31/2017 MARTY MORA, GOPI E Ot 185 MALIGN NEOPL PROSTATE 08/31/2017 Ot 285.9 ANEMIA NOS 08/31/2017 LAURE MORA, JOSE DE JESUS Tavares Ot 272.4 HYPERLIPIDEMIA NEC/NOS 08/31/2017 JOSE DE JESUS KELSEY MD Ot 285.9 ANEMIA NOS 08/31/2017 LAURE MORA, JOSE DE JESUS Tavares Ot 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 08/31/2017 JOSE DE JESUS KELSEY MD Ot 397.0 TRICUSPID VALVE DISEASE 08/31/2017 JOSE DE JESUS KELSEY MD Ot 401.9 HYPERTENSION NOS 08/31/2017 JOSE DE JESUS KELSEY MD Ot 414.00 CORON ATHEROSCLER NOS TYPE VESSEL, NATIV 08/31/2017 REGAN MORA, HARVINDER P Ot 936 FB IN INTESTINE COLON 08/31/2017 SERAFIN IRIZARRY MD Ot 936 FB IN INTESTINE COLON 08/31/2017 Ot 285.9 ANEMIA NOS 08/31/2017 WAGNER BASSETT Ot 272.4 HYPERLIPIDEMIA NEC/NOS 08/31/2017 WAGNER BASSETT Ot 285.9 ANEMIA NOS 08/31/2017 WAGNER BASSETT Ot 397.0 TRICUSPID VALVE DISEASE 08/31/2017 WAGNER BASSETT Ot 401.9 HYPERTENSION NOS 08/31/2017 WAGNER BASSETT Ot 414.00 CORON ATHEROSCLER NOS TYPE VESSEL, NATIV 08/31/2017 WAGNER BASSETT Ot 424.0 MITRAL VALVE DISORDER 08/31/2017 WAGNER BASSETT Ot 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 08/31/2017 SERAFIN IRIZARRY MD Ot 719.46 JOINT PAIN-L/LEG 08/31/2017 SERAFIN IRIZARRY MD Ot 724.2 LUMBAGO 08/31/2017 PATRICK ORDOÑEZ MD Ot D64.9 ANEMIA, UNSPECIFIED 08/31/2017 PATRICK ORDOÑEZ MD, Ot I25.10 ATHSCL HEART DISEASE OF [place] CORONARY 08/31/2017 PATRICK ORDOÑEZ MD, Ot Z79.899 OTHER USP (CURRENT) DRUG THERAPY 08/31/2017 PATRICK ORDOÑEZ MD, Ot Z85.46 PERSONAL HISTORY OF MALIGNANT NEOPLASM O 08/31/2017 JOSE DE JESUS KELSEY MD Ot 272.4 HYPERLIPIDEMIA NEC/NOS 08/31/2017 JOSE DE JESUS KELSEY MD Ot 401.9 HYPERTENSION NOS 08/31/2017 JOSE DE JESUS KELSEY MD Ot 414.00 CORON ATHEROSCLER NOS TYPE VESSEL, NATIV 08/31/2017 JOSE DE JESUS KELSEY MD Ot 428.0 CONGESTIVE HEART FAILURE NOS 08/31/2017 JOSE DE JESUS KELSEY MD Ot 786.50 CHEST PAIN NOS 08/31/2017 JOSE DE JESUS KELSEY MD Ot V64.3 NO PROC FOR REASONS NEC 08/31/2017 NIKITA HERNÁNDEZ MD, Ot C61 MALIGNANT NEOPLASM OF PROSTATE 08/31/2017 NIKITA HERNÁNDEZ MD, Ot C61 MALIGNANT NEOPLASM OF PROSTATE 08/31/2017 PATRICK ORDOÑEZ MD, Ot C61 MALIGNANT NEOPLASM OF PROSTATE 08/31/2017 PATRICK ORDOÑEZ MD, Ot R91.8 OTHER NONSPECIFIC ABNORMAL FINDING OF [place] 08/31/2017 PATRICK ORDOÑEZ MD, Ot C61 MALIGNANT NEOPLASM OF PROSTATE 08/31/2017 RUBÉN LAKE DO, Ot R59.1 GENERALIZED ENLARGED LYMPH NODES 08/31/2017 RUBÉN LAKE DO, Ot C61 MALIGNANT NEOPLASM OF PROSTATE 08/31/2017 RUBÉN LAKE DO, Ot R91.1 SOLITARY PULMONARY NODULE 08/31/2017 WAGNER BASSETT Ot E78.5 HYPERLIPIDEMIA, UNSPECIFIED 08/31/2017 WAGNER BASSETT Ot I10 ESSENTIAL (PRIMARY) HYPERTENSION 08/31/2017 WAGNER BASSETT Ot I25.10 ATHSCL HEART DISEASE OF [place] CORONARY 08/31/2017 WAGNER BASSETT Ot I65.29 OCCLUSION AND STENOSIS OF UNSPECIFIED CA 08/31/2017 RUBÉN LAKE DO, Ot C61 MALIGNANT NEOPLASM OF PROSTATE 08/31/2017 RUBÉN LAKE DO, Ot R91.1 SOLITARY PULMONARY NODULE 08/31/2017 XUN MD, HERNÁNDEZ-LIZETH Ot C61 MALIGNANT NEOPLASM OF PROSTATE 08/31/2017 R[place] DO Ot R91.1 SOLITARY PULMONARY NODULE 08/31/2017 BETTY MORA, NIKITA Kirby Ot C61 MALIGNANT NEOPLASM OF PROSTATE 08/31/2017 RUBÉN LAKE DO Ot R91.1 SOLITARY PULMONARY NODULE 08/31/2017 RUBÉN LAKE DO Ot R91.1 SOLITARY PULMONARY NODULE 08/31/2017 VIANNEY MARIA MD Ot M25.561 PAIN IN RIGHT KNEE 08/31/2017 VIANNEY MARIA MD Ot M25.562 PAIN IN LEFT KNEE 08/31/2017 WAGNER BASSETT Ot E78.2 MIXED HYPERLIPIDEMIA 08/31/2017 WAGNER BASSETT Ot I10 ESSENTIAL (PRIMARY) HYPERTENSION 08/31/2017 WAGNER BASSETT Ot I25.10 ATHSCL HEART DISEASE OF [place] CORONARY 08/31/2017 WAGNER BASSETT Ot I65.23 OCCLUSION AND STENOSIS OF BILATERAL [place] 08/31/2017 ROMULO HALL DO Ot M46.1 SACROILIITIS, NOT ELSEWHERE CLASSIFIED 09/20/2017 RUBÉN LAKE DO Ot N20.0 CALCULUS OF KIDNEY 09/20/2017 RUBÉN LAKE DO Ot N28.89 OTHER SPECIFIED DISORDERS OF KIDNEY AND 09/20/2017 RUBÉN LAKE DO Ot Z85.46 PERSONAL HISTORY OF MALIGNANT NEOPLASM O 10/06/2017 RUBÉN LAKE DO Ot N20.0 CALCULUS OF KIDNEY 10/06/2017 RBUÉN LAKE DO Ot N28.89 OTHER SPECIFIED DISORDERS OF KIDNEY AND 10/06/2017 RUBÉN LAKE DO Ot Z85.46 PERSONAL HISTORY OF MALIGNANT NEOPLASM O 10/28/2017 RUBÉN LAKE DO Ot N20.0 CALCULUS OF KIDNEY 10/28/2017 RUBÉN LAKE DO Ot N28.89 OTHER SPECIFIED DISORDERS OF KIDNEY AND 10/28/2017 RUBÉN LAKE DO Ot Z85.46 PERSONAL HISTORY OF MALIGNANT NEOPLASM O 11/08/2017 WAGNER BASSETT Ot E78.5 HYPERLIPIDEMIA, UNSPECIFIED 11/08/2017 WAGNER BASSETT Ot I10 ESSENTIAL (PRIMARY) HYPERTENSION 11/08/2017 WAGNER BASSETT Ot I25.10 ATHSCL HEART DISEASE OF [place] CORONARY 11/08/2017 WAGNER BASSTET Ot I65.29 OCCLUSION AND STENOSIS OF UNSPECIFIED CA 11/08/2017 RUBÉN LAKE DO Ot C61 MALIGNANT NEOPLASM OF PROSTATE 11/08/2017 RUBÉN LAKE DO Ot R91.1 SOLITARY PULMONARY NODULE 11/08/2017 SMITA MORA, PATRICK Ot C61 MALIGNANT NEOPLASM OF PROSTATE 11/08/2017 RUBÉN LAKE DO Ot R91.1 SOLITARY PULMONARY NODULE 11/08/2017 BETTY MORA, NIKITA Kirby Ot C61 MALIGNANT NEOPLASM OF PROSTATE 11/08/2017 RUBÉN LAKE DO Ot R91.1 SOLITARY PULMONARY NODULE 11/08/2017 RUBÉN LAKE DO Ot R91.1 SOLITARY PULMONARY NODULE 11/08/2017 CANDACE MORA, VIANNEY Tavares Ot M25.561 PAIN IN RIGHT KNEE 11/08/2017 VIANNEY MARIA MD Ot M25.562 PAIN IN LEFT KNEE 11/08/2017 RUBÉN LAKE DO Ot N20.0 CALCULUS OF KIDNEY 11/08/2017 RUBÉN LAKE DO Ot N28.89 OTHER SPECIFIED DISORDERS OF KIDNEY AND 11/08/2017 RUBÉN LAKE DO Ot Z85.46 PERSONAL HISTORY OF MALIGNANT NEOPLASM O 11/08/2017 BETTY MORA, NIKITA Kirby Ot N20.0 CALCULUS OF KIDNEY 11/11/2017 BETTY MORA, NIKITA Kirby Ot N20.0 CALCULUS OF KIDNEY 12/13/2017 BETTY MORA, NIKITA Kirby Ot N20.0 CALCULUS OF KIDNEY 12/29/2017 FRANKLIN WILL MD, Ot M54.5 LOW BACK PAIN 12/29/2017 FRANKLIN WILL MD, Ot R29.898 OT SYMPTOMS AND SIGNS INVOLVING THE MUS 12/31/2017 ROMULO HALL DO Ot G89.4 CHRONIC PAIN SYNDROME 12/31/2017 ROMULO HALL DO, Ot M46.1 SACROILIITIS, NOT ELSEWHERE CLASSIFIED 12/31/2017 ROMULO HALL DO, Ot 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.899 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 OPERATOR (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) DRUG THERAPY 01/03/2018 FRANKLIN WILL MD, Ot M54.5 LOW BACK PAIN 01/03/2018 SUMAN MORA, FRANKLIN Kirby Ot R29.898 OT SYMPTOMS AND SIGNS INVOLVING THE MUS 01/21/2018 WAGNER BASSETT Ot E78.2 MIXED HYPERLIPIDEMIA 01/21/2018 WAGNER BASSETT Ot I10 ESSENTIAL (PRIMARY) HYPERTENSION 01/21/2018 WAGNER BASSETT Ot I25.10 ATHSCL HEART DISEASE OF [place] CORONARY 01/21/2018 WAGNER BASSETT Ot I65.23 OCCLUSION AND STENOSIS OF BILATERAL [place] 01/21/2018 ROMULO HALL DO, Ot M46.1 SACROILIITIS, NOT ELSEWHERE CLASSIFIED 01/21/2018 ROMULO HALL DO Ot G89.4 CHRONIC PAIN SYNDROME 01/21/2018 ROMULO HALL DO, Ot M46.1 SACROILIITIS, NOT ELSEWHERE CLASSIFIED 01/21/2018 ROMULO HALL DO Ot Z79.899 OTHER USP (CURRENT) DRUG THERAPY 01/25/2018 SHIRAZ MORA, JOURDAN Yang Ot K92.2 GASTROINTESTINAL HEMORRHAGE, UNSPECIFIED 01/25/2018 JOURDAN WELDON MD Ot Z01.818 ENCOUNTER FOR OTHER PREPROCEDURAL EXAMIN Procedures There is no data. Results Test Result Range Complete blood count (CBC) with automated white blood cell (WBC) differential - 07/17/16 10:40 Blood leukocytes automated count (number/volume) 13.3 10*3/uL 4.3-11.0 Blood erythrocytes automated count (number/volume) 4.98 10*6/uL 4.35-5.85 Venous blood hemoglobin measurement (mass/volume) 15.7 g/dL 13.3-17.7 Blood hematocrit (volume fraction) 45 % 40-54 Automated erythrocyte mean corpuscular volume 91 [foz_us] 80-99 Automated erythrocyte mean corpuscular hemoglobin (mass per erythrocyte) 32 pg 25-34 Automated erythrocyte mean corpuscular hemoglobin concentration measurement ( mass/volume) 35 g/dL 32-36 Automated erythrocyte distribution width ratio 12.6 % 10.0-14.5 Automated blood platelet count (count/volume) 193 10*3/uL 130-400 Automated blood platelet mean volume measurement 9.9 [foz_us] 7.4-10.4 Automated blood neutrophils/100 leukocytes 85 % 42-75 Automated blood lymphocytes/100 leukocytes 8 % 12-44 Blood monocytes/100 leukocytes 7 % 0-12 Automated blood eosinophils/100 leukocytes 1 % 0-10 Automated blood basophils/100 leukocytes 0 % 0-10 Blood neutrophils automated count (number/volume) 11.3 10*3 1.8-7.8 Blood lymphocytes automated count (number/volume) 1.0 10*3 1.0-4.0 Blood monocytes automated count (number/volume) 0.9 10*3 0.0-1.0 Automated eosinophil count 0.1 10*3/uL 0.0-0.3 Automated blood basophil count (count/volume) 0.0 10*3/uL 0.0-0.1 PT panel in platelet poor plasma by coagulation assay - 07/17/16 10:40 Prothrombin time (PT) in platelet poor plasma by coagulation assay 12.8 s 12.2-14.7 INR in platelet poor plasma or blood by coagulation assay 1.0 0.8-1.4 Activated partial thromboplastin time (aPTT) in platelet poor plasma bycoagulation assay - 07/17/16 10:40 Activated partial thromboplastin time (aPTT) in platelet poor plasma bycoagulation assay < s 24-35 Comprehensive metabolic panel - 07/17/16 10:40 Serum or plasma sodium measurement (moles/volume) 143 mmol/L 135-145 Serum or plasma potassium measurement (moles/volume) 3.7 mmol/L 3.6-5.0 Serum or plasma chloride measurement (moles/volume) 104 mmol/L 98-107 Carbon dioxide 22 mmol/L 21-32 Serum or plasma anion gap determination (moles/volume) 17 mmol/L 5-14 Serum or plasma urea nitrogen measurement (mass/volume) 14 mg/dL 7-18 Serum or plasma creatinine measurement (mass/volume) 1.13 mg/dL 0.60-1.30 Serum or plasma urea nitrogen/creatinine mass ratio 12 NRG Serum or plasma creatinine measurement with calculation of estimated glomerular filtration rate > NRG Serum or plasma glucose measurement (mass/volume) 177 mg/dL 70-105 Serum or plasma calcium measurement (mass/volume) 10.0 mg/dL 8.5-10.1 Serum or plasma total bilirubin measurement (mass/volume) 0.6 mg/dL 0.1-1.0 Serum or plasma alkaline phosphatase measurement (enzymatic activity/volume) 61 U/L 40-136 Serum or plasma aspartate aminotransferase measurement (enzymatic activity/ volume) 25 U/L 5-34 Serum or plasma alanine aminotransferase measurement (enzymatic activity/volume ) 34 U/L 0-55 Serum or plasma protein measurement (mass/volume) 8.5 g/dL 6.4-8.2 Serum or plasma albumin measurement (mass/volume) 4.7 g/dL 3.2-4.5 Lipase - 07/17/16 10:40 Lipase 20 U/L 8-78 Blood type T Indirect antibody screen panel - 07/17/16 10:40 ABO+Rh group ABP NRG Transfusion band number [id number] Blood group antibody screen NEGATIVE NR Complete blood count (CBC) with automated white blood cell (WBC) differential - 07/18/16 06:45 Blood leukocytes automated count (number/volume) 5.6 10*3/uL 4.3-11.0 Blood erythrocytes automated count (number/volume) 3.91 10*6/uL 4.35-5.85 Venous blood hemoglobin measurement (mass/volume) 12.3 g/dL 13.3-17.7 Blood hematocrit (volume fraction) 36 % 40-54 Automated erythrocyte mean corpuscular volume 92 [foz_us] 80-99 Automated erythrocyte mean corpuscular hemoglobin (mass per erythrocyte) 31 pg 25-34 Automated erythrocyte mean corpuscular hemoglobin concentration measurement ( mass/volume) 34 g/dL 32-36 Automated erythrocyte distribution width ratio 12.3 % 10.0-14.5 Automated blood platelet count (count/volume) 134 10*3/uL 130-400 Automated blood platelet mean volume measurement 9.8 [foz_us] 7.4-10.4 Automated blood neutrophils/100 leukocytes 72 % 42-75 Automated blood lymphocytes/100 leukocytes 14 % 12-44 Blood monocytes/100 leukocytes 12 % 0-12 Automated blood eosinophils/100 leukocytes 2 % 0-10 Automated blood basophils/100 leukocytes 0 % 0-10 Blood neutrophils automated count (number/volume) 4.0 10*3 1.8-7.8 Blood lymphocytes automated count (number/volume) 0.8 10*3 1.0-4.0 Blood monocytes automated count (number/volume) 0.7 10*3 0.0-1.0 Automated eosinophil count 0.1 10*3/uL 0.0-0.3 Automated blood basophil count (count/volume) 0.0 10*3/uL 0.0-0.1 Comprehensive metabolic panel - 07/18/16 06:45 Serum or plasma sodium measurement (moles/volume) 139 mmol/L 135-145 Serum or plasma potassium measurement (moles/volume) 3.6 mmol/L 3.6-5.0 Serum or plasma chloride measurement (moles/volume) 109 mmol/L 98-107 Carbon dioxide 20 mmol/L 21-32 Serum or plasma anion gap determination (moles/volume) 10 mmol/L 5-14 Serum or plasma urea nitrogen measurement (mass/volume) 9 mg/dL 7-18 Serum or plasma creatinine measurement (mass/volume) 0.81 mg/dL 0.60-1.30 Serum or plasma urea nitrogen/creatinine mass ratio 11 NRG Serum or plasma creatinine measurement with calculation of estimated glomerular filtration rate > NRG Serum or plasma glucose measurement (mass/volume) 112 mg/dL 70-105 Serum or plasma calcium measurement (mass/volume) 8.9 mg/dL 8.5-10.1 Serum or plasma total bilirubin measurement (mass/volume) 0.5 mg/dL 0.1-1.0 Serum or plasma alkaline phosphatase measurement (enzymatic activity/volume) 46 U/L 40-136 Serum or plasma aspartate aminotransferase measurement (enzymatic activity/ volume) 17 U/L 5-34 Serum or plasma alanine aminotransferase measurement (enzymatic activity/volume ) 22 U/L 0-55 Serum or plasma protein measurement (mass/volume) 6.1 g/dL 6.4-8.2 Serum or plasma albumin measurement (mass/volume) 3.3 g/dL 3.2-4.5 Methicillin resistant Staphylococcus aureus (MRSA) screening culture - 13:15 Methicillin resistant Staphylococcus aureus (MRSA) screening culture NEG NRG Complete urinalysis with reflex to culture - 03/04/17 16:05 Urine color determination YELLOW NRG Urine clarity determination SLIGHTLY CLOUDY NRG Urine pH measurement by test strip 6.5 5-9 Specific gravity of urine by test strip 1.015 1.016- 1.022 Urine protein assay by test strip, semi-quantitative 3+ NEGATIVE Urine glucose detection by automated test strip NEGATIVE NEGATIVE Erythrocytes detection in urine sediment by light microscopy 2+ NEGATIVE Urine ketones detection by automated test strip 1+ NEGATIVE Urine nitrite detection by test strip NEGATIVE NEGATIVE Urine total bilirubin detection by test strip NEGATIVE NEGATIVE Urine urobilinogen measurement by automated test strip (mass/volume) NORMAL NORMAL Urine leukocyte esterase detection by dipstick 3+ NEGATIVE Automated urine sediment erythrocyte count by microscopy (number/high power field) [HPF] NRG Automated urine sediment leukocyte count by microscopy (number/high power field ) [HPF] NRG Bacteria detection in urine sediment by light microscopy FEW NRG Crystals detection in urine sediment by light microscopy NONE NRG Casts detection in urine sediment by light microscopy NONE NRG Mucus detection in urine sediment by light microscopy NEGATIVE NRG Complete urinalysis with reflex to culture YES NRG Bacterial urine culture - 03/04/17 16:05 Bacterial urine culture [id number] NRG COLONY COUNT >100,000/ML NRG FTX;REPORTABLE SENSITIVITY REPORTED AT 1710, 517 NRG Bacterial susceptibility panel - 03/04/17 16:05 Gentamicin susceptibility test by minimum inhibitory concentration > = NRG Trimethoprim/sulfamethoxazole susceptibility test by minimum inhibitoryconcentration >= NRG Ampicillin susceptibility test by minimum inhibitory concentration < = NRG Tobramycin susceptibility test by minimum inhibitory concentration 8 NRG Cefazolin susceptibility test by minimum inhibitory concentration < = NRG Ceftriaxone susceptibility test by minimum inhibitory concentration <= NRG Ampicillin/sulbactam susceptibility test by minimum inhibitory concentration <= NRG Piperacillin/tazobactam susceptibility test by minimum inhibitory concentration <= NRG Ciprofloxacin susceptibility test by minimum inhibitory concentration >= NRG Meropenem susceptibility test by minimum inhibitory concentration < = NRG Nitrofurantoin susceptibility test by minimum inhibitory concentration 128 NRG Aztreonam susceptibility test by minimum inhibitory concentration < = NRG Amikacin susceptibility test by minimum inhibitory concentration S NRG Complete blood count (CBC) with automated white blood cell (WBC) differential - 03/04/17 16:10 Blood leukocytes automated count (number/volume) 9.3 10*3/uL 4.3-11.0 Blood erythrocytes automated count (number/volume) 4.74 10*6/uL 4.35-5.85 Venous blood hemoglobin measurement (mass/volume) 15.0 g/dL 13.3-17.7 Blood hematocrit (volume fraction) 44 % 40-54 Automated erythrocyte mean corpuscular volume 92 [foz_us] 80-99 Automated erythrocyte mean corpuscular hemoglobin (mass per erythrocyte) 32 pg 25-34 Automated erythrocyte mean corpuscular hemoglobin concentration measurement ( mass/volume) 35 g/dL 32-36 Automated erythrocyte distribution width ratio 14.7 % 10.0-14.5 Automated blood platelet count (count/volume) 184 10*3/uL 130-400 Automated blood platelet mean volume measurement 9.2 [foz_us] 7.4-10.4 Automated blood neutrophils/100 leukocytes 79 % 42-75 Automated blood lymphocytes/100 leukocytes 11 % 12-44 Blood monocytes/100 leukocytes 9 % 0-12 Automated blood eosinophils/100 leukocytes 1 % 0-10 Automated blood basophils/100 leukocytes 0 % 0-10 Blood neutrophils automated count (number/volume) 7.3 10*3 1.8-7.8 Blood lymphocytes automated count (number/volume) 1.0 10*3 1.0-4.0 Blood monocytes automated count (number/volume) 0.8 10*3 0.0-1.0 Automated eosinophil count 0.1 10*3/uL 0.0-0.3 Automated blood basophil count (count/volume) 0.0 10*3/uL 0.0-0.1 Comprehensive metabolic panel - 03/04/17 16:10 Serum or plasma sodium measurement (moles/volume) 142 mmol/L 135-145 Serum or plasma potassium measurement (moles/volume) 3.6 mmol/L 3.6-5.0 Serum or plasma chloride measurement (moles/volume) 105 mmol/L 98-107 Carbon dioxide 26 mmol/L 21-32 Serum or plasma anion gap determination (moles/volume) 11 mmol/L 5-14 Serum or plasma urea nitrogen measurement (mass/volume) 12 mg/dL 7-18 Serum or plasma creatinine measurement (mass/volume) 0.86 mg/dL 0.60-1.30 Serum or plasma urea nitrogen/creatinine mass ratio 14 NRG Serum or plasma creatinine measurement with calculation of estimated glomerular filtration rate > NRG Serum or plasma glucose measurement (mass/volume) 130 mg/dL 70-105 Serum or plasma calcium measurement (mass/volume) 9.9 mg/dL 8.5-10.1 Serum or plasma total bilirubin measurement (mass/volume) 0.6 mg/dL 0.1-1.0 Serum or plasma alkaline phosphatase measurement (enzymatic activity/volume) 54 U/L 40-136 Serum or plasma aspartate aminotransferase measurement (enzymatic activity/ volume) 23 U/L 5-34 Serum or plasma alanine aminotransferase measurement (enzymatic activity/volume ) 27 U/L 0-55 Serum or plasma protein measurement (mass/volume) 8.0 g/dL 6.4-8.2 Serum or plasma albumin measurement (mass/volume) 4.3 g/dL 3.2-4.5 Lipase - 03/04/17 16:10 Lipase 18 U/L 8-78 Encounters ACCT No. Visit Date/Time Discharge Status Pt. Type Provider Facility Loc./Unit Complaint [id number] 01/24/2018 05:41:00 01/24/2018 12:16:00 DIS Outpatient JOURDAN WELDON MD [facility] PREOP COLONOSCOPY [id number] 01/03/2018 09:53:00 01/03/2018 10:29:00 DIS Outpatient FRANKLIN WILL MD [facility] REHAB LOW BACK PAIN AND LE WEAKNESS [id number] 12/30/2017 13:06:00 12/30/2017 23:59:59 CLS Outpatient ROMULO HALL DO [facility] CARD M46.1 SACRILITIS [id number] 11/10/2017 08:00:00 11/10/2017 23:59:59 CLS Preadmit NIKITA HERNÁNDEZ MD [facility] SDC LEFT RENAL STONES [id number] 10/26/2017 13:54:00 10/26/2017 23:59:59 CLS Outpatient NIKITA HERNÁNDEZ MD [facility] RAD LT RENAL STONE [id number] 09/14/2017 14:03:00 09/14/2017 23:59:59 CLS Outpatient RUBÉN LAKE DO [facility] RAD LUNG NODULE,PROSTATE CANCER [id number] 06/17/2017 15:27:00 06/17/2017 23:59:59 CLS Outpatient ROMULO HALL DO [facility] CARD SACRILLTIS M46.1 [id number] 03/04/2017 15:57:00 03/04/2017 17:35:00 DIS Emergency SERAFIN IRIZARRY MD [facility] ER STOMACH PAIN [id number] 01/27/2017 09:38:00 01/27/2017 23:59:59 CLS Outpatient WAGNER BASSETT [facility] CARD CAD,CAROTID STENOSIS [id number] 01/15/2017 10:48:00 01/15/2017 12:16:00 DIS Outpatient VIANNEY MARIA MD [facility] CARD SACROCOCCYGEAL DISORDER [id number] 11/04/2016 06:05:00 11/04/2016 10:13:00 [facility] [id number] 10/29/2016 12:39:00 10/29/2016 14:14:00 DIS Outpatient ROMULO MASCORRO MD [facility] PREOP RIGHT KNEE PAIN [id number] 09/23/2016 12:53:00 09/23/2016 23:59:59 CLS Outpatient RUBÉN LAKE DO [facility] RAD LUNG NODULE [id number] 07/31/2016 07:55:00 07/31/2016 23:59:59 CLS Outpatient VIANNEY MARIA MD [facility] RAD KNEE PAIN [id number] 07/31/2016 06:54:00 07/31/2016 07:43:00 DIS Outpatient VIANNEY MARIA MD [facility] CARD SACROCOCCYGEAL DISORDERS [id number] 07/17/2016 12:50:00 07/19/2016 17:42:00 DIS Inpatient WILLIAM BANERJEE DO [facility] 4TH SMALL BOWEL OBSTRUCTION [id number] 04/03/2016 08:04:00 04/03/2016 09:17:00 DIS Outpatient VIANNEY MARIA MD [facility] CARD SACROCOCOCCYGEAL DISORDERS [id number] 03/18/2016 11:42:00 03/18/2016 23:59:59 CLS Outpatient RUBÉN LAKE DO [facility] RAD LUNG NODULE [id number] 02/17/2016 12:47:00 02/17/2016 14:09:00 DIS Outpatient VIANNEY MARIA MD [facility] 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 [id number] 01/30/2016 11:53:00 01/30/2016 23:59:59 CLS Outpatient NIKITA HERNÁNDEZ MD [facility] CARD PROSTATE CA [id number] 01/14/2016 12:41:00 01/14/2016 23:59:59 CLS Outpatient RUBÉN LAKE DO [facility] RAD LUNG NODULE [id number] 11/27/2015 00:08:00 11/27/2015 23:59:59 CLS Preadmit PATRICK ORDOÑEZ MD [facility] ONC [id number] 09/13/2015 09:56:00 11/26/2015 00:01:00 DIS Outpatient PATRICK ORDOÑEZ MD [facility] ONC [id number] 10/18/2015 11:54:00 10/18/2015 13:30:00 DIS Outpatient VIANNEY MARIA MD [facility] CARD SACROCOCCYGEAL DISORDER [id number] 09/09/2015 10:09:00 09/09/2015 23:59:59 CLS Outpatient RUBÉN LAKE DO [facility] LAB LUNG NODULE,PROSTATE CA [id number] 09/09/2015 10:02:00 09/09/2015 23:59:59 CLS Outpatient WAGNER BASSETT [facility] LAB CAD,CAROTID STENOSIS,HLP,HTN [id number] 09/04/2015 14:09:00 09/04/2015 23:59:59 CLS Outpatient RUBÉN ALKE DO [facility] RAD LUNG NODULE,PROSTATE CANCER [id number] 09/03/2015 09:41:00 09/03/2015 23:59:59 CLS Outpatient RUBÉN LAKE DO [facility] RAD LEFT LOWER LOBE LYMPHADENOPATHY [id number] 08/27/2015 12:52:00 08/27/2015 23:59:59 CLS Outpatient PATRICK ORDOÑEZ MD [facility] RAD LUNG NODULE [id number] 08/26/2015 08:47:00 08/26/2015 23:59:59 CLS Outpatient PATRICK ORDOÑEZ MD [facility] RAD LUNG NODULE [id number] 07/24/2015 14:44:00 07/24/2015 23:59:59 CLS Outpatient PATRICK ORDOÑEZ MD [facility] ONC [id number] 07/19/2015 08:26:00 07/19/2015 23:59:59 CLS Outpatient NIKITA HERNÁNDEZ MD [facility] RAD PROSTATE CANCER [id number] 07/18/2015 12:06:00 07/18/2015 23:59:59 CLS Outpatient NIKITA HERNÁNDEZ MD [facility] CARD PROSTATE CANCER [id number] 05/31/2015 13:07:00 05/31/2015 19:10:00 DIS Outpatient JOSE DE JESUS KELSEY MD [facility] CATH CP,CHF,CAD,HTN,HLP [id number] 05/29/2015 08:54:00 05/29/2015 23:59:59 CLS Outpatient JOSE DE JESUS KELSEY MD [facility] CATH CAD,HLP,HTN, [id number] 02/28/2015 09:15:00 04/23/2015 00:01:00 DIS Outpatient PATRICK ORDOÑEZ MD [facility] ONC [id number] 03/14/2015 11:15:00 04/10/2015 15:41:00 DIS Outpatient SERAFIN IRIZARRY MD [facility] REHAB ADVANCED LUMBAR DDD; RETROSCOLIOSIS [id number] 04/05/2015 07:31:00 04/05/2015 08:20:00 DIS Outpatient VIANNEY MARIA MD [facility] CARD SIJD [id number] 01/30/2015 15:54:00 01/30/2015 23:59:59 CLS Outpatient SERAFIN IRIZARRY MD [facility] RAD RT KNEE PAIN, LBP [id number] 10/31/2014 13:19:00 10/31/2014 23:59:59 CLS Outpatient PATRICK ORDOÑEZ MD [facility] ONC [id number] 08/02/2014 09:54:00 08/02/2014 23:59:59 CLS Outpatient WAGNER BASSETT [facility] CARD ANEMIA,CAD, HLP [id number] 07/24/2014 08:05:00 07/25/2014 07:56:00 DIS Outpatient SERAFIN IRIZARRY MD [facility] LAB ANEMIA [id number] 06/30/2014 22:41:00 07/01/2014 01:47:00 DIS Emergency PANCHO MORA, PETER Yang [facility] ER ABD PAIN [id number] 05/30/2014 19:04:00 05/31/2014 14:26:00 DIS Inpatient SERAFIN IRIZARRY MD [facility] 4TH ANEMIA, CHEST PAIN, DYSPNEA, MUSCLE CRAMPING [id number] 04/19/2014 12:18:00 04/19/2014 23:59:59 CLS Outpatient SERAFIN IRIZARRY MD [facility] LAB ANEMIA,CRAMPS [id number] 12/01/2013 08:05:00 02/28/2014 00:01:00 DIS Outpatient PEPE MORA, SHANAE Pearles [facility] SDC ANEMIA [id number] 02/09/2014 11:00:00 02/09/2014 23:59:59 CLS Outpatient LAURE MORA, JOSE DE JESUS Tavares [facility] CARD ANEMIA,CVA,HLP [id number] 01/20/2014 11:54:00 01/20/2014 23:59:59 CLS Outpatient SERAFIN IRIZARRY MD [facility] RAD RETAINED ENDOSCOPY CAPSULE [id number] 01/19/2014 16:46:00 01/19/2014 18:15:00 DIS Emergency SERAFIN IRIZARRY MD [facility] ER ABD PAIN [id number] 01/18/2014 20:12:00 01/18/2014 23:59:59 CLS Outpatient HARVINDER SPEARS MD [facility] RAD FOREIGN BODY [id number] 10/19/2013 09:01:00 10/19/2013 15:10:00 DIS Outpatient SERAFIN IRIZARRY MD [facility] RECURRENT ANEMIA [id number] 07/06/2013 09:06:00 10/03/2013 00:01:00 DIS Outpatient SHANAE CANTU MD [facility] LAB ANEMIA [id number] 09/25/2013 09:05:00 09/25/2013 23:59:59 CLS Outpatient GOPI FERGUSON MD [facility] ONC [id number] 09/14/2013 07:10:00 09/14/2013 10:25:00 DIS Outpatient SHANAE CANTU MD [facility] GERD [id number] 09/13/2013 07:15:00 09/13/2013 23:59:59 CLS Outpatient [id number] 09/02/2013 11:17:00 09/02/2013 23:59:59 CLS Outpatient SERAFIN IRIZARRY MD [facility] LAB ANEMIA [id number] 04/18/2013 12:38:00 07/17/2013 00:01:00 DIS Outpatient SERAFIN IRIZARRY MD [facility] ANEMIA [id number] 06/01/2013 08:05:00 06/01/2013 14:36:00 DIS Outpatient SHANAE CANTU MD [facility] ANEMIA [id number] 05/29/2013 08:30:00 05/29/2013 23:59:59 CLS Outpatient SHANAE CANTU MD [facility] RAD ANEMIA,GI BLEED [id number] 05/24/2013 08:37:00 05/24/2013 23:59:59 CLS Outpatient SHANAE CANTU MD [facility] RAD ANEMIA,GI BLEED [id number] 05/18/2013 06:53:00 05/18/2013 16:20:00 DIS Outpatient SHANAE CANTU MD [facility] ANEMIA, [id number] 05/17/2013 07:17:00 05/17/2013 23:59:59 CLS Outpatient SHANAE CANTU MD [facility] PREOP ANEMIA [id number] 04/20/2013 11:55:00 04/20/2013 23:59:59 CLS Outpatient NIKITA HERNÁNDEZ MD [facility] RAD PROSTATE CA [id number] 02/17/2013 08:06:00 02/17/2013 12:00:00 DIS Outpatient JOURDAN WELDON MD [facility] SDC GI BLEED [id number] 02/15/2013 08:29:00 02/15/2013 23:59:59 CLS Outpatient JOURDAN WELDON MD [facility] PREOP GI BLEED [id number] 01/28/2018 08:45:00 PEN Preadmit JOURDAN WELDON MD [facility] ENDO GI BLEED [id number] 02/11/2015 10:52:00 Document Registration [id number] 02/11/2015 10:51:00 Document Registration [id number] 02/11/2015 10:51:00 Document Registration [id number] 02/11/2015 10:51:00 Document Registration [id number] 02/11/2015 10:50:00 Document Registration [id number] 03/01/2014 00:00:00 Document Registration [id number] 10/04/2013 00:00:00 Document Registration [id number] 07/18/2013 00:00:00 Document Registration [id number] 03/24/2013 00:00:00 Document Registration [id number] 03/16/2013 00:00:00 Document Registration [id number] 01/23/2013 09:00:00 Document Registration [id number] 12/27/2012 08:35:00 Document Registration [id number] 12/26/2012 12:23:00 Document Registration [id number] 12/23/2012 12:12:00 Document Registration [id number] 12/23/2012 11:17:00 Document Registration [id number] 12/16/2012 08:24:00 Document Registration [id number] 11/30/2012 07:36:00 Document Registration [id number] 10/17/2012 14:31:00 Document Registration [id number] 06/29/2012 12:02:00 Document Registration [id number] 03/02/2012 05:52:00 Document Registration [id number] 03/01/2012 12:17:00 Document Registration [id number] 11/23/2011 05:34:00 Document Registration [id number] 11/09/2011 12:10:00 Document Registration [id number] 07/22/2011 10:26:00 Document Registration [id number] 11/08/2009 10:33:00 Document Registration [id number] 07/19/2015 08:27:19 ACT Document Registration [id number] 06/17/2017 23:44:33 06/17/2017 23:59:59 [facility] Outpatient
[2018-01-28 08:08] VITALS: BP 151/83
[2018-01-28] MEDS ORDERED: fentaNYL INJECTION 100 MCG/2 ML AMP ONE (08:20)
[2018-01-28] MEDS ORDERED: MIDAZOLAM 2 MG/2 ML (VERSED) VIAL ONE ×2 (08:20→08:21)
[2018-01-28] MEDS ORDERED: LIDOCAINE JELLY 2% (XYLOCAINE) 5 ML TUBE ONE (08:20)
[2018-01-28] MEDS: fentaNYL INJECTION 100 MCG/2 ML AMP IVP PRN ×2 (08:40→08:55)
[2018-01-28] MEDS: MIDAZOLAM 2 MG/2 ML (VERSED) VIAL IVP PRN ×2 (08:41→09:09)
[2018-01-28] MEDS ORDERED: HURRICAINE EXT TUBE (BENZOCAINE) ONE (09:02)
[2018-01-28] MEDS ORDERED: HURRICAINE EXT TUBE (BENZOCAINE) XX ONE (09:15)
[2018-01-28 09:35] VITALS: BP 137/75
[2018-01-28 10:00] VITALS: BP 128/82
[2018-01-28 10:45] VITALS: BP 128/82
--- NOTE | 2018-01-28 20:47 | OPERATIVE REPORT ---
DATE OF SERVICE: 01/28/2018 PANENDOSCOPY INDICATION FOR THE PROCEDURE: Gastrointestinal bleed. DESCRIPTION OF PROCEDURE: The patient was placed in left lateral decubitus position. Prior to undergoing colonoscopy, digital rectal evaluation was performed. Anal sphincter tone was normal and the perianal reflex was intact. There was no palpable evidence for prostatic tissue or nodularity. No other abnormalities, no additional inspection of anal canal or distal rectal vault. The colonoscope was then inserted into the rectum under direct visualization advanced to the cecum. The cecum was identified by identification of the ileocecal valve and cecal strap. Photographic documentation was obtained. A careful inspection was made as colonoscope was withdrawn. FINDINGS: There is no evidence for internal or external hemorrhoids. There are some telangiectatic hepatic blood vessels noted in the distal rectum compatible with chronic radiation proctitis. There is no evidence for ulceration and no evidence for blood throughout the colon. No other rectal abnormalities were noted. The sigmoid colon, descending colon, transverse colon and ascending colon were unremarkable. Two small blush areas were noted adjacent to each other in the cecum compatible with small areas of angiodysplasia. There was no stigmata to suggest recent bleeding and no blood noted in the cecum. ASSESSMENT: 1. Findings of unchanged chronic radiation proctitis without evidence for ulceration present in the distal rectum with no evidence for prostatic tissue to digital inspection. 2. Two small areas of angiodysplasia were noted in the cecum. No stigmata to suggest recent bleeding, but a questionable source. For this reason, we then proceeded with EGD evaluation. The endoscope was inserted in the oral cavity and under direct visualization, the esophagus was intubated. The endoscope was passed down the esophagus through stomach and the second portion of duodenum. Careful inspection was made as the endoscope was withdrawn. The patient tolerated the procedure well. FINDINGS: The proximal and mid esophagus were unremarkable. The GE junction was proximally placed at 34 cm from the incisural orifice secondary to a moderate sized hiatal hernia. There is one shallow area of ulceration involving 10% of the circumference, benign and peptic in appearance without evidence for Fisher's change or nodularity. A photograph was obtained. The cardia of the stomach was unremarkable. Several small fundal appearing polyps were noted in the proximal fundus. Distal fundus was unremarkable. There was one small area of erythema noted in the antrum without evidence for erosion or ulceration. The pylorus, the pyloric channel, the duodenal bulb and second portion of duodenum were unremarkable without evidence for duodenitis or peptic ulcer disease. ASSESSMENT AND PLAN: LA grade A erosive esophagitis was present with a moderate sized hiatal hernia. This is the most likely source of his bleeding aggravated by the combination of Naprosyn and aspirin. With his present, discussed the fact that he needed to abstain from Naprosyn and ibuprofen and likely would not advise any other nonsteroidal medication as it too may increase his risk for gastrointestinal bleeding. He can add acetaminophen not more than 3 grams in 24 hours if needed for pain and if he needs anything else, he is to discuss this with his primary care provider, Dr. Franco. He and his voiced understanding. Also, it is advised that he take his esomeprazole daily. It had been every other day and will likely need this indefinitely considering moderate hiatal hernia and erosive esophagitis. Previously, he had been doing okay on a baby aspirin daily, was advised to hold it for another 2 weeks and then resume if he had any significant future re-bleeding, advised that this be discontinued indefinitely as well, however. I thank you for the referral of this pleasant gentleman reassured by today's findings. Job ID: [id number] DocumentID: [id number] Dictated Date: 01/28/2018 12:12:08 [employer] Support Equipment [employer] Date: 01/28/2018 20:45:51 Dictated By: JOURDAN WELDON MD [facility]
== END 2018-01-28 10:45 | disposition home or self-care (01) ==
LOC: ENDO 07:39
PROVIDERS: ATTEND Internal Medicine
DX: K92.2 Gastrointestinal hemorrhage, unspecified (principal); K62.7 Radiation proctitis; K55.20 Angiodysplasia of colon without hemorrhage; K22.10 Ulcer of esophagus without bleeding; K44.9 Diaphragmatic hernia without obstruction or gangrene; K31.7 Polyp of stomach and duodenum; T39.315A Adverse effect of propionic acid derivatives, initial encounter; T39.015A Adverse effect of aspirin, initial encounter; I25.10 Atherosclerotic heart disease of native coronary artery without angina pectoris; I10 Essential (primary) hypertension; E78.5 Hyperlipidemia, unspecified

== ENCOUNTER → 2018-04-19 | Outpatient (CLI) | payer MEDICARE, OTHER ==
--- NOTE | 2018-04-19 14:08 | Diagnostic Imaging Report ---
PROCEDURE: CT chest without contrast. TECHNIQUE: Multiple contiguous axial images were obtained through the chest without the use of intravenous contrast. INDICATION: Lung mass, prostate cancer. FINDINGS: The prior CT chest exam of 09/23/2016 noted a 4 mm vague parenchymal density in the medial aspect of the right lung base. There was also a vague parenchymal density in the posterolateral aspect of the right lung base. On the subsequent CT chest exam of 09/14/2017, the nodular density in question was not well visualized, but there did appear to be faint scarring in the inferomedial aspect of the right lower lobe in the region of the aforementioned nodular density. That finding is again evident on this exam and does not appear to have changed significantly (Image [id number]/[id number]). The vague parenchymal density in the lateral aspect of the right lung base seen on the 2016 exam is again visualized and no different (image 44/66). The small 3 mm parenchymal density in the periphery of the left upper lung seen on the prior study is again evident and unchanged as well (image 6/66). No other parenchymal abnormality is identified. There is no sign of failure, pneumonia, or pleural effusion to indicate an acute abnormality. The heart is stable in size. Dense coronary artery calcifications involving the left anterior descending coronary artery are again evident. The aorta is not abnormally dilated. There is no mediastinal or hilar adenopathy. The thyroid gland is generally unremarkable. The sections through the upper abdomen suggest that there is a 3 mm calcification in the left renal pelvis. The 2016 exam did note an 11 mm calculus in the left kidney. The cyst along the posterior aspect of the right kidney seen previously is partially visualized on this exam. The gallbladder is surgically absent. The bone windows are unremarkable for a fracture or for a destructive lesion. IMPRESSION: 1. The parenchymal densities in the right lower lobe and the small density in left apex seen on the previous studies appear stable. Most likely, these findings are benign. A six-month followup CT chest exam would be recommended for continued evaluation. If these densities appear stable on the followup exam, then no further surveillance will be necessary as a two-year stability will have been established. 2. There is no acute cardiopulmonary abnormality evident. 3. There is coronary artery disease. 4. There is left nephrolithiasis and a right renal cyst. Dictated by: Dictated on workstation # [id number]
== END ==
LOC: RAD 12:38
PROVIDERS: ATTEND Internal Medicine Critical Care Medicine
DX: C61 Malignant neoplasm of prostate (principal); R91.8 Other nonspecific abnormal finding of lung field; N20.0 Calculus of kidney; N28.1 Cyst of kidney, acquired
CPT/HCPCS: 71250

== ENCOUNTER 2018-07-07 12:56 | Outpatient (RCR) | payer MEDICARE, OTHER ==
[~2018-07-07] VITALS: Ht 175.3 cm; Wt 79.8 kg
[2018-07-07] MEDS ORDERED: ACETAMINOPHEN 325 MG TABLET PO PRN (13:15)
[2018-07-07] MEDS ORDERED: IRON SUCROSE 200 MG/10 ML (VENOFER) VIAL IV SCH (13:15)
[2018-07-07] MEDS ORDERED: CATHETER FLUSH 10 ML SYR IV PRN (13:30)
[2018-07-07] MEDS ORDERED: diphenhydrAMINE 25 MG TAB (BENADRYL) PO PRN (13:30)
[2018-07-07 15:00] VITALS: BP 157/96
== END 2018-07-10 | disposition home or self-care (01) ==
LOC: SDC 12:56
PROVIDERS: ATTEND Family Medicine
DX: D50.9 Iron deficiency anemia, unspecified (principal); K30 Functional dyspepsia
CPT/HCPCS: 96365; 96374

== ENCOUNTER 2018-07-18 13:06 | Outpatient (RCR) | payer MEDICARE, OTHER ==
[2018-07-11] MEDS: ACETAMINOPHEN 325 MG TABLET PO PRN (13:20)
[2018-07-11] MEDS: IRON SUCROSE 200 MG/10 ML (VENOFER) VIAL IV SCH (14:04)
[2018-07-11 14:30] VITALS: BP_SYST 0; BP_SYST 121; BP_DIAS 0; BP_DIAS 90
[2018-07-13] MEDS: diphenhydrAMINE 25 MG TAB (BENADRYL) PO PRN (13:29)
[2018-07-13] MEDS: ACETAMINOPHEN 325 MG TABLET PO PRN (13:30)
[2018-07-13] MEDS: IRON SUCROSE 200 MG/10 ML (VENOFER) VIAL IV SCH (13:30)
[2018-07-13 13:35] VITALS: BP 109/68
[2018-07-15 13:00] VITALS: BP 135/71
[~2018-07-18] VITALS: Ht 175.3 cm; Wt 79.8 kg
[~2018-07-18 13:06] MED LIST changes: +ACETAMINOPHEN 325 MG TABLET ONE; +IRON SUCROSE 200 MG/10 ML (VENOFER) VIAL IV ONE; +diphenhydrAMINE 50 MG/ML INJ (BENADRYL) IV ONE; +diphenhydrAMINE 50 MG/ML INJ (BENADRYL) ONE
[2018-07-18] MEDS: ACETAMINOPHEN 325 MG TABLET PO PRN (13:15)
[2018-07-18] MEDS: diphenhydrAMINE 25 MG TAB (BENADRYL) PO PRN (13:15)
[2018-07-18] MEDS: IRON SUCROSE 200 MG/10 ML (VENOFER) VIAL IV SCH (13:35)
[2018-07-18 14:15] VITALS: BP 136/71
== END 2018-10-09 | disposition home or self-care (01) ==
LOC: SDC 13:06
PROVIDERS: ATTEND Family Medicine
DX: D50.9 Iron deficiency anemia, unspecified (principal)
CPT/HCPCS: 96365

== ENCOUNTER → 2018-07-26 | Outpatient (CLI) | payer MEDICARE, OTHER ==
[~2018-07-26] MED LIST changes: -ACETAMINOPHEN 325 MG TABLET ONE; -IRON SUCROSE 200 MG/10 ML (VENOFER) VIAL IV ONE; -diphenhydrAMINE 50 MG/ML INJ (BENADRYL) IV ONE; -diphenhydrAMINE 50 MG/ML INJ (BENADRYL) ONE
--- NOTE | 2018-07-26 13:24 | Diagnostic Imaging Report ---
PROCEDURE: CT abdomen and pelvis without contrast. TECHNIQUE: Multiple contiguous axial images were obtained through the abdomen and pelvis without the use of intravenous contrast. INDICATION: Prostate carcinoma and hematuria. Comparison is made with prior CT from 09/14/2017. The lung bases are clear. The unopacified liver is unremarkable. No discrete mass is identified. The gallbladder is surgically absent. The pancreas appears stable. The spleen is unremarkable. No adrenal mass is detected. The right kidney again demonstrates parapelvic and renal sinus cyst. No calculi on the right are identified. The staghorn calculus involving the left kidney is again seen. No significant hydronephrosis is identified. No definite ureteral or bladder calculi are detected. Aorta is heavily calcified but non-aneurysmal. No central, retroperitoneal or mesenteric lymphadenopathy is identified. The small and large bowel loops are normal caliber. Postsurgical changes of prostatectomy are noted. Surgical clips in the low midline of the pelvis. Pelvic sidewalls are unremarkable. No definite pelvic lymphadenopathy is seen. There do appear to be fat containing inguinal hernias bilaterally. Bony structures are unremarkable. IMPRESSION: Overall stable noncontrast CT of the abdomen and pelvis when compared with prior examination from 09/14/2017. Left renal staghorn calculus appears stable. No definite ureteral or bladder calculi are seen. Dictated by: Dictated on workstation # [id number]
--- NOTE | 2018-07-26 15:57 | Diagnostic Imaging Report ---
INDICATION: Prostate carcinoma and hematuria. TECHNIQUE: Patient was administered 25.0 mCi technetium 99m MDP intravenously and whole body imaging was performed after three-hour delay. COMPARISON: Comparison is made with prior whole body bone scan from 01/30/2016. FINDINGS: There is normal uptake of activity by the axial and appendicular skeleton. There is uptake by the kidneys with excretion into the urinary bladder. There does appear to be some retention of activity in the left renal collecting system. Patient does have a known large staghorn calculus in the left kidney seen on CT of the same day. There may be mild hydronephrosis noted on bone scan. No abnormal focus of tracer accumulation is seen to suggest osseous metastatic disease. IMPRESSION: 1. No scintigraphic evidence of osseous metastatic disease. 2. There is some moderate retention of activity within the left renal collecting system on bone scan, correlating with a large staghorn calculus in the left kidney seen on CT earlier same day. Dictated by: Dictated on workstation # [id number]
== END ==
LOC: CARD 12:10
PROVIDERS: ATTEND Urology
DX: C61 Malignant neoplasm of prostate (principal); R31.9 Hematuria, unspecified; N20.0 Calculus of kidney
CPT/HCPCS: 74176; 78306

== ENCOUNTER → 2018-10-20 | Outpatient (CLI) | payer MEDICARE, OTHER ==
--- NOTE | 2018-10-20 12:36 | Diagnostic Imaging Report ---
PROCEDURE: CT chest without contrast. TECHNIQUE: Multiple contiguous axial images were obtained through the chest without the use of intravenous contrast. INDICATION: Pulmonary nodules, followup. COMPARISON: Comparison is made with prior CT chest from 04/19/2018. FINDINGS: No axillary lymphadenopathy is seen. No definite mediastinal or hilar lymphadenopathy is detected. There are coronary arterial calcifications present. No pericardial or pleural fluid is seen. Parenchymal evaluation shows the lungs to be fairly clear. Vague nodular density in the posterolateral right lower lobe is again barely visible on today's study. There is some minimal scarring in the posteromedial right lower lobe, stable. No mass is identified. Upper abdomen does show probable cyst in the upper pole of the right kidney. There also appears to be a calculus in the upper pole of the left kidney, only partly included on this exam. IMPRESSION: Stable noncontrast CT chest when compared with the exam from 04/19/2018. Right lower lobe opacities are stable. No acute feature is seen. Dictated by: Dictated on workstation # [id number]
== END ==
LOC: RAD 11:40
PROVIDERS: ATTEND Internal Medicine Critical Care Medicine
DX: R91.8 Other nonspecific abnormal finding of lung field (principal)
CPT/HCPCS: 71250

== ENCOUNTER → 2019-07-11 | Outpatient (CLI) | payer MEDICARE, OTHER ==
--- NOTE | 2019-07-11 17:45 | Diagnostic Imaging Report ---
INDICATION: Sharp pain in the right mid and lower axillary ribs after chiropractic appointment yesterday. FINDINGS: Three views of the right ribs demonstrate normal ossification. No fractures are present. The right lung is clear. IMPRESSION: Normal right ribs. Dictated by: Dictated on workstation # [id number]
== END ==
LOC: RAD 15:07
PROVIDERS: ATTEND Nurse Practitioner Family
DX: R07.81 Pleurodynia (principal)
CPT/HCPCS: 71100

== ENCOUNTER → 2019-10-25 | Outpatient (CLI) | payer MEDICARE, OTHER ==
[~2019-10-25] MED LIST changes: -ACET-2307 PO; +ACET650T8 PO; +MAGN400T8 PO; -RANI-515 PO; +RANI-609 PO; +SIMV40TA25 PO; -SIMV40TA4 PO
--- NOTE | 2019-10-25 13:16 | Diagnostic Imaging Report ---
EXAMINATION: CT Chest without contrast. TECHNIQUE: Multiple contiguous axial images were obtained through the chest without the use of intravenous contrast. All CT scans use one or more of the following dose optimizing techniques: automated exposure control, MA and/or KvP adjustment based on a patient size and exam type, or iterative reconstruction. HISTORY: LUNG NODULE COMPARISON: 10/20/2018. FINDINGS: The lungs are clear without edema or pneumonia. No pleural effusion or pneumothorax. There is a stable 2 mm nodule in the right lower lobe (series 4, image 97). Heart size is normal. No pericardial effusion. Aorta is normal in caliber. There is no axillary or supraclavicular lymphadenopathy. There is no mediastinal lymphadenopathy. There are moderate coronary artery calcifications. Gallbladder is surgically absent. There is a large calculus in the left kidney. There is a cyst in the upper pole of the right kidney. There are no suspicious osseous lesions. IMPRESSION: 1. Stable 2 mm nodule in the right lower lobe, this can be considered benign given its stability. 2. Large calculus in the left kidney. Dictated by: Dictated on workstation # [id number]
== END ==
LOC: RAD 10:46
PROVIDERS: ATTEND Nurse Practitioner Family
DX: N20.0 Calculus of kidney (principal); R91.1 Solitary pulmonary nodule; Z90.49 Acquired absence of other specified parts of digestive tract
CPT/HCPCS: 71250

== ENCOUNTER 2019-10-28 14:36 | Observation (INO) | payer MEDICARE, OTHER ==
[~2019-10-28] VITALS: Ht 175.3 cm; Wt 73.2 kg
[2019-10-28] MEDS ORDERED: ASPIRIN 81 MG CHEW (CHILDREN'S ASA) PO ONE (15:00)
[2019-10-28 15:09] LABS: BASOPHILS % (AUTO) 0 % (0-10); EOSINOPHILS % (AUTO) 0 % (0-10); HEMATOCRIT 36 % (40-54); LYMPHOCYTES % (AUTO) 5 % (12-44); MEAN CORPUSCULAR HEMOGLOBIN 30 PG (25-34); MEAN CORPUSCULAR HGB CONC 34 G/DL (32-36); MEAN CORPUSCULAR VOLUME 90 FL (80-99); MEAN PLATELET VOLUME 9.3 FL (7.4-10.4); MONOCYTES # (AUTO) 1.3 X 10^3 (0.0-1.0); MONOCYTES % (AUTO) 7 % (0-12); NEUTROPHILS # (AUTO) 16.9 X 10^3 (1.8-7.8); NEUTROPHILS % (AUTO) 88 % (42-75); PLATELET COUNT 139 10^3/uL (130-400); RED CELL DISTRIBUTION WIDTH 13.7 % (10.0-14.5); WHITE BLOOD COUNT 19.2 10^3/uL (4.3-11.0)
--- NOTE | 2019-10-28 15:11 | ED Chest Pain ---
General Chief Complaint: Chest Pain Stated Complaint: R SIDE CHEST PAIN,NECK PAIN Source: patient Exam Limitations: no limitations History of Present Illness Date Seen by Provider: Oct 28, 2019 Time Seen by Provider: 15:00 Initial Comments To ER with right-sided chest pain and neck pain between his shoulder blades that began last night. Allergies and Home Medications Allergies Coded Allergies: naproxen (Verified Allergy, Severe, CAUSED BLEEDING, 10/29/16) Iodinated Contrast- Oral and IV Dye (Unverified Allergy, Mild, NAUSEA, 10/11 06/27) Home Medications Acetaminophen 500 Mg Tablet, 500 MG PO TIDWM, (Reported) Ca Carbonate/Vitamin D3/Vit K 1 Each Tab.chew, 1 EACH PO three times a week, (Reported) Candesartan Cilexetil 4 Mg Tablet, 4 MG PO DAILY, (Reported) Cetirizine HCl 10 Mg Tablet, 10 MG PO HS, (Reported) Cholecalciferol (Vitamin D3) 5,000 Unit Capsule, 5,000 UNIT PO DAILY, (Reported) Cyanocobalamin (Vitamin B-12) 2,500 Mcg Tablet, 2,500 MCG PO every other day, (Reported) Diphenhydramine HCl 25 Mg Capsule, 25 MG PO HS PRN for SLEEP/ALLERGIES, (Reporte d) Esomeprazole Magnesium 40 Mg Cap, 40 MG PO EVERY OTHER DAY, (Reported) Ferrous Gluconate 324 Mg Tablet, 324 MG PO twice a week, (Reported) Fluticasone Propionate 9.9 Ml [place].susp, 1 SPRAY NS HS, (Reported) Folic Acid 0.8 Mg Tablet, 0.8 MG PO every other day, (Reported) Furosemide 20 Mg Tablet, 20 MG PO EVERY OTHER DAY, (Reported) Gluc HCl/Csa/Marilynn Hy/Hyalur AC 1 Each Capsule, 1 CAP PO DAILY, (Reported) Lipase/Protease/Amylase 1 Each Capsule.dr, 24,000 UNITS PO AC, (Reported) TAKES 2 (12,000 UNIT) CAPSULES Magnesium Oxide 400 Mg Tablet, 400 MG PO every other day, (Reported) Melatonin/Pyridoxine 1 Each Tablet, 5 MG PO HS PRN for SLEEP, (Reported) Metoprolol Succinate 25 Mg Tab.er.24h, 25 MG PO HS, (Reported) Montelukast Sodium 10 Mg Tablet, 10 MG PO HS, (Reported) Multivitamin 1 Each Tablet, 0.5 TAB PO DAILY, (Reported) Niacin 1,000 Mg Tab.er.24h, 1,000 MG PO DAILY@1900, (Reported) Nitroglycerin 0.4 Mg Tab.subl, 0.4 MG SL UD PRN for CHEST PAIN, (Reported) [place]-3/Dha/Epa/Fish Oil 1 Each Capsule.dr, 1,400 MG PO DAILY, (Reported) Potassium Gluconate 90 Mg Tablet, 90 MG PO every other day, (Reported) Ranitidine HCl 150 Mg Tablet, 150 MG PO HS, (Reported) Simvastatin 40 Mg Tablet, 40 MG PO DAILY@1900, (Reported) Tolterodine Tartrate 4 Mg Cap, 4 MG PO HS, (Reported) Vitamin B Complex & Vit C No.4 150 Mg Tablet, 150 MG PO EVERY OTHER DAY, (Reported) ALTERNATES WITH VITAMIN B12 Patient Home Medication List Home Medication List Reviewed: Yes Review of Systems Review of Systems Constitutional: see HPI, malaise, weakness EENTM: No Symptoms Reported Respiratory: See HPI, Cough Cardiovascular: See HPI, Chest Pain Gastrointestinal: See HPI Genitourinary: No Symptoms Reported Musculoskeletal: no symptoms reported Skin: no symptoms reported Psychiatric/Neurological: No Symptoms Reported Endocrine: No Symptoms Reported Hematologic/Lymphatic: No Symptoms Reported Past Xmpegju-Tzqrwm-Cyjkra Hx Patient Social History Recent Foreign Travel: No Contact w/Someone Who Travel: No Recent Hopitalizations: No Immunizations Up To Date Tetanus Booster (TDap): More than 5yrs PED Vaccines UTD: No Date of Pneumonia Vaccine: May 29, 2012 Date of Influenza Vaccine: Jul 16, 2017 Seasonal Allergies Seasonal Allergies: Yes Past Medical History Surgeries: Yes (PANCREAS STENT AND REMOVAL) Gallbladder, Prostatectomy, Tonsillectomy Respiratory: Yes (LUNG NODULES) Currently Using CPAP: No Currently Using BIPAP: No Cardiac: Yes Coronary Artery Disease, Heart Attack, High Cholesterol, Hypertension Neurological: No Reproductive Disorders: No Sexually Transmitted Disease: No HIV/AIDS: No Prostate Problems Gastrointestinal: Yes Gastroesophageal Reflux, Gastrointestinal Bleed, Obstructive Bowel, Ulcer Musculoskeletal: Yes (ARTHRITIS IN FINGERS AND KNEES, HIP PAIN) Arthritis, Chronic Back Pain Endocrine: No Loss of Vision: Bilateral Hearing Impairment: Denies Cancer: Yes (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) Prostate, Skin Psychosocial: No Integumentary: No Blood Disorders: Yes (ANEMIA-RELATED TO GI BLEED) Adverse Reaction/Blood Tranf: No (HAS HAD BLOOD WITH NO REACTION) Family Medical History Colon cancer FH: COPD (chronic obstructive pulmonary disease) FH: breast cancer FH: heart attack Cancer Physical Exam Vital Signs Vital Signs - First Documented 10/28/19 14:45 Temp 36.3 Pulse 106 Resp 20 B/P (MAP) 162/79 (106) Pulse Ox 92 O2 Delivery Room Air Capillary Refill : Height, Weight, BMI Height: 5'9.00" Weight: 176lbs. 0.0oz. 79.548490ry; 26.0 BMI Method:Stated General Appearance: No Apparent Distress, WD/WN HEENT: PERRL/EOMI, TMs Normal Neck: Full Range of Motion, Normal Inspection Respiratory: Crackles (bibasilar) Cardiovascular: Tachycardia Gastrointestinal: Normal Bowel Sounds, Non Tender, Soft Neurologic/Psychiatric: Alert, Oriented x3 Skin: Normal Color, Warm/Dry, Other (no rash to the thorax) Focused Exam Lactate Level 10/28/19 14:54: Lactic Acid Level 1.96 Lactic Acid Level Laboratory Tests Test 10/28/19 14:54 Lactic Acid Level 1.96 MMOL/L (0.50-2.00) Progress/Results/Core Measures Results/Orders Lab Results Laboratory Tests Test 10/28/19 14:54 10/28/19 16:00 Range/Units White Blood Count 19.2 H 4.3-11.0 10^3/uL Red Blood Count 3.95 L 4.35-5.85 10^6/uL Hemoglobin 12.0 L 13.3-17.7 G/DL Hematocrit 36 L 40-54 % Mean Corpuscular Volume 90 80-99 FL Mean Corpuscular Hemoglobin 30 25-34 PG Mean Corpuscular Hemoglobin Concent 34 32-36 G/DL Red Cell Distribution Width 13.7 10.0-14.5 % Platelet Count 139 130-400 10^3/uL Mean Platelet Volume 9.3 7.4-10.4 FL Neutrophils (%) (Auto) 88 H 42-75 % Lymphocytes (%) (Auto) 5 L 12-44 % Monocytes (%) (Auto) 7 0-12 % Eosinophils (%) (Auto) 0 0-10 % Basophils (%) (Auto) 0 0-10 % Neutrophils # (Auto) 16.9 H 1.8-7.8 X 10^3 Lymphocytes # (Auto) 1.0 1.0-4.0 X 10^3 Monocytes # (Auto) 1.3 H 0.0-1.0 X 10^3 Eosinophils # (Auto) 0.0 0.0-0.3 10^3/uL Basophils # (Auto) 0.0 0.0-0.1 10^3/uL Neutrophils % (Manual) 85 % Lymphocytes % (Manual) 4 % Monocytes % (Manual) 3 % Eosinophils % (Manual) 0 % Basophils % (Manual) 0 % Band Neutrophils 6 % Reactive Lymphocytes 2 % Blood Morphology Comment NORMAL D-Dimer 0.99 H 0.00-0.49 UG/ML Sodium Level 136 135-145 MMOL/L Potassium Level 3.4 L 3.6-5.0 MMOL/L Chloride Level 102 98-107 MMOL/L Carbon Dioxide Level 21 21-32 MMOL/L Anion Gap 13 5-14 MMOL/L Blood Urea Nitrogen 13 7-18 MG/DL Creatinine 1.28 0.60-1.30 MG/DL Estimat Glomerular Filtration Rate 54 BUN/Creatinine Ratio 10 Glucose Level 167 H 70-105 MG/DL Lactic Acid Level 1.96 0.50-2.00 MMOL/L Calcium Level 9.9 8.5-10.1 MG/DL Corrected Calcium 9.8 8.5-10.1 MG/DL Total Bilirubin 0.6 0.1-1.0 MG/DL Aspartate Amino Transf (AST/SGOT) 13 5-34 U/L Alanine Aminotransferase (ALT/SGPT) 19 0-55 U/L Alkaline Phosphatase 56 40-136 U/L Troponin I < 0.028 <0.028 NG/ML B-Type Natriuretic Peptide 59.0 <100.0 PG/ML Total Protein 8.1 6.4-8.2 GM/DL Albumin 4.1 3.2-4.5 GM/DL Lipase 14 8-78 U/L My Orders Orders - NILE ARIAS APRN Cbc With Automated Diff (10/28/19 14:47) Comprehensive Metabolic Panel (10/28/19 14:47) Fibrin Degradation Products (10/28/19 14:47) Troponin I (10/28/19 14:47) Ekg Tracing (10/28/19 14:47) Aspirin Chewable Tablet (Baby Aspirin Ch (10/28/19 15:00) Chest Pa/Lat (2 View) (10/28/19 14:47) Lipase (10/28/19 14:47) BNP (10/28/19 14:47) Manual Differential (10/28/19 14:54) Blood Culture (10/28/19 16:18) Lactic Acid Analyzer (10/28/19 16:18) Ceftriaxone For Iv Use (Rocephin For I (10/28/19 16:30) Doxycycline Injection (Vibramycin Inject (10/28/19 16:30) Ua Culture If Indicated (10/28/19 16:54) Medications Given in ED Current Medications Medications Dose Ordered Sig/Nate Route Start Time Stop Time Status Last Admin Dose Admin Aspirin 324 mg ONCE ONCE PO 10/28/19 15:00 10/28/19 15:01 DC 10/28/19 15:12 324 MG Ceftriaxone Sodium 1000 mg/ Sterile Water 10 ml @ 200 mls/hr ONCE ONCE IV 10/28/19 16:30 10/28/19 16:32 DC 10/28/19 16:55 200 MLS/HR Doxycycline Hyclate 100 mg/ Sodium Chloride 100 ml @ 100 mls/hr ONCE ONCE IV 10/28/19 16:30 10/28/19 17:29 10/28/19 16:56 100 MLS/HR Vital Signs/I&O 10/28/19 14:45 Temp 36.3 Pulse 106 Resp 20 B/P (MAP) 162/79 (106) Pulse Ox 92 O2 Delivery Room Air Diagnostic Imaging Diagonstic Imaging: Xray Plain Films/CT/US/NM/MRI: chest Comments NAME: [facility] REC#: [id number] PT STATUS: REG ER : 1935 PHYSICIAN: NILE ARIAS FERMENTATION SCIENTIST ADMIT DATE: 10/28/19/ER Draft Date of Exam:10/28/19 CHEST PA/LAT (2 VIEW) Indication: Right-sided chest pain. Comparison: 07/11/2019. Discussion: Two views of the chest were obtained. Rounded consolidation within the base of the right upper lobe, likely pneumonia, recommend follow-up to resolution. Underlying COPD is again noted. Normal heart size. No osseous abnormality. No pleural fluid or pneumothorax. Impression: Rounded area of consolidation within the right upper lobe, likely pneumonia, though recommend followup to resolution after appropriate clinical treatment. Dictated on workstation # [id number] Dict: 10/28/19 1520 Trans: 10/28/19 1523 [facility] [id number] Interpreted by: HENOK SHAW MD Electronically signed by: Departure Communication (Admissions) Time/Spoke to Admitting Phy: 16:[address] Hansen confectionery laboratory manager for Dr. Franco given the tachycardia, leukocytosis with confirmed pneumonia, we will admit observation for Rocephin and doxycycline given absence of any recent antibiotic use or structural lung disease. He did have a CT scan chest 3 days ago outpatient for a right lower lobe nodule which was stable only 2 mm and without evidence of pneumonia on that CT. Impression Primary Impression: Pneumonia Qualified Codes: J18.9 - Pneumonia, unspecified organism Disposition: ADMITTED INPATIENT Condition: Stable Admissions Decision to Admit Reason: Admit from ER (General) Decision to Admit/Date: Oct 28, 2019 Time/Decision to Admit Time: 16:58 Departure-Patient Inst. Referrals: FRANKLIN FRANCO MD (PCP/Family) Primary Care Physician NILE ARIAS APRN Oct 28, 2019 15:11
--- NOTE | 2019-10-28 15:23 | Diagnostic Imaging Report ---
Indication: Right-sided chest pain. Comparison: 07/11/2019. Discussion: Two views of the chest were obtained. Rounded consolidation within the base of the right upper lobe, likely pneumonia, recommend follow-up to resolution. Underlying COPD is again noted. Normal heart size. No osseous abnormality. No pleural fluid or pneumothorax. Impression: Rounded area of consolidation within the right upper lobe, likely pneumonia, though recommend followup to resolution after appropriate clinical treatment. Dictated by: Dictated on workstation # [id number]
[2019-10-28 15:29] LABS: ALANINE AMINOTRANSFERASE 19 U/L (0-55); ALBUMIN 4.1 GM/DL (3.2-4.5); ALKALINE PHOSPHATASE 56 U/L (40-136); BAND NEUTROPHILS 6 %; BASOPHILS % (MANUAL) 0 %; BILIRUBIN,TOTAL 0.6 MG/DL (0.1-1.0); BUN/CREATININE RATIO 10; CALCIUM 9.9 MG/DL (8.5-10.1); CARBON DIOXIDE 21 MMOL/L (21-32); CHLORIDE 102 MMOL/L (98-107); CREATININE SERUM 1.28 MG/DL (0.60-1.30); EOSINOPHILS % (MANUAL) 0 %; GFR ESTIMATED 54; GLUCOSE 167 MG/DL (70-105); LIPASE 14 U/L (8-78); LYMPHOCYTES % (MANUAL) 4 %; MONOCYTES % (MANUAL) 3 %; NEUTROPHILS % (MANUAL) 85 %; POTASSIUM 3.4 MMOL/L (3.6-5.0); RBC MORPH NORMAL; REACTIVE LYMPHOCYTES 2 %; SODIUM 136 MMOL/L (135-145); TOTAL PROTEIN 8.1 GM/DL (6.4-8.2)
--- NOTE | 2019-10-28 15:52 | NUR ---
TO ROOM NO CHANGE CON'T TO BE PAIN FREE.
[2019-10-28] MEDS ORDERED: DOXYCYCLINE INJECTION 100 MG in NS (IVPB) 100 ML IV ONE (16:30)
[2019-10-28] MEDS ORDERED: cefTRIAXone FOR IV USE 1,000 MG in WATER (STERILE) FOR INJECTION 10 ML IV ONE (16:30)
[2019-10-28 16:59] LABS: BILIRUBIN,URINE NEGATIVE (NEGATIVE); CLARITY,URINE SL CLOUDY; COLOR,URINE YELLOW; GLUCOSE, URINE (UA) 1+ (NEGATIVE); KETONES,URINE NEGATIVE (NEGATIVE); LEUKOCYTE ESTERASE ,URINE 2+ (NEGATIVE); NITRITE,URINE NEGATIVE (NEGATIVE); PH,URINE 7.5 (5-9); PROTEIN,URINE NEGATIVE (NEGATIVE)
[2019-10-28 17:05] LABS: BACTERIA,URINE TRACE /HPF; HYALINE CASTS, URINE RARE /LPF; SQUAMOUS EPITHELIAL CELL,UR RARE /HPF
[2019-10-28 17:27] VITALS: BP 154/73
[2019-10-28 17:30] VITALS: BP 154/73
[2019-10-28 18:51] VITALS: BP 162/79
[2019-10-28] MEDS ORDERED: RT-ALBUTEROL/IPRATROPIUM 3 ML (DUONEB) VIAL ONE (19:03)
[2019-10-28] MEDS ORDERED: ENOXAPARIN 40 MG/0.4 ML (LOVENOX) SYR SC SCH (19:30)
[2019-10-28] MEDS ORDERED: PATIENT MAY USE OWN MEDS, ALL MC SCH (19:30)
[2019-10-28 20:00] VITALS: BP 140/66
[2019-10-28] MEDS: RT-ALBUTEROL/IPRATROPIUM 3 ML (DUONEB) VIAL INH PRN (22:16)
[2019-10-28] MEDS ORDERED: 1/2 NS W/KCL 20 MEQ/L 1,000 ML IV ONE (23:22)
[2019-10-28] MEDS ORDERED: ONDANSETRON 4 MG/2 ML (SDV) Z0FRAN IV PRN (23:30)
[2019-10-28] MEDS ORDERED: ACETAMINOPHEN 325 MG TABLET PO PRN (23:30)
[2019-10-28] MEDS ORDERED: IBUPROFEN 600 MG (MOTRIN) TAB PO PRN (23:30)
[2019-10-28] MEDS: NS W/KCL 20 MEQ/L 1,000 ML IV SCH (23:39)
[2019-10-29 04:00] VITALS: BP 91/53
[2019-10-29] MEDS: RT-ALBUTEROL/IPRATROPIUM 3 ML (DUONEB) VIAL INH PRN ×2 (04:17→09:47)
[2019-10-29] MEDS ORDERED: DOXYCYCLINE INJECTION 100 MG in NS (IVPB) 100 ML IV SCH ×2 (05:00→07:30)
[2019-10-29 06:20] LABS: BASOPHILS % (AUTO) 0 % (0-10); EOSINOPHILS # (AUTO) 0.6 10^3/uL (0.0-0.3); EOSINOPHILS % (AUTO) 5 % (0-10); HEMATOCRIT 32 % (40-54); HEMOGLOBIN 10.9 G/DL (13.3-17.7); LYMPHOCYTES # (AUTO) 3.4 X 10^3 (1.0-4.0); LYMPHOCYTES % (AUTO) 26 % (12-44); MEAN CORPUSCULAR HEMOGLOBIN 27 PG (25-34); MEAN CORPUSCULAR HGB CONC 34 G/DL (32-36); MEAN CORPUSCULAR VOLUME 78 FL (80-99); MONOCYTES # (AUTO) 0.7 X 10^3 (0.0-1.0); MONOCYTES % (AUTO) 5 % (0-12); NEUTROPHILS # (AUTO) 8.5 X 10^3 (1.8-7.8); NEUTROPHILS % (AUTO) 64 % (42-75); PLATELET COUNT 279 10^3/uL (130-400); WHITE BLOOD COUNT 13.1 10^3/uL (4.3-11.0)
[2019-10-29 06:42] LABS: ALANINE AMINOTRANSFERASE 23 U/L (0-55); ALBUMIN 2.4 GM/DL (3.2-4.5); ALKALINE PHOSPHATASE 235 U/L (40-136); BILIRUBIN,TOTAL 0.1 MG/DL (0.1-1.0); BUN/CREATININE RATIO 12; CALCIUM 8.2 MG/DL (8.5-10.1); CARBON DIOXIDE 20 MMOL/L (21-32); CHLORIDE 110 MMOL/L (98-107); CREATININE SERUM 0.68 MG/DL (0.60-1.30); GFR ESTIMATED > 60; GLUCOSE 94 MG/DL (70-105); POTASSIUM 3.7 MMOL/L (3.6-5.0); SODIUM 138 MMOL/L (135-145); TOTAL PROTEIN 5.6 GM/DL (6.4-8.2)
[2019-10-29] MEDS: NS W/KCL 20 MEQ/L 1,000 ML IV SCH (07:39)
--- NOTE | 2019-10-29 07:40 | Diagnostic Imaging Report ---
Indication: Dyspnea. Comparison: 10/28/2019. Discussion: Single portable upright view of the chest was obtained. Consolidation within the right upper lobe base is increased. Stable heart size. The left lung is well-aerated. No pleural fluid or pneumothorax. No osseous abnormality. Impression: 1. Worsening right lung consolidation. Dictated by: Dictated on workstation # [id number]
[2019-10-29 08:00] VITALS: BP 136/82
[2019-10-29 08:16] VITALS: BP 162/79
[2019-10-29] MEDS ORDERED: AMOX875T2 PO (10:04)
[2019-10-29] MEDS ORDERED: DOXY100C2 PO (10:04)
--- NOTE | 2019-10-29 10:08 | Discharge Summary ---
Discharge Summary Hospital Course Was the Problem List Reviewed?: Yes Problems/Dx: (1) Pneumonia Status: Acute Qualifiers: Qualified Codes: J18.1 - Lobar pneumonia, unspecified organism Final Diagnosis: Community acquired pneumonia Hospital Course Date of Admission: Oct 28, 2019 at 16:55 Admission Diagnosis : Community-acquired pneumonia Family Physician/Provider: Franklin Will MD Date of Discharge: 10/29/19 Discharge Diagnosis: Community-acquired pneumonia Hospital Course: Raj Culp is an 84-year-old male who presented with right-sided pleuritic chest pain and was admitted with community-acquired pneumonia. Upon arrival, his chest x-ray showed a right middle lobe pneumonia. He was started on IV ceftriaxone and doxycycline and responded well. He was discharged with a one- week course of amoxicillin and doxycycline. He should follow-up with Dr. Will in about one week. Labs and Pending Lab Test: Laboratory Tests 10/28/19 14:54: White Blood Count 19.2H, Red Blood Count 3.95L, Hemoglobin 12.0L, Hematocrit 36L , Mean Corpuscular Volume 90, Mean Corpuscular Hemoglobin 30, Mean Corpuscular Hemoglobin Concent 34, Red Cell Distribution Width 13.7, Platelet Count 139, Mean Platelet Volume 9.3, Neutrophils (%) (Auto) 88H, Lymphocytes (%) (Auto) 5L, Monocytes (%) (Auto) 7, Eosinophils (%) (Auto) 0, Basophils (%) (Auto) 0, Neutrophils # (Auto) 16.9H, Lymphocytes # (Auto) 1.0, Monocytes # (Auto) 1.3H, Eosinophils # (Auto) 0.0, Basophils # (Auto) 0.0, Neutrophils % (Manual) 85, Ly mphocytes % (Manual) 4, Monocytes % (Manual) 3, Eosinophils % (Manual) 0, Basophils % (Manual) 0, Band Neutrophils 6, Reactive Lymphocytes 2, Blood Morphology Comment NORMAL, D-Dimer 0.99H, Sodium Level 136, Potassium Level 3.4L , Chloride Level 102, Carbon Dioxide Level 21, Anion Gap 13, Blood Urea Nitrogen 13, Creatinine 1.28, Estimat Glomerular Filtration Rate 54, BUN/Creatinine Ratio 10, Glucose Level 167H, Lactic Acid Level 1.96, Calcium Level 9.9, Corrected Calcium 9.8, Total Bilirubin 0.6, Aspartate Amino Transf (AST/SGOT) 13, Alanine Aminotransferase (ALT/SGPT) 19, Alkaline Phosphatase 56, Troponin I < 0.028, B- Type Natriuretic Peptide 59.0, Total Protein 8.1, Albumin 4.1, Lipase 14 10/28/19 16:00: Urine Color YELLOW, Urine Clarity SL CLOUDY, Urine pH 7.5, Urine Specific [place] 1.015L, Urine Protein NEGATIVE, Urine Glucose (UA) 1+H, Urine Ketones NEGATIVE, Urine Nitrite NEGATIVE, Urine Bilirubin NEGATIVE, Urine Urobilinogen 0.2, Urine Leukocyte Esterase 2+H, Urine RBC (Auto) 1+H, Urine RBC NONE, Urine WBC 10-25H, Urine Squamous Epithelial Cells RARE, Urine Crystals NONE, Urine Bacteria TRACE, Urine Casts PRESENT, Urine Hyaline Casts RARE, Urine Mucus NEGATIVE, Urine Culture Indicated YES 10/29/19 05:55: White Blood Count 13.1H, Red Blood Count 4.10L, Hemoglobin 10.9L, Hematocrit 32L , Mean Corpuscular Volume 78L, Mean Corpuscular Hemoglobin 27, Mean Corpuscular Hemoglobin Concent 34, Red Cell Distribution Width 13.0, Platelet Count 279, Mean Platelet Volume 10.0, Neutrophils (%) (Auto) 64, Lymphocytes (%) (Auto) 26, Monocytes (%) (Auto) 5, Eosinophils (%) (Auto) 5, Basophils (%) (Auto) 0, Neutrophils # (Auto) 8.5H, Lymphocytes # (Auto) 3.4, Monocytes # (Auto) 0.7, Eosinophils # (Auto) 0.6H, Basophils # (Auto) 0.0, Sodium Level 138, Potassium Level 3.7, Chloride Level 110H, Carbon Dioxide Level 20L, Anion Gap 8, Blood Urea Nitrogen 8, Creatinine 0.68, Estimat Glomerular Filtration Rate > 60, BUN/Creatinine Ratio 12, Glucose Level 94, Calcium Level 8.2L, Corrected Calcium 9.5, Total Bilirubin 0.1, Aspartate Amino Transf (AST/SGOT) 11, Alanine Aminotransferase (ALT/SGPT) 23, Alkaline Phosphatase 235H, Total Protein 5.6L, Albumin 2.4L Home Meds Active Doxycycline Hyclate 100 Mg Capsule 100 Mg PO BID 6 Days Amoxicillin 875 Mg Tablet 875 Mg PO BID 6 Days Reported Citracal Soft Chew (Ca Carbonate/Vitamin D3/Vit K) 1 Each Tab.chew 1 Each PO THREE TIMES A WEEK Acid Platemaker (RANITIDINE) (Ranitidine HCl) 150 Mg Tablet 150 Mg PO HS Melatonin 5 mg Tablet (Melatonin/Pyridoxine) 1 Each Tablet 5 Mg PO HS PRN Acetaminophen 500 Mg Tablet 500 Mg PO TIDWM Magnesium Oxide 400 Mg Tablet 400 Mg PO EVERY OTHER DAY Nitroglycerin 0.4 Mg Tab.subl 0.4 Mg SL UD PRN Vitamin B12 (Cyanocobalamin (Vitamin B-12)) 2,500 Mcg Tablet 2,500 Mcg PO EVERY OTHER DAY Folic Acid 0.8 Mg Tablet 0.8 Mg PO EVERY OTHER DAY Potassium Gluconate 90 Mg Tablet 90 Mg PO EVERY OTHER DAY Fish Oil 1,400 mg Softgel ([place]-3/Dha/Epa/Fish Oil) 1 Each Capsule. 1,400 Mg PO DAILY Multivitamins (Multivitamin) 1 Each Tablet 0.5 Tab PO DAILY Ferrous Gluconate 324 Mg Tablet 324 Mg PO TWICE A WEEK Montelukast Sodium 10 Mg Tablet 10 Mg PO HS Cetirizine HCl 10 Mg Tablet 10 Mg PO HS Detrol LA (Tolterodine Tartrate) 4 Mg Cap 4 Mg PO HS Simvastatin 40 Mg Tablet 40 Mg PO DAILY@1900 Nexium (Esomeprazole Magnesium) 40 Mg Cap 40 Mg PO EVERY OTHER DAY Candesartan Cilexetil 4 Mg Tablet 4 Mg PO DAILY Niacin ER (Niacin) 1,000 Mg Tab.er.24h 1,000 Mg PO DAILY@1900 Toprol Xl (Metoprolol Succinate) 25 Mg Tab.er.24h 25 Mg PO HS Furosemide 20 Mg Tablet 20 Mg PO EVERY OTHER DAY Vitamin D3 (Cholecalciferol (Vitamin D3)) 5,000 Unit Capsule 5,000 Unit PO DAILY Alyson Hwang 12,000 Units Capsule (Lipase/Protease/Amylase) 1 Each Capsule. 24,000 Units PO AC TAKES 2 (12,000 UNIT) CAPSULES Benadryl (Diphenhydramine HCl) 25 Mg Capsule 25 Mg PO HS PRN Flonase Allergy Relief (Fluticasone Propionate) 9.9 Ml [place].susp 1 [place] NS HS Super B Complex (Vitamin B Complex & Vit C No.4) 150 Mg Tablet 150 Mg PO EVERY OTHER DAY ALTERNATES WITH VITAMIN B12 Glucosamine Chondroitin Cap (Gluc HCl/Csa/Marilynn Hy/Hyalur AC) 1 Each Capsule 1 Cap PO DAILY Assessment/Pt Instructions Take medications as prescribed. Complete her course of antibiotics even if you're feeling better. Follow-up with Dr. Will in about one week. Return with worsening fever, shortness of breath, or if you feel like you're getting worse. Discharge Instructions Discharge Diet: No Restrictions Activity as Tolerated: Yes Discharge Physical Examination General Appearance: Alert, Oriented X3, Cooperative, No Acute Distress HEENT: Atraumatic, PERRLA, EOMI, Mucous Memb Moist/[place] Respiratory: Clear to Auscultation, Normal Air Movement Cardiovascular: Regular Rate, Normal S1, Normal S2, No Murmurs Abdominal: Normal Bowel Sounds, Soft, No Tenderness Extremities: No Edema, No Tenderness/Swelling Skin: No Rashes, No Significant Lesion Neuro: Normal Speech, Strength at 5/5 X4 Ext Allergies: Coded Allergies: naproxen (Verified Allergy, Severe, CAUSED BLEEDING, 10/29/16) Iodinated Contrast Media (Unverified Allergy, Mild, NAUSEA, 10/29/16) Copy Copies To 1: FRANKLIN WILL MD Discharge Summary Date of Admission Oct 28, 2019 at 16:55 Date of Discharge Discharge Date: Oct 29, 2019 Discharge Time: 10:07 Admission Diagnosis Community acquired pneumonia Discharge Diagnosis Community acquired pneumonia (1) Pneumonia Status: Acute Qualifiers: Qualified Codes: J18.1 - Lobar pneumonia, unspecified organism Clinical Quality Measures AMI/AHF: ASA po Prior to arrival: No DVT/VTE Risk/Contraindication: Risk Factor Score Per Nursin RFS Level Per Nursing on Admit: 3=High SEAN KELLER MD Oct 29, 2019 10:08
[2019-10-29] MEDS ORDERED: RT-ALBUTEROL/IPRATROPIUM 3 ML (DUONEB) VIAL INH SCH (15:00)
[2019-10-29] MEDS ORDERED: cefTRIAXone 1,000 MG/SWFI 10 ML IV PUSH IV SCH ×2 (16:30)
== END 2019-10-29 10:30 | disposition home or self-care (01) ==
LOC: EDUNIT# 14:36 → ER 14:37 → 4TH 16:55
PROVIDERS: ADMIT Internal Medicine; ATTEND Internal Medicine
DX: J18.9 Pneumonia, unspecified organism (principal); I25.10 Atherosclerotic heart disease of native coronary artery without angina pectoris; E78.00 Pure hypercholesterolemia, unspecified; I10 Essential (primary) hypertension; I25.2 Old myocardial infarction; K21.9 Gastro-esophageal reflux disease without esophagitis; M17.0 Bilateral primary osteoarthritis of knee; M19.049 Primary osteoarthritis, unspecified hand; M54.9 Dorsalgia, unspecified; H54.7 Unspecified visual loss; Z85.46 Personal history of malignant neoplasm of prostate; Z85.828 Personal history of other malignant neoplasm of skin; Z87.19 Personal history of other diseases of the digestive system; Z79.899 Other long term (current) drug therapy
CPT/HCPCS: 36415; 71045; 71046; 80053; 81000; 83605; 83690; 83880; 84484; 85007; 85025; 85027; 85379; 87040; 87088; 93005; 94640; 94664; 94760

== ENCOUNTER → 2019-11-08 | Outpatient (CLI) | payer MEDICARE, OTHER ==
[~2019-11-08] MED LIST changes: +AMOX875T2 PO; +DOXY100C2 PO
--- NOTE | 2019-11-08 11:23 | Diagnostic Imaging Report ---
EXAMINATION: PA and lateral chest at 10:58 AM. INDICATION: Pneumonia. FINDINGS: The appearance of the chest has improved considerably since the prior exam of 10/29/2019 as the prominent area of pneumonia/atelectasis involving the right upper lobe and right lung base seen previously has nearly completely resolved. There is only a small amount of residual density still present in this area. I suspect that this small area of abnormal density is due to pneumonia/atelectasis alone and not to a neoplastic mass. Even so, a short-term (1-2 week) followup exam would be recommended for continued evaluation. The overall appearance of the chest is otherwise stable. The left lung remains clear and the heart size is within normal limits. The mediastinum is not widened. The osseous structures are intact. IMPRESSION: The appearance of the chest has improved considerably since the prior exam as the right lung is much better aerated. There is only a small amount of residual density still present. Recommendations as above. Dictated by: Dictated on workstation # [id number]
== END ==
LOC: RAD 10:44
PROVIDERS: ATTEND Family Medicine
DX: J18.9 Pneumonia, unspecified organism (principal)
CPT/HCPCS: 71046

== ENCOUNTER → 2019-11-20 | Outpatient (CLI) | payer MEDICARE, OTHER ==
--- NOTE | 2019-11-20 15:06 | Diagnostic Imaging Report ---
INDICATION: Pneumonia. Comparison made with prior examination from 11/08/2019. PA and lateral views were obtained. FINDINGS: The heart size, mediastinal configuration, and pulmonary vascularity are within normal limits. There is no pleural effusion, pneumothorax, or pneumonia. The osseous structures are unremarkable. IMPRESSION: No acute cardiopulmonary abnormality. Dictated by: Dictated on workstation # [id number]
== END ==
LOC: RAD 13:53
PROVIDERS: ATTEND Nurse Practitioner Family
DX: J18.9 Pneumonia, unspecified organism (principal)
CPT/HCPCS: 71046

== ENCOUNTER → 2020-03-26 | Outpatient (CLI) | payer MEDICARE, OTHER ==
[~2020-03-26] MED LIST changes: -MONT10TA24 PO; +MONT10TA26 PO; +RT-ALBUTEROL SULF 2.5 MG/3 ML PRE-MIX VIAL INH ONE
== END ==
LOC: RT 12:45
PROVIDERS: ATTEND Nurse Practitioner Family
DX: J30.9 Allergic rhinitis, unspecified (principal); R91.8 Other nonspecific abnormal finding of lung field
CPT/HCPCS: 94060; 94726; 94729

== ENCOUNTER → 2020-03-26 | Outpatient (CLI) | payer MEDICARE, OTHER ==
[~2020-03-26] MED LIST changes: -RT-ALBUTEROL SULF 2.5 MG/3 ML PRE-MIX VIAL INH ONE
--- NOTE | 2020-03-26 15:21 | Diagnostic Imaging Report ---
INDICATION: Left breast enlargement. COMPARISON: No prior mammograms are available for comparison. TECHNIQUE: 2D and 3D bilateral diagnostic mammography was performed including bilateral CC and MLO views. The current study was evaluated with a Computer Aided Detection (CAD) system. FINDINGS: The breasts are primarily fatty. No discrete mass or malignant appearing microcalcifications are seen. The axillae are unremarkable. There is slight asymmetry with the left breast larger than the right. IMPRESSION: Slight breast asymmetry, left larger. No mass or malignant appearing microcalcifications are seen. ACR BI-RADS Category 2: Benign findings. Result letter will be mailed to the patient. Note: At least 10% of breast cancer is not imaged by mammography. Dictated by: Dictated on workstation # [id number]
--- NOTE | 2020-03-26 15:38 | Diagnostic Imaging Report ---
INDICATION: Neck pain. TIME OF EXAM: 2:03 PM. FINDINGS: The curvature is normal. There is minimal anterolisthesis of C5 on C6 and C6 on C7. There is multilevel degenerative disc disease with variable disc space narrowing and marginal spurring. There is multilevel facet arthropathy. No definite fracture is seen. The prevertebral tissues are within normal limits. IMPRESSION: Cervical spondylosis and listhesis. No acute bony abnormality is detected. Dictated by: Dictated on workstation # [id number]
--- NOTE | 2020-03-26 15:39 | Diagnostic Imaging Report ---
INDICATION: Low back pain. TIME OF EXAM: 02:14 p.m. FINDINGS: Mild right convexity lumbar scoliotic curvature is noted. Lumbar lordotic curvature is normal. Vertebral body heights are maintained. No acute compression fracture is seen. There is multilevel degenerative disc disease with variable disc space narrowing and marginal spurring. Aorta is partially calcified. There is a large staghorn calculus in the left kidney occupying the upper, mid, and lower pole renal calyces and infundibula as well as a portion of the renal pelvis. IMPRESSION: 1. Lumbar spondylosis. No acute bony abnormality is detected. 2. Large left staghorn calculus. Dictated by: Dictated on workstation # [id number]
--- NOTE | 2020-03-26 15:44 | Diagnostic Imaging Report ---
INDICATION: Back pain. TIME OF EXAM: 02:20 p.m. FINDINGS: Oblique views of the sacroiliac joints were performed. No ankylosis is seen. There is no sclerosis or evidence of osseous erosions. Sacrum is grossly unremarkable. IMPRESSION: Unremarkable SI joints. Dictated by: Dictated on workstation # [id number]
== END ==
LOC: RAD 12:46
PROVIDERS: ATTEND Nurse Practitioner Family
DX: N62 Hypertrophy of breast (principal); M54.2 Cervicalgia; G62.9 Polyneuropathy, unspecified; M47.892 Other spondylosis, cervical region; M47.896 Other spondylosis, lumbar region; N20.0 Calculus of kidney
CPT/HCPCS: 72040; 72100; 72202; 77066; G0279; 77062

== ENCOUNTER 2020-09-20 13:56 | Outpatient (RCR) | payer MEDICARE, OTHER ==
[~2020-09-20 13:56] MED LIST changes: +ASPI-1238 PO; -ASPI-983 PO; -MONT10TA26 PO; +MONT10TA97 PO; +MULT-567 PO; -MULT1TAB69 PO
== END 2020-09-20 15:08 | disposition home or self-care (01) ==
PROVIDERS: ATTEND Nurse Practitioner Family
DX: R42 Dizziness and giddiness (principal); R26.89 Other abnormalities of gait and mobility

== ENCOUNTER → 2020-09-23 | Outpatient (CLI) | payer MEDICARE, OTHER ==
--- NOTE | 2020-09-23 16:20 | Diagnostic Imaging Report ---
Indication: Pain and vomiting. Findings: A staghorn calculi projecting over the left kidney. The stony aggregate measures 7.6 cm cephalocaudal extends into the renal pelvis with maximal transverse width of 4.4 cm. At the expected level of the right kidney, no identifiable radiopaque stone. There is stool within the colon, some mild proximal colonic constipation not excluded. No evidence for rectal impaction. There is advanced severe degenerative changes to the lumbar spine. No acute bony abnormalities. Clips at the gallbladder fossa. Impression: Left renal staghorn, large casting calculus, borderline proximal colonic constipation without obstruction or rectal impaction, degenerative lumbar spine disease. Dictated by: Dictated on workstation # [id number]
== END ==
LOC: RAD 15:50
PROVIDERS: ATTEND Nurse Practitioner Family
DX: N20.0 Calculus of kidney (principal); M47.816 Spondylosis without myelopathy or radiculopathy, lumbar region
CPT/HCPCS: 74019

== ENCOUNTER → 2021-01-24 | Outpatient (CLI) | payer MEDICARE, OTHER ==
[~2021-01-24] MED LIST changes: +FOLI0.8T4 PO; +MONT10TA32 PO; -MONT10TA97 PO
== END ==
LOC: CARD 13:04
PROVIDERS: ATTEND Physician Assistant
DX: I35.1 Nonrheumatic aortic (valve) insufficiency (principal); I10 Essential (primary) hypertension
CPT/HCPCS: 93306

== ENCOUNTER → 2021-03-03 | Outpatient (CLI) | payer MEDICARE, OTHER ==
[~2021-03-03] MED LIST changes: +REGADENOSON 0.4 MG/5 ML SYR (LEXISCAN) IV ONE
[2021-03-03] MEDS: CATHETER FLUSH 10 ML SYR IV PRN ×2 (07:51→09:28)
[2021-03-03 09:23] VITALS: BP 176/88
--- NOTE | 2021-03-03 12:04 | Cardiology Stress Test Report ---
Stress Test Report Date of Procedure/Referring: Date of Procedure: March 03, 2021 Amy Hanna Admitting Physician Ingrid Franco MD Indications: HTN Baseline Heart Rate: 68 Baseline Blood Pressure: Blood Pressure Systolic: 176 Blood Pressure Diastolic: 88 Baseline Vitals Vital Signs Date Time Temp Pulse Resp B/P (MAP) Pulse Ox O2 Delivery O2 Flow Rate FiO2 03/03/21 09:23 69 14 176/88 (117) 98 Room Air Baseline EKG: Baseline EKG: NSR Summary After explaining the procedure to the patient, he signed a consent and then brought to the stress nuclear laboratory. Patient received 0.4 mg Lexiscan for stress test, ECG, heart rate and blood pressure were monitored continuously. Resting and stress dose of radio tracer were injected, imaging was acquired and reviewed in short axis, horizontal long axis and vertical long axis views. TID: 0.92 SSS: 0 SDS: 0 EF: 66 1. Patient tolerated Lexiscan well 2. Diaphragmatic attenuation with typical male pattern. No significant ischemia or infarction on SPECT images 3. Normal left ventricular size, EF 66% JOSE DE JESUS KELSEY MD March 03, 2021 12:04
== END ==
LOC: CARD 07:22
PROVIDERS: ATTEND Physician Assistant
DX: I10 Essential (primary) hypertension (principal); I25.10 Atherosclerotic heart disease of native coronary artery without angina pectoris
CPT/HCPCS: 78452; 93017; A9502

== ENCOUNTER 2021-04-18 16:58 | Emergency (ER) | payer MEDICARE, OTHER ==
[~2021-04-18] VITALS: Ht 172 cm; Wt 72.0 kg
[~2021-04-18 16:58] MED LIST changes: -REGADENOSON 0.4 MG/5 ML SYR (LEXISCAN) IV ONE
[2021-04-18 17:16] LABS: BASOPHILS % (AUTO) 0 % (0-10); EOSINOPHILS # (AUTO) 0.3 10^3/uL (0.0-0.3); EOSINOPHILS % (AUTO) 4 % (0-10); HEMATOCRIT 34 % (40-54); HEMOGLOBIN 11.3 g/dL (13.3-17.7); LYMPHOCYTES # (AUTO) 1.3 X 10^3 (1.0-4.0); LYMPHOCYTES % (AUTO) 19 % (12-44); MEAN CORPUSCULAR HEMOGLOBIN 30 pg (25-34); MEAN CORPUSCULAR HGB CONC 33 g/dL (32-36); MEAN CORPUSCULAR VOLUME 89 fL (80-99); MEAN PLATELET VOLUME 8.8 fL (9.0-12.2); MONOCYTES # (AUTO) 0.8 X 10^3 (0.0-1.0); MONOCYTES % (AUTO) 11 % (0-12); NEUTROPHILS # (AUTO) 4.6 X 10^3 (1.8-7.8); NEUTROPHILS % (AUTO) 66 % (42-75); PLATELET COUNT 190 10^3/uL (130-400); WHITE BLOOD COUNT 6.9 10^3/uL (4.3-11.0)
[2021-04-18 17:25] LABS: POTASSIUM 3.4 MMOL/L (3.6-5.0)
[2021-04-18 17:26] LABS: CALCIUM 9.2 MG/DL (8.5-10.1)
--- NOTE | 2021-04-18 17:26 | ED General ---
General Chief Complaint: Dizziness/Syncope Stated Complaint: DIZZY Nursing Triage Note: AMB TO ED WITH C/O BEING DIZZY ALSO CONCERN HE MAY HAVE A UTI. Source of Information: Patient Exam Limitations: No Limitations History of Present Illness Date Seen by Provider: Apr 18, 2021 Time Seen by Provider: 17:22 Initial Comments to ER with reports of dizziness and this morning upon awakening. He felt fine last night. The dizziness is gone while at rest but seems to recur or at least intensify when he is up moving around. At this time he does not feel dizzy. He denies any chest pain or shortness of breath. He says that he has historically had some troubles with dizziness when he gets a urinary tract infection. Timing/Duration: 4-6 Hours Severity: Moderate Allergies and Home Medications Allergies Coded Allergies: naproxen (Verified Allergy, Severe, CAUSED BLEEDING, 10/29/16) Iodinated Contrast Media (Unverified Allergy, Mild, NAUSEA, 10/29/16) Home Medications Acetaminophen 500 Mg Tablet, 500 MG PO TIDWM, (Reported) Amoxicillin 875 Mg Tablet, 875 MG PO BID Prescribed by: SEAN KELLER on 10/29/19 1004 Ca Carbonate/Vitamin D3/Vit K 1 Each Tab.chew, 1 EACH PO three times a week, (Reported) Candesartan Cilexetil 4 Mg Tablet, 4 MG PO DAILY, (Reported) Cefdinir 300 Mg Capsule, 300 MG PO BID Prescribed by: NILE ARIAS on 04/18/21 1757 Cetirizine HCl 10 Mg Tablet, 10 MG PO HS, (Reported) Cholecalciferol (Vitamin D3) 5,000 Unit Capsule, 5,000 UNIT PO DAILY, (Reported) Cyanocobalamin (Vitamin B-12) 2,500 Mcg Tablet, 2,500 MCG PO every other day, (Reported) Diphenhydramine HCl 25 Mg Capsule, 25 MG PO HS PRN for SLEEP/ALLERGIES, (Reported) Doxycycline Hyclate 100 Mg Capsule, 100 MG PO BID Prescribed by: SEAN KELLER on 10/29/19 1004 Esomeprazole Magnesium 40 Mg Cap, 40 MG PO EVERY OTHER DAY, (Reported) Ferrous Gluconate 324 Mg Tablet, 324 MG PO twice a week, (Reported) Fluticasone Propionate 9.9 Ml [place].susp, 1 SPRAY NS HS, (Reported) Folic Acid 0.8 Mg Tablet, 0.8 MG PO every other day, (Reported) Furosemide 20 Mg Tablet, 20 MG PO EVERY OTHER DAY, (Reported) Gluc HCl/Csa/Marilynn Hy/Hyalur AC 1 Each Capsule, 1 CAP PO DAILY, (Reported) Lipase/Protease/Amylase 1 Each Capsule.dr, 24,000 UNITS PO AC, (Reported) TAKES 2 (12,000 UNIT) CAPSULES Magnesium Oxide 400 Mg Tablet, 400 MG PO every other day, (Reported) Melatonin/Pyridoxine 1 Each Tablet, 5 MG PO HS PRN for SLEEP, (Reported) Metoprolol Succinate 25 Mg Tab.er.24h, 25 MG PO HS, (Reported) Montelukast Sodium 10 Mg Tablet, 10 MG PO HS, (Reported) Multivitamin 1 Each Tablet, 0.5 TAB PO DAILY, (Reported) Niacin 1,000 Mg Tab.er.24h, 1,000 MG PO DAILY@1900, (Reported) Nitroglycerin 0.4 Mg Tab.subl, 0.4 MG SL UD PRN for CHEST PAIN, (Reported) [place]-3/Dha/Epa/Fish Oil 1 Each Capsule.dr, 1,400 MG PO DAILY, (Reported) Potassium Gluconate 90 Mg Tablet, 90 MG PO every other day, (Reported) Ranitidine HCl 150 Mg Tablet, 150 MG PO HS, (Reported) Simvastatin 40 Mg Tablet, 40 MG PO DAILY@1900, (Reported) Tolterodine Tartrate 4 Mg Cap, 4 MG PO HS, (Reported) Vitamin B Complex & Vit C No.4 150 Mg Tablet, 150 MG PO EVERY OTHER DAY, (Reported) ALTERNATES WITH VITAMIN B12 Patient Home Medication List Home Medication List Reviewed: Yes Review of Systems Review of Systems Constitutional: see HPI EENTM: see HPI Respiratory: no symptoms reported Cardiovascular: no symptoms reported Genitourinary: no symptoms reported Musculoskeletal: no symptoms reported Skin: no symptoms reported Psychiatric/Neurological: No Symptoms Reported Hematologic/Lymphatic: No Symptoms Reported Immunological/Allergic: no symptoms reported Past Efhtrhq-Reqgaw-Qucpqa Hx Patient Social History Tobacco Use?: No Substance use?: No Immunizations Up To Date Tetanus Booster (TDap): More than 5yrs PED Vaccines UTD: No Influenza Vaccine Up-to-Date: Yes; Up-to-Date First/Initial COVID19 Vaccinat: NOV 04 Second COVID19 Vaccination Navin: NOV 18 Seasonal Allergies Seasonal Allergies: Yes Past Medical History Surgeries: Yes (PANCREAS STENT AND REMOVAL) Gallbladder, Prostatectomy, Tonsillectomy Respiratory: Yes (LUNG NODULES) Currently Using CPAP: No Currently Using BIPAP: No Cardiac: Yes Coronary Artery Disease, Heart Attack, High Cholesterol, Hypertension Neurological: No Reproductive Disorders: No Sexually Transmitted Disease: No HIV/AIDS: No Prostate Problems Gastrointestinal: Yes Gastroesophageal Reflux, Gastrointestinal Bleed, Obstructive Bowel, Ulcer Musculoskeletal: Yes (ARTHRITIS IN FINGERS AND KNEES, HIP PAIN) Arthritis, Chronic Back Pain Endocrine: No Loss of Vision: Bilateral Hearing Impairment: Denies Cancer: Yes (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 0.0oz. 79.910724cq; 24.00 BMI Method:Stated General Appearance: No Apparent Distress, WD/WN, Other (A&Ox4 ; 143/76. P 90 normal sinus. no nystagmus) Eyes: Bilateral Eye Normal Inspection, Bilateral Eye PERRL, Bilateral Eye EOMI HEENT: PERRL/EOMI, TMs Normal Neck: Full Range of Motion, Normal Inspection Respiratory: No Accessory Muscle Use, No Respiratory Distress Cardiovascular: Regular Rate, Rhythm, Normal Peripheral Pulses Gastrointestinal: Normal Bowel Sounds, Non Tender, Soft Extremity: Normal Capillary Refill, Normal Inspection Neurologic/Psychiatric: Alert, Oriented x3 Skin: Normal Color, Warm/Dry Progress/Results/Core Measures Suspected Sepsis SIRS Temperature: Pulse: 60 Respiratory Rate: 18 Laboratory Tests 04/18/21 17:05: White Blood Count 6.9 Blood Pressure 154 /78 Mean: 103 Laboratory Tests 04/18/21 17:05: Creatinine 1.28, Platelet Count 190 Results/Orders Lab Results Laboratory Tests Test 04/18/21 17:05 04/18/21 17:20 Range/Units White Blood Count 6.9 4.3-11.0 10^3/uL Red Blood Count 3.81 L 4.30-5.52 10^6/uL Hemoglobin 11.3 L 13.3-17.7 g/dL Hematocrit 34 L 40-54 % Mean Corpuscular Volume 89 80-99 fL Mean Corpuscular Hemoglobin 30 25-34 pg Mean Corpuscular Hemoglobin Concent 33 32-36 g/dL Red Cell Distribution Width 13.9 10.0-14.5 % Platelet Count 190 130-400 10^3/uL Mean Platelet Volume 8.8 L 9.0-12.2 fL Immature Granulocyte % (Auto) 0 % Neutrophils (%) (Auto) 66 42-75 % Lymphocytes (%) (Auto) 19 12-44 % Monocytes (%) (Auto) 11 0-12 % Eosinophils (%) (Auto) 4 0-10 % Basophils (%) (Auto) 0 0-10 % Neutrophils # (Auto) 4.6 1.8-7.8 X 10^3 Lymphocytes # (Auto) 1.3 1.0-4.0 X 10^3 Monocytes # (Auto) 0.8 0.0-1.0 X 10^3 Eosinophils # (Auto) 0.3 0.0-0.3 10^3/uL Basophils # (Auto) 0.0 0.0-0.1 10^3/uL Immature Granulocyte # (Auto) 0.0 0.0-0.1 10^3/uL Sodium Level 137 135-145 MMOL/L Potassium Level 3.4 L 3.6-5.0 MMOL/L Chloride Level 104 98-107 MMOL/L Carbon Dioxide Level 22 21-32 MMOL/L Anion Gap 11 5-14 MMOL/L Blood Urea Nitrogen 12 7-18 MG/DL Creatinine 1.28 0.60-1.30 MG/DL Estimat Glomerular Filtration Rate 54 BUN/Creatinine Ratio 9 Glucose Level 149 H 70-105 MG/DL Calcium Level 9.2 8.5-10.1 MG/DL Urine Color YELLOW Urine Clarity CLEAR Urine pH 6.0 5-9 Urine Specific [place] <=1.005 1.016-1.022 Urine Protein NEGATIVE NEGATIVE Urine Glucose (UA) NEGATIVE NEGATIVE Urine Ketones NEGATIVE NEGATIVE Urine Nitrite NEGATIVE NEGATIVE Urine Bilirubin NEGATIVE NEGATIVE Urine Urobilinogen 0.2 < = 1.0 MG/DL Urine Leukocyte Esterase 2+ H NEGATIVE Urine RBC (Auto) TRACE-I NEGATIVE Urine RBC 0-2 /HPF Urine WBC 10-25 H /HPF Urine Squamous Epithelial Cells NONE /HPF Urine Crystals NONE /LPF Urine Amorphous Sediment MOD JENNY URATES H /LPF Urine Bacteria NEGATIVE /HPF Urine Casts NONE /LPF Urine Mucus NEGATIVE /LPF Urine Culture Indicated YES My Orders Orders - NILE ARIAS [employer] Cbc With Automated Diff (04/18/21 17:05) Basic Metabolic Panel (04/18/21 17:05) Ekg Tracing (04/18/21 17:05) Ua Culture If Indicated (04/18/21 17:16) Meclizine Tablet (Antivert Tablet) (04/18/21 17:30) Urine Culture (04/18/21 17:20) Ceftriaxone (Rocephin) (04/18/21 18:00) Ondansetron Injection (Zofran Injectio (04/18/21 18:15) Lactated Ringers (Lr 1000 Ml Iv Solution (04/18/21 18:15) Ct Angio Head/Neck (04/18/21 18:04) Iohexol Injection (Omnipaque 350 Mg/Ml 1 (04/18/21 18:30) Received Contrast (Hold Metformin- Contr (04/18/21 18:30) Ns (Ivpb) (Sodium Chloride 0.9% Ivpb Bag (04/18/21 18:30) Medications Given in ED Current Medications Medications Dose Ordered Sig/Nate Route Start Time Stop Time Status Last Admin Dose Admin Ceftriaxone Sodium 1000 mg/ Sterile Water 10 ml @ 200 mls/hr ONCE ONCE IV 04/18/21 18:00 04/18/21 18:02 DC 04/18/21 18:17 200 MLS/HR Iohexol 75 ml ONCE ONCE IV 04/18/21 18:30 04/18/21 18:31 DC 04/18/21 18:30 75 ML Meclizine HCl 25 mg ONCE ONCE PO 04/18/21 17:30 04/18/21 17:31 DC 04/18/21 17:39 25 MG Ondansetron HCl 4 mg ONCE ONCE IVP 04/18/21 18:15 04/18/21 18:16 DC 04/18/21 18:16 4 MG Sodium Chloride 100 ml ONCE ONCE IV 04/18/21 18:30 04/18/21 18:31 DC 04/18/21 18:30 80 ML Vital Signs/I&O 04/18/21 04/18/21 17:01 19:29 Temp 35.8 36.2 Pulse 60 71 Resp 18 16 B/P (MAP) 154/78 (103) 143/74 (103) Pulse Ox 95 96 O2 Delivery Room Air Room Air Capillary Refill : Less Than 3 Seconds Blood Pressure Mean: 103 Departure Communication (Admissions) EKG shows sinus rhythm QTc 457 ms rate of [address] change NAME: [facility] REC#: [id number] PT STATUS: REG ER : 1935 PHYSICIAN: NILE ARIAS [employer] ADMIT DATE: 04/18/21/ER Draft Date of Exam:04/18/21 CT ANGIO HEAD/NECK Clinical indication: Patient woke up this morning feeling very dizzy. Exams: 1: Head CT with and without IV contrast. Auto Exposure Controls were utilized during the CT exam to meet ALARA standards for radiation dose reduction. 2: CT angiogram of the head and neck performed with 100 cc of Omnipaque 350 IV contrast. Sagittal and coronal MIP reformations were created for better visualization of vascular anatomy. Comparison: MRI of the brain performed without and with IV contrast dated 09/04/2015. Findings: Head CT: There is no evidence of acute cerebral infarct, intracranial hemorrhage or gross mass effect. There is no abnormal IV contrast enhancement. The brain parenchymal volume appears appropriate for patient's age. There are patchy areas of low-attenuation white matter changes involving both cerebral hemispheres, likely representing chronic small vessel ischemic disease. There is normal clark-white matter distinction. There is no significant midline shift or herniation. There is no evidence of hydrocephalus. The basal cisterns are unremarkable. The skull, extracranial soft tissue and orbits are unremarkable. The paranasal sinuses are unremarkable. Temporal bones show no significant abnormality. CT angiogram: There is dense contrast bolus seen within the left subclavian vein, innominate vein and superior vena cava which causes streak artifact obscuring portions of aortic arch and proximal great vessels. Three-vessel aortic arch is seen. The visualized left subclavian artery and brachial cephalic artery are patent. There is atherosclerotic disease and streak artifact obscuring the origin of the right subclavian artery. There is a least mild to moderate narrowing of the origin of the right subclavian artery. Otherwise, the right subclavian artery is patent. The right common carotid artery, cervical right ICA, and right ECA are patent. There is dense atherosclerotic plaque involving the origin of the left ECA and cervical left ICA. There is mild narrowing of the origin of the left cervical ICA and distal left common carotid artery. The remainder of the left common carotid artery, cervical left ICA and left ECA is patent. There is moderate stenosis involving the paraclinoid right ICA. Otherwise, the petrous, cavernous and supraclinoid ICA are patent. The bilateral ACAs and their distal branches are patent. The bilateral MCAs and their distal branches are patent. The bilateral fiberglass boat maker, bilateral superior cerebellar arteries and basilar artery are patent. The origins of the right cervical vertebral artery is slightly obscured by streak artifact and dense atherosclerotic disease. There is moderate stenosis of the origin of the cervical right vertebral artery. Otherwise, the cervical right vertebral artery is patent. The origin and proximal portion of the cervical left vertebral artery is obscured by dense contrast within the region. There is mild narrowing of the left vertebral artery at the intradural extradural junction region. There is mild/moderate narrowing of the post PICA left vertebral artery. The intradural right vertebral artery is patent. The bilateral PICA are patent. The dural venous sinuses are patent. The neck soft tissue structures show no significant abnormality. Visualized upper lung cohen are clear. There is cervical spine vertebral body spurs and facet arthropathy. There is grade 1 anterolisthesis of C5 on C6 and C6 on C7. Impression: 1: Age related brain parenchymal changes with no evidence of acute intracranial process. 2: CT angiogram of the [place] and neck shows no large vessel occlusion or aneurysm. 3: There is moderate stenosis of the origin of the cervical right vertebral artery. 4: There is mild to moderate narrowing of the origin of the right subclavian artery and intradural post PICA left vertebral artery. Dictated on workstation # [id number] Dict: 04/18/21 1837 Trans: 04/18/211915 [facility] [id number] Interpreted by: LIZ WAGNER MD Electronically signed by: Impression Primary Impression: Dizziness Additional Impression: UTI (urinary tract infection) Disposition: 01 HOME, SELF-CARE Condition: Stable Departure-Patient Inst. Decision time for Depature: 17:55 Referrals: FRANKLIN WILL MD (PCP/Family) Primary Care Physician Patient Instructions: Urinary Tract Infections in Adults Add. Discharge Instructions: . Antibiotics as directed. Return to ER for any concerns. Follow-up with your doctor next week. All discharge instructions reviewed with patient and/or family. Voiced understanding. Scripts Cefdinir (Cefdinir) 300 Mg Capsule 300 MG PO BID, #14 CAP Prov: NILE ARIAS APRN 04/18/21 NILE ARIAS [employer] Apr 18, 2021 17:26
[2021-04-18 17:30] LABS: CREATININE SERUM 1.28 MG/DL (0.60-1.30)
[2021-04-18] MEDS ORDERED: MECLIZINE 25 MG (ANTIVERT) TAB PO ONE (17:30)
[2021-04-18 17:46] LABS: BILIRUBIN,URINE NEGATIVE (NEGATIVE); CLARITY,URINE CLEAR; COLOR,URINE YELLOW; GLUCOSE, URINE (UA) NEGATIVE (NEGATIVE); KETONES,URINE NEGATIVE (NEGATIVE); LEUKOCYTE ESTERASE ,URINE 2+ (NEGATIVE); NITRITE,URINE NEGATIVE (NEGATIVE); PROTEIN,URINE NEGATIVE (NEGATIVE)
[2021-04-18 17:50] LABS: AMORPHOUS SEDIMENT,UR MOD AMOR URATES /LPF; BACTERIA,URINE NEGATIVE /HPF; RBC,URINE 0-2 /HPF
[2021-04-18] MEDS ORDERED: CEFD300C3 PO (17:57)
[2021-04-18] MEDS ORDERED: cefTRIAXone 1,000 MG in WATER (STERILE) FOR INJECTION 10 ML IV ONE (18:00)
[2021-04-18] MEDS ORDERED: LACTATED RINGERS 1,000 ML IV SCH (18:15)
[2021-04-18] MEDS ORDERED: ONDANSETRON 4 MG/2 ML (SDV) Z0FRAN IVP ONE (18:15)
[2021-04-18] MEDS ORDERED: IOHEXOL 350 MG/ML 100 ML (OMNIPAQUE 350) VIAL IV ONE (18:30)
[2021-04-18] MEDS ORDERED: HOLD METFORMIN - RECEIVED CONTRAST 20 ML VIAL IV SCH (18:30)
[2021-04-18] MEDS ORDERED: NS 100 ML (IVPB) BAG IV ONE (18:30)
--- NOTE | 2021-04-18 19:17 | Diagnostic Imaging Report ---
Clinical indication: Patient woke up this morning feeling very dizzy. Exams: 1: Head CT with and without IV contrast. Auto Exposure Controls were utilized during the CT exam to meet ALARA standards for radiation dose reduction. 2: CT angiogram of the head and neck performed with 100 cc of Omnipaque 350 IV contrast. Sagittal and coronal MIP reformations were created for better visualization of vascular anatomy. Comparison: MRI of the brain performed without and with IV contrast dated 09/04/2015. Findings: Head CT: There is no evidence of acute cerebral infarct, intracranial hemorrhage or gross mass effect. There is no abnormal IV contrast enhancement. The brain parenchymal volume appears appropriate for patient's age. There are patchy areas of low-attenuation white matter changes involving both cerebral hemispheres, likely representing chronic small vessel ischemic disease. There is normal clark-white matter distinction. There is no significant midline shift or herniation. There is no evidence of hydrocephalus. The basal cisterns are unremarkable. The skull, extracranial soft tissue and orbits are unremarkable. The paranasal sinuses are unremarkable. Temporal bones show no significant abnormality. CT angiogram: There is dense contrast bolus seen within the left subclavian vein, innominate vein and superior vena cava which causes streak artifact obscuring portions of aortic arch and proximal great vessels. Three-vessel aortic arch is seen. The visualized left subclavian artery and brachial cephalic artery are patent. There is atherosclerotic disease and streak artifact obscuring the origin of the right subclavian artery. There is a least mild to moderate narrowing of the origin of the right subclavian artery. Otherwise, the right subclavian artery is patent. The right common carotid artery, cervical right ICA, and right ECA are patent. There is dense atherosclerotic plaque involving the origin of the left ECA and cervical left ICA. There is mild narrowing of the origin of the left cervical ICA and distal left common carotid artery. The remainder of the left common carotid artery, cervical left ICA and left ECA is patent. There is moderate stenosis involving the paraclinoid right ICA. Otherwise, the petrous, cavernous and supraclinoid ICA are patent. The bilateral ACAs and their distal branches are patent. The bilateral MCAs and their distal branches are patent. The bilateral stem assembler, bilateral superior cerebellar arteries and basilar artery are patent. The origins of the right cervical vertebral artery is slightly obscured by streak artifact and dense atherosclerotic disease. There is moderate stenosis of the origin of the cervical right vertebral artery. Otherwise, the cervical right vertebral artery is patent. The origin and proximal portion of the cervical left vertebral artery is obscured by dense contrast within the region. There is mild narrowing of the left vertebral artery at the intradural extradural junction region. There is mild/moderate narrowing of the post PICA left vertebral artery. The intradural right vertebral artery is patent. The bilateral PICA are patent. The dural venous sinuses are patent. The neck soft tissue structures show no significant abnormality. Visualized upper lung cohen are clear. There is cervical spine vertebral body spurs and facet arthropathy. There is grade 1 anterolisthesis of C5 on C6 and C6 on C7. Impression: 1: Age related brain parenchymal changes with no evidence of acute intracranial process. 2: CT angiogram of the [place] and neck shows no large vessel occlusion or aneurysm. 3: There is moderate stenosis of the origin of the cervical right vertebral artery. 4: There is mild to moderate narrowing of the origin of the right subclavian artery and intradural post PICA left vertebral artery. Dictated by: Dictated on workstation # [id number]
[2021-04-18 19:29] VITALS: BP 143/74
== END 2021-04-18 19:33 | disposition home or self-care (01) ==
LOC: EDUNIT# 16:58 → ER 16:59
DX: R42 Dizziness and giddiness (principal); N39.0 Urinary tract infection, site not specified; I25.2 Old myocardial infarction; I10 Essential (primary) hypertension; I25.10 Atherosclerotic heart disease of native coronary artery without angina pectoris; E78.00 Pure hypercholesterolemia, unspecified; K21.9 Gastro-esophageal reflux disease without esophagitis
CPT/HCPCS: 36415; 70496; 70498; 80048; 81000; 85025; 87077; 87088; 87186; 93005; 96361; 96374; 96375

== ENCOUNTER → 2022-04-02 | Outpatient (CLI) | payer MEDICARE, OTHER ==
[~2022-04-02] MED LIST changes: +CAND4TAB11 PO; -CAND4TAB3 PO; -DOXY100C2 PO; +DOXY100C5 PO; -MAGN400T8 PO; +MGX400T PO; +MONT-40 PO; -MONT10TA32 PO
--- NOTE | 2022-04-02 14:06 | Diagnostic Imaging Report ---
INDICATION: Right rib pain. COMPARISON: None. FINDINGS: Three views of the right ribs were obtained. There is no fracture, dislocation, or other acute bony abnormality identified. Visualized portions of the right lung are clear. The surrounding soft tissues appear unremarkable. No radiopaque foreign bodies are seen. Large left staghorn calculus is noted. IMPRESSION: 1. No healing or displaced rib fractures. 2. Large left staghorn calculus. Dictated by: Dictated on workstation # [id number]
== END ==
LOC: RAD 11:41
PROVIDERS: ATTEND Nurse Practitioner Family
DX: N20.0 Calculus of kidney (principal); R07.81 Pleurodynia
CPT/HCPCS: 71100

== ENCOUNTER 2022-08-31 05:29 | Outpatient (CLI) | payer MEDICARE, OTHER ==
[~2022-08-31] VITALS: Ht 175.3 cm; Wt 73.2 kg
[2022-08-31] MEDS ORDERED: OMEP20TA56 PO (15:36)
[2022-08-31] MEDS ORDERED: ROSU10TA28 PO (15:36)
== END 2022-08-31 15:57 ==
LOC: PREOP 05:29
PROVIDERS: ATTEND Podiatrist Foot & Ankle Surgery
DX: Z01.818 Encounter for other preprocedural examination (principal)

== ENCOUNTER 2022-09-07 08:10 | Day surgery (SDC) | payer MEDICARE, OTHER ==
[~2022-09-07] VITALS: Ht 175.3 cm; Wt 73.2 kg
[2022-09-07] VITALS (11 sets, daily range): BP systolic 122–166; BP diastolic 63–81
[~2022-09-07 08:10] MED LIST changes: +OMEP20TA56 PO; +ROSU10TA28 PO
[2022-09-07] MEDS ORDERED: CLINDAMYCIN 600 MG/50 ML IVPB 50 ML IV ONE ×2 (08:30→08:41)
[2022-09-07] MEDS ORDERED: LACTATED RINGERS 1,000 ML IV PRN (08:30)
[2022-09-07] MEDS ORDERED: ASPI81TA16 PO (08:39)
[2022-09-07] MEDS ORDERED: BUPIVACAINE 0.5% 30 ML (SENSORCAINE) VIAL ONE (09:39)
[2022-09-07] MEDS ORDERED: LIDOCAINE 1% INJ 20 ML VIAL ONE (09:39)
--- NOTE | 2022-09-07 10:07 | Progress Note-Pre Operative ---
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
[2022-09-07] MEDS ORDERED: BACITRACIN OINTMENT 28 GM TUBE ONE (12:03)
--- NOTE | 2022-09-07 12:18 | Progress Note-Post Operative ---
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
[2022-09-07] MEDS ORDERED: ACHD5005 PO (12:21)
[2022-09-07] MEDS ORDERED: CLIN150C2 PO (12:21)
--- NOTE | 2022-09-07 12:24 | Anesthesia-General Post-Op ---
General Patient Condition Mental Status/LOC: Same as Preop Cardiovascular: Satisfactory Nausea/Vomiting: Absent Respiratory: Satisfactory Pain: Controlled Complications: Absent Post Op Complications Complications None Follow Up Care/Instructions Patient Instructions None needed. Anesthesia/Patient Condition Patient Condition Patient is doing well, no complaints, stable vital signs, no apparent adverse anesthesia problems. No complications reported per nursing. TYRA ALCANTARA CRNA Sep 07, 2022 12:24
[2022-09-07] MEDS ORDERED: HYDROmorphone 2 MG/ML VIAL (DILAUDID) IV ONE (12:30)
[2022-09-07] MEDS ORDERED: MEPERIDINE (DEMEROL) INJ 50 MG/ML IVP ONE ×2 (12:30)
[2022-09-07] MEDS ORDERED: morphine INJ 10 MG/ML 1ML (SYR OR VIAL) IVP ONE ×2 (12:30)
[2022-09-07] MEDS ORDERED: LACTATED RINGERS 1,000 ML IV SCH (12:30)
[2022-09-07] MEDS ORDERED: HYDROcodone/APAP 5 MG/325 MG (LORTAB) TAB PO PRN (12:30)
[2022-09-07] MEDS ORDERED: ONDANSETRON 4 MG/2 ML (SDV) Z0FRAN IVP PRN ×2 (12:30)
--- NOTE | 2022-09-07 14:03 | Physical Therapy Ortho Eval ---
PT Orthopedic Evaluation Type of Surgery 3rd and 4th metatarsal osteotomies, reduction of hammertoes 2, 3, 4, 5, right foot Prior Level of Function Current Living Status: Spouse Locomotion (Upon Admit): Independent Subjective Subjective Patient in bed pre-tx with nurse in room, reports no pain currently, agrees to PT. Entry Into Home: Stairs With Railing Steps Into Home: 3 Motor Control Motor Control: Motor Control WNL Transfer SCALE: Activities may be completed with or without assistive devices. 4-Kviewtfbdr-yrhlbpt completes the activity by him/herself with no assistance from a helper. 5-Set-up or Clean-up Assistance-helper sets up or cleans up; patient completes activity. Nesbit assists only prior to or following the activity. 4-Supervision or Touching Assistance-helper provides verbal cues and/or touching/steadying and/or contact guard assistance as patient completes activity. Assistance may be provided throughout the activity or intermittently. 3-Partial/Moderate Assistance-helper does LESS THAN HALF the effort. Nesbit lifts, holds or supports trunk or limbs, but provides less than half the effort. 2-Substantial/Maximal Assistance-helper does MORE THAN HALF the effort. Nesbit lifts or holds trunk or limbs and provides more than half the effort. 8-Fxmawyhnf-xynxve does ALL the effort. Patient does none of the effort to complete the activity. Or, the assistance of 2 or more helpers is required for the patient to complete the activity. If activity was not attempted, code reason: 7-Patient Refused. 9-Not Applicable-not attempted and the patient did not perform the activity before the current illness, exacerbation or injury. 10-Not Attempted due to Environmental Limitations-(lack of equipment, weather restraints, etc.). 88-Not Attempted due to Medical Conditions or Safety Concerns. CGA with qxx-xx-xnrgi transfer and dhsxd-sa-cvmamgl. Gait Gait Assistive Device: FWW Right Lower Extremity: Right Weight Bearing Status RLE: Partial Weight Bearing Left Lower Extremity: Left Weight Bearing Status LLE: Full Weight Bearing Other Weight Bearing Inst.: heel contact only right foot or flat footed if unstable Summary/Comments CGA during ambulation, patient still woozy and is unsteady using FWW. Patient walked 40', compliant with partial foot weight bearing through heel. Stairs #of Steps: 1 Walking Assistive Device: Walker CGA, very unsteady going up, more steady going down. Treatment Rendered Treatment: Therapeutic Exercises, Gait Train, Step Train, Don/Doff Brace Exercise Instruction: Heel Slides, Ankle Pumps Assessment/Goals Goal Time Frame: 1 Visit Understands HEP: Yes Plan Treatment Plan: Discharge PT/Family Agrees to Plan: Yes Time Time In: 1330 Time Out: 1350 Total Billed Treatment Time: 20 Billed Treatment Time 1 visit TIFFANIE 20' AICHA MEDLEY PT Sep 07, 2022 14:03
--- NOTE | 2022-09-07 20:20 | Diagnostic Imaging Report ---
FOOT, RIGHT, 2 VIEW INDICATION: Postop surveillance after osteotomy. COMPARISON: None available. TECHNIQUE: 2 views of the right foot FINDINGS: Osteotomies have been performed at this 2nd through 4th proximal phalanges with K wire fixation of each of the toes. There are screws present within the head neck junction of the 3rd and 4th metatarsals. Vascular calcifications are present. Chronic deformity of 1st metatarsal head with degenerative changes at the 1st MTP. Extensive vascular calcifications are noted. Soft tissue swelling of the forefoot. IMPRESSION: 1. Expected postoperative appearance after fixation of the 2nd through 3rd toes as well as the 3rd and 4th metatarsal heads. Dictated by: Dictated on workstation # [id number]
--- NOTE | 2022-09-07 22:02 | OPERATIVE REPORT ---
DATE OF SERVICE: 09/07/2022 SURGEON: Valerie Cheema DPM. PREOPERATIVE DIAGNOSES: 1. Hypertrophic metatarsals third and fourth, right foot. 2. Hammer digit syndrome, 2, 3, 4, right foot. POSTOPERATIVE DIAGNOSES: 1. Hypertrophic metatarsals third and fourth, right foot. 2. Hammer digit syndrome, 2, 3, 4, right foot. 3. Hammer digit syndrome, right fifth toe. PROCEDURES: 1. Third and fourth metatarsal osteotomies with screw fixation. 2. Reduction of hammertoes 2, 3, 4 and 5, all right foot. WOUND CLASS: Clean. ANESTHESIA: General. HEMOSTASIS: Pneumatic thigh tourniquet at 250 mmHg. INDICATIONS: This 87-year-old male presents complaining of painful hammertoes and forefoot to the right lower extremity. Conservative therapy has met with unsatisfactory results and the patient is agreeable to surgical intervention after risks and complications were discussed at length. No guarantees were extended to the patient and he is willing to proceed. DESCRIPTION OF PROCEDURE: The patient was brought back to the operating room table and placed in secure supine position. A general anesthetic was then induced. A pneumatic thigh tourniquet was placed on the right lower extremity. Appropriate timeout was performed. After the foot was prepped and draped, the right foot was then elevated and allowed to exsanguinate after which the tourniquet was inflated to 250 mmHg. Attention was then directed to the dorsal aspect of the right third and fourth digits where there is medial deviation noted to the digits. The incision was beginning at the surgical neck of the metatarsal head extending to the distal interphalangeal joint. The incision was deepened in the same plane with great care to identify and retract all vital neurovascular structures, only necessary blood vessels were cauterized as encountered. The long extensor tendons were identified and a Z slide lengthening to the extensor tendon was performed overlying the proximal phalanx area. The extensor tendon was then reflected proximally and a dorsal capsulorrhaphy performed to the metatarsophalangeal joint of the third and fourth rays. Next, a Coral type osteotomy was performed. This was done with a power sagittal saw and allowed the capital fragment to translocate proximally and medially. This allowed for better alignment of the third and fourth digits in the sagittal plane with a transverse correction as well. The osteotomies were fixated in its corrected position utilizing a 12 mm 2.0 snap-off screws driven from dorsal to plantar across the metatarsal head area. Good fixation was appreciated at this time. The excess bone to the dorsal aspect of the third and fourth metatarsal heads were resected and smoothed with a hand rasp. The wound was flushed with copious amounts of normal saline throughout the procedure. Attention was then directed to the contracture of the distal interphalangeal joint of the right third toe. A stab incision was created to the plantar aspect of the distal interphalangeal joint with an 11 blade and the flexor tendon released. This noted good reduction of the flexor contracture. Next, a 0.054 K-wire was driven down the toe holding the digit in its corrected position both in the transverse and sagittal plane. The same procedure was performed to the right fourth digit where there was noted some medial deviation to the digit with some slight contracture. The 0.054 K-wire was driven down the toe and into the metatarsal and securing the digit in a corrected position. Dry protective ball was placed over the end of the K-wires. Attention was then directed to the right fifth toe. Because of the realignment of the right fourth digit, the fourth toe had adductive varus contracture and was overlapping the fourth digit. A 2.5 cm longitudinal linear incision was created overlying the right fifth toe onto the metatarsophalangeal joint area. The extensor tendon was isolated and a Z slide lengthening performed. The dorsal capsulorrhaphy as well as release of the medial collateral ligaments at the metatarsophalangeal joint was performed. A flexor tendon release was also performed at the proximal interphalangeal joint area. Good reduction of the contracture of the toe and realignment was appreciated at this time. The wounds were flushed with copious amounts of normal saline and closures were then performed in layers. The extensor tendons were reapproximated in a lengthened position to the third, fourth and fifth digits utilizing 3-0 Vicryl. Subcutaneous tissue was reapproximated with 4-0 Vicryl and skin closure was performed with 4-0 Prolene in a horizontal mattress type stitch. 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 A 3 cm longitudinal linear incision was created after which the extensor tendon was lengthened with a Z slide lengthening. With the extensor tendon reflected proximally, the dorsal capsulorrhaphy was performed at the metatarsophalangeal joint as well as the release of the medial collateral ligament. Attention was then directed to the proximal interphalangeal joint where a malunion was identified. The portion of the malunion was broken up utilizing a [place] elevator. Fenestration was performed with a 0.054 smooth K-wire to the head of the proximal phalanx as well as the base of the middle phalanx. The toe was realigned and a 0.054 K-wire was driven down the toe holding in its corrected position. The excess K-wire was cut and a protective ball placed over the end of the wire. The wound was flushed with copious amounts of normal saline and closure was performed in layers. Deep closure was performed with 3-0 Vicryl, superficial with 4-0 Vicryl, skin closure with 4-0 Prolene in a horizontal mattress type stitch. The tourniquet was released, noting appropriate cap refill time to all digits except for the third toe because it did not have appropriate capillary fill time. The K-wire was withdrawn from crossing over into the metatarsal. Once this was done, the toe began to pink up nicely. The K-wire was left within the digit, but not crossing the metatarsophalangeal joint. Postoperative injection consisted of 17 mL of 0.5% Marcaine injected in a local infusion to the surgical sites. Postoperative dressing consisted of bacitracin, Adaptic, sterile 4 x 4s, Kerlix, all secured with a Coban wrap. The patient tolerated the anesthesia and procedure well and was transported from the operating room to the recovery room with vital signs stable and vascular status intact to all digits of the right foot. He is to be partial weightbearing on the right lower extremity. He will follow up in the office in 10 days period of time or sooner if necessary. Job ID: [id number] DocumentID: [id number] Dictated Date: 09/07/2022 12:35:35 Fur Grader Date: 09/07/2022 22:00:00 Dictated By: VALERIE CHEEMA DPM
== END 2022-09-07 14:40 | disposition home or self-care (01) ==
LOC: SDC 08:10
PROVIDERS: ATTEND Podiatrist Foot & Ankle Surgery
DX: M20.41 Other hammer toe(s) (acquired), right foot (principal); M89.371 Hypertrophy of bone, right ankle and foot; I65.29 Occlusion and stenosis of unspecified carotid artery; I50.9 Heart failure, unspecified; I25.10 Atherosclerotic heart disease of native coronary artery without angina pectoris; I11.0 Hypertensive heart disease with heart failure; E78.2 Mixed hyperlipidemia; Z79.899 Other long term (current) drug therapy
CPT/HCPCS: 28285 ×4; 28308 ×2; 73620; 87081; 97161; C1713

== ENCOUNTER 2022-12-15 16:19 | Emergency (ER) | payer MEDICARE, OTHER ==
[~2022-12-15] VITALS: Ht 175.2 cm; Wt 73.2 kg
[~2022-12-15 16:19] MED LIST changes: +ASPI81TA16 PO; +CLIN150C2 PO
[2022-12-15 16:59] LABS: BASOPHILS % (AUTO) 0 % (0-10); EOSINOPHILS % (AUTO) 0 % (0-10); HEMATOCRIT 37 % (40-54); HEMOGLOBIN 12.4 g/dL (13.3-17.7); LYMPHOCYTES # (AUTO) 1.4 10^3/uL (1.0-4.0); LYMPHOCYTES % (AUTO) 11 % (12-44); MEAN CORPUSCULAR HEMOGLOBIN 31 pg (25-34); MEAN CORPUSCULAR HGB CONC 34 g/dL (32-36); MEAN CORPUSCULAR VOLUME 90 fL (80-99); MEAN PLATELET VOLUME 9.4 fL (9.0-12.2); MONOCYTES # (AUTO) 1.1 10^3/uL (0.0-1.0); MONOCYTES % (AUTO) 8 % (0-12); NEUTROPHILS # (AUTO) 10.4 10^3/uL (1.8-7.8); NEUTROPHILS % (AUTO) 80 % (42-75); PLATELET COUNT 149 10^3/uL (130-400); POTASSIUM 3.4 MMOL/L (3.6-5.0)
[2022-12-15 17:00] LABS: CALCIUM 9.8 MG/DL (8.5-10.1)
[2022-12-15] MEDS ORDERED: NS IV 500 ML 500 ML IV ONE (17:00)
--- NOTE | 2022-12-15 17:02 | ED General ---
General Chief Complaint: Dizziness/Syncope Stated Complaint: DIZZINESS Nursing Triage Note: STATES HAS BEEN HAVINIG DIZZINESS SINCE THIS MORNING. Source of Information: Patient, Family () Exam Limitations: No Limitations History of Present Illness Date Seen by Provider: Dec 15, 2022 Time Seen by Provider: 16:40 Initial Comments Patient is an 87-year-old who presents to the emergency department with a chief complaint of feeling "dizzy" which she describes as feeling "woozy". He does not feel like the room is spinning. He does not feel like he is going to fall down. He basically just feels "unsteady". Did not have the strength to walk in [facility] earlier today. He had tremors he states in his arms and body night before last. The dizziness started today and he states its been steadily getting worse all day. He denies fevers or chills. He has had a little nasal congestion. No cough or shortness of breath. No earache, runny nose or sore throat. He denies abdominal pain, nausea. No problems with bowel or bladder. He just saw Dr. Garay a few days ago and had his ears cleaned out. 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 FRANCO. His civil preparedness training officer is Dr. Ng. They called their primary care yesterday and had some basic labs done. He had a comprehensive metabolic panel and a CBC done. He brings results and it shows a leukocytosis of 15,000. He was concerned he might have a urinary tract infe ction. He denies any dysuria, urgency or frequency. He is COVID vaccinated x4. Timing/Duration: 1-2 Days Severity: Moderate Modifying Factors: improves with Immobilization Associated Systoms: Weakness Allergies and Home Medications Allergies Coded Allergies: naproxen (Verified Allergy, Severe, CAUSED BLEEDING, 12/15/22) Iodinated Contrast Media (Unverified Allergy, Mild, NAUSEA, 12/15/22) cephalexin (Verified Allergy, Unknown, EXTREME NAUSEA, 12/15/22) Patient Home Medication List Home Medication List Reviewed: Yes Acetaminophen (Acetaminophen) 500 Mg Tablet, 500 MG PO TIDWM, (Reported) Entered as Reported by: RAQUEL JIMENEZ on 01/24/18 1215 Aspirin (Low Dose Aspirin EC) 81 Mg Tablet., 81 MG PO DAILY, (Reported) Entered as Reported by: MEEK RUIZ on 09/07/22 0839 Ca Carbonate/Vitamin D3/Vit K (Citracal Soft Chew) 1 Each Tab.chew, 1 EACH PO three times a week, (Reported) Entered as Reported by: RAQUEL JIMENEZ on 01/24/18 1215 Cholecalciferol (Vitamin D3) (Vitamin D3) 5,000 Unit Capsule, 5,000 UNIT PO DAILY, (Reported) Entered as Reported by: MELVIN SALAS on 07/17/16 1349 Clindamycin HCl (Cleocin HCl) 150 Mg Capsule, 1 CAP PO QID Prescribed by: KELSIE CHEEMA on 09/07/22 1221 Cyanocobalamin (Vitamin B-12) (Vitamin B12) 2,500 Mcg Tablet, 2,500 MCG PO every other day, (Reported) Entered as Reported by: RAQUEL JIMENEZ on 01/24/18 1215 Diphenhydramine HCl (Benadryl) 25 Mg Capsule, 25 MG PO HS PRN for SLEEP/ALLERGIES, (Reported) Entered as Reported by: MEGHAN COHEN on 05/29/15 1010 Doxycycline Hyclate (Doxycycline Hyclate) 100 Mg Capsule, 100 MG PO BID Prescribed by: SEAN KELLER on 10/29/19 1004 Fluticasone Propionate (Flonase Allergy Relief) 9.9 Ml [place].susp, 1 SPRAY NS HS, (Reported) Entered as Reported by: MEGHAN COHEN on 05/29/15 1010 Folic Acid (Folic Acid) 0.8 Mg Tablet, 0.8 MG PO every other day, (Reported) Entered as Reported by: RAQUEL JIMENEZ on 01/24/18 1215 Furosemide (Furosemide) 20 Mg Tablet, 20 MG PO EVERY OTHER DAY, (Reported) Entered as Reported by: MELVIN SALAS on 07/17/16 1349 Gluc HCl/Csa/Marilynn Hy/Hyalur AC (Glucosamine Chondroitin Cap) 1 Each Capsule, 1 CAP PO DAILY, (Reported) Entered as Reported by: MEGHAN COHEN on 05/29/15 1010 Hydrocodone/Acetaminophen (Hydrocodone-Acetamin 5-325 mg) 5 Mg-325 Mg Tablet, 1 TAB PO Q4H PRN for PAIN-MODERATE (5-7) Prescribed by: KELSIE CHEEMA on 09/07/22 1222 Lipase/Protease/Amylase (Creon Dr 12,000 Units Capsule) 1 Each Capsule.dr, 24,000 UNITS PO AC, (Reported) Entered as Reported by: MEGHAN COHEN on 05/29/15 1010 Magnesium Oxide (Magnesium Oxide) 400 Mg Tablet, 400 MG PO every other day, (Reported) Entered as Reported by: RAQUEL JIMENEZ on 01/24/18 1215 Melatonin/Pyridoxine (Melatonin 5 mg Tablet) 1 Each Tablet, 5 MG PO HS PRN for SLEEP, (Reported) Entered as Reported by: RAQUEL JIMENEZ on 01/24/18 1215 Metoprolol Succinate (Toprol Xl) 25 Mg Tab.er.24h, 25 MG PO HS, (Reported) Entered as Reported by: MELVIN SALAS on 07/17/16 1349 Montelukast Sodium (Montelukast Sodium) 10 Mg Tablet, 10 MG PO HS, (Reported) Entered as Reported by: MELVIN SALAS on 07/17/16 1349 Multivitamin (Multivitamins) 1 Each Tablet, 0.5 TAB PO DAILY, (Reported) Entered as Reported by: RAQUEL JIMENEZ on 01/24/18 1215 Niacin (Niacin ER) 1,000 Mg Tab.er.24h, 1,000 MG PO DAILY@1900, (Reported) Entered as Reported by: MELVIN SALAS on 07/17/16 1349 Nitroglycerin (Nitroglycerin) 0.4 Mg Tab.subl, 0.4 MG SL UD PRN for CHEST PAIN, (Reported) Entered as Reported by: RAQUEL JIMENEZ on 01/24/18 1215 [place]-3/Dha/Epa/Fish Oil (Fish Oil 1,400 mg Softgel) 1 Each Capsule.dr, 1,400 MG PO DAILY, (Reported) Entered as Reported by: RAQUEL JIMENEZ on 01/24/18 1215 Omeprazole (Omeprazole) 20 Mg Tablet.dr, 20 MG PO UD, (Reported) Entered as Reported by: JENNIFER DAWSON on 08/31/22 1536 Potassium Gluconate (Potassium Gluconate) 90 Mg Tablet, 90 MG PO every other day, (Reported) Entered as Reported by: RAQUEL JIMENEZ on 01/24/18 1215 Ranitidine HCl (Acid Airframe And Power Plant Mechanic (RANITIDINE)) 150 Mg Tablet, 150 MG PO HS, (Reported) Entered as Reported by: RAQUEL JIMENEZ on 01/24/18 1215 Rosuvastatin Calcium (Rosuvastatin Calcium) Unknown Strength Tablet, Unknown Dose PO, (Reported) Entered as Reported by: JENNIFER DAWSON on 08/31/22 1536 Tolterodine Tartrate (Detrol LA) 4 Mg Cap, 4 MG PO HS, (Reported) Entered as Reported by: MELVIN SALAS on 07/17/16 1349 Vitamin B Complex & Vit C No.4 (Super B Complex) 150 Mg Tablet, 150 MG PO EVERY OTHER DAY, (Reported) Entered as Reported by: MEGHAN COHEN on 05/29/15 1010 Review of Systems Review of Systems Constitutional: see HPI EENTM: nose congestion Respiratory: no symptoms reported Cardiovascular: no symptoms reported Gastrointestinal: no symptoms reported Genitourinary: no symptoms reported Musculoskeletal: no symptoms reported Skin: no symptoms reported Psychiatric/Neurological: Other ("woozy") Past Eedjqnm-Mgpsch-Meahaq Hx Patient Social History Tobacco Use?: No Use of E-Cig and/or Vaping dev: No Substance use?: No Alcohol Use?: Yes Alcohol type: Wine Alcohol Frequency: Once in a while Pt feels they are or have been: No Immunizations Up To Date Tetanus Booster (TDap): More than 5yrs PED Vaccines UTD: No Influenza Vaccine Up-to-Date: Yes; Up-to-Date First/Initial COVID19 Vaccinat: 2020 Second COVID19 Vaccination Navin: 2020 Third COVID19 Vaccination Date: 2020 Seasonal Allergies Seasonal Allergies: Yes Past Medical History Surgery/Hospitalization HX: HTN, PA, MRSA NARE PROSTATECTOMY, INGUINAL HERNIA BILATERALLY, TONSILECTOMY, BILATERAL FOOT SURG, GALLBLADDER. Surgeries: Yes (PANCREASE STENT AND REMOVAL, CATARACTS,L/R HAMMERTOES) Gallbladder, Prostatectomy, Tonsillectomy Respiratory: Yes (LUNG NODULES) Currently Using CPAP: No Currently Using BIPAP: No Cardiac: Yes (SILENT HEART JANUARY 2005 / ASYMPOMATIC) Coronary Artery Disease, Heart Attack, High Cholesterol, Hypertension Neurological: No Reproductive Disorders: No Sexually Transmitted Disease: No HIV/AIDS: No Genitourinary: Yes Prostate Problems, Kidney Stones, UTI-Chronic Gastrointestinal: Yes (2 ABD HERNIAS) Gastroesophageal Reflux, Gastrointestinal Bleed, Obstructive Bowel, Ulcer, Gall Bladder Disease Musculoskeletal: Yes (ARTHRITIS IN FINGERS AND KNEES, HIP PAIN) Arthritis, Chronic Back Pain Endocrine: No HEENT: No Loss of Vision: Bilateral Hearing Impairment: Denies Cancer: Yes (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, HEAD SPOTS) Prostate, Skin What Type of Treatment Did You: Chemotherapy, Radiation, Surgical Intervention Psychosocial: No 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 0.0oz. [id number]; 23.00 BMI Method:Stated General Appearance: No Apparent Distress, WD/WN Eyes: Bilateral Eye Normal Inspection, Bilateral Eye PERRL, Bilateral Eye EOMI HEENT: Pharynx Normal, TM Abnormal (L) (slightly erythematous and retracted; right TM normal) Neck: Normal Inspection, Non Tender, Supple Respiratory: Lungs Clear, Normal Breath Sounds, No Accessory Muscle Use, No Respiratory Distress Cardiovascular: Regular Rate, Rhythm, Normal Peripheral Pulses Gastrointestinal: Normal Bowel Sounds, Non Tender, Soft Extremity: Normal Capillary Refill, Normal Inspection, Normal Range of Motion, Non Tender, No Calf Tenderness, No Pedal Edema Neurologic/Psychiatric: Alert, Oriented x3, No Motor/Sensory Deficits, Normal Mood/Affect, hack driver II-XII Norm as Tested Skin: Normal Color, Warm/Dry Progress/Results/Core Measures Suspected Sepsis SIRS Temperature: Pulse: 80 Respiratory Rate: 18 Laboratory Tests 12/15/22 16:30: White Blood Count 13.0H Blood Pressure 153 /85 Mean: 107 Laboratory Tests 12/15/22 16:30: Creatinine 1.15, Platelet Count 149 Results/Orders Lab Results Laboratory Tests Test 12/15/22 16:30 12/15/22 17:04 Range/Units White Blood Count 13.0 H 4.3-11.0 10^3/uL Red Blood Count 4.07 L 4.30-5.52 10^6/uL Hemoglobin 12.4 L 13.3-17.7 g/dL Hematocrit 37 L 40-54 % Mean Corpuscular Volume 90 80-99 fL Mean Corpuscular Hemoglobin 31 25-34 pg Mean Corpuscular Hemoglobin Concent 34 32-36 g/dL Red Cell Distribution Width 13.6 10.0-14.5 % Platelet Count 149 130-400 10^3/uL Mean Platelet Volume 9.4 9.0-12.2 fL Immature Granulocyte % (Auto) 0 % Neutrophils (%) (Auto) 80 H 42-75 % Lymphocytes (%) (Auto) 11 L 12-44 % Monocytes (%) (Auto) 8 0-12 % Eosinophils (%) (Auto) 0 0-10 % Basophils (%) (Auto) 0 0-10 % Neutrophils # (Auto) 10.4 H 1.8-7.8 10^3/uL Lymphocytes # (Auto) 1.4 1.0-4.0 10^3/uL Monocytes # (Auto) 1.1 H 0.0-1.0 10^3/uL Eosinophils # (Auto) 0.0 0.0-0.3 10^3/uL Basophils # (Auto) 0.0 0.0-0.1 10^3/uL Immature Granulocyte # (Auto) 0.1 0.0-0.1 10^3/uL Sodium Level 136 135-145 MMOL/L Potassium Level 3.4 L 3.6-5.0 MMOL/L Chloride Level 102 98-107 MMOL/L Carbon Dioxide Level 26 21-32 MMOL/L Anion Gap 8 5-14 MMOL/L Blood Urea Nitrogen 15 7-18 MG/DL Creatinine 1.15 0.60-1.30 MG/DL Estimat Glomerular Filtration Rate 62 BUN/Creatinine Ratio 13 Glucose Level 141 H 70-105 MG/DL Calcium Level 9.8 8.5-10.1 MG/DL C-Reactive Protein High Sensitivity 29.13 H 0.00-0.50 MG/DL Urine Color YELLOW Urine Clarity CLOUDY Urine pH 6.0 5-9 Urine Specific [place] 1.010 L 1.016-1.022 Urine Protein 1+ H NEGATIVE Urine Glucose (UA) NEGATIVE NEGATIVE Urine Ketones NEGATIVE NEGATIVE Urine Nitrite NEGATIVE NEGATIVE Urine Bilirubin NEGATIVE NEGATIVE Urine Urobilinogen 0.2 < = 1.0 MG/DL Urine Leukocyte Esterase 3+ H NEGATIVE Urine RBC (Auto) 2+ H NEGATIVE Urine RBC 10-25 H /HPF Urine WBC TNTC H /HPF Urine Squamous Epithelial Cells NONE /HPF Urine Crystals NONE /LPF Urine Bacteria FEW H /HPF Urine Casts NONE /LPF Urine Mucus NEGATIVE /LPF Urine Culture Indicated YES My Orders Orders - REESE DESAI MD Ed Iv/Invasive Line Start (12/15/22 16:48) Cbc With Automated Diff (12/15/22 16:48) Hs C Reactive Protein (12/15/22 16:48) Basic Metabolic Panel (12/15/22 16:48) Ua Culture If Indicated (12/15/22 16:48) Ekg Tracing (12/15/22 16:48) Ns Iv 500 Ml (Sodium Chloride 0.9%) (12/15/22 17:00) Urine Culture (12/15/22 17:04) Medications Given in ED Current Medications Medications Dose Ordered Sig/Nate Route Start Time Stop Time Status Last Admin Dose Admin Sodium Chloride 500 ml @ 999 mls/hr Q31M ONCE IV 12/15/22 17:00 12/15/22 17:30 DC 12/15/22 17:40 999 MLS/HR Vital Signs/I&O 12/15/22 16:24 Temp 36.7 Pulse 80 Resp 18 B/P (MAP) 153/85 (107) Pulse Ox 98 O2 Delivery Room Air Capillary Refill : Less Than 3 Seconds Blood Pressure Mean: 107 ECG Initial ECG Impression Date: Dec 15, 2022 Initial ECG Impression Time: 16:30 Initial ECG Rate: 74 Initial ECG Rhythm: Normal Sinus Initial ECG Intervals: Normal Initial ECG Impression: Normal Departure Impression Primary Impression: UTI (urinary tract infection) Qualified Codes: N30.01 - Acute cystitis with hematuria Disposition: HOME, SELF-CARE Condition: Stable Departure-Patient Inst. Decision time for Depature: 18:03 Referrals: FRANKLIN FRANCO MD (PCP/Family) Primary Care Physician Add. Discharge Instructions: Drink plenty of fluids to stay well-hydrated over the next couple of days. Take the antibiotics twice daily with food as directed for the next week. Please call Dr. Franco's office in the morning for a follow-up appointment by the end of the week or early next week. If you find that you are getting weaker, if you develop a fever or vomiting please return to the emergency room for reevaluation. You should take an shod-owy-xketiov probiotic while you are taking Augmentin. Scripts Amoxicillin/Potassium Clav (Amox Tr-K Clv 875-125 mg Tab) 875 Mg-125 Mg Tablet 1 EACH PO BID, #14 TAB Prov: REESE DESAI MD 12/15/22 Copy Copies To 1: FRANKLIN FRANCO MD, KATHRYN M MD Dec 15, 2022 17:02
[2022-12-15 17:05] LABS: CREATININE SERUM 1.15 MG/DL (0.60-1.30)
[2022-12-15 17:07] LABS: BILIRUBIN,URINE NEGATIVE (NEGATIVE); CLARITY,URINE CLOUDY; COLOR,URINE YELLOW; GLUCOSE, URINE (UA) NEGATIVE (NEGATIVE); KETONES,URINE NEGATIVE (NEGATIVE); LEUKOCYTE ESTERASE ,URINE 3+ (NEGATIVE); NITRITE,URINE NEGATIVE (NEGATIVE); PROTEIN,URINE 1+ (NEGATIVE)
[2022-12-15 17:25] LABS: BACTERIA,URINE FEW /HPF; WBC,URINE TNTC /HPF
[2022-12-15] MEDS ORDERED: AUGMENTIN 875 MG TAB (AMOXICILLIN/CLAVULANATE) PO STA (18:02)
[2022-12-15] MEDS ORDERED: AMOX1TAB12 PO (18:04)
[2022-12-15 18:28] VITALS: BP 153/85
== END 2022-12-15 18:28 | disposition home or self-care (01) ==
LOC: EDUNIT# 16:19 → ER 16:20
DX: N39.0 Urinary tract infection, site not specified (principal); Z88.1 Allergy status to other antibiotic agents
CPT/HCPCS: 36415; 80048; 81000; 85025; 86141; 87088; 93005

== ENCOUNTER 2023-01-04 09:53 | Outpatient (RCR) | payer MEDICARE, OTHER ==
[~2023-01-04 09:53] MED LIST changes: +AMOX1TAB12 PO
[2023-01-04] MEDS ORDERED: LEUPROLIDE 22.5 MG SYRINGE (ELIGARD) SQ SCH (11:15)
== END 2023-01-08 | disposition home or self-care (01) ==
LOC: ONC 09:53
PROVIDERS: ATTEND Internal Medicine Hematology & Oncology
DX: C61 Malignant neoplasm of prostate (principal); C34.90 Malignant neoplasm of unspecified part of unspecified bronchus or lung; I25.10 Atherosclerotic heart disease of native coronary artery without angina pectoris; E78.2 Mixed hyperlipidemia; I11.0 Hypertensive heart disease with heart failure; I50.9 Heart failure, unspecified
CPT/HCPCS: 84153; 96402

== ENCOUNTER → 2023-01-28 | Outpatient (CLI) | payer MEDICARE, OTHER ==
[~2023-01-28] MED LIST changes: +HOLD METFORMIN - RECEIVED CONTRAST 20 ML VIAL IV SCH; +IOHEXOL 350 MG/ML 100 ML (OMNIPAQUE 350) VIAL IV ONE; +NS 100 ML (IVPB) BAG IV ONE
--- NOTE | 2023-01-28 14:58 | Diagnostic Imaging Report ---
PROCEDURE: CT chest, abdomen, and pelvis with contrast. TECHNIQUE: Multiple contiguous axial images were obtained through the chest, abdomen, and pelvis after the administration of intravenous contrast. Auto Exposure Controls were utilized during the CT exam to meet ALARA standards for radiation dose reduction. Date: January 28, 2023. Indication: 88-year-old male, history of prostate cancer. Evaluation for metastatic disease. Comparison: CT chest October 25, 2019. CT abdomen pelvis July 26, 2018. Findings: There is no identified pulmonary nodule or lung mass. There is very mild dependent atelectasis in the right and left lower lobes. There is no additional focal airspace consolidation. There is no pneumothorax. There is no pleural effusion. The central airways are patent. There are calcified bilateral hilar and mediastinal lymph nodes likely reflecting sequela of prior granulomatous disease. There is no identified abnormally enlarged noncalcified mediastinal, hilar, or axillary lymph node meeting CT size criteria for adenopathy. The heart is not enlarged. There is no identified pericardial effusion. There are coronary artery calcifications and additional areas of atherosclerotic disease. The liver is unremarkable in size and contour. There is no identified focal liver lesion. There is mild intrahepatic bile duct dilation bilaterally. The main, right, and left portal veins are patent. The gallbladder surgically absent. The common bile duct is not grossly dilated. The main pancreatic duct is normal in caliber. Unremarkable appearance of the pancreatic parenchyma. The spleen is normal in size. The adrenal glands are unremarkable. There is a low-attenuation right renal mass on axial image 168 which measures 3.9 cm in size. Internal attenuation is consistent with a benign cysts. There is an additional smaller benign right renal cyst on axial image 196. There is a 3 mm low-attenuation right renal lesion on the same image too small to characterize. There is a large staghorn calculus in the left urinary collecting system. There is stranding at the level of the left ureteropelvic junction. There is no additional identified ureteral stone on the left. There is mild to moderate left hydronephrosis with dilated calyces occupied by the staghorn calculus. There is no CT apparent urinary bladder wall thickening. There are surgical clips in the region of the prostate which appears to be absent. The intestinal tract is not distended. There is no evidence of acute appendicitis. There is no free intraperitoneal air. There is no drainable fluid collection. There is no free fluid in the abdomen or pelvis. There are atherosclerotic calcifications. There are subcentimeter short axis retroperitoneal lymph nodes. There are surgical clips along the right and left pelvic sidewall is likely reflecting prior lymph node dissection. There is no identified lymph node in the abdomen or pelvis specifically meeting CT size criteria for adenopathy. There are multilevel degenerative changes of the spine. There is no identified bone lesion concerning for a bone metastasis. There is no identified acute bony abnormality. There are multilevel degenerative changes of the spine. Impression: 1. No evidence of metastatic disease at the level of the chest, abdomen, or pelvis. 2. 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 Dictated by: Dictated on workstation # [id number]
== END ==
LOC: RAD 13:02
PROVIDERS: ATTEND Internal Medicine Hematology & Oncology
DX: C61 Malignant neoplasm of prostate (principal); N13.2 Hydronephrosis with renal and ureteral calculous obstruction
CPT/HCPCS: 71260; 74177

== ENCOUNTER → 2023-02-17 | Outpatient (CLI) | payer MEDICARE, OTHER ==
[~2023-02-17] MED LIST changes: -HOLD METFORMIN - RECEIVED CONTRAST 20 ML VIAL IV SCH; -IOHEXOL 350 MG/ML 100 ML (OMNIPAQUE 350) VIAL IV ONE; -KETO5DRO14 OS; +KETO5DRO20 OS; -NS 100 ML (IVPB) BAG IV ONE; -OFLO5DRO3 OS; +OFLO5DRO8 OS
--- NOTE | 2023-02-17 14:09 | Diagnostic Imaging Report ---
INDICATION: Cough. COMPARISON: 11/20/2021. FINDINGS: Frontal and lateral views of the chest demonstrate normal heart size and pulmonary vascularity. The lungs are clear. There are no signs of infiltrate, pleural effusion, or pneumothorax. The visualized osseous structures show no acute abnormalities. IMPRESSION: No acute process. No signs of infiltrate, effusion, or pneumothorax. Dictated by: Dictated on workstation # [id number]
== END ==
LOC: RAD 13:02
PROVIDERS: ATTEND Family Medicine
DX: R05.9 Cough, unspecified (principal)
CPT/HCPCS: 71046

== ENCOUNTER → 2023-03-11 | Outpatient (CLI) | payer MEDICARE, OTHER | LOC: CARD 09:05 | PROVIDERS: ATTEND Internal Medicine Cardiovascular Disease | DX: I35.1 Nonrheumatic aortic (valve) insufficiency (principal); I11.9 Hypertensive heart disease without heart failure | CPT/HCPCS: 93306 ==

== ENCOUNTER 2023-04-07 13:29 | Outpatient (RCR) | payer MEDICARE, OTHER ==
[~2023-04-07 13:29] MED LIST changes: +LEUPROLIDE 22.5 MG SYRINGE (ELIGARD) SQ SCH
[2023-04-07 13:46] LABS: BASOPHILS % (AUTO) 0 % (0-10); EOSINOPHILS # (AUTO) 0.2 10^3/uL (0.0-0.3); EOSINOPHILS % (AUTO) 4 % (0-10); HEMATOCRIT 37 % (40-54); HEMOGLOBIN 12.3 g/dL (13.3-17.7); LYMPHOCYTES # (AUTO) 1.2 X 10^3 (1.0-4.0); LYMPHOCYTES % (AUTO) 18 % (12-44); MEAN CORPUSCULAR HEMOGLOBIN 31 pg (25-34); MEAN CORPUSCULAR HGB CONC 33 g/dL (32-36); MEAN CORPUSCULAR VOLUME 94 fL (80-99); MEAN PLATELET VOLUME 9.3 fL (9.0-12.2); MONOCYTES # (AUTO) 0.6 X 10^3 (0.0-1.0); MONOCYTES % (AUTO) 9 % (0-12); NEUTROPHILS # (AUTO) 4.4 X 10^3 (1.8-7.8); NEUTROPHILS % (AUTO) 68 % (42-75); PLATELET COUNT 144 10^3/uL (130-400); WHITE BLOOD COUNT 6.4 10^3/uL (4.3-11.0)
[2023-04-07 14:05] LABS: ALBUMIN 3.8 GM/DL (3.2-4.5); BILIRUBIN,TOTAL 0.3 MG/DL (0.1-1.0); CALCIUM 9.3 MG/DL (8.5-10.1); CREATININE SERUM 1.09 MG/DL (0.60-1.30); POTASSIUM 4.1 MMOL/L (3.6-5.0); TOTAL PROTEIN 8.1 GM/DL (6.4-8.2)
== END 2023-04-09 | disposition home or self-care (01) ==
LOC: ONC 13:29
PROVIDERS: ATTEND Internal Medicine Hematology & Oncology
DX: C61 Malignant neoplasm of prostate (principal); C34.90 Malignant neoplasm of unspecified part of unspecified bronchus or lung; I25.10 Atherosclerotic heart disease of native coronary artery without angina pectoris; E78.2 Mixed hyperlipidemia; I11.0 Hypertensive heart disease with heart failure; I50.9 Heart failure, unspecified
CPT/HCPCS: 36415; 80053; 84153; 85025; 96402

== ENCOUNTER → 2023-07-14 | Outpatient (CLI) | payer MEDICARE, OTHER ==
[~2023-07-14] MED LIST changes: +HOLD METFORMIN - RECEIVED CONTRAST 20 ML VIAL IV SCH; +IOHEXOL 350 MG/ML 100 ML (OMNIPAQUE 350) VIAL IV ONE; -LEUPROLIDE 22.5 MG SYRINGE (ELIGARD) SQ SCH; +NS 100 ML (IVPB) BAG IV ONE
--- NOTE | 2023-07-14 14:07 | Diagnostic Imaging Report ---
EXAMINATION: CT chest, abdomen and pelvis with intravenous contrast. TECHNIQUE: Multiple contiguous axial images were obtained through the chest, abdomen and pelvis after the uneventful administration of intravenous contrast. All CT scans use one or more of the following dose optimizing techniques: automated exposure control, MA and/or KvP adjustment based on patient size and exam type or iterative reconstruction. HISTORY: History of prostate cancer COMPARISON: 01/28/2023. FINDINGS: Thyroid: The visualized thyroid gland is normal. Mediastinum: Heart size is normal without significant pericardial effusion. Calcifications of the aorta and coronary vessels. Thoracic aorta is normal in caliber. Calcified mediastinal and perihilar lymph nodes. No suspicious lymphadenopathy. Lungs and airways: The lungs are clear without consolidation, pleural effusion, or pneumothorax. No suspicious pulmonary lesion. The airways are normal. Solid organs: The liver is normal without focal lesion. The gallbladder is surgically absent. Minimal biliary ductal dilatation, unchanged. Pancreas is normal. Spleen is normal. Adrenal glands are normal. There is a staghorn type calculus within the left kidney. There is a prominent right renal cyst which requires no followup. No significant hydronephrosis. Bowel: The stomach and small bowel are normal without obstruction. The colon is normal. The appendix is normal. Peritoneum: There is no intraperitoneal free fluid or free air. No suspicious lymphadenopathy. Vasculature: Calcification of the aorta without aneurysm. Musculoskeletal: Degenerative changes of the spine without suspicious osseous lesion or compression fracture. Pelvis: The prostate gland is surgically absent. No suspicious lesion or soft tissue tissue nodularity within the prostatectomy bed. The urinary bladder is normal. IMPRESSION: 1. No findings of metastatic disease within the chest, abdomen, or pelvis. Dictated by: Dictated on workstation # [id number]
== END ==
LOC: RAD 13:18
PROVIDERS: ATTEND Internal Medicine Hematology & Oncology
DX: Z85.46 Personal history of malignant neoplasm of prostate (principal)
CPT/HCPCS: 71260; 74177

== ENCOUNTER → 2023-09-08 | Outpatient (CLI) | payer MEDICARE, OTHER ==
[~2023-09-08] MED LIST changes: -HOLD METFORMIN - RECEIVED CONTRAST 20 ML VIAL IV SCH; -IOHEXOL 350 MG/ML 100 ML (OMNIPAQUE 350) VIAL IV ONE; -NS 100 ML (IVPB) BAG IV ONE
--- NOTE | 2023-09-08 16:02 | Diagnostic Imaging Report ---
PROCEDURE: US Renal Bilateral. TECHNIQUE: Multiple Real-time grayscale images were obtained over the kidneys in various projections bilaterally. INDICATION: Hematuria. COMPARISON: CT abdomen from 07/14/2023. FINDINGS: Right kidney: Length (cm): 10.9 Hydronephrosis: None Cortex: Normal thickness and echogenicity Other: No shadowing stones or solid masses. There is a cyst of the superior right kidney measuring up to 5.1 cm in size. Another smaller cyst is seen at the mid kidney measuring 1.2 cm. Left kidney: Length (cm): 10.0 Hydronephrosis: None Cortex: Normal thickness and echogenicity Other: There is marked echogenicity and shadowing throughout the left renal pelvis, consistent with a staghorn calculus. There is a questionable isoechoic lesion at the inferior left kidney measuring up to 2.4 cm. When compared to the prior CT, this appears to represent a lobulation of the cortex. Bladder: Prevoid volume (mL): 438 Post void volume is 58 mL Ureteral jets: Bilateral ureteral jets are seen Other: No filling defects or mass seen. IMPRESSION: 1. Marked echogenicity and shadowing in the left renal pelvis, consistent with a staghorn calculus seen on the prior CT. No hydronephrosis is seen bilaterally. 2. Right renal cysts with the largest measuring 5.1 cm. Dictated by: Dictated on workstation # [id number]
== END ==
LOC: RAD 10:10
PROVIDERS: ATTEND Specialist
DX: N28.1 Cyst of kidney, acquired (principal)
CPT/HCPCS: 76770